=== PATIENT | male | born 1950 | race Caucasian/White ===

== ENCOUNTER 2020-06-02 15:36 | Inpatient (IN) | payer MEDICARE, MEDICAID, SELFPAY ==
[2020-06-02] VITALS (20 sets, daily range): BP systolic 74–134; BP diastolic 42–89; PULSE 70–101; RESP 14–18; TEMP 37.7–38.5; O2SAT 90–99; BMI 23.6
--- NOTE | 2020-06-02 16:23 | XR_ITS ---
EXAMINATION: XR CHEST CLINICAL INFORMATION: Fever COMPARISON: Chest x-ray 10/13/2019 TECHNIQUE: Frontal view of the chest was obtained. FINDINGS: Cardiac silhouette is normal in size. Lungs are well aerated. There is mild central bronchial wall thickening in addition to prominence of the central pulmonary vasculature. No gross lobar consolidation. No pleural effusion or pneumothorax. IMPRESSION: Radiographic findings most suggestive of mild vascular congestion although a viral infiltrate is also within the differential. Clinical correlation recommended. Follow-up imaging recommended status post treatment to ensure resolution.
--- NOTE | 2020-06-02 16:23 | CT_ITS ---
EXAM: Noncontrast CT scan of the head and cervical spine. INDICATION: Fall. Altered mental status. COMPARISON: CT head/cervical spine 12/26/2017 TECHNIQUE: Axial slices were obtained from skull base to vertex and displayed. This was followed by helical, multislice, multidetector axial images from the occiput to the upper thorax. Coronal and sagittal reformats of the cervical spine in addition to coronal reformats of the head were obtained at the technologist workstation. DLP: 1210 mGy-cm FINDINGS: HEAD: There is no evidence of acute intracranial hemorrhage or territorial infarction. No abnormal mass effect or midline shift is appreciated. Bird-white differentiation is well preserved. No extra-axial fluid collections. The ventricular system and cortical sulci are normal in size. There are mild areas of low density in the periventricular and subcortical white matter, most consistent with sequelae of microvascular ischemic change. The osseous structures and soft tissues are normal. Mild mucosal thickening of the frontal sinuses. The visualized paranasal sinuses and mastoid air cells are otherwise well aerated. SPINE: Normal alignment of the cervical spine. Normal C1/C2 articulation. Vertebral body heights are maintained. Disc spaces demonstrate mild narrowing from C3/C4 through C6/C7. Prominent anterior osteophytes are also noted at the levels. There is mild to moderate diffuse facet hypertrophy. No prevertebral soft tissue swelling. Visualized portions of the superior mediastinum and lung apices are unremarkable. IMPRESSION: 1. No acute intracranial pathology. 2. No fractures or dislocations of the cervical spine. This CT examination was performed using dose optimization techniques as appropriate, variously including the following: *Automated exposure control *Adjustment of mA and/or kV according to patient size (this includes techniques or standardized protocols for targeted exams where dose is matched to indication/reason for exam; i.e. extremities or head) *Use of iterative reconstruction technique
--- NOTE | 2020-06-02 16:23 | ECG_ITS ---
Test Reason : EDMD Blood Pressure : / mmHG Vent. Rate : 085 BPM Atrial Rate : 085 BPM P-R Int : 160 ms QRS Dur : 086 ms QT Int : 366 ms P-R-T Axes : 042 -02 046 degrees QTc Int : 435 ms Normal sinus rhythm Normal ECG When compared with ECG of 13-OCT-2019 21:30, No significant change was found Referred By: Marlene De Leon Electronically Signed By:AFSANEH SALMON MD
[2020-06-02 16:40] LABS: Basophils Absolute Auto 0.1 X10*3/uL (0.0-0.2); Basophils Percent Auto 0.2 % (0-2); Hematocrit 43.3 % (42-52); Hemoglobin 14.2 g/dl (14.0-18.0); Imm Gran Abs Auto 0.33 X10*3/uL (0.00-0.03); Imm Gran Pct Auto 1.2 % (0.0-0.4); Lymphocytes Percent Auto 3.7 % (20-40); MANUAL DIFF FLAG SCAN; Mean Corpuscular HGB Conc 32.8 g/dl (31.0-36.0); Mean Corpuscular Hemoglobin 30.5 pg (27.0-33.0); Mean Corpuscular Volume 92.9 fL (80-98); Mean Platelet Volume 11.7 fL (9.4-12.4); Monocytes Absolute Auto 2.7 X10*3/uL (0.1-1.2); Monocytes Percent Auto 9.6 % (2-11); Neutrophils Absolute Auto 23.6 X10*3/uL (2.0-8.3); Neutrophils Percent Auto 85.3 % (45-73); Platelet Count 174 X10*3/uL (160-400); Red Blood Count 4.66 X10*6/uL (4.60-5.80); Red Cell Distribution Width 12.3 % (11.0-16.0); SCAN SMEAR FLAG 1; White Blood Count 27.7 X10*3/uL (4.8-10.8)
--- NOTE | 2020-06-02 16:41 | ED.GENADULT ---
HPI - General Adult General Chief complaint: Fall Stated complaint: fall Time Seen by Provider: 06/02/20 16:15 Source: EMS, RN notes reviewed and old records reviewed Mode of arrival: EMS Limitations: altered mental status History of Present Illness HPI narrative: 69-year-old male with a past medical history of high cholesterol, hypothyroidism, GERD, anemia, BPH, epilepsy, congestive heart failure, spondylosis, hearing loss, IBS, paranoid schizophrenia, dysphagia, CKD here with fall. Per staff the patient was found down in the bathroom. He had an unwitnessed fall. Per staff the floor was wet beneath him. The patient was unable to provide history as to what happened. Unknown how long he was on the ground. When staff was checking him they noted him to be febrile and tachycardic. EMS was called and the patient was brought here. Pt is a full code and has a conservator. Onset (ago): hour(s) Radiation: non-radiation Treatments prior to arrival: none Related Data Home Medications Medication Instructions Recorded Confirmed chlordiazepoxide 5 mg PO BID 06/02/20 06/02/20 chlorhexidine gluconate [Hibiclens] 1 applic TOPICAL DAILY 06/02/20 06/02/20 clotrimazole [Lotrimin AF 1 applic TOPICAL BID 06/02/20 06/02/20 (clotrimazole)] docusate sodium 100 mg PO DAILY 06/02/20 06/02/20 fentanyl 1 patch TRANSDERMAL Q72H 06/02/20 06/02/20 ferrous sulfate 325 mg PO BID 06/02/20 06/02/20 furosemide 20 mg PO Q OTHER DAY 06/02/20 06/02/20 lactulose 60 ml PO DAILY 06/02/20 06/02/20 levetiracetam 1,000 mg PO QAM 06/02/20 06/02/20 levetiracetam 1,500 mg PO BEDTIME 06/02/20 06/02/20 levetiracetam 750 mg PO QNOON 06/02/20 06/02/20 levothyroxine 150 mcg PO DAILY 06/02/20 06/02/20 multivitamin 1 tab PO DAILY 06/02/20 06/02/20 mupirocin 1 applic TOPICAL BID 06/02/20 06/02/20 omeprazole 40 mg PO BID 06/02/20 06/02/20 oxycodone-acetaminophen 1 tab PO TID 06/02/20 06/02/20 polyethylene glycol 3350 [Miralax] 17 g PO DAILY 06/02/20 06/02/20 risperidone 2 mg PO BID 06/02/20 06/02/20 simvastatin 10 mg PO QPM 06/02/20 06/02/20 Allergies Allergy/AdvReac Type Severity Reaction Status Date / Time No Known Allergies Allergy Verified 06/02/20 16:15 [No Known Allergies*] Review of Systems Review of Systems: Yes Unobtainable due to mental status (confusion, history provided by staff at long-term) Constitutional: Constitutional: Reports no additional constitutional complaints, Denies body ache(s), Denies chills, Reports fever(s), Denies headache(s) and Denies weakness Eyes: Eyes: Reports no additional eye complaints and Denies change in vision ENT: Reports system reviewed and no additional complaints, except as documented, Denies dizziness, Denies headache(s), Denies nasal congestion, Denies nasal discharge and Denies neck pain Cardiovascular: Cardiovascular: Reports no additional cardiovascular complaints, Denies chest pain, Denies leg edema and Denies dyspnea Respiratory: Respiratory: Reports no additional respiratory complaints, Denies cough and Denies dyspnea Gastrointestinal: Gastrointestinal: Reports no additional gastrointestinal complaints, Denies abdominal pain, Denies diarrhea, Denies nausea and Denies vomiting Genitourinary: Genitourinary: Denies urinary incontinence Musculoskeletal: Musculoskeletal: Reports no additional musculoskeletal complaints, Denies back pain, Denies arthralgias, Denies joint swelling, Denies neck pain, Denies numbness and Denies tingling Integumentary/Breasts: Skin/Breast: Reports system reviewed and no additional complaints, except as docu and Denies rash Neurologic: Reports system reviewed and no additional complaints, except as documented, Denies Abnormal speech present, Reports confusion, Denies dizziness, Denies headache(s), Denies numbness, Denies tingling and Denies weakness Psychiatric: Psychiatric: Reports confusion PMFSH Past Medical History Attestation statement: The following information was validated with the patient. Source: old records reviewed and nursing notes reviewed Medical History Anemia CHF (congestive heart failure) Chronic GERD Chronic kidney disease (CKD) Hyperlipidemia Hypothyroidism Orofacial dystonia Prostate asymmetry Schizophrenia Social History Social History Alcohol intake: never Smoking Status: Never smoker Use of substances other than those prescribed or required for medical reasons: No Advance Directives: No Advance Directives Information Provided: No Physical Exam Vital Signs: Vital Signs: Vital Signs Temp Pulse Resp BP Pulse Ox 06/02/20 20:23 100.2 F 72 16 93/42 L 97 06/02/20 20:03 80 102/45 L 06/02/20 19:46 99.9 F 84 16 95/59 L 99 06/02/20 19:24 78 06/02/20 19:19 100.2 F 17 L 14 90/56 L 96 06/02/20 18:51 100.2 F 78 14 92/49 L 99 06/02/20 17:48 100.2 F 83 16 105/55 L 96 06/02/20 17:23 100.9 F H 98 18 104/56 L 94 06/02/20 16:56 99 16 93/48 L 06/02/20 15:54 101.3 F H 98 18 89/48 L 92 Body Mass Index 23.6 Const: General: alert, anxious, combative and confusion Orientation/consciousness: confusion Limitations: no limitations HENMT: Head: Yes normal to inspection Ears: hearing grossly normal bilaterally General nose exam: Normal external nose present Face and sinus: Yes normal facial exam Mouth: Normal oral and palatal mucosa present Throat: Yes posterior oropharynx normal Eyes: General: appearance normal, both eyes and all related structures Pupils: Equal, round and reactive pupils present Neck: Neck: Yes normal visual inspection Chest: Chest palpation & inspection: normal inspection of the chest Resp: Effort & Inspection: normal respiratory effort Auscultation: clear to auscultation bilaterally Cardio: Rate: tachycardic (125) Rhythm: regular rhythm Peripheral pulses: Peripheral pulses 2+ throughout GI: Inspection: Yes normal to inspection Palpation (GI): Soft to palpation and nontender Auscultation: normal bowel sounds Back/Spine/Pelvis: Thoracic/Lumbar Spine: thoracic and lumbar spine normal to inspection Pelvis: no pain with anterior-posterior compression and no pain with lateral compression Skin: General skin exam: no rashes or lesions noted Neuro: Other: non-verbal, combative, limited exam d/t patient kicking/punching General: no focal motor deficits, normal sensation to monofilament, confusion and Unable to assess gait Cranial nerves: Yes Equal, round and reactive pupils present Cognition (Neuro): abnormal cognition Speech: No Abnormal speech present Gait exam (Neuro): Unable to assess gait Motor exam (neuro): 5/5 motor strength present throughout Sensory Exam: Normal double simultaneous stimulation for sensation Pupils: Pinpoint: right and left Extrem: General: Yes normal to inspection Course Course Course Narrative: 69-year-old male here from a long-term with unwitnessed fall. On assessment there noted to be febrile, tachycardic with more agitation then baseline. Per staff patient is nonverbal at baseline and has confusion at baseline. on arrival here the patient is febrile and tachycardic. He is combative and is difficult to do an exam on him. He has no obvious injuries noted. Will need labs including blood cultures lactic acid, viral panel, chest x-ray, UA, EKG, CT head and neck. 1829- chest x-ray shows some mild vascular congestion with possibly a viral infiltrate. COVID testing today was negative. additional respiratory panel pending. Labs show a leukocytosis of 27.7. Chemistries unremarkable. UA negative. CT head and neck negative. With fever, tachycardia and leukocytosis there is likely an underlying infectious process however at this time undetermined cause. May be viral pneumonia or syndrome. However cannot completely rule out underlying bacterial process. Antibiotics ordered until additional testing is completed. CT chest, CT abdomen and pelvis ordered and pending. 194-Soft BP noted during stay with current blood pressure 94/39. Fentanyl patch found by nursing and removed. 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 Will give additional NS bolus. Based on weight 83kg patient should receive 30ml/kg of NS with total 2520. Patient's mental status unchanged. Elias placed by nursing and 150ml output. Likely dry and will benefit from additional fluid resuc. 2100-Sign out to Elise GUERRERO pending imaging, further eval and possible LP. Medical Decision Making MDM Narrative Medical decision making narrative: Considered syncope, tachycarrythmia, ICH, contusion, cervical fracture, anemia, electrolyte abnormality, underlying infectious pathology (UTI/PNA/viral syndrome). Lab Data Result diagrams: 06/02/20 16:32 06/02/20 16:32 Labs: Lab Results 06/02/20 06/02/20 06/02/20 Range/Units 16:32 16:32 16:32 WBC 27.7 H (4.8-10.8) X10*3/uL RBC 4.66 (4.60-5.80) X10*6/uL Hgb 14.2 (14.0-18.0) g/dl Hct 43.3 (42-52) % MCV 92.9 (80-98) fL MCH 30.5 (27.0-33.0) pg MCHC 32.8 (31.0-36.0) g/dl RDW 12.3 (11.0-16.0) % Plt Count 174 (160-400) X10*3/uL MPV 11.7 (9.4-12.4) fL Immature Gran % (Auto) 1.2 H (0.0-0.4) % Neut % (Auto) 85.3 H (45-73) % Lymph % (Auto) 3.7 L (20-40) % [place] % (Auto) 9.6 (2-11) % Eos % (Auto) 0.0 (0-4) % Baso % (Auto) 0.2 (0-2) % Lymph # (Auto) 1.0 L (1.2-4.9) X10*3/uL [place] # (Auto) 2.7 H (0.1-1.2) X10*3/uL Eos # (Auto) 0.0 (0.0-0.4) X10*3/uL Baso # (Auto) 0.1 (0.0-0.2) X10*3/uL Abs Immat Gran (auto) 0.33 H (0.00-0.03) X10*3/uL Absolute Neuts (auto) 23.6 H (2.0-8.3) X10*3/uL Absolute Nucleated RBC 0.000 (0.0-0.012) X10*3/uL Nucleated RBC % (auto) 0.0 (0.0-0.2) /100WBC Smear Tech's Comments VERIFIED PT 17.0 H (10.8-13.0) SEC INR 1.4 H (0.9-1.1) Sodium (135-145) mmol/L Potassium (3.3-5.1) mmol/l Chloride (96-108) mmol/L Carbon Dioxide (22-29) mmol/L Anion Gap (12-20) BUN (9-16) mg/dL Creatinine (0.5-1.4) mg/dL Estim Creat Clear Calc Estimated GFR Random Glucose (60-115) mg/dL Lactic Acid (0.5-2.0) mmol/L Calcium (8.4-10.2) mg/dL Magnesium (1.6-2.6) mg/dL Total Bilirubin (0.0-1.0) mg/dL Direct Bilirubin (0.0-0.5) mg/dL AST (5-37) U/L ALT (0-40) U/L Alkaline Phosphatase (39-117) U/L Total Creatine Kinase 186 H (38-174) U/L Troponin I High Sens (<3.5-35.0) ng/L Total Protein (6.5-8.0) g/dL Albumin (3.5-5.0) g/dL Lipase (8-78) U/L Urine Color Urine Appearance Urine pH (5.0-8.0) Ur Specific [place] (1.005-1.025) Urine Protein (NEG-TRACE) MG/DL Urine Glucose (UA) (NEG) MG/DL Urine Ketones (NEG) MG/DL Urine Blood (NEG) Urine Nitrite (NEG) Ur Leukocyte Esterase (NEG) Urine RBC (0) /HPF Urine WBC (0-4) /HPF Ur Squamous Epith Cells /LPF Urine Bacteria /LPF Coronavirus (PCR) (Negative) 06/02/20 06/02/20 06/02/20 Range/Units 16:32 16:32 16:41 WBC (4.8-10.8) X10*3/uL RBC (4.60-5.80) X10*6/uL Hgb (14.0-18.0) g/dl Hct (42-52) % MCV (80-98) fL MCH (27.0-33.0) pg MCHC (31.0-36.0) g/dl RDW (11.0-16.0) % Plt Count (160-400) X10*3/uL MPV (9.4-12.4) fL Immature Gran % (Auto) (0.0-0.4) % Neut % (Auto) (45-73) % Lymph % (Auto) (20-40) % [place] % (Auto) (2-11) % Eos % (Auto) (0-4) % Baso % (Auto) (0-2) % Lymph # (Auto) (1.2-4.9) X10*3/uL [place] # (Auto) (0.1-1.2) X10*3/uL Eos # (Auto) (0.0-0.4) X10*3/uL Baso # (Auto) (0.0-0.2) X10*3/uL Abs Immat Gran (auto) (0.00-0.03) X10*3/uL Absolute Neuts (auto) (2.0-8.3) X10*3/uL Absolute Nucleated RBC (0.0-0.012) X10*3/uL Nucleated RBC % (auto) (0.0-0.2) /100WBC Smear Tech's Comments PT (10.8-13.0) SEC INR (0.9-1.1) Sodium 137 (135-145) mmol/L Potassium 4.0 (3.3-5.1) mmol/l Chloride 102 (96-108) mmol/L Carbon Dioxide 26 (22-29) mmol/L Anion Gap 13 (12-20) BUN 22 H (9-16) mg/dL Creatinine 1.06 (0.5-1.4) mg/dL Estim Creat Clear Calc 77.5 Estimated GFR > 60 Random Glucose 123 H (60-115) mg/dL Lactic Acid 1.5 (0.5-2.0) mmol/L Calcium 9.0 (8.4-10.2) mg/dL Magnesium 1.6 (1.6-2.6) mg/dL Total Bilirubin 1.3 H (0.0-1.0) mg/dL Direct Bilirubin 0.6 H (0.0-0.5) mg/dL AST 26 (5-37) U/L ALT 21 (0-40) U/L Alkaline Phosphatase 79 (39-117) U/L Total Creatine Kinase (38-174) U/L Troponin I High Sens 8.9 (<3.5-35.0) ng/L Total Protein 6.2 L (6.5-8.0) g/dL Albumin 3.7 (3.5-5.0) g/dL Lipase 11 (8-78) U/L Urine Color Urine Appearance Urine pH (5.0-8.0) Ur Specific [place] (1.005-1.025) Urine Protein (NEG-TRACE) MG/DL Urine Glucose (UA) (NEG) MG/DL Urine Ketones (NEG) MG/DL Urine Blood (NEG) Urine Nitrite (NEG) Ur Leukocyte Esterase (NEG) Urine RBC (0) /HPF Urine WBC (0-4) /HPF Ur Squamous Epith Cells /LPF Urine Bacteria /LPF Coronavirus (PCR) (Negative) 06/02/20 06/02/20 Range/Units 16:41 18:17 WBC (4.8-10.8) X10*3/uL RBC (4.60-5.80) X10*6/uL Hgb (14.0-18.0) g/dl Hct (42-52) % MCV (80-98) fL MCH (27.0-33.0) pg MCHC (31.0-36.0) g/dl RDW (11.0-16.0) % Plt Count (160-400) X10*3/uL MPV (9.4-12.4) fL Immature Gran % (Auto) (0.0-0.4) % Neut % (Auto) (45-73) % Lymph % (Auto) (20-40) % [place] % (Auto) (2-11) % Eos % (Auto) (0-4) % Baso % (Auto) (0-2) % Lymph # (Auto) (1.2-4.9) X10*3/uL [place] # (Auto) (0.1-1.2) X10*3/uL Eos # (Auto) (0.0-0.4) X10*3/uL Baso # (Auto) (0.0-0.2) X10*3/uL Abs Immat Gran (auto) (0.00-0.03) X10*3/uL Absolute Neuts (auto) (2.0-8.3) X10*3/uL Absolute Nucleated RBC (0.0-0.012) X10*3/uL Nucleated RBC % (auto) (0.0-0.2) /100WBC Smear Tech's Comments PT (10.8-13.0) SEC INR (0.9-1.1) Sodium (135-145) mmol/L Potassium (3.3-5.1) mmol/l Chloride (96-108) mmol/L Carbon Dioxide (22-29) mmol/L Anion Gap (12-20) BUN (9-16) mg/dL Creatinine (0.5-1.4) mg/dL Estim Creat Clear Calc Estimated GFR Random Glucose (60-115) mg/dL Lactic Acid (0.5-2.0) mmol/L Calcium (8.4-10.2) mg/dL Magnesium (1.6-2.6) mg/dL Total Bilirubin (0.0-1.0) mg/dL Direct Bilirubin (0.0-0.5) mg/dL AST (5-37) U/L ALT (0-40) U/L Alkaline Phosphatase (39-117) U/L Total Creatine Kinase (38-174) U/L Troponin I High Sens (<3.5-35.0) ng/L Total Protein (6.5-8.0) g/dL Albumin (3.5-5.0) g/dL Lipase (8-78) U/L Urine Color YELLOW Urine Appearance HAZY Urine pH 5.5 (5.0-8.0) Ur Specific [place] 1.015 (1.005-1.025) Urine Protein NEG (NEG-TRACE) MG/DL Urine Glucose (UA) NEG (NEG) MG/DL Urine Ketones NEG (NEG) MG/DL Urine Blood 1+ H (NEG) Urine Nitrite NEG (NEG) Ur Leukocyte Esterase 1+ H (NEG) Urine RBC 0 (0) /HPF Urine WBC 5-9 H (0-4) /HPF Ur Squamous Epith Cells 1+ /LPF Urine Bacteria 1+ /LPF Coronavirus (PCR) NEGATIVE (Negative) Imaging Data Chest x-ray: Attestation: I personally reviewed and interpreted this imaging study as follows: My impression: ?vascular congestion vs viral infiltrate Radiologist's impression: EXAMINATION: XR CHEST CLINICAL INFORMATION: Fever COMPARISON: Chest x-ray 10/13/2019 TECHNIQUE: Frontal view of the chest was obtained. FINDINGS: Cardiac silhouette is normal in size. Lungs are well aerated. There is mild central bronchial wall thickening in addition to prominence of the central pulmonary vasculature. No gross lobar consolidation. No pleural effusion or pneumothorax. IMPRESSION: Radiographic findings most suggestive of mild vascular congestion although a viral infiltrate is also within the differential. Clinical correlation recommended. Follow-up imaging recommended status post treatment to ensure resolution. CT scan - head: Attestation: I personally reviewed and interpreted this imaging study as follows: My impression: Unremarkable. Radiologist's impression: IMPRESSION: 1. No acute intracranial pathology. 2. No fractures or dislocations of the cervical spine. ECG Data Attestation: I personally reviewed and interpreted this ECG as follows: Prior ECG tracings: available for review Interpretation: ent. Rate : 085 BPM Atrial Rate : 085 BPM P-R Int : 160 ms QRS Dur : 086 ms QT Int : 366 ms P-R-T Axes : 042 -02 046 degrees QTc Int : 435 ms Normal sinus rhythm Normal ECG When compared with ECG of 13-OCT-2019 21:30, No significant change was found Discharge Plan Discharge Prescriptions: No Action chlordiazepoxide 5 mg Tablet 5 mg PO BID RF: 0 multivitamin Tablet 1 tab PO DAILY RF: 0 polyethylene glycol 3350 [Miralax] 17 gram Powder In Packet 17 g PO DAILY RF: 0 simvastatin 10 mg Tablet 10 mg PO QPM RF: 0 omeprazole 40 mg Capsule,Delayed Release(Dr/Ec) 40 mg PO BID RF: 0 risperidone 2 mg Tablet 2 mg PO BID RF: 0 fentanyl 100 mcg/hr Patch 72 Hour 1 patch TRANSDERMAL Q72H RF: 0 oxycodone-acetaminophen 10-325 mg Tablet 1 tab PO TID RF: 0 ferrous sulfate 325 mg (65 mg iron) Tablet 325 mg PO BID RF: 0 levothyroxine 150 mcg Tablet 150 mcg PO DAILY RF: 0 docusate sodium 100 mg Capsule 100 mg PO DAILY RF: 0 levetiracetam 750 mg Tablet 750 mg PO QNOON RF: 0 levetiracetam 750 mg Tablet 1,500 mg PO BEDTIME RF: 0 mupirocin 2 % Ointment 1 applic TOPICAL BID RF: 0 furosemide 20 mg Tablet 20 mg PO Q OTHER DAY RF: 0 clotrimazole [Lotrimin AF (clotrimazole)] 1 % Cream 1 applic TOPICAL BID RF: 0 chlorhexidine gluconate [Hibiclens] 4 % Liquid 1 applic TOPICAL DAILY RF: 0 lactulose 10 gram/15 mL Solution 60 ml PO DAILY RF: 0 levetiracetam 1,000 mg Tablet 1,000 mg PO QAM RF: 0 Sign Out Sign Out Data: Sign Out Comment: Pending CT, possible further w/u and admit as needed Last updated by Marlene De Leon STAFF FORESTER at 06/02/20 20:54
[2020-06-02 16:45] LABS: INTERNATIONAL NORM RATIO 1.4 (0.9-1.1)
[2020-06-02 16:49] LABS: Adenovirus PCR Not Detected (Not Detect.); Bordetella parapertussis PCR Not Detected (Not Detect.); Bordetella pertussis PCR Not Detected (Not Detect.); Chlamydia pneumoniae PCR Not Detected (Not Detect.); Coronavirus 229E PCR Not Detected (Not Detect.); Coronavirus HKU1 PCR Not Detected (Not Detect.); Coronavirus NL63 PCR Not Detected (Not Detect.); Coronavirus OC43 PCR Not Detected (Not Detect.); Human metapneumovirus PCR Not Detected (Not Detect.); Influenza A PCR Not Detected (Not Detect.); Influenza B PCR Not Detected (Not Detect.); Mycoplasma pneumoniae PCR Not Detected (Not Detect.); Parainfluenza 1 PCR Not Detected (Not Detect.); Parainfluenza 2 PCR Not Detected (Not Detect.); Parainfluenza 3 PCR Not Detected (Not Detect.); Parainfluenza 4 PCR Not Detected (Not Detect.); RSV PCR Not Detected (Not Detect.); Rhino/Enterovirus PCR Not Detected (Not Detect.); SARS-CoV-2 PCR Not Detected (Not Detect.)
[2020-06-02 16:50] LABS: Glucose Urine UA NEG (NEG); Leukocyte Esterase Urine 1+ (NEG); Nitrite Urine NEG (NEG); PH 5.5 (5.0-8.0); Specific Gravity - Urine 1.015 (1.005-1.025); Urine Blood 1+ (NEG); Urine Ketones NEG (NEG); Urine Protein NEG (NEG-TRACE)
--- NOTE | 2020-06-02 16:54 | PC.NURSE ---
CALLED [facility] SPOKE WITH NURSING STAFF AND SUP PT DOES NOT HAVE A MASS MOLST ON FILE CHART NOTES PT IS A FULL CODE ALEE ELISE IS AWARE
[2020-06-02 16:55] LABS: Appearance Urine HAZY; Color Urine YELLOW
[2020-06-02 16:59] LABS: Bacteria Urine 1+ /LPF; RBC Urine 0 /HPF (0); Squamous Epithelial Cell Urine 1+ /LPF
[2020-06-02] MEDS: 0.9 % Sodium Chloride 1,000 ML 999 ML IV ×2 (17:00→19:18)
[2020-06-02 17:01] LABS: SLIDE REVIEW VERIFIED
[2020-06-02 17:04] LABS: Lactic Acid 1.5 mmol/L (0.5-2.0)
[2020-06-02 17:10] LABS: Alanine Aminotransferase 21 U/L (0-40); Albumin Level 3.7 g/dL (3.5-5.0); Alkaline Phosphatase 79 U/L (39-117); Anion Gap 13 (12-20); Aspartate Amino Transferase 26 U/L (5-37); Bilirubin Direct 0.6 mg/dL (0.0-0.5); Bilirubin Total 1.3 mg/dL (0.0-1.0); Blood Urea Nitrogen 22 mg/dL (9-16); Carbon Dioxide 26 mmol/L (22-29); Chloride 102 mmol/L (96-108); Creatinine Clr Calc Pharmacy 77.5; Estimated Glomerular Filt Rate > 60; Glucose Random 123 mg/dL (60-115); Lipase 11 U/L (8-78); Magnesium 1.6 mg/dL (1.6-2.6); Sodium 137 mmol/L (135-145); Total Protein 6.2 g/dL (6.5-8.0)
[2020-06-02 17:14] LABS: Troponin-I High Sensitivity 8.9 ng/L (<3.5-35.0)
--- NOTE | 2020-06-02 18:29 | CT_ITS ---
EXAMINATION: NONCONTRAST CT OF THE CHEST; CONTRAST-ENHANCED CT OF THE ABDOMEN AND PELVIS INDICATION: Fever, sepsis, altered mental status COMPARISON: Chest x-ray from earlier today TECHNIQUE: Initial noncontrast imaging of the chest was performed. 85 mL Omnipaque 350 IV contrast was been administered, and multidetector helical imaging was performed through the abdomen and pelvis. Coronal and sagittal reformatted images were created at the technologist workstation. DLP: 941 mGy-cm DOSE LOWERING TECHNIQUES: This CT examination was performed using dose optimization techniques as appropriate, variously including the following: - Automated exposure control - Adjustment of mA and/or kV according to patient size (this includes techniques or standardized protocols for targeted exams were dose is matched to indication/reason for exam; i.e. extremities or head) - Use of iterative reconstruction technique FINDINGS: Chest: Endobronchial material is present at the left mainstem bronchus bifurcation in the proximal left lower lobe airways. There is dependent opacity in the bilateral lower lobes, which could reflect of aspiration in the setting. Limited assessment for lung nodules in the setting of respiratory motion artifact. Possible trace left pleural effusion. No pneumothorax. The visualized thyroid gland is unremarkable. There are subcentimeter mediastinal lymph nodes within the range of normal variation. Cardiac size is within normal limits; no pericardial effusion. Calcification is present at the aortic arch. No axillary lymphadenopathy is present. Abdomen/Pelvis: There is intrahepatic and extrahepatic biliary ductal dilatation with the common bile duct measuring up to approximately 10 mm in diameter; this appears similar to prior study from 01/31/2015. Multiple gallstones are present; no discrete choledocholithiasis is seen. There is focal thickening at the gallbladder fundus, also present previously. Pancreas is partially atrophic. The spleen and adrenal glands are within normal limits. Bilateral nephrograms are symmetric. No hydronephrosis. No obstructing renal or ureteral calculi are present. Elias catheter is present in the partially distended urinary bladder. Focus of gas in the bladder is presumably due to recent catheter placement. The prostate gland is enlarged, measuring 6.3 cm in transverse diameter. The small and large bowel are unremarkable without evidence of obstruction or pericolonic inflammatory change. Appendix appears nondilated. No free fluid or free air is identified. There is atherosclerotic calcification along the aorta and iliac arteries. No retroperitoneal or pelvic lymphadenopathy is seen. There is severe degenerative change in the lower lumbar spine. IMPRESSION: 1. Endobronchial material in the left mainstem bronchus bifurcation and proximal left lower lobe airways. There is also dependent opacity in the bilateral lung bases, raising suspicion for aspiration. 2. Intrahepatic and extrahepatic biliary ductal dilatation, similar to 01/31/2015. This could be further assessed with MRI/MRCP or ERCP. Cholelithiasis is also redemonstrated. 3. Focal thickening at the gallbladder fundus is again noted, which could reflect adenomyomatosis or polyp. 4. Enlarged prostate gland.
[2020-06-02] MEDS: cefTRIAXone sodium 1 GM in 0.9 % Sodium Chloride 50 ML IV (18:51)
--- NOTE | 2020-06-02 19:13 | PC.NURSE ---
iv antibiotic started by this float rn, pt stable and at baseline for mentation. pt in nad, fever 100.2 core
[2020-06-02 19:15] LABS: SARS COV2 PCR INHOUSE NEGATIVE (Negative)
--- NOTE | 2020-06-02 19:28 | PC.NURSE ---
Upon arrival pt combative with care, attempting to hit/kick/scratch staff members. Pt b/l pupils dilated, fentayl patch on r shoulder from facility at 100mcg.
--- NOTE | 2020-06-02 19:46 | PC.NURSE ---
fent. patch removed as ordered by jessica haley.
[2020-06-02] MEDS: 0.9 % Sodium Chloride 500 ML 999 ML IV (20:33)
--- NOTE | 2020-06-02 22:06 | PC.NURSE ---
provider aware of bp, v/o for 1l ns
--- NOTE | 2020-06-02 22:35 | PC.NURSE ---
pt medicated per emar w/ ketamine for anxiety and agitation r/t central line placement.
--- NOTE | 2020-06-02 22:43 | XR_ITS ---
EXAMINATION: XR CHEST CLINICAL INFORMATION: Central line COMPARISON: 06/02/2020 TECHNIQUE: Frontal view of the chest was obtained. FINDINGS: Right IJ central line tip lies in the region of the distal SVC. Lung volumes are symmetric. Mild regions of patchy opacity are noted at the bilateral lung bases. No evidence of pneumothorax or significant pleural effusion. The cardiomediastinal contour is unremarkable. No acute osseous findings are seen. IMPRESSION: Right IJ central line tip in the region of the distal SVC. Mild patchy bibasilar opacities.
[2020-06-02] MEDS: iohexoL 350 MG/ML 100 ML INFUS..BTL 85 ML IV (23:49)
[2020-06-03] VITALS (54 sets, daily range): BP systolic 84–146; BP diastolic 40–84; PULSE 52–106; RESP 14–26; TEMP 37.2–39.7; O2SAT 91–98; BMI 23.2
--- NOTE | 2020-06-03 00:58 | ED_ITS ---
HPI - General Adult General Chief complaint: Fall Stated complaint: fall Time Seen by Provider: 06/02/20 16:15 Source: EMS, RN notes reviewed and old records reviewed Mode of arrival: EMS Limitations: altered mental status History of Present Illness Treatments prior to arrival: none Related Data Home Medications Medication Instructions Recorded Confirmed chlordiazepoxide 5 mg PO BID 06/02/20 06/02/20 chlorhexidine gluconate [Hibiclens] 1 applic TOPICAL DAILY 06/02/20 06/02/20 clotrimazole [Lotrimin AF 1 applic TOPICAL BID 06/02/20 06/02/20 (clotrimazole)] docusate sodium 100 mg PO DAILY 06/02/20 06/02/20 fentanyl 1 patch TRANSDERMAL Q72H 06/02/20 06/02/20 ferrous sulfate 325 mg PO BID 06/02/20 06/02/20 furosemide 20 mg PO Q OTHER DAY 06/02/20 06/02/20 lactulose 60 ml PO DAILY 06/02/20 06/02/20 levetiracetam 1,000 mg PO QAM 06/02/20 06/02/20 levetiracetam 1,500 mg PO BEDTIME 06/02/20 06/02/20 levetiracetam 750 mg PO QNOON 06/02/20 06/02/20 levothyroxine 150 mcg PO DAILY 06/02/20 06/02/20 multivitamin 1 tab PO DAILY 06/02/20 06/02/20 mupirocin 1 applic TOPICAL BID 06/02/20 06/02/20 omeprazole 40 mg PO BID 06/02/20 06/02/20 oxycodone-acetaminophen 1 tab PO TID 06/02/20 06/02/20 polyethylene glycol 3350 [Miralax] 17 g PO DAILY 06/02/20 06/02/20 risperidone 2 mg PO BID 06/02/20 06/02/20 simvastatin 10 mg PO QPM 06/02/20 06/02/20 Allergies Allergy/AdvReac Type Severity Reaction Status Date / Time No Known Allergies Allergy Verified 06/02/20 16:15 [No Known Allergies*] Review of Systems Constitutional: Constitutional: Denies headache(s) and Denies weakness ENT: Denies dizziness and Denies headache(s) Musculoskeletal: Musculoskeletal: Denies numbness and Denies tingling Neurologic: Reports system reviewed and no additional complaints, except as documented, Denies Abnormal speech present, Reports confusion, Denies dizziness, Denies headache(s), Denies numbness, Denies tingling and Denies weakness Psychiatric: Psychiatric: Reports confusion PMFSH Past Medical History Medical History Anemia CHF (congestive heart failure) Chronic GERD Chronic kidney disease (CKD) Hyperlipidemia Hypothyroidism Orofacial dystonia Prostate asymmetry Schizophrenia Social History Social History Alcohol intake: never Smoking Status: Never smoker Use of substances other than those prescribed or required for medical reasons: No Advance Directives: No Advance Directives Information Provided: No Physical Exam Vital Signs: Vital Signs: Vital Signs Temp Pulse Resp BP Pulse Ox 06/03/20 00:48 99.6 F 80 14 91/51 L 95 06/03/20 00:06 99.9 F 73 16 98/44 L 95 06/02/20 23:54 76 97/45 L 06/02/20 23:49 76 97/45 L 06/02/20 23:44 84 134/49 L 06/02/20 22:53 100.0 F 78 16 99/53 L 98 06/02/20 22:11 71 74/45 L 06/02/20 22:05 100.4 F 73 16 95/54 L 95 06/02/20 22:03 100.4 F 70 75/44 L 06/02/20 21:59 100.4 F 83 15 95/53 L 96 06/02/20 21:26 100.8 F H 72 16 93/45 L 06/02/20 21:04 100.6 F H 83 16 115/89 96 06/02/20 20:23 100.2 F 72 16 93/42 L 97 06/02/20 20:03 80 102/45 L 06/02/20 19:46 99.9 F 84 16 95/59 L 99 06/02/20 19:24 78 06/02/20 19:19 100.2 F 71 14 90/56 L 96 06/02/20 18:51 100.2 F 78 14 92/49 L 99 06/02/20 17:48 100.2 F 83 16 105/55 L 96 06/02/20 17:23 100.9 F H 98 18 104/56 L 94 06/02/20 16:56 99 16 93/48 L 06/02/20 15:54 101.3 F H 98 18 89/48 L 92 Body Mass Index 23.6 Const: General: confusion Orientation/consciousness: confusion Neuro: General: confusion Speech: No Abnormal speech present Course Course Course Narrative: I received sign-out from GOSIA De Leon, patient has been havin g a fever, white blood cell count of 27.7, lactic acid is 1.5. At the moment, it is unclear the source of the patient's infection. Patient has CT of the chest and abdomen pelvis pending. Patient's blood pressure dropped to the 70 systolic despite fluids, we will go ahead and insert a central line Procedures Central Line Placement Right IJ: Time Out Performed: Yes Patient Placed on Monitor/Pulse Ox: Yes MD Prep: mask, gown and gloves Central Line Prep: Chlorhexidine scrub Local Anesthetic: lidocaine 1% Amount of anesthesia used (mL): 5 Ultrasound Used for Placement: Yes Central Line Lumen Inserted: triple Post Procedure: sutured in place, good blood return, all ports aspirated, flushed, capped and sterile dressing applied Post Procedure X-Ray: tip of catheter in good position and no pneumothorax seen Patient Tolerated Procedure: well and no complications Complications: none Medical Decision Making MDM Narrative Medical decision making narrative: focused exam at 12:30, patient's blood pressure improved to the mid 90s systolic, heart rate 68, capillary refill less than 2 seconds I discussed the patient our finishing range feeder Dr. Borja, patient will be admitted to the ICU Lab Data Result diagrams: 06/02/20 16:32 06/02/20 16:32 Labs: Lab Results 06/02/20 06/02/20 06/02/20 Range/Units 16:32 16:32 16:32 WBC 27.7 H (4.8-10.8) X10*3/uL RBC 4.66 (4.60-5.80) X10*6/uL Hgb 14.2 (14.0-18.0) g/dl Hct 43.3 (42-52) % MCV 92.9 (80-98) fL MCH 30.5 (27.0-33.0) pg MCHC 32.8 (31.0-36.0) g/dl RDW 12.3 (11.0-16.0) % Plt Count 174 (160-400) X10*3/uL MPV 11.7 (9.4-12.4) fL Immature Gran % (Auto) 1.2 H (0.0-0.4) % Neut % (Auto) 85.3 H (45-73) % Lymph % (Auto) 3.7 L (20-40) % [place] % (Auto) 9.6 (2-11) % Eos % (Auto) 0.0 (0-4) % Baso % (Auto) 0.2 (0-2) % Lymph # (Auto) 1.0 L (1.2-4.9) X10*3/uL [place] # (Auto) 2.7 H (0.1-1.2) X10*3/uL Eos # (Auto) 0.0 (0.0-0.4) X10*3/uL Baso # (Auto) 0.1 (0.0-0.2) X10*3/uL Abs Immat Gran (auto) 0.33 H (0.00-0.03) X10*3/uL Absolute Neuts (auto) 23.6 H (2.0-8.3) X10*3/uL Absolute Nucleated RBC 0.000 (0.0-0.012) X10*3/uL Nucleated RBC % (auto) 0.0 (0.0-0.2) /100WBC Smear Tech's Comments VERIFIED PT 17.0 H (10.8-13.0) SEC INR 1.4 H (0.9-1.1) Sodium (135-145) mmol/L Potassium (3.3-5.1) mmol/l Chloride (96-108) mmol/L Carbon Dioxide (22-29) mmol/L Anion Gap (12-20) BUN (9-16) mg/dL Creatinine (0.5-1.4) mg/dL Estim Creat Clear Calc Estimated GFR Random Glucose (60-115) mg/dL Lactic Acid (0.5-2.0) mmol/L Calcium (8.4-10.2) mg/dL Magnesium (1.6-2.6) mg/dL Total Bilirubin (0.0-1.0) mg/dL Direct Bilirubin (0.0-0.5) mg/dL AST (5-37) U/L ALT (0-40) U/L Alkaline Phosphatase (39-117) U/L Total Creatine Kinase 186 H (38-174) U/L Troponin I High Sens (<3.5-35.0) ng/L Total Protein (6.5-8.0) g/dL Albumin (3.5-5.0) g/dL Lipase (8-78) U/L Urine Color Urine Appearance Urine pH (5.0-8.0) Ur Specific [place] (1.005-1.025) Urine Protein (NEG-TRACE) MG/DL Urine Glucose (UA) (NEG) MG/DL Urine Ketones (NEG) MG/DL Urine Blood (NEG) Urine Nitrite (NEG) Ur Leukocyte Esterase (NEG) Urine RBC (0) /HPF Urine WBC (0-4) /HPF Ur Squamous Epith Cells /LPF Urine Bacteria /LPF Coronavirus (PCR) (Negative) 06/02/20 06/02/20 06/02/20 Range/Units 16:32 16:32 16:41 WBC (4.8-10.8) X10*3/uL RBC (4.60-5.80) X10*6/uL Hgb (14.0-18.0) g/dl Hct (42-52) % MCV (80-98) fL MCH (27.0-33.0) pg MCHC (31.0-36.0) g/dl RDW (11.0-16.0) % Plt Count (160-400) X10*3/uL MPV (9.4-12.4) fL Immature Gran % (Auto) (0.0-0.4) % Neut % (Auto) (45-73) % Lymph % (Auto) (20-40) % [place] % (Auto) (2-11) % Eos % (Auto) (0-4) % Baso % (Auto) (0-2) % Lymph # (Auto) (1.2-4.9) X10*3/uL [place] # (Auto) (0.1-1.2) X10*3/uL Eos # (Auto) (0.0-0.4) X10*3/uL Baso # (Auto) (0.0-0.2) X10*3/uL Abs Immat Gran (auto) (0.00-0.03) X10*3/uL Absolute Neuts (auto) (2.0-8.3) X10*3/uL Absolute Nucleated RBC (0.0-0.012) X10*3/uL Nucleated RBC % (auto) (0.0-0.2) /100WBC Smear Tech's Comments PT (10.8-13.0) SEC INR (0.9-1.1) Sodium 137 (135-145) mmol/L Potassium 4.0 (3.3-5.1) mmol/l Chloride 102 (96-108) mmol/L Carbon Dioxide 26 (22-29) mmol/L Anion Gap 13 (12-20) BUN 22 H (9-16) mg/dL Creatinine 1.06 (0.5-1.4) mg/dL Estim Creat Clear Calc 77.5 Estimated GFR > 60 Random Glucose 123 H (60-115) mg/dL Lactic Acid 1.5 (0.5-2.0) mmol/L Calcium 9.0 (8.4-10.2) mg/dL Magnesium 1.6 (1.6-2.6) mg/dL Total Bilirubin 1.3 H (0.0-1.0) mg/dL Direct Bilirubin 0.6 H (0.0-0.5) mg/dL AST 26 (5-37) U/L ALT 21 (0-40) U/L Alkaline Phosphatase 79 (39-117) U/L Total Creatine Kinase (38-174) U/L Troponin I High Sens 8.9 (<3.5-35.0) ng/L Total Protein 6.2 L (6.5-8.0) g/dL Albumin 3.7 (3.5-5.0) g/dL Lipase 11 (8-78) U/L Urine Color Urine Appearance Urine pH (5.0-8.0) Ur Specific [place] (1.005-1.025) Urine Protein (NEG-TRACE) MG/DL Urine Glucose (UA) (NEG) MG/DL Urine Ketones (NEG) MG/DL Urine Blood (NEG) Urine Nitrite (NEG) Ur Leukocyte Esterase (NEG) Urine RBC (0) /HPF Urine WBC (0-4) /HPF Ur Squamous Epith Cells /LPF Urine Bacteria /LPF Coronavirus (PCR) (Negative) 06/02/20 06/02/20 Range/Units 16:41 18:17 WBC (4.8-10.8) X10*3/uL RBC (4.60-5.80) X10*6/uL Hgb (14.0-18.0) g/dl Hct (42-52) % MCV (80-98) fL MCH (27.0-33.0) pg MCHC (31.0-36.0) g/dl RDW (11.0-16.0) % Plt Count (160-400) X10*3/uL MPV (9.4-12.4) fL Immature Gran % (Auto) (0.0-0.4) % Neut % (Auto) (45-73) % Lymph % (Auto) (20-40) % [place] % (Auto) (2-11) % Eos % (Auto) (0-4) % Baso % (Auto) (0-2) % Lymph # (Auto) (1.2-4.9) X10*3/uL [place] # (Auto) (0.1-1.2) X10*3/uL Eos # (Auto) (0.0-0.4) X10*3/uL Baso # (Auto) (0.0-0.2) X10*3/uL Abs Immat Gran (auto) (0.00-0.03) X10*3/uL Absolute Neuts (auto) (2.0-8.3) X10*3/uL Absolute Nucleated RBC (0.0-0.012) X10*3/uL Nucleated RBC % (auto) (0.0-0.2) /100WBC Smear Tech's Comments PT (10.8-13.0) SEC INR (0.9-1.1) Sodium (135-145) mmol/L Potassium (3.3-5.1) mmol/l Chloride (96-108) mmol/L Carbon Dioxide (22-29) mmol/L Anion Gap (12-20) BUN (9-16) mg/dL Creatinine (0.5-1.4) mg/dL Estim Creat Clear Calc Estimated GFR Random Glucose (60-115) mg/dL Lactic Acid (0.5-2.0) mmol/L Calcium (8.4-10.2) mg/dL Magnesium (1.6-2.6) mg/dL Total Bilirubin (0.0-1.0) mg/dL Direct Bilirubin (0.0-0.5) mg/dL AST (5-37) U/L ALT (0-40) U/L Alkaline Phosphatase (39-117) U/L Total Creatine Kinase (38-174) U/L Troponin I High Sens (<3.5-35.0) ng/L Total Protein (6.5-8.0) g/dL Albumin (3.5-5.0) g/dL Lipase (8-78) U/L Urine Color YELLOW Urine Appearance HAZY Urine pH 5.5 (5.0-8.0) Ur Specific [place] 1.015 (1.005-1.025) Urine Protein NEG (NEG-TRACE) MG/DL Urine Glucose (UA) NEG (NEG) MG/DL Urine Ketones NEG (NEG) MG/DL Urine Blood 1+ H (NEG) Urine Nitrite NEG (NEG) Ur Leukocyte Esterase 1+ H (NEG) Urine RBC 0 (0) /HPF Urine WBC 5-9 H (0-4) /HPF Ur Squamous Epith Cells 1+ /LPF Urine Bacteria 1+ /LPF Coronavirus (PCR) NEGATIVE (Negative) Discharge Plan Discharge Clinical Impression: Aspiration pneumonia Patient Disposition: Admitted As Inpatient Prescriptions: No Action chlordiazepoxide 5 mg Tablet 5 mg PO BID RF: 0 multivitamin Tablet 1 tab PO DAILY RF: 0 polyethylene glycol 3350 [Miralax] 17 gram Powder In Packet 17 g PO DAILY RF: 0 simvastatin 10 mg Tablet 10 mg PO QPM RF: 0 omeprazole 40 mg Capsule,Delayed Release(Dr/Ec) 40 mg PO BID RF: 0 risperidone 2 mg Tablet 2 mg PO BID RF: 0 fentanyl 100 mcg/hr Patch 72 Hour 1 patch TRANSDERMAL Q72H RF: 0 oxycodone-acetaminophen 10-325 mg Tablet 1 tab PO TID RF: 0 ferrous sulfate 325 mg (65 mg iron) Tablet 325 mg PO BID RF: 0 levothyroxine 150 mcg Tablet 150 mcg PO DAILY RF: 0 docusate sodium 100 mg Capsule 100 mg PO DAILY RF: 0 levetiracetam 750 mg Tablet 750 mg PO QNOON RF: 0 levetiracetam 750 mg Tablet 1,500 mg PO BEDTIME RF: 0 mupirocin 2 % Ointment 1 applic TOPICAL BID RF: 0 furosemide 20 mg Tablet 20 mg PO Q OTHER DAY RF: 0 clotrimazole [Lotrimin AF (clotrimazole)] 1 % Cream 1 applic TOPICAL BID RF: 0 chlorhexidine gluconate [Hibiclens] 4 % Liquid 1 applic TOPICAL DAILY RF: 0 lactulose 10 gram/15 mL Solution 60 ml PO DAILY RF: 0 levetiracetam 1,000 mg Tablet 1,000 mg PO QAM RF: 0 Sign Out Sign Out Data: Sign Out Comment: Pending CT, possible further w/u and admit as needed Last updated by Marlene De Leon NP at 06/02/20 20:54
--- NOTE | 2020-06-03 01:01 | PC.NURSE ---
Per v/o Md west to resume levophed at 0.1mcg/kg/hr for systolis <90. see mar for titration. pt sleeping on and off, easily agitated when awoken.
--- NOTE | 2020-06-03 01:57 | P.HPCC_ITS ---
History of Present Illness Date of Service: 06/03/20 Chief Complaint: Fall The patient is a 69-year-old male with a past medical history of systolic congestive heart failure, chronic kidney disease stage 3, BPH, hyperlipidemia, GERD, paranoid schizophrenia, hypothyroidism, chronic back pain and epilepsy Who was brought to the emergency department after sustaining a fall at [facility]. EMS reported that patient sustained a fall at the facility due to a wet floor, but it was noted that the patient had a temperature of 103.1 with a pulse of 124. While in the ED patient patient was confused and combative, blood pressure decreased to 74/45 with T-max 100.8. Laboratory data significant for WBC of 27.7 with lymphocytopenia. Chemistry profile otherwise unremarkable. ED course consist of administration of 2.5 L of fluid, ceftriaxone 1 g, ketamine 50 mg, and initiation of Levophed. Review of Systems Review of Systems: unable to perform review of system due to patient baseline confusion Constitutional: Constitutional: Denies headache(s) and Denies weakness ENT: Denies dizziness and Denies headache(s) Musculoskeletal: Musculoskeletal: Denies numbness and Denies tingling Neurologic: Reports system reviewed and no additional complaints, except as documented, Denies Abnormal speech present, Reports confusion, Denies dizziness, Denies headache(s), Denies numbness, Denies tingling and Denies weakness Psychiatric: Psychiatric: Reports confusion PMFSH Past Medical History Medical History (Updated 06/03/20 @ 02:30 by Lio Pickett) Anemia CHF (congestive heart failure) Chronic GERD Chronic kidney disease (CKD) Hyperlipidemia Hypothyroidism Orofacial dystonia Prostate asymmetry Schizophrenia Family History Pertinent family history: per previous notes in chart, no medical illnesses are known Social History Social History Alcohol intake: never Smoking Status: Never smoker Use of substances other than those prescribed or required for medical reasons: No Advance Directives: No Advance Directives Information Provided: No Meds Allergies Allergy/AdvReac Type Severity Reaction Status Date / Time No Known Allergies Allergy Verified 06/02/20 16:15 [No Known Allergies*] Home Medications Medication Instructions Recorded Confirmed Type chlordiazepoxide 5 mg PO BID 06/02/20 06/02/20 History chlorhexidine gluconate [Hibiclens] 1 applic TOPICAL DAILY 06/02/20 06/02/20 History clotrimazole [Lotrimin AF 1 applic TOPICAL BID 06/02/20 06/02/20 History (clotrimazole)] docusate sodium 100 mg PO DAILY 06/02/20 06/02/20 History fentanyl 1 patch TRANSDERMAL Q72H 06/02/20 06/02/20 History ferrous sulfate 325 mg PO BID 06/02/20 06/02/20 History furosemide 20 mg PO Q OTHER DAY 06/02/20 06/02/20 History lactulose 60 ml PO DAILY 06/02/20 06/02/20 History levetiracetam 1,000 mg PO QAM 06/02/20 06/02/20 History levetiracetam 1,500 mg PO BEDTIME 06/02/20 06/02/20 History levetiracetam 750 mg PO QNOON 06/02/20 06/02/20 History levothyroxine 150 mcg PO DAILY 06/02/20 06/02/20 History multivitamin 1 tab PO DAILY 06/02/20 06/02/20 History mupirocin 1 applic TOPICAL BID 06/02/20 06/02/20 History omeprazole 40 mg PO BID 06/02/20 06/02/20 History oxycodone-acetaminophen 1 tab PO TID 06/02/20 06/02/20 History polyethylene glycol 3350 [Miralax] 17 g PO DAILY 06/02/20 06/02/20 History risperidone 2 mg PO BID 06/02/20 06/02/20 History simvastatin 10 mg PO QPM 06/02/20 06/02/20 History Physical Exam Vital Signs: Vital Signs: Vital Signs Temp Pulse Resp BP Pulse Ox 06/03/20 01:43 14 97 06/03/20 01:29 99.7 F 52 14 109/50 L 98 06/03/20 00:59 66 84/48 L 06/03/20 00:48 99.6 F 80 14 91/51 L 95 06/03/20 00:06 99.9 F 73 16 98/44 L 95 06/02/20 23:54 76 97/45 L 06/02/20 23:49 76 97/45 L 06/02/20 23:44 84 134/49 L 06/02/20 22:53 100.0 F 78 16 99/53 L 98 06/02/20 22:11 71 74/45 L 06/02/20 22:05 100.4 F 73 16 95/54 L 95 06/02/20 22:03 100.4 F 70 75/44 L 06/02/20 21:59 100.4 F 83 15 95/53 L 96 06/02/20 21:26 100.8 F H 72 16 93/45 L 06/02/20 21:04 100.6 F H 83 16 115/89 96 06/02/20 20:23 100.2 F 72 16 93/42 L 97 06/02/20 20:03 80 102/45 L 06/02/20 19:46 99.9 F 84 16 95/59 L 99 06/02/20 19:24 78 06/02/20 19:19 100.2 F 71 14 90/56 L 96 06/02/20 18:51 100.2 F 78 14 92/49 L 99 06/02/20 17:48 100.2 F 83 16 105/55 L 96 06/02/20 17:23 100.9 F H 98 18 104/56 L 94 06/02/20 16:56 99 16 93/48 L 06/02/20 15:54 101.3 F H 98 18 89/48 L 92 Body Mass Index 23.6 Const: General: confusion and lethargic Orientation/consciousness: confusion and lethargic Limitations: behavioral limitations ( combative) Neck: Neck: Yes normal visual inspection and Yes supple Chest: Chest palpation & inspection: normal inspection of the chest Resp: Effort & Inspection: normal respiratory effort Auscultation: clear to auscultation bilaterally Cardio: Jugular venous distension: no JVD Rate: regular rate Rhythm: regular rhythm Heart sounds: S1 normal heart sound present and S2 normal heart sound present Peripheral pulses: Peripheral pulses 2+ throughout GI: Inspection: Yes normal to inspection Palpation (GI): Soft to palpation Auscultation: normal bowel sounds Neuro: Other: patient combative toward staff, punching and kicking and spitting. General: moves all extremities and confusion Speech: No Abnormal speech present Results Labs Labs: Laboratory Tests 06/02/20 06/02/20 06/02/20 16:32 16:32 16:32 WBC 27.7 H RBC 4.66 Hgb 14.2 Hct 43.3 MCV 92.9 MCH 30.5 MCHC 32.8 RDW 12.3 Plt Count 174 MPV 11.7 Immature Gran % (Auto) 1.2 H Neut % (Auto) 85.3 H Lymph % (Auto) 3.7 L [place] % (Auto) 9.6 Eos % (Auto) 0.0 Baso % (Auto) 0.2 Lymph # (Auto) 1.0 L [place] # (Auto) 2.7 H Eos # (Auto) 0.0 Baso # (Auto) 0.1 Abs Immat Gran (auto) 0.33 H Absolute Neuts (auto) 23.6 H Absolute Nucleated RBC 0.000 Nucleated RBC % (auto) 0.0 Smear Tech's Comments VERIFIED PT 17.0 H INR 1.4 H Sodium Potassium Chloride Carbon Dioxide Anion Gap BUN Creatinine Estim Creat Clear Calc Estimated GFR Random Glucose Lactic Acid Calcium Magnesium Total Bilirubin Direct Bilirubin AST ALT Alkaline Phosphatase Total Creatine Kinase 186 H Troponin I High Sens Total Protein Albumin Lipase Urine Color Urine Appearance Urine pH Ur Specific [place] Urine Protein Urine Glucose (UA) Urine Ketones Urine Blood Urine Nitrite Ur Leukocyte Esterase Urine RBC Urine WBC Ur Squamous Epith Cells Urine Bacteria Coronavirus (PCR) 06/02/20 06/02/20 06/02/20 16:32 16:32 16:41 WBC RBC Hgb Hct MCV MCH MCHC RDW Plt Count MPV Immature Gran % (Auto) Neut % (Auto) Lymph % (Auto) [place] % (Auto) Eos % (Auto) Baso % (Auto) Lymph # (Auto) [place] # (Auto) Eos # (Auto) Baso # (Auto) Abs Immat Gran (auto) Absolute Neuts (auto) Absolute Nucleated RBC Nucleated RBC % (auto) Smear Tech's Comments PT INR Sodium 137 Potassium 4.0 Chloride 102 Carbon Dioxide 26 Anion Gap 13 BUN 22 H Creatinine 1.06 Estim Creat Clear Calc 77.5 Estimated GFR > 60 Random Glucose 123 H Lactic Acid 1.5 Calcium 9.0 Magnesium 1.6 Total Bilirubin 1.3 H Direct Bilirubin 0.6 H AST 26 ALT 21 Alkaline Phosphatase 79 Total Creatine Kinase Troponin I High Sens 8.9 Total Protein 6.2 L Albumin 3.7 Lipase 11 Urine Color Urine Appearance Urine pH Ur Specific [place] Urine Protein Urine Glucose (UA) Urine Ketones Urine Blood Urine Nitrite Ur Leukocyte Esterase Urine RBC Urine WBC Ur Squamous Epith Cells Urine Bacteria Coronavirus (PCR) 06/02/20 06/02/20 16:41 18:17 WBC RBC Hgb Hct MCV MCH MCHC RDW Plt Count MPV Immature Gran % (Auto) Neut % (Auto) Lymph % (Auto) [place] % (Auto) Eos % (Auto) Baso % (Auto) Lymph # (Auto) [place] # (Auto) Eos # (Auto) Baso # (Auto) Abs Immat Gran (auto) Absolute Neuts (auto) Absolute Nucleated RBC Nucleated RBC % (auto) Smear Tech's Comments PT INR Sodium Potassium Chloride Carbon Dioxide Anion Gap BUN Creatinine Estim Creat Clear Calc Estimated GFR Random Glucose Lactic Acid Calcium Magnesium Total Bilirubin Direct Bilirubin AST ALT Alkaline Phosphatase Total Creatine Kinase Troponin I High Sens Total Protein Albumin Lipase Urine Color YELLOW Urine Appearance HAZY Urine pH 5.5 Ur Specific [place] 1.015 Urine Protein NEG Urine Glucose (UA) NEG Urine Ketones NEG Urine Blood 1+ H Urine Nitrite NEG Ur Leukocyte Esterase 1+ H Urine RBC 0 Urine WBC 5-9 H Ur Squamous Epith Cells 1+ Urine Bacteria 1+ Coronavirus (PCR) NEGATIVE Assessment and Plan (1) Septic shock: Status: Acute Assessment: 69-year-old male with underlying history of paranoid schizophrenia, [facility] facility resident admitted For septic shock with unknown etiology requiring Levophed Plan: Neuro: Combative, confused with Underlying seizure disorder. Head CT with no acute findings. Will continue home Keppra. Cardiac: Septic shock- patient require Levophed to maintain blood pressure. Chest CT, abdomen CT with no acute findings. Urine negative. Unknown in theology of septic shock at this time. Will wean off pressors as tolerated. Pulmonary: No acute issues Renal: Chronic kidney disease with ARGENIS- creatinine in october was 0.69 , today creatinine is 1.06 Nonoliguric. ARGENIS- most likely related to hypoperfusion, received 2.5L in ED. Continue to check renal induces and urine output Endo: No acute issues. GI: No acute issues. ID: leukocytosis with lymphocytopenia. COVID-19 testing was done in the ED and was negative, but complete respiratory is pending. Negative chest/head /abdomen CT. No UTI. Will treat empirically with vancomycin Zosyn. Heme/Onc: No acute issues. Psych: No acute issues. Underlying paranoid schizophrenia cont antipsychotics. Miscellaneous: No acute issues. Prophylaxis: Heparin, does not require GI prophylaxis Diet: Nothing by mouth (2) CHF (congestive heart failure): Status: Chronic (3) Chronic kidney disease (CKD): Status: Acute (4) Schizophrenia: Status: Chronic
[2020-06-03] MEDS: Piperacillin Sodium/Tazobactam 3.375 GM in 0.9 % Sodium Chloride 50 ML IV ×4 (02:10→19:54)
--- NOTE | 2020-06-03 02:56 | PC.NURSE ---
icu unable to take report at this time. pt resting in bed, no distress
--- NOTE | 2020-06-03 07:05 | PC.NURSE ---
admit to 260-1...drowsy...awake to verbal stimuli...tracks speaker..does not follow commands..respirations easy..sao2 96% room air...s.tawny...hr 50-56..occassional pvc's..levophed 0.1 mcg/kg/min...aparicio yellow urine
[2020-06-03 07:24] LABS: Basophils Percent Auto 0.2 % (0-2); Hematocrit 40.2 % (42-52); Imm Gran Abs Auto 0.25 X10*3/uL (0.00-0.03); Lymphocytes Absolute Auto 1.1 X10*3/uL (1.2-4.9); Lymphocytes Percent Auto 4.5 % (20-40); MANUAL DIFF FLAG SCAN; Mean Corpuscular HGB Conc 32.3 g/dl (31.0-36.0); Mean Corpuscular Hemoglobin 30.5 pg (27.0-33.0); Mean Corpuscular Volume 94.4 fL (80-98); Mean Platelet Volume 11.5 fL (9.4-12.4); Monocytes Absolute Auto 2.1 X10*3/uL (0.1-1.2); Monocytes Percent Auto 8.3 % (2-11); Platelet Count 166 X10*3/uL (160-400); Red Blood Count 4.26 X10*6/uL (4.60-5.80); Red Cell Distribution Width 12.5 % (11.0-16.0); SCAN SMEAR FLAG 1; White Blood Count 25.6 X10*3/uL (4.8-10.8)
[2020-06-03 07:52] LABS: SLIDE REVIEW VERIFIED
[2020-06-03 08:11] LABS: Anion Gap 10 (12-20); Blood Urea Nitrogen 16 mg/dL (9-16); Carbon Dioxide 27 mmol/L (22-29); Chloride 105 mmol/L (96-108); Creatinine Clr Calc Pharmacy 96.4; Estimated Glomerular Filt Rate > 60; Glucose Random 112 mg/dL (60-115); Potassium 3.7 mmol/l (3.3-5.1); Sodium 138 mmol/L (135-145)
[2020-06-03 08:22] LABS: Calcium 8.1 mg/dL (8.4-10.2)
[2020-06-03 08:34] LABS: Base Excess VBG -1.5 mmol/L; HCO3 VBG 24 mmol/L; Oxygen Saturation VBG 73.9 %; PCO2 VBG 45 mmhg; PO2 VBG 37 mmhg; pH VBG 7.35 (7.32-7.43)
--- NOTE | 2020-06-03 08:37 | MHC.CM.PN ---
pt is a resident of [facility]. dc plan is for him to return there when medically stable. ref. made to facility. pt has a guardian as listed in mr. cm to cont. to follow.
[2020-06-03] MEDS: 0.9 % Sodium Chloride Flush 3 ML SYRINGE IVFLUSH ×3 (08:52→23:58)
[2020-06-03] MEDS: Midazolam HCl/PF 2 MG/2 ML VIAL IVPUSH (08:52)
[2020-06-03] MEDS: Magnesium Sulfate/D5W 1 GM/100 ML PIGGYBACK IV (09:13)
[2020-06-03] MEDS: Heparin Sodium,Porcine 5,000 UNIT/ML VIAL 5000 UNIT SUBCUT ×2 (10:53→18:05)
[2020-06-03] MEDS: levETIRAcetam 750 MG in 0.9 % Sodium Chloride 100 ML 400 MG IV (12:32)
[2020-06-03] MEDS: hydrOXYzine HCL 50 MG/ML VIAL IM (12:57)
--- NOTE | 2020-06-03 13:00 | CA_ITS ---
Transthoracic Echocardiogram Patient (Last, First, Middle): Jericho Tinoco, Gender: Male Date of : 1950 Age: 69 Procedure Date: 06/03/2020 Procedure Type: Transthoracic Echocardiogram Location: ICU Height: 182.88 cm Weight: 81.65 kg BSA: 2.04 m2 Heart Rate: bpm BP: 133 / 63 mmHg Numerical Analysis Group Manager: Referring MD: Arnel García Symptoms: HYPOTENSION, SEPSIS Study Quality: Technically Difficult ECG Rhythm: Sinus Conclusions: - Limited echo showing normal biventricular function. - No pericardial effusion. - The inferior vena cava is normal in size and collapses greater than 50% with inspiration. Findings Left Ventricle Normal left ventricular size and systolic function. There is mildly increased left ventricular wall thickness. The visually estimated ejection fraction is between 55-60%. Regional wall motion abnormalities can not be excluded due to suboptimal endocardial definition. Diastolic function is indeterminate on the basis of available data. Right Ventricle Normal right ventricular cavity size and systolic function. Venous The inferior vena cava is normal in size and collapses greater than 50% with inspiration. Pericardium/Pleural There is no evidence of pericardial effusion. Prior Study Comparison No prior study available for comparison. Measurements 2D Linear Measurements IVSd: 1.10 0.6-0.9/0.6-1.0 cm LVIDd: 3.50 3.9-5.3/4.2-5.9 cm LVIDs: 2.18 2.0-3.6 cm LVPWd: 1.05 0.7-1.1 cm LV Mass: 143.25 67-162/88-224 g Tricuspid Valve TR Pk Caleb: 1.62 TR Pk Grad: 10.48 RA Press: 8.00 Updated in Other Vendor System with Status of Final Sandro Pond MD electronically signed on 06/03/2020 5:30:26 PM with status of Final
--- NOTE | 2020-06-03 14:06 | PM.CCPN ---
Subjective Subjective Date of Service: 06/03/20 Interval History: Mr. Tinoco was admitted to the ICU early this morning because of hypotension, thought secondary to possible sepsis. The patient is a 69-year-old male who is a [facility] resident with a past medical history of paranoid schizophrenia, nonverbal, with combative behavior. He also has a reported history of systolic congestive heart failure, chronic kidney disease stage 3, BPH, hyperlipidemia, GERD, hypothyroidism, chronic back pain, and epilepsy. The patient sustained a fall yesterday at the [facility], supposedly due to a wet floor. However, the staff found that the patient was febrile and therefore EMS was called. EMS reported a temperature of 103.1 with a pulse of 124. Therefore the patient was brought into the ED yesterday afternoon. While in the ED patient the patient was confused and combative. Initial blood pressures were in the 90-100 range, temp was 101.3 degrees. He was breathing easy with sats in the high 90s. Labs in the ED were notable for WBC of 27.7. PT was mildly elevated. Chemistry profile otherwise unremarkable. BUN and creatinine were 22/1.0 (baseline 12/0.7). T bili was 1.3, with normal transaminases. Lactate was normal. Chest x-ray is most suggestive of mild vascular congestion. Head head and neck CT were unremarkable. CT of chest abdomen and pelvis were notable for endobronchial material at the left mainstem bronchus bifurcation with some dependent opacity in the lung bases bilaterally, raising suspicion for aspiration. There were intrahepatic and extrahepatic biliary ductal dilatation, similar to January of 2015. The patient was given 2.5 L of fluid in the ED, and ceftriaxone 1 g, along with ketamine 50 mg for behavior control. His blood pressures did not improve and in fact dropped into the 70s. Therefore central line was placed the and the patient was started on Levophed, and admitted to the ICU. On my exam in the ICU today, the patient is breathing easy with a sat of 95-96%. He looks thoroughly nontoxic. When awoken, he becomes extremely combative punching and spitting at the nurses. Droperidol 1.5 mg, and then later hydroxyzine 50 mg, calmed him down nicely. I spoke to Dr. Yair thorne about him, and it was he who recommended the hydroxyzine, from past experience with the patient at [facility]. He told me that the nurses are usually able to speak with him and get him calm without medication. He has been making good urine throughout the day. His chest is clear to auscultation. He has abrasions that look like scratching on both of his shins, but his exam is otherwise largely benign. He has a less than 1 cm nonacute ulcer on the tip of one of his left toes. Once awoke in, the patient no longer needed vasopressor support to maintain his blood pressure. LABORATORY DATA: Urinalysis showed 5-9 wbc's. Urine culture?s growing [id number] GNRs. ECHOCARDIOGRAM for hemodynamic monitoring: Image quality: Fair. Findings: 1. Wall thickness top normal. 2. LV cavity size is normal, with normal LV fxn. No RWMA noted. EF 55-65%. 3. RV size normal. 4. Atria not adequately assessed. 5. AoV not adeq assessed. 6. MV morphologically normal with no MR by color vivi. 7. TV morphologically normal. Unable to obtain any Doppler signal. 8. IVC 1.5cm w about 40-50% insp collapse. Estimated CVP 6-8cm. Unable to estimate RVSP. IMPRESSION: 1. Severe paranoid schizophrenia. Needs behavior control. If we can?t get his Risperdal into him, other possibilities include the above medications, Haldol, other IM antipsychotics. Alternatively, he may need Lamictal. 2. Hypotension of unclear etiology. He probably was dry in the ED and his blood pressure has come up with fluids. He probably still has more room for further fluids, if it were necessary. 3. Fever of unclear etiology. It is possible that he aspirated, but he certainly does not have pneumonia. And I doubt that he truly has a urinary tract infection. Blood cultures are negative so far, but I see no skin or soft tissue source. For now, I?ll continue the Zosyn, but we?ll discontinue the vancomycin. 4. Although he had fever and hypotension and leukocytosis, clinically he is not septic, and he currently has a Quick Sofa score of 0. Otherwise usual supportive care. Critical Care Time (including multiple visits to the bedside for behavior control): 75+ min Physical Exam Vital Signs: Vital Signs: Vital Signs Temp Pulse Resp BP Pulse Ox 06/03/20 14:00 102.6 F H 86 19 146/50 H 98 06/03/20 13:00 102.2 F H 82 18 133/63 93 06/03/20 12:15 101.8 F H 91 16 143/65 H 93 06/03/20 12:00 101.7 F H 85 18 134/47 L 92 06/03/20 11:45 101.7 F H 83 17 130/50 L 93 06/03/20 11:30 101.5 F H 83 18 136/61 93 06/03/20 11:15 101.1 F H 94 19 139/84 93 06/03/20 11:00 100.8 F H 83 20 140/65 H 92 06/03/20 10:45 100.6 F H 77 20 133/70 97 06/03/20 10:30 100.2 F 76 20 125/60 95 06/03/20 10:15 100.2 F 88 20 122/62 97 06/03/20 10:00 99.7 F 73 18 118/61 96 06/03/20 09:45 99.5 F 91 17 99/63 95 06/03/20 09:30 99.3 F 74 16 98/53 L 95 06/03/20 09:15 99.3 F 77 15 101/63 93 06/03/20 09:00 99.3 F 78 15 104/50 L 93 06/03/20 08:45 99.1 F 83 15 121/58 L 93 06/03/20 08:30 99.0 F 81 18 139/51 L 93 06/03/20 06:00 99.5 F 56 16 106/46 L 96 06/03/20 05:08 72 20 128/60 06/03/20 04:55 90/46 L 06/03/20 04:20 100.8 F H 74 14 130/60 96 06/03/20 03:30 68 16 116/54 L 95 06/03/20 02:56 100.2 F 68 16 124/57 L 95 06/03/20 02:16 100.0 F 78 16 126/55 L 94 06/03/20 01:43 14 97 06/03/20 01:29 99.7 F 52 14 109/50 L 98 06/03/20 00:59 66 84/48 L 10/19/20 00:48 99.6 F 80 14 91/51 L 95 06/03/20 00:06 99.9 F 73 16 98/44 L 95 06/02/20 23:54 76 97/45 L 06/02/20 23:49 76 97/45 L 06/02/20 23:44 84 134/49 L 06/02/20 22:53 100.0 F 78 16 99/53 L 98 06/02/20 22:11 71 74/45 L 06/02/20 22:05 100.4 F 73 16 95/54 L 95 06/02/20 22:03 100.4 F 70 75/44 L 06/02/20 21:59 100.4 F 83 15 95/53 L 96 06/02/20 21:26 100.8 F H 72 16 93/45 L 06/02/20 21:04 100.6 F H 83 16 115/89 96 06/02/20 20:23 100.2 F 72 16 93/42 L 97 06/02/20 20:03 80 102/45 L 06/02/20 19:46 99.9 F 84 16 95/59 L 99 06/02/20 19:24 78 06/02/20 19:19 100.2 F 71 14 90/56 L 96 06/02/20 18:51 100.2 F 78 14 92/49 L 99 06/02/20 17:48 100.2 F 83 16 105/55 L 96 06/02/20 17:23 100.9 F H 98 18 104/56 L 94 06/02/20 16:56 99 16 93/48 L 06/02/20 15:54 101.3 F H 98 18 89/48 L 92 Body Mass Index 23.2 Objective Data Labs CBC & Chem 7: 06/03/20 07:16 06/03/20 07:16 Labs: Laboratory Results - last 24 hr 06/02/20 06/02/20 06/02/20 16:32 16:32 16:32 WBC 27.7 H RBC 4.66 Hgb 14.2 Hct 43.3 MCV 92.9 MCH 30.5 MCHC 32.8 RDW 12.3 Plt Count 174 MPV 11.7 Immature Gran % (Auto) 1.2 H Neut % (Auto) 85.3 H Lymph % (Auto) 3.7 L Warren % (Auto) 9.6 Eos % (Auto) 0.0 Baso % (Auto) 0.2 Lymph # (Auto) 1.0 L Warren # (Auto) 2.7 H Eos # (Auto) 0.0 Baso # (Auto) 0.1 Abs Immat Gran (auto) 0.33 H Absolute Neuts (auto) 23.6 H Absolute Nucleated RBC 0.000 Nucleated RBC % (auto) 0.0 Smear Tech's Comments VERIFIED PT 17.0 H INR 1.4 H VBG pH VBG pCO2 VBG Oxygen Liters/Min VBG pO2 VBG HCO3 VBG O2 Saturation VBG Base Excess Sodium Potassium Chloride Carbon Dioxide Anion Gap BUN Creatinine Estim Creat Clear Calc Estimated GFR Random Glucose Lactic Acid Calcium Magnesium Total Bilirubin Direct Bilirubin AST ALT Alkaline Phosphatase Total Creatine Kinase 186 H Troponin I High Sens Total Protein Albumin Lipase Urine Color Urine Appearance Urine pH Ur Specific [place] Urine Protein Urine Glucose (UA) Urine Ketones Urine Blood Urine Nitrite Ur Leukocyte Esterase Urine RBC Urine WBC Ur Squamous Epith Cells Urine Bacteria Respiratory Panel Renae Adenovirus (Rapid PCR) B.pert (TEM-PCR) B.parapertussis DNA PCR C. pneumoniae DNA (PCR) Coronavirus (PCR) Coronavirus OC43 (PCR) Coronavirus HKU1 (PCR) Coronavirus 229E (PCR) Coronavirus NL63 (PCR) Human Metapneumovir PCR Influenza A (RT-PCR) Influenza B (RT-PCR) M. pneumoniae (PCR) Parainfluenza 1 (PCR) Parainfluenza 2 (PCR) Parainfluenza 3 (PCR) Parainfluenza 4 (PCR) RSV (PCR) Entero/Rhino (PCR) SARS-CoV-2 RNA (RT-PCR) 06/02/20 06/02/20 06/02/20 16:32 16:32 16:41 WBC RBC Hgb Hct MCV MCH MCHC RDW Plt Count MPV Immature Gran % (Auto) Neut % (Auto) Lymph % (Auto) Warren % (Auto) Eos % (Auto) Baso % (Auto) Lymph # (Auto) Warren # (Auto) Eos # (Auto) Baso # (Auto) Abs Immat Gran (auto) Absolute Neuts (auto) Absolute Nucleated RBC Nucleated RBC % (auto) Smear Tech's Comments PT INR VBG pH VBG pCO2 VBG Oxygen Liters/Min VBG pO2 VBG HCO3 VBG O2 Saturation VBG Base Excess Sodium 137 Potassium 4.0 Chloride 102 Carbon Dioxide 26 Anion Gap 13 BUN 22 H Creatinine 1.06 Estim Creat Clear Calc 77.5 Estimated GFR > 60 Random Glucose 123 H Lactic Acid 1.5 Calcium 9.0 Magnesium 1.6 Total Bilirubin 1.3 H Direct Bilirubin 0.6 H AST 26 ALT 21 Alkaline Phosphatase 79 Total Creatine Kinase Troponin I High Sens 8.9 Total Protein 6.2 L Albumin 3.7 Lipase 11 Urine Color Urine Appearance Urine pH Ur Specific [place] Urine Protein Urine Glucose (UA) Urine Ketones Urine Blood Urine Nitrite Ur Leukocyte Esterase Urine RBC Urine WBC Ur Squamous Epith Cells Urine Bacteria Respiratory Panel Renae Adenovirus (Rapid PCR) B.pert (TEM-PCR) B.parapertussis DNA PCR C. pneumoniae DNA (PCR) Coronavirus (PCR) Coronavirus OC43 (PCR) Coronavirus HKU1 (PCR) Coronavirus 229E (PCR) Coronavirus NL63 (PCR) Human Metapneumovir PCR Influenza A (RT-PCR) Influenza B (RT-PCR) M. pneumoniae (PCR) Parainfluenza 1 (PCR) Parainfluenza 2 (PCR) Parainfluenza 3 (PCR) Parainfluenza 4 (PCR) RSV (PCR) Entero/Rhino (PCR) SARS-CoV-2 RNA (RT-PCR) 06/02/20 06/02/20 06/02/20 16:41 16:41 18:17 WBC RBC Hgb Hct MCV MCH MCHC RDW Plt Count MPV Immature Gran % (Auto) Neut % (Auto) Lymph % (Auto) Warren % (Auto) Eos % (Auto) Baso % (Auto) Lymph # (Auto) Warren # (Auto) Eos # (Auto) Baso # (Auto) Abs Immat Gran (auto) Absolute Neuts (auto) Absolute Nucleated RBC Nucleated RBC % (auto) Smear Tech's Comments PT INR VBG pH VBG pCO2 VBG Oxygen Liters/Min VBG pO2 VBG HCO3 VBG O2 Saturation VBG Base Excess Sodium Potassium Chloride Carbon Dioxide Anion Gap BUN Creatinine Estim Creat Clear Calc Estimated GFR Random Glucose Lactic Acid Calcium Magnesium Total Bilirubin Direct Bilirubin AST ALT Alkaline Phosphatase Total Creatine Kinase Troponin I High Sens Total Protein Albumin Lipase Urine Color YELLOW Urine Appearance HAZY Urine pH 5.5 Ur Specific [place] 1.015 Urine Protein NEG Urine Glucose (UA) NEG Urine Ketones NEG Urine Blood 1+ H Urine Nitrite NEG Ur Leukocyte Esterase 1+ H Urine RBC 0 Urine WBC 5-9 H Ur Squamous Epith Cells 1+ Urine Bacteria 1+ Respiratory Panel Renae See Note Adenovirus (Rapid PCR) Not Detected B.pert (TEM-PCR) Not Detected B.parapertussis DNA PCR Not Detected C. pneumoniae DNA (PCR) Not Detected Coronavirus (PCR) NEGATIVE Coronavirus OC43 (PCR) Not Detected Coronavirus HKU1 (PCR) Not Detected Coronavirus 229E (PCR) Not Detected Coronavirus NL63 (PCR) Not Detected Human Metapneumovir PCR Not Detected Influenza A (RT-PCR) Not Detected Influenza B (RT-PCR) Not Detected M. pneumoniae (PCR) Not Detected Parainfluenza 1 (PCR) Not Detected Parainfluenza 2 (PCR) Not Detected Parainfluenza 3 (PCR) Not Detected Parainfluenza 4 (PCR) Not Detected RSV (PCR) Not Detected Entero/Rhino (PCR) Not Detected SARS-CoV-2 RNA (RT-PCR) Not Detected 06/03/20 06/03/20 06/03/20 07:16 07:16 08:10 WBC 25.6 H RBC 4.26 L Hgb 13.0 L Hct 40.2 L MCV 94.4 MCH 30.5 MCHC 32.3 RDW 12.5 Plt Count 166 MPV 11.5 Immature Gran % (Auto) 1.0 H Neut % (Auto) 86.0 H Lymph % (Auto) 4.5 L Warren % (Auto) 8.3 Eos % (Auto) 0.0 Baso % (Auto) 0.2 Lymph # (Auto) 1.1 L Warren # (Auto) 2.1 H Eos # (Auto) 0.0 Baso # (Auto) 0.0 Abs Immat Gran (auto) 0.25 H Absolute Neuts (auto) 22.0 H Absolute Nucleated RBC 0.000 Nucleated RBC % (auto) 0.0 Smear Tech's Comments VERIFIED PT INR VBG pH 7.35 VBG pCO2 45 VBG Oxygen Liters/Min TNP VBG pO2 37 VBG HCO3 24 VBG O2 Saturation 73.9 VBG Base Excess -1.5 Sodium 138 Potassium 3.7 Chloride 105 Carbon Dioxide 27 Anion Gap 10 L BUN 16 Creatinine 0.85 Estim Creat Clear Calc 96.4 Estimated GFR > 60 Random Glucose 112 Lactic Acid Calcium 8.1 L Magnesium Total Bilirubin Direct Bilirubin AST ALT Alkaline Phosphatase Total Creatine Kinase Troponin I High Sens Total Protein Albumin Lipase Urine Color Urine Appearance Urine pH Ur Specific [place] Urine Protein Urine Glucose (UA) Urine Ketones Urine Blood Urine Nitrite Ur Leukocyte Esterase Urine RBC Urine WBC Ur Squamous Epith Cells Urine Bacteria Respiratory Panel Renae Adenovirus (Rapid PCR) B.pert (TEM-PCR) B.parapertussis DNA PCR C. pneumoniae DNA (PCR) Coronavirus (PCR) Coronavirus OC43 (PCR) Coronavirus HKU1 (PCR) Coronavirus 229E (PCR) Coronavirus NL63 (PCR) Human Metapneumovir PCR Influenza A (RT-PCR) Influenza B (RT-PCR) M. pneumoniae (PCR) Parainfluenza 1 (PCR) Parainfluenza 2 (PCR) Parainfluenza 3 (PCR) Parainfluenza 4 (PCR) RSV (PCR) Entero/Rhino (PCR) SARS-CoV-2 RNA (RT-PCR) Microbiology Microbiology Results: Microbiology 06/02/20 16:57 Urine clean catch - Clean Catch Midstream Urine Culture - Preliminary Gram negative ermias Progress Note: A&P Time Spent With Patient Total time spent with greater than 50% in coordination of care (as documented) at patient's floor/unit and/or counseling patient:: 0 Critical Care Time Critical Care Time (minutes): 90
[2020-06-03] MEDS: fentaNYL 100 MCG PATCH.TD72 TRANSDERMA (15:36)
--- NOTE | 2020-06-03 16:40 | PC.NURSE ---
LEVOPHED GTT OFF AT 0815. PT AWAKE, YELLING, SWEARING, BEING VERBALLY INAPPROPRIATE, AND BEING PHYSICALLY COMBATIVE WITH STAFF. UNABLE TO FOLLOW COMMANDS. SECURITY CALLED TO ASSIST WITH 4 POINT RESTRAINTS AT 0830. PT 1:1 WITH THIS RN. PT MEDICATED THROUGHOUT SHIFT TO ASSIST WITH BEHAVOR. PT GIVEN VERSED 2 MG IV, DROPERIDOL 1.25 MG IV, AND HYDROXYZINE 50 MG IM TO LEFT DELTOID. MAGNESIUM REPLACEMENT GIVEN. KEPPRA IV GIVEN DUE TO PTS BEHAVOR AND INABILITY TO GIVE PO MEDS SAFELY. FENTANYL PATCH APPLIED TO LEFT LOWER BACK AND COVERED WITH TEGADERM FOR PROTECTION. A PRESSURE INJURY TO RIGHT BIG TOE NOTED, WOUND CENTER CONTACTED AND STAGED DTI PER WOUND CENTER. PHOTOS OBTAINED AND IN CHART. NUMEROUS HEALING SCRATCH BIRCH TO BILATERAL LEGS AND SHOULDERS NOTED. BROWN ?BIRTHMARK FROM LEFT GROIN TO HIP NOTED. BARRIER CREAM APPLIED, Q2H REPO, BATHED. RESTRAINTS WERE ABLE TO BE REMOVED AT 1630 DUE TO BEHAVIOR. NOTIFIED OF PTS CORE TEMP 103.3., NO FURTHER ORDERS AT THIS TIME. WILL CONTINUE TO MONITOR.
[2020-06-03] MEDS: risperiDONE 2 MG TABLET PO (22:23)
[2020-06-03] MEDS: oxyCODONE HCl Immed Release 5 MG TABLET 10 MG PO (22:24)
[2020-06-03] MEDS: chlordiazePOXIDE HCl 5 MG CAPSULE PO (22:26)
[2020-06-03] MEDS: Lactated Ringers 500 ML IVCONT ×2 (23:12→23:57)
--- NOTE | 2020-06-03 23:25 | PC.NURSE ---
ASSUMED CARE OF PT AT 1900. PT MOSTLY SLEEPING. MOANS LOUDLY AT TIMES. SPIT MASK TAKEN OFF. PT GIVEN MEDS IN APPLESAUCE WHEN MORE AWAKE. HE TOOK THEM WITHOUT PROBLEM AND DRANK A CUP OF WATER. PT WAS REPOSITIONED. BP DROPPED SLIGHTLY TO 104/45, MAP 57 AND 109/43, MAP 54. EMPLOYEE DEVELOPMENT MANAGER [employer] NOTIFIED AND IT WAS FELT PT IS DRY DUE TO BEING SEDATED AND NOT HAVING HAD ANY ORAL INTAKE DUE TO AGITATION AND SEDATION SINCE EARLY IN THE DAY. LR 500 ML ORDERED AND PRESENTLY INFUSING.
[2020-06-04] VITALS (21 sets, daily range): BP systolic 95–159; BP diastolic 41–90; PULSE 71–104; RESP 17–28; TEMP 36.2–39.6; O2SAT 82–100; BMI 22.8
--- NOTE | 2020-06-04 00:03 | PC.NURSE ---
BP REMAINS LOW. 102/40, MAP 58. ANOTHER BOLUS OF LR 500 ML ORDERED AND PRESENTLY INFUSING.
--- NOTE | 2020-06-04 01:09 | PC.NURSE ---
LEVOPHED STARTED AND TITRATED TO MAINTAIN MAP GREATER THAN 65 AFTER PT RECEIVED 2 BOLUS DOSES OF LR 500 ML EACH WITH NO IMPROVEMENT IN MAP. URINE OUTPUT ALSO LOW 20-40 ML/HR. RECREATION PROGRAM SPECIALIST DIAMOND AT BEDSIDE AND AWARE OF LOW BP/URINE OUTPUT AND GIVING THE CURRENT ORDERS. PT IS CALM AND MOSTLY SLEEPING BUT IS AROUSABLE TO NAME AND LIGHT TOUCH. TAKES WATER TO DRINK WHEN OFFERED. NO DIFFICULTY SWALLOWING.
[2020-06-04] MEDS: Piperacillin Sodium/Tazobactam 3.375 GM in 0.9 % Sodium Chloride 50 ML IV ×2 (01:16→08:28)
[2020-06-04] MEDS: Heparin Sodium,Porcine 5,000 UNIT/ML VIAL 5000 UNIT SUBCUT ×2 (01:22→08:28)
[2020-06-04] MEDS: Levothyroxine Sodium 150 MCG TABLET PO (05:58)
[2020-06-04 05:59] LABS: Hematocrit 38.8 % (42-52); Hemoglobin 12.5 g/dl (14.0-18.0); Mean Corpuscular HGB Conc 32.2 g/dl (31.0-36.0); Mean Corpuscular Hemoglobin 30.4 pg (27.0-33.0); Mean Corpuscular Volume 94.4 fL (80-98); Mean Platelet Volume 11.5 fL (9.4-12.4); Platelet Count 141 X10*3/uL (160-400); Red Blood Count 4.11 X10*6/uL (4.60-5.80); Red Cell Distribution Width 12.9 % (11.0-16.0); White Blood Count 12.1 X10*3/uL (4.8-10.8)
[2020-06-04 06:27] LABS: Alanine Aminotransferase 55 U/L (0-40); Albumin Level 2.8 g/dL (3.5-5.0); Alkaline Phosphatase 88 U/L (39-117); Anion Gap 12 (12-20); Aspartate Amino Transferase 66 U/L (5-37); Bilirubin Total 0.7 mg/dL (0.0-1.0); Blood Urea Nitrogen 16 mg/dL (9-16); Calcium 7.7 mg/dL (8.4-10.2); Carbon Dioxide 23 mmol/L (22-29); Chloride 106 mmol/L (96-108); Creatinine Clr Calc Pharmacy 83.6; Estimated Glomerular Filt Rate > 60; Glucose Random 110 mg/dL (60-115); Potassium 3.3 mmol/l (3.3-5.1); Sodium 138 mmol/L (135-145); Total Protein 4.9 g/dL (6.5-8.0)
[2020-06-04 06:28] LABS: Albumin Level 2.8 g/dL (3.5-5.0); Magnesium 1.8 mg/dL (1.6-2.6); Phosphorus 2.5 mg/dL (2.7-4.5)
[2020-06-04] MEDS: 0.9 % Sodium Chloride Flush 3 ML SYRINGE IVFLUSH ×3 (08:27→21:41)
[2020-06-04] MEDS: Lactulose 20 GM/30 ML SOLUTION 40 GM PO (08:28)
[2020-06-04] MEDS: polyethylene glycoL 3350 17 GM POWD.PACK PO (08:28)
[2020-06-04] MEDS: chlordiazePOXIDE HCl 5 MG CAPSULE PO (08:29)
[2020-06-04] MEDS: risperiDONE 2 MG TABLET PO ×2 (08:29→21:43)
[2020-06-04] MEDS: Multivitamin TABLET 1 TAB PO (08:29)
[2020-06-04] MEDS: oxyCODONE HCl Immed Release 5 MG TABLET 10 MG PO (08:29)
[2020-06-04] MEDS: Ferrous Sulfate 324 MG TABLET.DR PO ×2 (08:29→21:43)
[2020-06-04] MEDS: Omeprazole 40 MG CAPSULE.DR PO ×2 (08:29→21:44)
[2020-06-04] MEDS: levETIRAcetam 1,000 MG in 0.9 % Sodium Chloride 100 ML 400 MG IV (08:30)
[2020-06-04] MEDS: Clotrimazole 1 % Cream 15 GM TUBE 1 APPL TOPICAL ×2 (08:33→21:43)
--- NOTE | 2020-06-04 10:39 | PM.CCPN ---
Subjective Subjective Date of Service: 06/04/20 Interval History: Mr. Tinoco was admitted to the ICU early yesterday morning because of hypotension, thought secondary to possible sepsis. The patient is a 69-year-old male who is a [facility] resident with a past medical history of paranoid schizophrenia, minimally verbal, with combative behavior. He also has a reported history of systolic congestive heart failure, chronic kidney disease stage 3, BPH, hyperlipidemia, GERD, hypothyroidism, chronic back pain, and epilepsy. The patient sustained a fall on Jun 02 at the [facility], supposedly due to a wet floor. However, the staff found that the patient was febrile and therefore EMS was called. EMS reported a temperature of 103.1 with a pulse of 124. Therefore the patient was brought into the ED that afternoon. While in the ED patient the patient was confused and combative. Initial blood pressures were in the 90-100 range, temp was 101.3 degrees. He was breathing easy with sats in the high 90s. Labs in the ED were notable for WBC of 27.7. PT was mildly elevated. Chemistries notable for BUN and creatinine 22/1.0 (baseline 12/0.7). T bili was 1.3, with normal transaminases. Lactate was normal. Chest x-ray was suggestive of mild vascular congestion. Head and neck CT were unremarkable. CT of chest abdomen and pelvis were notable for endobronchial material at the left mainstem bronchus bifurcation with some dependent opacity in the lung bases bilaterally, raising suspicion for aspiration. There was intrahepatic and extrahepatic biliary ductal dilatation, similar to January of 2015. The patient was given 2.5 L of fluid in the ED, and ceftriaxone 1 g, along with ketamine 50 mg for behavior control. His blood pressures did not improve over many hours in the ED, and in fact dropped into the 70s. Therefore a central line was placed yesterday morning, and the patient was started on Levophed, and admitted to the ICU. Not long after admission to the ICU yesterday, after waking the patient up, he became very combative, punching and spitting at the nurses. The good thing is, that his blood pressure mitchel substantially and he came right off the Levophed. Droperidol 1.25 mg IV, and then later hydroxyzine 50 mg IM, calmed him down nicely. Throughout the day yesterday, he was breathing easy on room air with sats in the mid 90s. He made good urine. The only source of infection that we found was his urinalysis which had 5-9 wbc's, and grew out [id number] GNRs. He has abrasions that look like scratching on both of his shins, but there?s no cellulitis. Echocardiogram done yesterday for hemodynamic monitoring was basically normal. Overnight the patient did well and was able to come out of 4 point restraints. We restarted his Risperdal last night this morning, he is calm and the nurse was able to feed him. He is breathing easy with sat of 96% on room air. See vital signs below. Chest is clear. No edema. LABORATORY DATA: As below. Notably, white count is down to 12, BUN and creatinine are down to 16/0.98. MICROBIOLOGY: Blood cultures are negative. Urine is growing [id number] E coli, mostly sensitive. IMPRESSION: 1. Severe paranoid schizophrenia. Behavior seems to be adequately controlled on his Risperdal. Other possible treatments include Haldol, other IM antipsychotics, or droperidol or hydroxyzine, as noted above. Alternatively, he might need Lamictal. 2. Hypotension of unclear etiology. He probably was dry in the ED and his blood pressure did ultimately come up with fluids. Echo shows that he still has more room for further fluids, if it were necessary. 3. Fever of unclear etiology. It?s possible that he aspirated, and has a chemical pneumonitis, but he certainly does not have pneumonia. And the u/a and low grade urine culture make me doubt that he truly has a urinary tract infection. And I see no skin or soft tissue source. I?m very surprised that he?s still febrile. For now, I?ll change his Zosyn to ceftriaxone, and I?ve asked Madelyn Dueñas to see him. 4. Although he had fever and hypotension and leukocytosis, clinically he is not septic, and he currently has a Quick Sofa score of 0. 5. Replete K and phos. Otherwise usual supportive care. Stable for transfer to [facility]. I?ll sign out to the hospitalists. Time: . Physical Exam Vital Signs: Vital Signs: Vital Signs Temp Pulse Resp BP Pulse Ox 06/04/20 10:00 102.0 F H 79 17 95/62 94 06/04/20 09:00 101.3 F H 75 18 115/53 L 94 06/04/20 08:00 101.3 F H 81 18 123/53 L 96 06/04/20 06:59 102 F H 83 21 H 113/55 L 82 L 06/04/20 06:29 102 F H 84 18 117/59 L 93 06/04/20 06:00 102.2 F H 76 18 119/54 L 93 06/04/20 05:00 102.7 F H 80 22 H 107/53 L 93 06/04/20 04:00 103 F H 74 24 H 114/49 L 93 06/04/20 03:00 103.3 F H 78 23 H 119/49 L 95 06/04/20 02:00 102.4 F H 06/04/20 01:55 102.4 F H 78 20 117/49 L 100 06/04/20 01:31 22 H 107/55 L 82 L 06/04/20 01:00 102.2 F H 83 25 H 112/44 L 96 06/04/20 00:28 102 F H 74 23 H 103/41 L 94 06/03/20 23:59 102.4 F H 78 22 H 102/40 L 95 06/03/20 23:15 23 H 107/49 L 94 06/03/20 23:00 102.6 F H 82 24 H 104/45 L 96 06/03/20 22:12 102.9 F H 84 26 H 116/52 L 96 06/03/20 21:00 103.1 F H 88 25 H 106/53 L 96 06/03/20 20:00 103.3 F H 94 26 H 116/59 L 97 06/03/20 19:00 103.5 F H 91 22 H 113/63 97 06/03/20 18:00 103.5 F H 88 24 H 117/60 98 06/03/20 17:00 103.3 F H 85 20 113/59 L 98 06/03/20 16:30 103.3 F H 87 24 H 121/58 L 97 06/03/20 16:15 103.1 F H 86 20 111/56 L 98 06/03/20 16:00 102.9 F H 87 24 H 109/56 L 98 06/03/20 15:45 102.9 F H 91 23 H 130/66 97 06/03/20 15:30 102.9 F H 95 24 H 127/60 92 06/03/20 15:15 102.7 F H 90 25 H 126/63 97 06/03/20 15:00 102.0 F H 88 22 H 126/57 L 96 06/03/20 14:45 100.9 F H 88 22 H 121/61 95 06/03/20 14:30 102.6 F H 88 20 131/58 L 96 06/03/20 14:15 102.6 F H 84 23 H 131/52 L 97 06/03/20 14:00 102.6 F H 85 20 146/50 H 91 L 06/03/20 13:45 102.4 F H 87 21 H 142/56 H 93 06/03/20 13:30 102.4 F H 90 23 H 137/62 96 06/03/20 13:15 102.2 F H 91 23 H 137/53 L 91 L 06/03/20 13:00 102.2 F H 106 H 19 133/63 92 06/03/20 12:45 102.0 F H 105 H 20 105/60 92 06/03/20 12:30 101.8 F H 93 20 104/57 L 93 06/03/20 12:15 101.8 F H 91 16 143/65 H 93 06/03/20 12:00 101.7 F H 85 18 134/47 L 92 06/03/20 11:45 101.7 F H 83 17 130/50 L 93 06/03/20 11:30 101.5 F H 83 18 136/61 93 06/03/20 11:15 101.1 F H 94 19 139/84 93 06/03/20 11:00 100.8 F H 83 20 140/65 H 92 06/03/20 10:45 100.6 F H 77 20 133/70 97 Body Mass Index 22.8 Objective Data Labs CBC & Chem 7: 06/04/20 05:33 06/04/20 05:33 Labs: Laboratory Results - last 24 hr 06/02/20 06/04/20 06/04/20 16:41 05:33 05:33 WBC 12.1 H RBC 4.11 L Hgb 12.5 L Hct 38.8 L MCV 94.4 MCH 30.4 MCHC 32.2 RDW 12.9 Plt Count 141 L MPV 11.5 Absolute Nucleated RBC 0.000 Nucleated RBC % (auto) 0.0 Sodium Potassium Chloride Carbon Dioxide Anion Gap BUN Creatinine Estim Creat Clear Calc Estimated GFR Random Glucose Calcium Phosphorus Cancelled Magnesium Total Bilirubin AST ALT Alkaline Phosphatase Total Protein Albumin Respiratory Panel Renae See Note Adenovirus (Rapid PCR) Not Detected B.pert (TEM-PCR) Not Detected B.parapertussis DNA PCR Not Detected C. pneumoniae DNA (PCR) Not Detected Coronavirus OC43 (PCR) Not Detected Coronavirus HKU1 (PCR) Not Detected Coronavirus 229E (PCR) Not Detected Coronavirus NL63 (PCR) Not Detected Human Metapneumovir PCR Not Detected Influenza A (RT-PCR) Not Detected Influenza B (RT-PCR) Not Detected M. pneumoniae (PCR) Not Detected Parainfluenza 1 (PCR) Not Detected Parainfluenza 2 (PCR) Not Detected Parainfluenza 3 (PCR) Not Detected Parainfluenza 4 (PCR) Not Detected RSV (PCR) Not Detected Entero/Rhino (PCR) Not Detected SARS-CoV-2 RNA (RT-PCR) Not Detected 06/04/20 06/04/20 05:33 05:33 WBC RBC Hgb Hct MCV MCH MCHC RDW Plt Count MPV Absolute Nucleated RBC Nucleated RBC % (auto) Sodium 138 Potassium 3.3 Chloride 106 Carbon Dioxide 23 Anion Gap 12 BUN 16 Creatinine 0.98 Estim Creat Clear Calc 83.6 Estimated GFR > 60 Random Glucose 110 Calcium 7.7 L Phosphorus 2.5 L Magnesium 1.8 Total Bilirubin 0.7 AST 66 H ALT 55 H Alkaline Phosphatase 88 Total Protein 4.9 L D Albumin 2.8 L D 2.8 L Respiratory Panel Renae Adenovirus (Rapid PCR) B.pert (TEM-PCR) B.parapertussis DNA PCR C. pneumoniae DNA (PCR) Coronavirus OC43 (PCR) Coronavirus HKU1 (PCR) Coronavirus 229E (PCR) Coronavirus NL63 (PCR) Human Metapneumovir PCR Influenza A (RT-PCR) Influenza B (RT-PCR) M. pneumoniae (PCR) Parainfluenza 1 (PCR) Parainfluenza 2 (PCR) Parainfluenza 3 (PCR) Parainfluenza 4 (PCR) RSV (PCR) Entero/Rhino (PCR) SARS-CoV-2 RNA (RT-PCR) Microbiology Microbiology Results: Microbiology 06/02/20 16:57 Urine clean catch - Clean Catch Midstream Urine Culture - Final Escherichia coli 06/02/20 16:40 Blood - Venous Blood Culture - Preliminary No growth after 24 hours. 06/02/20 16:40 Blood - Venous Blood Culture - Preliminary No growth after 24 hours. Progress Note: A&P Time Spent With Patient Total time spent with greater than 50% in coordination of care (as documented) at patient's floor/unit and/or counseling patient:: 0
[2020-06-04] MEDS: cefTRIAXone sodium 1 GM in 0.9 % Sodium Chloride 50 ML IV (10:44)
[2020-06-04] MEDS: Sodium,Potassium Phosphates POWD.PACK 2 PACKET PO (10:44)
--- NOTE | 2020-06-04 11:01 | PC.NURSE ---
CALLY D/C'ED AT 1100. DTV BY 1800. WILL PASS ON TO ON COMING RN.
--- NOTE | 2020-06-04 13:25 | P.CNID_ITS ---
History of Present Illness Data of Consult Service Date: 06/04/20 Requesting physician: Arnel García Primary Care Provider: DO CRISELDA Bernal Reason for consult: fever of unknown origin He presented to ER from [facility] with confusion He had a mechanical fall and was found to have temperature of 103 and tachycardia He had CXR some basilar infiltrates He had 3 d Zosyn and now Ceftriaxone His temperature and WBC are down Review of Systems Constitutional: Constitutional: Denies headache(s) and Denies weakness ENT: Denies dizziness and Denies headache(s) Musculoskeletal: Musculoskeletal: Denies numbness and Denies tingling Neurologic: Reports system reviewed and no additional complaints, except as d ocumented, Denies Abnormal speech present, Reports confusion, Denies dizziness, Denies headache(s), Denies numbness, Denies tingling and Denies weakness Psychiatric: Psychiatric: Reports confusion PMFSH Past Medical History Medical History Anemia CHF (congestive heart failure) Chronic GERD Chronic kidney disease (CKD) Hyperlipidemia Hypothyroidism Orofacial dystonia Prostate asymmetry Schizophrenia Social History Social History Household Members: None Housing: Assisted Living Facility Housing Other:: [facility] Do you presently have visiting nurse or other home services: No Alcohol intake: never Smoking Status: Never smoker Use of substances other than those prescribed or required for medical reasons: Refusing to respond Currently Displaying Signs/Symptoms of Drug Intoxication Withdrawal: No Advance Directives: No Advance Directives Information Provided: No Advance Directives on File: No Do you have thoughts of harming others: None Do you have a plan to hurt others: No Plan Recently lost weight without trying: Unsure service: No Current occupational status: retired [employer] Allergies Allergy/AdvReac Type Severity Reaction Status Date / Time No Known Allergies Allergy Verified 06/02/20 16:15 [No Known Allergies*] Home Medications Medication Instructions Recorded Confirmed Type chlordiazepoxide 5 mg PO BID 06/02/20 06/02/20 History chlorhexidine gluconate [Hibiclens] 1 applic TOPICAL DAILY 06/02/20 06/02/20 History clotrimazole [Lotrimin AF 1 applic TOPICAL BID 06/02/20 06/02/20 History (clotrimazole)] docusate sodium 100 mg PO DAILY 06/02/20 06/02/20 History fentanyl 1 patch TRANSDERMAL Q72H 06/02/20 06/02/20 History ferrous sulfate 325 mg PO BID 06/02/20 06/02/20 History furosemide 20 mg PO Q OTHER DAY 06/02/20 06/02/20 History lactulose 60 ml PO DAILY 06/02/20 06/02/20 History levetiracetam 1,000 mg PO QAM 06/02/20 06/02/20 History levetiracetam 1,500 mg PO BEDTIME 06/02/20 06/02/20 History levetiracetam 750 mg PO QNOON 06/02/20 06/02/20 History levothyroxine 150 mcg PO DAILY 06/02/20 06/02/20 History multivitamin 1 tab PO DAILY 06/02/20 06/02/20 History mupirocin 1 applic TOPICAL BID 06/02/20 06/02/20 History omeprazole 40 mg PO BID 06/02/20 06/02/20 History oxycodone-acetaminophen 1 tab PO TID 06/02/20 06/02/20 History polyethylene glycol 3350 [Miralax] 17 g PO DAILY 06/02/20 06/02/20 History risperidone 2 mg PO BID 06/02/20 06/02/20 History simvastatin 10 mg PO QPM 06/02/20 06/02/20 History Physical Exam Vital Signs: Vital Signs: Vital Signs Temp Pulse Resp BP Pulse Ox 06/04/20 11:59 99.8 F 75 18 113/67 92 06/04/20 11:02 102.2 F H 78 19 115/57 L 94 06/04/20 10:00 102.0 F H 79 17 95/62 94 06/04/20 09:00 101.3 F H 75 18 115/53 L 94 06/04/20 08:00 101.3 F H 81 18 123/53 L 96 06/04/20 06:59 102 F H 83 21 H 113/55 L 82 L 06/04/20 06:29 102 F H 84 18 117/59 L 93 06/04/20 06:00 102.2 F H 76 18 119/54 L 93 06/04/20 05:00 102.7 F H 80 22 H 107/53 L 93 06/04/20 04:00 103 F H 74 24 H 114/49 L 93 06/04/20 03:00 103.3 F H 78 23 H 119/49 L 95 06/04/20 02:00 102.4 F H 06/04/20 01:55 102.4 F H 78 20 117/49 L 100 06/04/20 01:31 22 H 107/55 L 82 L 06/04/20 01:00 102.2 F H 83 25 H 112/44 L 96 06/04/20 00:28 102 F H 74 23 H 103/41 L 94 06/03/20 23:59 102.4 F H 78 22 H 102/40 L 95 06/03/20 23:15 23 H 107/49 L 94 06/03/20 23:00 102.6 F H 82 24 H 104/45 L 96 06/03/20 22:12 102.9 F H 84 26 H 116/52 L 96 06/03/20 21:00 103.1 F H 88 25 H 106/53 L 96 06/03/20 20:00 103.3 F H 94 26 H 116/59 L 97 06/03/20 19:00 103.5 F H 91 22 H 113/63 97 06/03/20 18:00 103.5 F H 88 24 H 117/60 98 06/03/20 17:00 103.3 F H 85 20 113/59 L 98 06/03/20 16:30 103.3 F H 87 24 H 121/58 L 97 06/03/20 16:15 103.1 F H 86 20 111/56 L 98 06/03/20 16:00 102.9 F H 87 24 H 109/56 L 98 06/03/20 15:45 102.9 F H 91 23 H 130/66 97 06/03/20 15:30 102.9 F H 95 24 H 127/60 92 06/03/20 15:15 102.7 F H 90 25 H 126/63 97 06/03/20 15:00 102.0 F H 88 22 H 126/57 L 96 06/03/20 14:45 100.9 F H 88 22 H 121/61 95 06/03/20 14:30 102.6 F H 88 20 131/58 L 96 06/03/20 14:15 102.6 F H 84 23 H 131/52 L 97 06/03/20 14:00 102.6 F H 85 20 146/50 H 91 L 06/03/20 13:45 102.4 F H 87 21 H 142/56 H 93 06/03/20 13:30 102.4 F H 90 23 H 137/62 96 Body Mass Index 22.8 Const: General: confusion Orientation/consciousness: confusion HENMT: Head: Yes normal to inspection Eyes: General: appearance normal, both eyes and all related structures Resp: Effort & Inspection: normal respiratory effort Cardio: Rate: regular rate Rhythm: regular rhythm GI: Inspection: Yes normal to inspection : General: Yes no CVA tenderness Back/Spine/Pelvis: Back: no CVA tenderness Skin: Other: some abrasions lower extremity and tip right great toe old ulcer Neuro: General: confusion Speech: No Abnormal speech present Assessment and Plan (1) Septic shock: Problem details: This is likely related to lung source Status: Acute (2) Aspiration pneumonia: Qualifiers: Aspiration pneumonia type: unspecified Laterality: bilateral Lung location: lower lobe of lung Qualified Code(s): J69.0 - Pneumonitis due to inhalation of food and vomit Problem details: He has chemical aspiration,possible oral bacteria Status: Acute Would continue Ceftriaxone likely another two days If still febrile or difficulty walking consider check CT hips evaluate fracture,abscess (3) CHF (congestive heart failure): Status: Chronic (4) Chronic kidney disease (CKD): Status: Acute (5) Schizophrenia: Status: Chronic Results Labs CBC & Chem 7: 06/04/20 05:33 06/04/20 05:33 Labs: Short CBC 06/04/20 Range/Units 05:33 WBC 12.1 H (4.8-10.8) X10*3/uL Hgb 12.5 L (14.0-18.0) g/dl Hct 38.8 L (42-52) % Plt Count 141 L (160-400) X10*3/uL BMP 06/04/20 05:33 Sodium 138 Potassium 3.3 Chloride 106 Carbon Dioxide 23 BUN 16 Creatinine 0.98 Calcium 7.7 L Liver Function 06/04/20 06/04/20 Range/Units 05:33 05:33 Total Bilirubin 0.7 (0.0-1.0) mg/dL AST 66 H (5-37) U/L ALT 55 H (0-40) U/L Alkaline Phosphatase 88 (39-117) U/L Albumin 2.8 L D 2.8 L (3.5-5.0) g/dL Microbiology Microbiology Results: Microbiology 06/02/20 16:57 Urine clean catch - Clean Catch Midstream Urine Culture - Final Escherichia coli 06/02/20 16:40 Blood - Venous Blood Culture - Preliminary No growth after 24 hours. 06/02/20 16:40 Blood - Venous Blood Culture - Preliminary No growth after 24 hours.
--- NOTE | 2020-06-04 17:26 | ECG_ITS ---
Test Reason : elevated heart rate Blood Pressure : / mmHG Vent. Rate : 085 BPM Atrial Rate : 085 BPM P-R Int : 150 ms QRS Dur : 082 ms QT Int : 352 ms P-R-T Axes : 056 -10 030 degrees QTc Int : 418 ms Normal sinus rhythm Normal ECG When compared with ECG of 02-JUN-2020 18:17, No significant change was found Referred By: Marlene De Leon Electronically Signed By:AFSANEH SALMON MD
--- NOTE | 2020-06-04 18:20 | PC.NURSE ---
1715 PT heart rate elevated in the 160s nonsustaining, difficult to visualize if VT or artifact, EKG done and pt in NSR asymptomatic at time of event. aware.
--- NOTE | 2020-06-04 19:06 | PC.NURSE ---
Patient blood pressure 96/56 at 1400, asymptomatic. Repeat blood pressure 146/69 HR 78.
[2020-06-04] MEDS: levETIRAcetam in NaCl (iso-os) 1,500 MG/100 ML PIGGYBACK 400 MG IV (21:41)
[2020-06-04] MEDS: Atorvastatin Calcium 10 MG TABLET PO (21:43)
[2020-06-05 03:18] VITALS: BP 130/74; PULSE 75; RESP 20; TEMP 36.6; O2SAT 95
[2020-06-05] MEDS: Heparin Sodium,Porcine 5,000 UNIT/ML VIAL 5000 UNIT SUBCUT ×3 (03:32→17:58)
[2020-06-05] MEDS: Levothyroxine Sodium 150 MCG TABLET PO (06:17)
[2020-06-05 08:00] VITALS: BP 118/67; PULSE 65; RESP 18; TEMP 36.1; O2SAT 95
[2020-06-05] MEDS: Lactulose 20 GM/30 ML SOLUTION 40 GM PO (10:52)
[2020-06-05] MEDS: risperiDONE 2 MG TABLET PO (10:52)
[2020-06-05] MEDS: Docusate Sodium 100 MG CAPSULE PO (10:53)
[2020-06-05] MEDS: Omeprazole 40 MG CAPSULE.DR PO (10:53)
[2020-06-05] MEDS: cefTRIAXone sodium 1 GM in 0.9 % Sodium Chloride 50 ML IV (10:54)
[2020-06-05] MEDS: polyethylene glycoL 3350 17 GM POWD.PACK PO (10:54)
[2020-06-05] MEDS: Multivitamin TABLET 1 TAB PO (10:54)
[2020-06-05] MEDS: 0.9 % Sodium Chloride Flush 3 ML SYRINGE IVFLUSH ×3 (10:54→21:30)
[2020-06-05 10:55] VITALS: BP 110/60; PULSE 66; RESP 18; TEMP 37.1; O2SAT 95
[2020-06-05] MEDS: Ferrous Sulfate 324 MG TABLET.DR PO (11:02)
[2020-06-05] MEDS: Clotrimazole 1 % Cream 15 GM TUBE 1 APPL TOPICAL (11:03)
[2020-06-05] MEDS: levETIRAcetam 1,000 MG in 0.9 % Sodium Chloride 100 ML 400 MG IV (12:18)
--- NOTE | 2020-06-05 12:33 | MHC.CM.PN ---
LEFT MESSAGE FOR YUSUF AGUILA PTS GUARDIAN RE POSSIVBLE DC TOMORROW AND TO UPDATE IMM
[2020-06-05] MEDS: levETIRAcetam 750 MG in 0.9 % Sodium Chloride 100 ML 400 MG IV (14:28)
--- NOTE | 2020-06-05 14:36 | HO.PM.IMPN ---
Subjective Subjective Date of Service: 06/05/20 Interval History: patient seen examined at bedside patient reported cough Physical Exam Vital Signs: Vital Signs: Vital Signs Temp Pulse Resp BP Pulse Ox 06/05/20 10:55 98.8 F 66 18 110/60 95 06/05/20 08:00 97.0 F 65 18 118/67 95 06/05/20 03:18 97.9 F 75 20 130/74 95 06/04/20 23:38 98.5 F 71 20 108/56 L 90 L 06/04/20 19:48 99.5 F 79 18 118/73 92 06/04/20 19:04 99 F 78 19 146/69 H 99 06/04/20 15:27 100.8 F H 74 18 96/56 L 95 Body Mass Index 22.8 Const: General: cooperative and comfortable Resp: Auscultation: crackles Cardio: Jugular venous distension: no JVD Objective Data Current Medications Generic Name Dose Route Start Last Admin Trade Name Freq PRN Reason Stop Dose Admin Atorvastatin Calcium 10 mg 06/03/20 21:00 06/04/20 21:43 Atorvastatin Calcium 10 Mg Tablet PO 10 mg BEDTIME MANUELA Administration Chlordiazepoxide HCl 5 mg 06/03/20 09:00 06/04/20 08:29 Chlordiazepoxide Hcl 5 Mg Capsule PO 5 mg BID MANUELA Administration Clotrimazole 1 appl 06/03/20 21:00 06/05/20 11:03 Clotrimazole 1 % Cream 15 Gm Tube TOPICAL 1 appl BID MANUELA Administration Protocol Docusate Sodium 100 mg 06/05/20 09:00 06/05/20 10:53 Docusate Sodium 100 Mg Capsule PO 100 mg DAILY MANUELA Administration Fentanyl 100 mcg 06/03/20 14:00 06/03/20 15:36 Fentanyl 100 Mcg Patch.Td72 TRANSDERMA 100 mcg Q72H MANUELA Administration Ferrous Sulfate 324 mg 06/03/20 21:00 06/05/20 11:02 Ferrous Sulfate 324 Mg Tablet.Dr PO 324 mg BID MANUELA Administration Heparin Sodium (Porcine) 5,000 unit 06/03/20 02:00 06/05/20 10:54 Heparin Sodium,Porcine 5,000 Unit/Ml Vial SUBCUT 5,000 unit Q8H MANUELA Administration Ceftriaxone Sodium 1 gm/ 50 mls @ 100 mls/hr 06/04/20 10:30 06/05/20 11:33 Sodium Chloride IV 06/07/20 23:00 Infused Q24H MANUELA Infusion Levetiracetam 750 mg/ Sodium 107.5 mls @ 400 mls/hr 06/05/20 12:00 06/05/20 14:28 Chloride IV 400 mls/hr DAILY@1200 MANUELA Administration Lactulose 40 gm 06/04/20 09:00 06/05/20 10:52 Lactulose 20 Gm/30 Ml Solution PO 40 gm DAILY MANUELA Administration Levetiracetam 1,500 mg 06/05/20 21:00 Levetiracetam 500 Mg Tablet PO BEDTIME MANUELA Levetiracetam 1,000 mg 06/06/20 09:00 Levetiracetam 1,000 Mg Tablet PO DAILY MANUELA Levothyroxine Sodium 150 mcg 06/03/20 06:30 06/05/20 06:17 Levothyroxine Sodium 150 Mcg Tablet PO 150 mcg DAILY@0630 MANUELA Administration Multivitamins/Vitamin C 1 tab 06/04/20 09:00 06/05/20 10:54 Multivitamin Tablet PO 1 tab DAILY [facility] Administration Omeprazole 40 mg 06/03/20 09:00 06/05/20 10:53 Omeprazole 40 Mg Capsule.Dr PO 40 mg BID MANUELA Administration Oxycodone HCl 10 mg 06/03/20 15:00 06/04/20 08:29 Oxycodone Hcl Immed Release 5 Mg Tablet PO 10 mg TID MANUELA Administration Polyethylene Glycol 17 gm 06/04/20 09:00 06/05/20 10:54 Polyethylene Glycol 3350 17 Gm Powd.Pack PO 17 gm DAILY MANUELA Administration Risperidone 2 mg 06/03/20 09:00 06/05/20 10:52 Risperidone 2 Mg Tablet PO 2 mg BID MANUELA Administration Sodium Chloride 3 ml 06/03/20 08:00 06/05/20 10:54 0.9 % Sodium Chloride Flush 3 Ml Syringe IVFLUSH 3 ml QSHIFT [facility] Administration Labs CBC & Chem 7: 06/04/20 05:33 06/04/20 05:33 Microbiology Microbiology Results: Microbiology 06/02/20 16:40 Blood - Venous Blood Culture - Preliminary No growth after 48 hours. 06/02/20 16:40 Blood - Venous Blood Culture - Preliminary No growth after 48 hours. 10/18/20 16:57 Urine clean catch - Clean Catch Midstream Urine Culture - Final Escherichia coli Assessment and Plan (1) Septic shock: Status: Acute (2) Aspiration pneumonia: Status: Acute (3) CHF (congestive heart failure): Status: Chronic (4) Chronic kidney disease (CKD): Status: Acute (5) Schizophrenia: Status: Chronic Assessment and Plan: 69-year-old male from [facility] initially admitted to ICU with septic shock started on pressor and IV antibiotic source likely aspiration pneumonia, patient was weaned off from pressors and transferred to floor Septic shock likely secondary to aspiration pneumonia resolved aspiration pneumonia continue IV antibiotic follow-up blood culture [employer] evaluation requested continue aspiration precaution oxygen supplementation as needed history of schizophrenia patient was agitated in ICU , more relaxed now continue chlordiazepoxide risperidone and Keppra questionable history of seizure continue Keppra hypothyroidism continue levothyroxine chronic pain continue fentanyl patch home dose DVT prophylaxis heparin subcu
[2020-06-05 15:04] VITALS: BP 97/55; PULSE 75; RESP 16; TEMP 36; O2SAT 93
[2020-06-05 19:04] VITALS: BP 133/68; PULSE 67; RESP 16; TEMP 36.6; O2SAT 95
--- NOTE | 2020-06-05 20:14 | PC.NURSE ---
At 1999 assessment this RN noted that patient had pulled out TLC from right IJ. Pressure held for a few minutes, no bleeding or edema noted. Will continue to monitor.
[2020-06-06 00:50] VITALS: BP 141/69; PULSE 64; RESP 20; TEMP 36.2; O2SAT 94
--- NOTE | 2020-06-06 04:05 | PC.NURSE ---
Patient refusing all PO HS medications, pt yelling out and becoming agitated. Dr Lynn notified via [facility]. PO keppra changed to IV keppra for 2100 dose, this RN was able to administer dose.
[2020-06-06 04:08] VITALS: PULSE 68; RESP 18
[2020-06-06 08:00] VITALS: BP 134/63; PULSE 64; RESP 18; TEMP 36.3; O2SAT 95; BMI 24.3
[2020-06-06 09:11] VITALS: PULSE 67; O2SAT 92
[2020-06-06] MEDS: 0.9 % Sodium Chloride Flush 3 ML SYRINGE IVFLUSH (09:16)
[2020-06-06] MEDS: Heparin Sodium,Porcine 5,000 UNIT/ML VIAL 5000 UNIT SUBCUT (09:18)
[2020-06-06] MEDS: cefTRIAXone sodium 1 GM in 0.9 % Sodium Chloride 50 ML IV (11:18)
--- NOTE | 2020-06-06 11:20 | PC.NURSE ---
Attempted to hang IV abx for pt, pt kicked this RN in chest and started yelling out psychopath . Another RN hung IV abx and assisted aid4 in washing pt up. Pt kicked Aide in chest and started yelling again. Rn told pt that it was not ok to kick. will continue to monitor
--- NOTE | 2020-06-06 11:38 | PM.DS ---
DS: Providers Provider Date of admission: 06/03/20 01:10 Primary care physician: Yair Thorne DO Consults: 06/04/20 08:59 Consult to Infectious Diseases Routine Consulting Provider: Adelaida Dueñas Reason for consultation: Fever of undetermined etiology Has provider been notified: Yes DS: Diagnosis Discharge Diagnosis (1) Septic shock: Status: Acute (2) Aspiration pneumonia: Status: Acute (3) CHF (congestive heart failure): Status: Chronic (4) Chronic kidney disease (CKD): Status: Acute (5) Schizophrenia: Status: Chronic DS: Summary Hospital Course Hospital Course: 69-year-old male from [facility] admitted initially to ICU with septic shock likely secondary to aspiration pneumonia, patient was started on IV pressors and IV antibiotic, blood pressure improved patient was weaned off from pressors , blood cultures remain negative, sepsis resolved, patient was evaluated by speech therapist recommended pureed and thin liquids, patient was stable, patient was refusing medication on day of discharge, discussed with Dr. thorne from [facility] ok to discharge back [facility] , patient was stable discharge back to facility on p.o. Augmentin Time Spent with Patient Time attestation: Total time spent providing and/or coordinating discharge services: Physical Exam Vital Signs: Vital Signs: Vital Signs Temp Pulse Resp BP Pulse Ox 06/06/20 08:00 97.3 F 64 18 134/63 95 06/06/20 04:08 68 18 06/06/20 00:50 97.1 F 64 20 141/69 H 94 06/05/20 19:04 97.8 F 67 16 133/68 95 06/05/20 15:04 96.8 F 75 16 97/55 L 93 Body Mass Index 24.3 Const: General: cooperative and comfortable Resp: Auscultation: crackles Cardio: Jugular venous distension: no JVD DS: Data Data Completed and Pending Labs on day of discharge: Preliminary micro results at discharge 06/02/20 16:40 Blood Culture - Preliminary Blood - Venous No growth after 48 hours. 06/02/20 16:40 Blood Culture - Preliminary Blood - Venous No growth after 48 hours. Discharge Plan Discharge Anticipated Discharge Date/Time: 06/06/20 11:32 Patient Disposition: er SNF Referrals: [facility] [Outside] Yair Thorne DO [Primary Care Provider] - Discharge Medications: New amoxicillin-pot clavulanate [Augmentin] 500-125 mg tablet 1 tab PO BID Qty: 14 RF: 0 Continued chlordiazepoxide 5 mg Tablet 5 mg PO BID RF: 0 multivitamin Tablet 1 tab PO DAILY RF: 0 polyethylene glycol 3350 [Miralax] 17 gram Powder In Packet 17 g PO DAILY RF: 0 simvastatin 10 mg Tablet 10 mg PO QPM RF: 0 omeprazole 40 mg Capsule,Delayed Release(Dr/Ec) 40 mg PO BID RF: 0 risperidone 2 mg Tablet 2 mg PO BID RF: 0 fentanyl 100 mcg/hr Patch 72 Hour 1 patch TRANSDERMAL Q72H RF: 0 oxycodone-acetaminophen 10-325 mg Tablet 1 tab PO TID RF: 0 ferrous sulfate 325 mg (65 mg iron) Tablet 325 mg PO BID RF: 0 levothyroxine 150 mcg Tablet 150 mcg PO DAILY RF: 0 docusate sodium 100 mg Capsule 100 mg PO DAILY RF: 0 levetiracetam 750 mg Tablet 750 mg PO QNOON RF: 0 levetiracetam 750 mg Tablet 1,500 mg PO BEDTIME RF: 0 mupirocin 2 % Ointment 1 applic TOPICAL BID RF: 0 furosemide 20 mg Tablet 20 mg PO Q OTHER DAY RF: 0 clotrimazole [Lotrimin AF (clotrimazole)] 1 % Cream 1 applic TOPICAL BID RF: 0 chlorhexidine gluconate [Hibiclens] 4 % Liquid 1 applic TOPICAL DAILY RF: 0 lactulose 10 gram/15 mL Solution 60 ml PO DAILY RF: 0 levetiracetam 1,000 mg Tablet 1,000 mg PO QAM RF: 0 Discharge Orders: Discharge Order (Routine); Ordered 06/06/20 Ordered By: Cecilio Buchanan Diet: advance to your usual diet Activity on Discharge: As tolerated Discharge Date/Time: 06/06/20 13:45 Visit Report Forms: Patient Portal Discharge page Care Plan Goals: see discharge instructions Health Concerns: see discharge instructions Plan of Treatment: see discharge instructions
--- NOTE | 2020-06-06 11:58 | MHC.CM.PN ---
Pt to be discharged back to [facility] today. CM called pts guardian, Ant Hernandez ([phone]) and informed him of DC. Pt will be transported via S
== END 2020-06-06 13:45 | disposition skilled nursing facility (03) | DRG 871 ==
LOC: HO.ED 06-03 01:05 → HO.ICU 06-03 01:45 → HO.IMC 06-04 10:43
PROVIDERS: Anesthesiology; Nurse Practitioner Family; Registered Nurse Community Health; Admitting Provider Internal Medicine Pulmonary Disease; Emergency Provider Emergency Medicine; PCP Hospitalist; Visit Provider Internal Medicine
DX: A41.9 Sepsis, unspecified organism (principal); J69.0 Pneumonitis due to inhalation of food and vomit; R65.21 Severe sepsis with septic shock; I13.0 Hypertensive heart and chronic kidney disease with heart failure and stage 1 through stage 4 chronic kidney disease, or unspecified chronic kidney disease; I50.22 Chronic systolic (congestive) heart failure; F20.0 Paranoid schizophrenia; N17.9 Acute kidney failure, unspecified; E78.00 Pure hypercholesterolemia, unspecified; K21.9 Gastro-esophageal reflux disease without esophagitis; I95.9 Hypotension, unspecified; N18.30 Chronic kidney disease, stage 3 unspecified; E03.9 Hypothyroidism, unspecified; D63.1 Anemia in chronic kidney disease; Z20.828 Contact with and (suspected) exposure to other viral communicable diseases; Z79.890 Hormone replacement therapy; Z79.899 Other long term (current) drug therapy; Z91.81 History of falling
CPT/HCPCS: 36415; 70450; 71045; 71250; 72125; 74177; 80048; 80053; 80076; 81001; 82040; 82550; 82803; 83605; 83690; 83735; 84100; 84484; 85025; 85027; 85610; 87040; 87086; 87088; 87186; 87633; 87635; 92526; 92610; 93005; 93308; 96361; 96365; 96375; 99285; J0131; J1953; J2250; J3370; J3475

== ENCOUNTER → 2020-08-06 14:02 | Outpatient (BNVA) | payer MEDICARE, MEDICAID, SELFPAY | PROVIDERS: Visit Provider Urology | DX: Z76.89 Persons encountering health services in other specified circumstances (principal) ==

== ENCOUNTER → 2020-10-31 14:32 | Outpatient (BNVA) | payer MEDICARE, MEDICAID, SELFPAY | PROVIDERS: PCP Hospitalist; Visit Provider Urology | DX: Z13.89 Encounter for screening for other disorder (principal) | CPT/HCPCS: 99212 ==

== ENCOUNTER → 2021-11-12 08:41 | Outpatient (BNVA) | payer MEDICARE, MEDICAID, SELFPAY | PROVIDERS: PCP Hospitalist; Visit Provider Urology | DX: N32.0 Bladder-neck obstruction (principal); R97.20 Elevated prostate specific antigen [PSA] | CPT/HCPCS: 99212 ==

== ENCOUNTER 2022-04-30 08:39 | Inpatient (IN) | payer MEDICARE, MEDICAID, SELFPAY ==
--- NOTE | ~2022-04-30 | MR_ITS ---
EXAMINATION: MR ABDOMEN WITHOUT AND WITH CONTRAST CLINICAL INFORMATION: Cholelithiasis. COMPARISON: CT 04/30/2022. TECHNIQUE: MR abdomen was performed without and with use of 10 mL intravenous Gadavist gadolinium contrast. Postcontrast images are performed in multiphase dynamic sequences. Imaging was performed in 3 planes. Heavily T2-weighted sequence performed for MRCP acquisition. FINDINGS: Motion limited evaluation. LUNG BASES: The visualized lung bases are unremarkable. LIVER, GALLBLADDER, AND BILIARY TREE: The liver is normal in size, smooth in contour, and normal in signal. There is significant intrahepatic and extrahepatic biliary ductal dilatation. The common bile duct measures 1.3 cm. Numerous stones are seen in the gallbladder lumen. Irregularity of the gallbladder wall which is thickened. There are small filling defects within the common bile duct, measuring up to 0.5 cm. There appears to be narrowing of the superior portion of the common bile duct, involving approximately 0.7 cm in length. Adjacent to the gallbladder fundus there is an area of fluid with surrounding inflammation. This is also seen on the previous CT and is concerning for abscess. There is also an area of signal abnormality in the liver along the gallbladder fossa. This is increased in T2 signal, though does not have the appearance of simple fluid. On postcontrast imaging, this area does not enhance with the surrounding liver. This measures 1.5 cm as seen on series 101 image 73. This may also represent abscess within the liver. PANCREAS: Unremarkable. No pancreatic ductal dilatation. SPLEEN: Normal. ADRENAL GLANDS: Normal. KIDNEYS AND URETERS: The kidneys are normal in size, shape, and enhance symmetrically. No hydronephrosis. No perinephric stranding. Simple right renal cyst. No follow-up imaging recommended. GASTROINTESTINAL TRACT: No bowel obstruction. No ascites or fluid collection. ABDOMINAL WALL: No significant hernia is appreciated. LYMPH NODES: No lymphadenopathy. VASCULAR: Unremarkable. OSSEOUS STRUCTURES: Marrow signal normal. MR/MR abdomen wo/w con IMPRESSION: Motion limited examination. Significant intrahepatic and extrahepatic biliary ductal dilatation. There appears to be small filling defects within the common duct, suggesting choledocholithiasis. There is a focal narrowing at the superior aspect of the common bile duct, of uncertain etiology. Multiple stones in the gallbladder lumen. Gallbladder wall thickening and irregularity. This is suggestive of acute cholecystitis. There are adjacent associated probable abscesses, both adjacent to the gallbladder fundus and within the liver along the gallbladder fossa.
--- NOTE | ~2022-04-30 | US_ITS ---
EXAMINATION: US ABDOMEN LIMITED CLINICAL INFORMATION: Right upper quadrant pain with choledocho lithiasis. COMPARISON: CT abdomen pelvis 06/02/2020 TECHNIQUE: Real-time imaging of the right upper quadrant abdominal viscera. FINDINGS: PANCREAS: Pancreatic duct is prominent measuring 4 mm in size, similar to prior CT. LIVER: The liver demonstrates increased echogenicity. The liver is normal in size. The liver contour is normal. Intrahepatic biliary ductal dilatation is seen the largest ducts measuring 1.3 cm. No focal hepatic lesion. GALLBLADDER: The gallbladder is physiologically distended. Multiple mobile gallstones are present. Gallbladder wall thickening is present measuring almost 9 mm. There is no pericholecystic fluid. COMMON BILE DUCT: The common bile duct is dilated at 1.2 cm and an 8 x 8 x 6 mm stone is seen within the common bile duct, new since 06/02/2020 (see ultrasound loop 5) There is an upper pole 8 mm cyst present. No solid renal masses. No renal calculi . The kidney measures 10.4 cm in maximum dimension. FREE FLUID: None. US/US abdomen limited IMPRESSION: Choledocholithiasis with intrahepatic biliary ductal dilatation with a new obstructing stone seen in the dilated common bile duct.
--- NOTE | ~2022-04-30 | XR_ITS ---
EXAMINATION: XR SKULL CLINICAL INFORMATION: Pre-MRI COMPARISON: None TECHNIQUE: 2 views of the skull were obtained. FINDINGS: No foreign body is seen. No fracture is seen. Visualized paranasal sinuses are clear. XR/XR skull <4V IMPRESSION: No foreign body seen.
--- NOTE | ~2022-04-30 | XR_ITS ---
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 FINDINGS: No foreign body is seen. The cardiac and mediastinal contours are stable. The lungs are clear. There is no pleural effusion or pneumothorax. There is old trauma to the left clavicle. XR/XR chest 1V IMPRESSION: No foreign body seen. No evidence for acute disease in the chest.
--- NOTE | ~2022-04-30 | FL_ITS ---
: XR FLUOROSCOPY WITH IMAGES CLINICAL INFORMATION: ERCP COMPARISON: Previous exam September [address] MR of the abdomen earlier this month TECHNIQUE: Fluoroscopy performed by Dr. Nuha Oviedo. Fluoroscopy time: 198 seconds. Cumulative Dose: 57 mGy. DAP: Gy-cm2. Images: 7) and FINDINGS: There is intrahepatic biliary duct dilatation. There is a stricture of the central right and left intrahepatic bile ducts in the hilum of the liver. The common bile duct distal to this to this appears dilated as well. Later images demonstrate placement of a stent in the bile ducts. FL/FL guidance in OR IMPRESSION: Fluoroscopy guidance for ERCP and bile duct stent placement.
--- NOTE | ~2022-04-30 | XR_ITS ---
EXAMINATION: XR ABDOMEN KUB CLINICAL INDICATION: Pre-MRI COMPARISON: Previous CT of the abdomen and pelvis from yesterday TECHNIQUE: AP view of the abdomen. FINDINGS: There is a left hip replacement. No other foreign body is seen. Bowel gas pattern is normal. There is no free air. There are degenerative changes of the spine and right hip joint. XR/XR abdomen 1V IMPRESSION: Left hip replacement. No other foreign body seen.
--- NOTE | ~2022-04-30 | CT_ITS ---
EXAMINATION: CT ABDOMEN AND PELVIS WITH CONTRAST CLINICAL INFORMATION: Abnormal liver function tests. Choledocholithiasis. COMPARISON: Abdomen ultrasound from 04/30/2022. Abdomen/pelvis CT from 06/02/2020. TECHNIQUE: Multidetector volumetric images were obtained from the superior aspect of the liver through the pubic symphysis following administration 85 mL of Omnipaque 350 intravenous contrast. Sagittal and coronal reformatted images were obtained on the technologist's workstation. This CT examination was performed using dose optimization techniques as appropriate, variously including the following: *Automated exposure control *Adjustment of mA and/or kV according to patient size (this includes techniques or standardized protocols for targeted exams where dose is matched to indication/reason for exam; i.e. extremities or head) *Use of iterative reconstruction technique DLP: 1178 mGy-cm FINDINGS: LUNG BASES: Lung bases are suboptimally evaluated due to respiratory motion. There appears to be chronic minimal bronchiectasis of the medial segment of the right middle lobe. Mild atelectasis in dependent aspect of each lung. No pleural effusion. HEPATOBILIARY: Liver has normal size and contour. Gallbladder contains several calcified stones. The gallbladder wall is thickened and there is mild adjacent fat stranding. Findings are consistent with cholecystitis. Previously, there was a1 cm focus of nodularity of the fundal wall. On this current exam, in this same region of the gallbladder fundus, there is a 2 cm hypodensity involving the adjacent liver. Although this could represent inflammatory change or abscess involving the liver, there is no gas within this hypoattenuation, and superimposed infiltrative neoplasm would be included in the differential diagnosis. A few small soft tissue nodules are seen in the adjacent omental fat. The common bile duct and intrahepatic ducts are chronically dilated. The echogenic sludge or stone observed in the common duct on the 04/30/2022 ultrasound examination is not visualized. A focal thick-walled stricture of approximately 1 cm length of the common hepatic duct is new compared to 06/02/2020. No radiopaque stones within the mid or distal CBD, which measures up to 1.3 cm transverse diameter. PANCREAS: No acute findings within the chronically atrophied pancreas. SPLEEN: Normal. ADRENAL GLANDS: Normal. KIDNEYS AND URETERS: The kidneys have normal size and cortical thickness. No perinephric edema or fluid collection. No urolithiasis or hydroureteronephrosis. There are a few small simple cysts of the right kidney. No renal imaging follow-up is recommended for simple cysts. BLADDER: Urinary bladder is grossly normal. BOWEL AND PERITONEUM: Stomach is underdistended. No dilated bowel loops. The appendix is normal. No focal inflammatory change or obstruction along the gastrointestinal tract. Trace free fluid in the abdomen and pelvis. There is a focus of mild nodular thickening at the right paracolic gutter (image 444, series 4). Also, there is mild nodular thickening of 0.8 cm AP dimension at the left paracolic gutter (image 494, series 4), new compared to 06/02/2020. The largest new nodular focus in the left omentum is 1.1 cm (image 438, series 4). A few new peritoneal nodules are seen in the pelvis (images 555 and 572, series 4). These findings are consistent with metastatic disease. ABDOMINAL WALL: Unremarkable. VASCULATURE: Mild atherosclerosis of the iliac arteries and abdominal aorta without aneurysm. LYMPH NODES: The lymph nodes in the periportal region or in the normal size range. No pathologic sized retroperitoneal or iliac lymph nodes. The right and left deep inguinal lymph nodes measure approximately 1 cm short axis dimension and are stable compared to 06/02/2020. PELVIC VISCERA: Prostate gland is grossly unremarkable. SKELETAL: Streak artifact produced by left hip arthroplasty hardware. Old severe degenerative and/or inflammatory changes of the lower lumbar spine. No acute skeletal abnormalities. CT/CT abdomen pelvis w IV con IMPRESSION: Cholelithiasis and diffusely thickened gallbladder wall with adjacent fat stranding. These findings are suggestive of cholecystitis. Also, there is abnormal hypoattenuation involving the adjacent liver from abscess or perhaps infiltrative neoplasm involving the liver. A few new small soft tissue nodules are seen in the adjacent omentum of the right upper quadrant. Also, there are other scattered omental and peritoneal deposits, and trace abdominal free fluid. Common duct and intrahepatic ducts are chronically dilated. Compared to 06/02/2020, there is a new stricture of the common hepatic duct -- possibly neoplastic stricture (i.e., possible cholangiocarcinoma).
--- NOTE | ~2022-04-30 | FL_ITS ---
EXAMINATION: Intraoperative fluoroscopy CLINICAL INFORMATION: ERCP COMPARISON: Abdominal MRI 05/01/2022 TECHNIQUE: Intraoperative fluoroscopy was provided for use by Dr. Oviedo. A total of 4 images were saved to PACS. A radiologist was not present during imaging. Today's dictation is only for administrative purposes to document intraoperative fluoroscopic usage. TOTAL FLUOROSCOPIC TIME: 10 minutes FL/FL guidance in OR FINDINGS~\^^ Intraoperative fluoroscopy provided for use by Dr. Oviedo. Please see operative note for detailed findings.
--- NOTE | ~2022-04-30 | XR_ITS ---
EXAMINATION: XR PELVIS CLINICAL INFORMATION: Pre-MRI COMPARISON: Previous x-ray March 2012 TECHNIQUE: AP view of the pelvis. FINDINGS: There is a left hip replacement. No other foreign body. No fracture or dislocation. Mild arthritis at the right hip joint. There is excreted contrast in the bladder from yesterday's CT scan. There is atherosclerotic disease. XR/XR pelvis 1-2V IMPRESSION: Left hip replacement. No other foreign body seen.
[2022-04-30 08:43] VITALS: BP 110/66; PULSE 60; PULSE 61; RESP 20; TEMP 36.5; O2SAT 95; O2SAT 96; BMI 26.4
--- NOTE | 2022-04-30 09:15 | ED.GENADULT ---
HPI - General Adult General Chief complaint: General Medical Stated complaint: ABD PAIN FROM SNF WRAD RESULT PER EMS Time Seen by Provider: 04/30/22 08:41 Source: patient and EMS Mode of arrival: EMS History of Present Illness HPI narrative: 71-year-old male with meds history of paranoid schizophrenia, CHF, CKD, BPH, HLD, anemia, epilepsy, deaf, presenting to ED via EMS from [facility], [place] for elevated LFTs noted on outpatient labs and abdominal ultrasound showing CBD and left hepatic duct calculi with biliary dilation. Patient reports pain times a couple weeks. Reports abdominal pain and nausea. Denies fever, vomiting, diarrhea, dysuria/hematuria. Onset (ago): week(s) Related Data Home Medications Medication Instructions Recorded Confirmed docusate sodium 100 mg capsule 100 mg PO DAILY 06/02/20 04/30/22 fentanyl 100 mcg/hr transdermal 1 patch transdermal Q72H 06/02/20 04/30/22 patch ferrous sulfate 325 mg (65 mg 325 mg PO BID 06/02/20 04/30/22 iron) tablet furosemide 20 mg tablet 20 mg PO Q OTHER DAY 06/02/20 04/30/22 lactulose 10 gram/15 mL oral 60 ml PO DAILY 06/02/20 04/30/22 solution levetiracetam 1,000 mg tablet 1,000 mg PO QAM 06/02/20 04/30/22 levetiracetam 750 mg tablet 1,500 mg PO BEDTIME 06/02/20 04/30/22 levetiracetam 750 mg tablet 750 mg PO QNOON 06/02/20 04/30/22 multivitamin 1 tab PO DAILY 06/02/20 04/30/22 omeprazole 40 mg capsule,delayed 40 mg PO BID 06/02/20 04/30/22 release oxycodone-acetaminophen 10 mg-325 1 tab PO TID 06/02/20 04/30/22 mg tablet polyethylene glycol 3350 17 gram 17 g PO DAILY 06/02/20 04/30/22 oral powder packet (Miralax) risperidone 2 mg tablet 2 mg PO BID 06/02/20 04/30/22 simvastatin 10 mg tablet 10 mg PO QPM 06/02/20 04/30/22 diazepam 2 mg tablet 2 mg PO BID 11/12/21 04/30/22 risperidone 0.5 mg tablet 0.5 mg PO BID 11/12/21 04/30/22 bisacodyl 5 mg tablet 5 mg PO BEDTIME 04/30/22 04/30/22 clotrimazole 1 % topical cream 1 appl topical BID 04/30/22 04/30/22 levothyroxine 175 mcg tablet 1 tab PO DAILY 04/30/22 04/30/22 lorazepam 2 mg/mL injection 1 mg IM DAILY PRN Seizure Activity 04/30/22 04/30/22 solution sennosides 8.6 mg tablet (senna) 8.6 mg PO DAILY PRN Constipation 04/30/22 04/30/22 tamsulosin 0.4 mg capsule 1 cap PO DAILY 04/30/22 04/30/22 tolnaftate 1 % topical cream 1 appl topical BID 04/30/22 04/30/22 Previous Rx's Medication Instructions Recorded finasteride 5 mg tablet 5 mg PO DAILY 90 days #90 tabs 11/12/21 Allergies Allergy/AdvReac Type Severity Reaction Status Date / Time No Known Allergies Allergy Verified 11/12/21 08:50 [No Known Allergies*] Review of Systems Review of Systems: Constitutional: No Fever, + Chills, No Fatigue, No Malaise Cardiovascular: No Chest Pain, No SOB Respiratory: No Cough, No Sputum, No Dyspnea Gastrointestinal: + Nausea, No Vomiting, No Diarrhea, No Constipation, No Abdominal pain Genitourinary: No Dysuria, No Urinary Frequency, No Hematuria, No Flank Pain, No Urinary Flow Changes Musculoskeletal: No joint pain, No Myalgias Skin: No Skin Lesions, No rash Neuro: No Weakness, No Headache Yes all other systems are reviewed and are negative Constitutional: Constitutional: Reports as per [facility] Past Medical History Attestation statement: The following information was validated with the patient. Medical History Anemia CHF (congestive heart failure) Chronic GERD Chronic kidney disease (CKD) Elevated PSA Hyperlipidemia Hypothyroidism Orofacial dystonia Prostate asymmetry Schizophrenia Social History Social History Household Members: None Housing: Assisted Living Facility Housing Other:: [facility] Do you presently have visiting nurse or other home services: No Unable to assess alcohol history related to: Refusing to respond Alcohol intake: never Smoked in Last 30 Days: No Use of substances other than those prescribed or required for medical reasons: No Advance Directives: No Advance Directives Information Provided: No service: No Current occupational status: retired Physical Exam ED Vital Signs: Vital Signs - 24 hr 04/30/22 08:43 04/30/22 10:50 Temperature 97.7 F Pulse Rate 61 64 Respiratory Rate 20 16 Blood Pressure 110/66 107/67 Pulse Oximetry 95 98 Oxygen Delivery Method Room Air Room Air BMI result Body Mass Index 26.4 Const General: cooperative, no acute distress, alert and awake Orientation/consciousness: patient oriented x3 Limitations: no limitations HENMT Head: Yes normal to inspection and Yes atraumatic Ears: hearing grossly normal bilaterally General nose exam: Normal external nose present Face and sinus: Yes normal facial exam Eyes General: appearance normal, both eyes and all related structures EOM: EOMs intact bilaterally Neck Neck: Yes normal visual inspection and Yes no meningeal signs Resp Effort & Inspection: normal respiratory effort and no respiratory distress Auscultation: clear to auscultation bilaterally Cardio Rate: regular rate Heart sounds: S1 normal heart sound present and S2 normal heart sound present GI Inspection: Yes normal to inspection Palpation (GI): Soft to palpation, Tenderness to palpation present (GI) in the epigastrum and in the RUQ, no guarding and not rigid General: Yes no CVA tenderness Back/Spine/Pelvis Back: no CVA tenderness Skin Rashes: no rashes Wounds: no wounds Neuro General: patient oriented x3, tone normal and no meningeal signs Extrem General: Yes normal to inspection Course Course Course Narrative: -no leukocytosis. Labs notable for elevated AST/ALT and alk-phos. US abdomen limited IMPRESSION: Choledocholithiasis with intrahepatic biliary ductal dilatation with a new obstructing stone seen in the dilated common bile duct. > Consulted Dr. Hua, general surgery who requested CT abdomen pelvis, and admission for ERCP >1115-- will admit patient for further management to hospitalist Medical Decision Making MDM Narrative Medical decision making narrative: 71-year-old male with meds history of paranoid schizophrenia, CHF, CKD, BPH, HLD, anemia, epilepsy, deaf, presenting to ED via EMS from [facility], [place] for elevated LFTs noted on outpatient labs and abdominal ultrasound showing CBD and left hepatic duct calculi with biliary dilation. On exam vital sings stable, NAD, abdomen soft with RUQ/epigastric tenderness, no rebound or guarding. Concern for choledocholithiasis vs pancreatitis. Low suspicion for cholangitis at this time. Unlikely appendicitis/diverticulitis Plan: Labs, lactic/blood cultures, IVF, empiric IV antibiotics, repeat ultrasound, anticipated admission Medical Records Medical records reviewed: Yes I reviewed the patient's medical records. Lab Data Lab results reviewed: Yes I reviewed the patient's lab results. Result diagrams: 04/30/22 09:15 04/30/22 09:15 Labs: Lab Results 04/30/22 04/30/22 04/30/22 Range/Units 09:07 09:15 09:15 WBC 7.7 (4.8-10.8) X10*3/uL RBC 5.34 (4.60-5.80) X10*6/uL Hgb 15.6 (14.0-18.0) g/dl Hct 49.0 (42.0-52.0) % MCV 91.8 (80.0-98.0) fL MCH 29.2 (27.0-33.0) pg MCHC 31.8 (31.0-36.0) g/dl RDW 12.5 (11.0-16.0) % Plt Count 237 (160-400) X10*3/uL MPV 10.9 (9.4-12.4) fL Immature Gran % (Auto) 0.3 (0.0-0.4) % Neut % (Auto) 69.5 (45-73) % Lymph % (Auto) 19.3 L (20-40) % [place] % (Auto) 9.6 (2-11) % Eos % (Auto) 0.9 (0-4) % Baso % (Auto) 0.4 (0-2) % Lymph # (Auto) 1.5 (1.2-4.9) X10*3/uL [place] # (Auto) 0.7 (0.1-1.2) X10*3/uL Eos # (Auto) 0.1 (0.0-0.4) X10*3/uL Baso # (Auto) 0.0 (0.0-0.2) X10*3/uL Abs Immat Gran (auto) 0.02 (0.00-0.03) X10*3/uL Absolute Neuts (auto) 5.4 (2.0-8.3) x10*3/uL Absolute Nucleated RBC 0.000 (0.0-0.012) X10*3/uL Nucleated RBC % (auto) 0.0 (0.0-0.2) /100WBC PT (10.0-13.1) SEC INR (0.9-1.1) Sodium 142 (135-145) mmol/L Potassium 4.5 (3.3-5.1) mmol/L Chloride 102 (96-108) mmol/L Carbon Dioxide 30 H (22-29) mmol/L Anion Gap 15 (12-20) BUN 15 (9-16) mg/dL Creatinine 0.89 (0.5-1.4) mg/dL Estim Creat Clear Calc 84.7 Estimated GFR > 60 Random Glucose 92 (60-115) mg/dL Lactic Acid (0.5-2.0) mmol/L Calcium 9.5 D (8.4-10.2) mg/dL Magnesium 1.7 (1.6-2.6) mg/dL Total Bilirubin 0.8 (0.0-1.0) mg/dL Direct Bilirubin 0.4 (0.0-0.5) mg/dL AST 59 H (5-37) U/L ALT 143 H (0-40) U/L Alkaline Phosphatase 281 H D (39-117) U/L Total Protein 6.8 D (6.5-8.0) g/dL Albumin 3.9 D (3.5-5.0) g/dL Lipase 22 (8-78) U/L COVID-19 ([facility]ISA) Negative (Negative) COVID-19 Clin Com See Note 04/30/22 04/30/22 Range/Units 09:15 09:15 WBC (4.8-10.8) X10*3/uL RBC (4.60-5.80) X10*6/uL Hgb (14.0-18.0) g/dl Hct (42.0-52.0) % MCV (80.0-98.0) fL MCH (27.0-33.0) pg MCHC (31.0-36.0) g/dl RDW (11.0-16.0) % Plt Count (160-400) X10*3/uL MPV (9.4-12.4) fL Immature Gran % (Auto) (0.0-0.4) % Neut % (Auto) (45-73) % Lymph % (Auto) (20-40) % [place] % (Auto) (2-11) % Eos % (Auto) (0-4) % Baso % (Auto) (0-2) % Lymph # (Auto) (1.2-4.9) X10*3/uL [place] # (Auto) (0.1-1.2) X10*3/uL Eos # (Auto) (0.0-0.4) X10*3/uL Baso # (Auto) (0.0-0.2) X10*3/uL Abs Immat Gran (auto) (0.00-0.03) X10*3/uL Absolute Neuts (auto) (2.0-8.3) x10*3/uL Absolute Nucleated RBC (0.0-0.012) X10*3/uL Nucleated RBC % (auto) (0.0-0.2) /100WBC PT 12.4 (10.0-13.1) SEC INR 1.1 (0.9-1.1) Sodium (135-145) mmol/L Potassium (3.3-5.1) mmol/L Chloride (96-108) mmol/L Carbon Dioxide (22-29) mmol/L Anion Gap (12-20) BUN (9-16) mg/dL Creatinine (0.5-1.4) mg/dL Estim Creat Clear Calc Estimated GFR Random Glucose (60-115) mg/dL Lactic Acid 0.8 (0.5-2.0) mmol/L Calcium (8.4-10.2) mg/dL Magnesium (1.6-2.6) mg/dL Total Bilirubin (0.0-1.0) mg/dL Direct Bilirubin (0.0-0.5) mg/dL AST (5-37) U/L ALT (0-40) U/L Alkaline Phosphatase (39-117) U/L Total Protein (6.5-8.0) g/dL Albumin (3.5-5.0) g/dL Lipase (8-78) U/L COVID-19 ([facility]ISA) (Negative) COVID-19 Clin Com Discharge Plan Discharge Clinical Impression: Choledocholithiasis with obstruction Patient Disposition: Admitted As Inpatient
[2022-04-30 09:22] LABS: MANUAL DIFF FLAG NO
[2022-04-30 09:29] LABS: Basophils Percent Auto 0.4 % (0-2); Eosinophils Absolute Auto 0.1 X10*3/uL (0.0-0.4); Eosinophils Percent Auto 0.9 % (0-4); Hemoglobin 15.6 g/dl (14.0-18.0); Imm Gran Abs Auto 0.02 X10*3/uL (0.00-0.03); Imm Gran Pct Auto 0.3 % (0.0-0.4); Lymphocytes Absolute Auto 1.5 X10*3/uL (1.2-4.9); Lymphocytes Percent Auto 19.3 % (20-40); Mean Corpuscular HGB Conc 31.8 g/dl (31.0-36.0); Mean Corpuscular Hemoglobin 29.2 pg (27.0-33.0); Mean Corpuscular Volume 91.8 fL (80.0-98.0); Mean Platelet Volume 10.9 fL (9.4-12.4); Monocytes Absolute Auto 0.7 X10*3/uL (0.1-1.2); Monocytes Percent Auto 9.6 % (2-11); Neutrophils Absolute Auto 5.4 x10*3/uL (2.0-8.3); Neutrophils Percent Auto 69.5 % (45-73); Platelet Count 237 X10*3/uL (160-400); Red Blood Count 5.34 X10*6/uL (4.60-5.80); Red Cell Distribution Width 12.5 % (11.0-16.0); White Blood Count 7.7 X10*3/uL (4.8-10.8)
[2022-04-30 09:33] LABS: INTERNATIONAL NORM RATIO 1.1 (0.9-1.1); Prothrombin Time 12.4 SEC (10.0-13.1)
[2022-04-30] MEDS: 0.9 % Sodium Chloride 1,000 ML 999 ML IV (09:40)
[2022-04-30] MEDS: Piperacillin Sodium/Tazobactam 4.5 GM in 0.9 % Sodium Chloride 100 ML IV (09:40)
[2022-04-30] MEDS: ondansetron HCL 4 MG/2 ML VIAL IVPUSH (09:40)
[2022-04-30 09:41] LABS: COVID-19 Test Negative (Negative)
[2022-04-30 09:42] LABS: Lactic Acid 0.8 mmol/L (0.5-2.0)
[2022-04-30 09:47] LABS: Alanine Aminotransferase 143 U/L (0-40); Albumin Level 3.9 g/dL (3.5-5.0); Alkaline Phosphatase 281 U/L (39-117); Anion Gap 15 (12-20); Aspartate Amino Transferase 59 U/L (5-37); Bilirubin Direct 0.4 mg/dL (0.0-0.5); Bilirubin Total 0.8 mg/dL (0.0-1.0); Blood Urea Nitrogen 15 mg/dL (9-16); Calcium 9.5 mg/dL (8.4-10.2); Carbon Dioxide 30 mmol/L (22-29); Chloride 102 mmol/L (96-108); Creatinine Clr Calc Pharmacy 84.7; Estimated Glomerular Filt Rate > 60; Glucose Random 92 mg/dL (60-115); Magnesium 1.7 mg/dL (1.6-2.6); Potassium 4.5 mmol/L (3.3-5.1); Sodium 142 mmol/L (135-145); Total Protein 6.8 g/dL (6.5-8.0)
[2022-04-30 10:35] LABS: Lipase 22 U/L (8-78)
--- NOTE | 2022-04-30 10:43 | PHA.MEDREC ---
Pharmacy Consult ? Medication Reconciliation Pharmacy has completed the medication reconciliation. Used list provided by Roman tompkins [place]
[2022-04-30 10:50] VITALS: BP 107/67; PULSE 64; RESP 16; O2SAT 98
[2022-04-30] MEDS: iohexoL 350 MG/ML 100 ML INFUS..BTL 85 ML IV (12:00)
[2022-04-30] MEDS: LORazepam 1 MG TABLET PO (12:10)
--- NOTE | 2022-04-30 13:25 | HE.PHANOTE ---
Fentanyl Patch Spoke to Kat, confirmed patient had a fentanyl patch on from home that he placed yesterday. Policy is to remove all patches when admitted. She agreed to remove it. Will verify order.
--- NOTE | 2022-04-30 13:35 | PM.IMHP ---
History of Present Illness Date of Service: 04/30/22 Chief Complaint: Abnormal LFTs 71-year-old male with meds history of paranoid schizophrenia, CHF, CKD, BPH, HLD, anemia, epilepsy, deaf, presenting to ED via EMS from [facility] for elevated LFTs noted on outpatient labs and abdominal ultrasound showing CBD and left hepatic duct calculi with biliary dilation.? Patient reports pain times a couple weeks. Reports abdominal pain and nausea.? Denies fever, vomiting, diarrhea, dysuria/hematuria. Review of Systems Review of Systems: Denies chest pain Denies shortness of breath Admits abdominal pain with mild nausea Denies fever chills [facility] Medical History Anemia CHF (congestive heart failure) Chronic GERD Chronic kidney disease (CKD) Elevated PSA Hyperlipidemia Hypothyroidism Orofacial dystonia Prostate asymmetry Schizophrenia Social History Household Members: None Housing: Assisted Living Facility Housing Other:: [facility] Do you presently have visiting nurse or other home services: No Unable to assess alcohol history related to: Refusing to respond Alcohol intake: never Smoked in Last 30 Days: No Use of substances other than those prescribed or required for medical reasons: No Advance Directives: No Advance Directives Information Provided: No service: No Current occupational status: retired [employer] Allergies Allergy/AdvReac Type Severity Reaction Status Date / Time No Known Allergies Allergy Verified 11/12/21 08:50 [No Known Allergies*] Active Medications: Current Medications Atorvastatin Calcium (Atorvastatin Calcium 10 Mg Tablet) 10 mg PO DAILY@2100 [facility] Bisacodyl (Bisacodyl 5 Mg Tablet.) 5 mg PO BEDTIME [facility] Clotrimazole (Clotrimazole 1 % Cream 15 Gm Tube) 1 appl TOPICAL BID [facility] Diazepam (Diazepam 2 Mg Tablet) 2 mg PO BID [facility] Docusate Sodium (Docusate Sodium 100 Mg Capsule) 100 mg PO DAILY [facility] Enoxaparin Sodium (Enoxaparin Sodium 40 Mg/0.4 Ml Syringe) 40 mg SUBCUT Q24H [facility] Fentanyl (Fentanyl 100 Mcg Patch.Td72) 100 mcg TRANSDERMA Q72H [facility] Ferrous Sulfate (Ferrous Sulfate 324 Mg Tablet.) 324 mg PO BID [facility] Finasteride (Finasteride 5 Mg Tablet) 5 mg PO DAILY [facility] Furosemide (Furosemide 20 Mg Tablet) 20 mg PO Q48H [facility]; Protocol Piperacillin Sod/Tazobactam (Sod 3.375 gm/ Sodium Chloride) 50 mls @ 100 mls/hr IV Q8H [facility] Lactulose (Lactulose 20 Gm/30 Ml Solution) 40 gm PO DAILY [facility] Levetiracetam (Levetiracetam 1,000 Mg Tablet) 1,000 mg PO DAILY@0900 [facility] Levetiracetam (Levetiracetam 250 Mg Tablet) 750 mg PO DAILY@1200 [facility] Levetiracetam (Levetiracetam 500 Mg Tablet) 1,500 mg PO BEDTIME [facility] Levothyroxine Sodium (Levothyroxine Sodium 175 Mcg Tablet) 175 mcg PO DAILY [facility] Multivitamins/Vitamin C (Multivitamin Tablet) 1 tab PO DAILY [facility] Non-Formulary Medication (Oxycodone-Acetaminophen) 1 tab PO TID [facility] Omeprazole (Omeprazole 40 Mg Capsule.Dr) 40 mg PO BID [facility] Pharmacy Consult (Consult Rx Perform Med Rec) 1 each MISCELLANE ONCE PRN PRN Reason: Consult order Polyethylene Glycol (Polyethylene Glycol 3350 17 Gm Powd.Pack) 17 gm PO DAILY [facility] Risperidone (Risperidone 0.5 Mg Tablet) 0.5 mg PO BID [facility] Risperidone (Risperidone 2 Mg Tablet) 2 mg PO BID [facility] Senna (Sennosides 8.6 Mg Tablet) 8.6 mg PO DAILY PRN PRN Reason: Constipation Sodium Chloride (0.9 % Sodium Chloride Flush 3 Ml Syringe) 3 ml IVFLUSH QSHIFT [facility] Tamsulosin HCl (Tamsulosin Hcl 0.4 Mg Capsule) 0.4 mg PO DAILY [facility] Home Medications Medication Instructions Recorded Confirmed Last Taken Type docusate sodium 100 mg capsule 100 mg PO DAILY 06/02/20 04/30/22 Unknown History fentanyl 100 mcg/hr transdermal 1 patch transdermal Q72H 06/02/20 04/30/22 06/01/20 16:00 History patch ferrous sulfate 325 mg (65 mg 325 mg PO BID 06/02/20 04/30/22 Unknown History iron) tablet furosemide 20 mg tablet 20 mg PO Q OTHER DAY 06/02/20 04/30/22 Unknown History lactulose 10 gram/15 mL oral 60 ml PO DAILY 06/02/20 04/30/22 Unknown History solution levetiracetam 1,000 mg tablet 1,000 mg PO QAM 06/02/20 04/30/22 Unknown History levetiracetam 750 mg tablet 1,500 mg PO BEDTIME 06/02/20 04/30/22 Unknown History levetiracetam 750 mg tablet 750 mg PO QNOON 06/02/20 04/30/22 Unknown History multivitamin 1 tab PO DAILY 06/02/20 04/30/22 Unknown History omeprazole 40 mg capsule,delayed 40 mg PO BID 06/02/20 04/30/22 Unknown History release oxycodone-acetaminophen 10 mg-325 1 tab PO TID 06/02/20 04/30/22 Unknown History mg tablet polyethylene glycol 3350 17 gram 17 g PO DAILY 06/02/20 04/30/22 Unknown History oral powder packet (Miralax) risperidone 2 mg tablet 2 mg PO BID 06/02/20 04/30/22 Unknown History simvastatin 10 mg tablet 10 mg PO QPM 06/02/20 04/30/22 Unknown History diazepam 2 mg tablet 2 mg PO BID 11/12/21 04/30/22 Unknown History risperidone 0.5 mg tablet 0.5 mg PO BID 11/12/21 04/30/22 Unknown History bisacodyl 5 mg tablet 5 mg PO BEDTIME 04/30/22 04/30/22 Unknown History clotrimazole 1 % topical cream 1 appl topical BID 04/30/22 04/30/22 Unknown History levothyroxine 175 mcg tablet 1 tab PO DAILY 04/30/22 04/30/22 Unknown History lorazepam 2 mg/mL injection 1 mg IM DAILY PRN Seizure Activity 04/30/22 04/30/22 Unknown History solution sennosides 8.6 mg tablet (senna) 8.6 mg PO DAILY PRN Constipation 04/30/22 04/30/22 Unknown History tamsulosin 0.4 mg capsule 1 cap PO DAILY 04/30/22 04/30/22 Unknown History tolnaftate 1 % topical cream 1 appl topical BID 04/30/22 04/30/22 Unknown History Physical Exam Vital Signs and Narrative: Vital Signs: Last Vital Signs Temp 97.7 F 04/30/22 08:43 Pulse 64 04/30/22 10:50 Resp 16 04/30/22 10:50 BP 107/67 04/30/22 10:50 Pulse Ox 98 04/30/22 10:50 O2 Del Method 04/30/22 10:50 BMI result Body Mass Index 26.4 Const: Other: Awake no acute distress. Clinically staff Resp: Other: Clear to auscultation bilaterally no rales rhonchi or wheezes Cardio: Other: Soft nontender nondistended normoactive bowel sounds GI: Other: Minimal right upper quadrant tenderness. Bowel sounds x4 Extrem: Other: No edema bilaterally Results Labs CBC and Chem 7: 04/30/22 09:15 04/30/22 09:15 Labs: Laboratory Results - last 24 hr 04/30/22 04/30/22 04/30/22 09:07 09:15 09:15 MCV 91.8 MCH 29.2 MCHC 31.8 RDW 12.5 Plt Count 237 MPV 10.9 Immature Gran % (Auto) 0.3 Neut % (Auto) 69.5 Lymph % (Auto) 19.3 L [place] % (Auto) 9.6 Eos % (Auto) 0.9 Baso % (Auto) 0.4 Lymph # (Auto) 1.5 [place] # (Auto) 0.7 Eos # (Auto) 0.1 Baso # (Auto) 0.0 Abs Immat Gran (auto) 0.02 Absolute Neuts (auto) 5.4 Absolute Nucleated RBC 0.000 Nucleated RBC % (auto) 0.0 PT INR Anion Gap 15 Estim Creat Clear Calc 84.7 Estimated GFR > 60 Random Glucose 92 Lactic Acid Calcium 9.5 D Magnesium 1.7 Total Bilirubin 0.8 Direct Bilirubin 0.4 AST 59 H ALT 143 H Alkaline Phosphatase 281 H D Total Protein 6.8 D Albumin 3.9 D Lipase 22 COVID-19 (RAISA) Negative COVID-19 Clin Com See Note 04/30/22 04/30/22 09:15 09:15 MCV MCH MCHC RDW Plt Count MPV Immature Gran % (Auto) Neut % (Auto) Lymph % (Auto) [place] % (Auto) Eos % (Auto) Baso % (Auto) Lymph # (Auto) [place] # (Auto) Eos # (Auto) Baso # (Auto) Abs Immat Gran (auto) Absolute Neuts (auto) Absolute Nucleated RBC Nucleated RBC % (auto) PT 12.4 INR 1.1 Anion Gap Estim Creat Clear Calc Estimated GFR Random Glucose Lactic Acid 0.8 Calcium Magnesium Total Bilirubin Direct Bilirubin AST ALT Alkaline Phosphatase Total Protein Albumin Lipase COVID-19 ([facility]ISA) COVID-19 Clin Com Imaging Radiologist's Impressions: Impressions Abdomen Ultrasound 04/30/22 10:21 IMPRESSION: Choledocholithiasis with intrahepatic biliary ductal dilatation with a new obstructing stone seen in the dilated common bile duct. Abdomen/Pelvis CT 04/30/22 12:05 IMPRESSION: Cholelithiasis and diffusely thickened gallbladder wall with adjacent fat stranding. These findings are suggestive of cholecystitis. Also, there is abnormal hypoattenuation involving the adjacent liver from abscess or perhaps infiltrative neoplasm involving the liver. A few new small soft tissue nodules are seen in the adjacent omentum of the right upper quadrant. Also, there are other scattered omental and peritoneal deposits, and trace abdominal free fluid. Common duct and intrahepatic ducts are chronically dilated. Compared to 06/02/2020, there is a new stricture of the common hepatic duct -- possibly neoplastic stricture (i.e., possible cholangiocarcinoma). Assessment and Plan (1) Choledocholithiasis with obstruction: Status: Acute (2) Chronic kidney disease (CKD): Status: Acute (3) Schizophrenia: Status: Chronic Plan 71-year-old male with meds history of paranoid schizophrenia, CHF, CKD, BPH, HLD, anemia, epilepsy, deaf,?presents from [facility] with abnormal LFTs and abnormal ultrasound at [facility]. CT abdomen pelvis demonstrates cholelithiasis and diffusely thickened gall bag wall with adjacent fat stranding suggestive of acute cholecystitis 1.Cholelithiasis -admit to med surge; cover with Zosyn -surgical consult -NPO after midnight question ERCP 2. CKD 3 -continue outpatient therapies -follow renals/divalents 3.Schizophrenia -continue risperidone as outpatient dosing -p.r.n. Haldol for agitation Lovenox Full Code Patient will require at least 2 midnights going forward for IV antibiotics to treat cholecystitis; observed for need of surgical intervention. This cannot be achieved and a left her acute setting Quality Stroke Does the patient have a stroke diagnosis?: No VTE Prior VTE?: No VTE Risk Level:: Medical - moderate - high VTE Device Contraindication: Treatment Not Indicated VTE Drug Contraindication: N/A - Med Ordered
[2022-04-30] MEDS: levETIRAcetam 250 MG TABLET 750 MG PO (13:40)
[2022-04-30] MEDS: Enoxaparin Sodium 40 MG/0.4 ML SYRINGE SUBCUT (13:40)
[2022-04-30] MEDS: levETIRAcetam 1,000 MG TABLET 1000 MG PO (13:41)
[2022-04-30] MEDS: diazePAM 2 MG TABLET PO ×2 (13:41→22:07)
[2022-04-30] MEDS: Furosemide 20 MG TABLET PO (13:41)
--- NOTE | 2022-04-30 14:35 | PM.CNGS ---
History of Present Illness Consult details Consult date: 04/30/22 Narrative: 71-year-old male, with multiple medical problems including CHF, chronic kidney disease, schizophrenia, [facility] because of abnormal labs. The patient does not seem to be very communicative although he does answer some very simple questions. He denies abdominal pain at this time. According to the ER notes, he may have had complained abdominal pain for a couple of weeks. His LFTs were abnormal ER and had a CAT scan showing suggestion of acute cholecystitis, with what appears to be a neoplastic stricture in the hepatic duct. There were suggestion of omental deposits seen as well. [facility] Past Medical History Medical History (Updated 05/01/22 @ 13:30 by Sheila Chauhan MD) Anemia Biliary stricture CHF (congestive heart failure) Chronic GERD Chronic kidney disease (CKD) Elevated PSA Gallbladder mass Hyperlipidemia Hypothyroidism Orofacial dystonia Prostate asymmetry Schizophrenia Social History Social History Household Members: None and Other Household Members Other:: snf Housing: [facility] Housing Other:: [facility] Do you presently have visiting nurse or other home services: No Unable to assess alcohol history related to: Unable to respond Alcohol intake: never Patient Tobacco Use Status: Tobacco use Unknown service: No Current occupational status: retired Meds Allergies Allergy/AdvReac Type Severity Reaction Status Date / Time No Known Allergies Allergy Verified 11/12/21 08:50 [No Known Allergies*] Active Medications: Current Medications Atorvastatin Calcium (Atorvastatin Calcium 10 Mg Tablet) 10 mg PO DAILY@2100 [facility] Bisacodyl (Bisacodyl 5 Mg Tablet.) 5 mg PO BEDTIME [facility] Clotrimazole (Clotrimazole 1 % Cream 15 Gm Tube) 1 appl TOPICAL BID [facility] Diazepam (Diazepam 2 Mg Tablet) 2 mg PO BID [facility] Last Admin: 04/30/22 13:41 Dose: 2 mg Docusate Sodium (Docusate Sodium 100 Mg Capsule) 100 mg PO DAILY [facility] Enoxaparin Sodium (Enoxaparin Sodium 40 Mg/0.4 Ml Syringe) 40 mg SUBCUT Q24H [facility] Last Admin: 04/30/22 13:40 Dose: 40 mg Fentanyl (Fentanyl 100 Mcg Patch.Td72) 100 mcg TRANSDERMA Q72H [facility] Ferrous Sulfate (Ferrous Sulfate 324 Mg Tablet.) 324 mg PO BID [facility] Finasteride (Finasteride 5 Mg Tablet) 5 mg PO DAILY [facility] Furosemide (Furosemide 20 Mg Tablet) 20 mg PO Q48H [facility]; Protocol Last Admin: 04/30/22 13:41 Dose: 20 mg Piperacillin Sod/Tazobactam (Sod 3.375 gm/ Sodium Chloride) 50 mls @ 100 mls/hr IV Q8H [facility] Lactulose (Lactulose 20 Gm/30 Ml Solution) 40 gm PO DAILY [facility] Levetiracetam (Levetiracetam 1,000 Mg Tablet) 1,000 mg PO DAILY@0900 [facility] Last Admin: 04/30/22 13:41 Dose: 1,000 mg Levetiracetam (Levetiracetam 250 Mg Tablet) 750 mg PO DAILY@1200 [facility] Last Admin: 04/30/22 13:40 Dose: 750 mg Levetiracetam (Levetiracetam 500 Mg Tablet) 1,500 mg PO BEDTIME [facility] Levothyroxine Sodium (Levothyroxine Sodium 175 Mcg Tablet) 175 mcg PO DAILY [facility] Multivitamins/Vitamin C (Multivitamin Tablet) 1 tab PO DAILY [facility] Omeprazole (Omeprazole 40 Mg Capsule.) 40 mg PO BID [facility] Oxycodone HCl (Oxycodone Hcl Immed Release 5 Mg Tablet) 10 mg PO TID [facility] Pharmacy Consult (Consult Rx Perform Med Rec) 1 each MISCELLANE ONCE PRN PRN Reason: Consult order Polyethylene Glycol (Polyethylene Glycol 3350 17 Gm Powd.Pack) 17 gm PO DAILY [facility] Risperidone (Risperidone 0.5 Mg Tablet) 0.5 mg PO BID [facility] Risperidone (Risperidone 2 Mg Tablet) 2 mg PO BID [facility] Senna (Sennosides 8.6 Mg Tablet) 8.6 mg PO DAILY PRN PRN Reason: Constipation Sodium Chloride (0.9 % Sodium Chloride Flush 3 Ml Syringe) 3 ml IVFLUSH QSHIFT [facility] Tamsulosin HCl (Tamsulosin Hcl 0.4 Mg Capsule) 0.4 mg PO DAILY [facility] Home Medications Medication Instructions Recorded Confirmed Last Taken Type docusate sodium 100 mg capsule 100 mg PO DAILY 06/02/20 04/30/22 Unknown History fentanyl 100 mcg/hr transdermal 1 patch transdermal Q72H 06/02/20 04/30/22 06/01/20 16:00 History patch ferrous sulfate 325 mg (65 mg 325 mg PO BID 06/02/20 04/30/22 Unknown History iron) tablet furosemide 20 mg tablet 20 mg PO Q OTHER DAY 06/02/20 04/30/22 Unknown History lactulose 10 gram/15 mL oral 60 ml PO DAILY 06/02/20 04/30/22 Unknown History solution levetiracetam 1,000 mg tablet 1,000 mg PO QAM 06/02/20 04/30/22 Unknown History levetiracetam 750 mg tablet 1,500 mg PO BEDTIME 06/02/20 04/30/22 Unknown History levetiracetam 750 mg tablet 750 mg PO QNOON 06/02/20 04/30/22 Unknown History multivitamin 1 tab PO DAILY 06/02/20 04/30/22 Unknown History omeprazole 40 mg capsule,delayed 40 mg PO BID 06/02/20 04/30/22 Unknown History release oxycodone-acetaminophen 10 mg-325 1 tab PO TID 06/02/20 04/30/22 Unknown History mg tablet polyethylene glycol 3350 17 gram 17 g PO DAILY 06/02/20 04/30/22 Unknown History oral powder packet (Miralax) risperidone 2 mg tablet 2 mg PO BID 06/02/20 04/30/22 Unknown History simvastatin 10 mg tablet 10 mg PO QPM 06/02/20 04/30/22 Unknown History diazepam 2 mg tablet 2 mg PO BID 11/12/21 04/30/22 Unknown History risperidone 0.5 mg tablet 0.5 mg PO BID 11/12/21 04/30/22 Unknown History bisacodyl 5 mg tablet 5 mg PO BEDTIME 04/30/22 04/30/22 Unknown History clotrimazole 1 % topical cream 1 appl topical BID 04/30/22 04/30/22 Unknown History levothyroxine 175 mcg tablet 1 tab PO DAILY 04/30/22 04/30/22 Unknown History lorazepam 2 mg/mL injection 1 mg IM DAILY PRN Seizure Activity 04/30/22 04/30/22 Unknown History solution sennosides 8.6 mg tablet (senna) 8.6 mg PO DAILY PRN Constipation 04/30/22 04/30/22 Unknown History tamsulosin 0.4 mg capsule 1 cap PO DAILY 04/30/22 04/30/22 Unknown History tolnaftate 1 % topical cream 1 appl topical BID 04/30/22 04/30/22 Unknown History Physical Exam Vital Signs: Vital Signs: Last Vital Signs Temp 97.7 F 04/30/22 08:43 Pulse 64 04/30/22 10:50 Resp 16 04/30/22 10:50 BP 107/67 04/30/22 10:50 Pulse Ox 98 04/30/22 10:50 O2 Del Method 04/30/22 10:50 BMI result Body Mass Index 26.4 Const: Other: Answers simple question, with slow mentation General: comfortable and no acute distress Orientation/consciousness: patient oriented x3 Neck: Neck: Yes no lymphadenopathy Resp: Auscultation: clear to auscultation bilaterally Cardio: Rhythm: regular rhythm GI: Other: No Wray's sign Palpation (GI): Soft to palpation, nontender and no guarding Neuro: General: patient oriented x3 Results Labs Result diagrams: 05/01/22 05:30 05/01/22 05:30 Labs: Abnormal lab results 04/30/22 04/30/22 Range/Units 09:15 09:15 Lymph % (Auto) 19.3 L (20-40) % Carbon Dioxide 30 H (22-29) mmol/L AST 59 H (5-37) U/L ALT 143 H (0-40) U/L Alkaline Phosphatase 281 H D (39-117) U/L Short CBC 04/30/22 Range/Units 09:15 WBC 7.7 (4.8-10.8) X10*3/uL Hgb 15.6 (14.0-18.0) g/dl Hct 49.0 (42.0-52.0) % Plt Count 237 (160-400) X10*3/uL BMP 04/30/22 09:15 Sodium 142 Potassium 4.5 Chloride 102 Carbon Dioxide 30 H BUN 15 Creatinine 0.89 Calcium 9.5 D Liver Function 04/30/22 Range/Units 09:15 Total Bilirubin 0.8 (0.0-1.0) mg/dL Direct Bilirubin 0.4 (0.0-0.5) mg/dL AST 59 H (5-37) U/L ALT 143 H (0-40) U/L Alkaline Phosphatase 281 H D (39-117) U/L Albumin 3.9 D (3.5-5.0) g/dL All other labs normal. Assessment and Plan (1) Biliary stricture: Status: Acute His ultrasound and CAT scan shows some changes around the gallbladder suggestive of cholecystitis. However, he does not have any significant pain or tenderness at this time. He does not have leukocytosis. There is note of what appears to be of stricture in the hepatic duct suggestive of a neoplastic process. There is some omental nodules as well suggestive of malignant disease. In view of the above overall findings, recommend continue IV antibiotics. He has a very benign exam and has no leukocytosis. There is a high suspicion of a cholangiocarcinoma. I reviewed the CT scan with the radiologist and see if he may benefit from further imaging study. Procedures Date of Service Date of Service: 04/30/22
--- NOTE | 2022-04-30 14:40 | PC.NURSE ---
this physician underwriter assumed care of this pt at 1420. [facility] by multimedia technician. pt resting quietly, no complaints.
[2022-04-30] MEDS: Piperacillin Sodium/Tazobactam 3.375 GM in 0.9 % Sodium Chloride 50 ML IV ×2 (14:55→22:04)
[2022-04-30] MEDS: oxyCODONE HCl Immed Release 5 MG TABLET 10 MG PO ×2 (15:12→22:06)
[2022-04-30] MEDS: 0.9 % Sodium Chloride Flush 3 ML SYRINGE IVFLUSH ×2 (17:02→22:08)
--- NOTE | 2022-04-30 17:06 | PC.NURSE ---
RAC IV replaced by 22G to right hand, PT tolerated well. IV patent, abx administered as documented.
[2022-04-30 19:44] VITALS: BP 117/75; PULSE 75; RESP 16; TEMP 36.5; O2SAT 92
[2022-04-30 20:31] LABS: Appearance Urine Clear; Color Urine Yellow; Glucose Urine UA Negative (Negative); Leukocyte Esterase Urine Negative (Negative); Nitrite Urine Negative (Negative); PH 5.5 (5.0-9.0); Urine Blood Negative (Negative); Urine Ketones Negative (Negative); Urine Protein Negative (Neg-Trace)
[2022-04-30 21:05] VITALS: BP 123/73; PULSE 63; RESP 16; TEMP 35.9; O2SAT 88
[2022-04-30] MEDS: risperiDONE 0.5 MG TABLET PO (22:06)
[2022-04-30] MEDS: levETIRAcetam 500 MG TABLET 1500 MG PO (22:06)
[2022-04-30] MEDS: Ferrous Sulfate 324 MG TABLET.DR PO (22:06)
[2022-04-30] MEDS: risperiDONE 2 MG TABLET PO (22:06)
[2022-04-30] MEDS: bisacodyL 5 MG TABLET.DR PO (22:06)
[2022-04-30] MEDS: Omeprazole 40 MG CAPSULE.DR PO (22:07)
[2022-04-30] MEDS: fentaNYL 100 MCG PATCH.TD72 TRANSDERMA (22:14)
[2022-04-30 23:46] VITALS: BP 142/84; PULSE 80; RESP 16; TEMP 36.6; O2SAT 94
[2022-05-01 03:40] VITALS: BP 147/73; PULSE 64; RESP 18; TEMP 36.4; O2SAT 96
[2022-05-01] MEDS: Piperacillin Sodium/Tazobactam 3.375 GM in 0.9 % Sodium Chloride 50 ML IV ×3 (06:13→22:45)
[2022-05-01 06:20] LABS: MANUAL DIFF FLAG NO
[2022-05-01 06:24] LABS: Basophils Percent Auto 0.4 % (0-2); Eosinophils Absolute Auto 0.1 X10*3/uL (0.0-0.4); Eosinophils Percent Auto 1.1 % (0-4); Hematocrit 48.5 % (42.0-52.0); Hemoglobin 15.4 g/dl (14.0-18.0); Imm Gran Abs Auto 0.02 X10*3/uL (0.00-0.03); Imm Gran Pct Auto 0.3 % (0.0-0.4); Lymphocytes Absolute Auto 1.6 X10*3/uL (1.2-4.9); Lymphocytes Percent Auto 19.7 % (20-40); Mean Corpuscular HGB Conc 31.8 g/dl (31.0-36.0); Mean Corpuscular Hemoglobin 29.3 pg (27.0-33.0); Mean Corpuscular Volume 92.4 fL (80.0-98.0); Mean Platelet Volume 11.8 fL (9.4-12.4); Monocytes Absolute Auto 0.9 X10*3/uL (0.1-1.2); Neutrophils Absolute Auto 5.2 x10*3/uL (2.0-8.3); Neutrophils Percent Auto 66.5 % (45-73); Platelet Count 221 X10*3/uL (160-400); Red Blood Count 5.25 X10*6/uL (4.60-5.80); Red Cell Distribution Width 12.4 % (11.0-16.0); White Blood Count 7.9 X10*3/uL (4.8-10.8)
[2022-05-01 07:00] LABS: Alanine Aminotransferase 621 U/L (0-40); Albumin Level 3.7 g/dL (3.5-5.0); Alkaline Phosphatase 461 U/L (39-117); Anion Gap 18 (12-20); Aspartate Amino Transferase 473 U/L (5-37); Bilirubin Total 0.9 mg/dL (0.0-1.0); Blood Urea Nitrogen 17 mg/dL (9-16); Calcium 9.1 mg/dL (8.4-10.2); Carbon Dioxide 25 mmol/L (22-29); Chloride 102 mmol/L (96-108); Creatinine Clr Calc Pharmacy 64.4; Estimated Glomerular Filt Rate > 60; Glucose Fasting 89 mg/dL (60-99); Potassium 4.3 mmol/L (3.3-5.1); Sodium 141 mmol/L (135-145); Total Protein 6.4 g/dL (6.5-8.0)
[2022-05-01 08:26] VITALS: BP 158/90; PULSE 67; RESP 18; TEMP 36.1; O2SAT 94
[2022-05-01] MEDS: 0.9 % Sodium Chloride Flush 3 ML SYRINGE IVFLUSH ×2 (09:04→16:07)
[2022-05-01] MEDS: oxyCODONE HCl Immed Release 5 MG TABLET 10 MG PO ×2 (10:11→14:36)
[2022-05-01] MEDS: Tamsulosin HCL 0.4 MG CAPSULE PO (10:11)
[2022-05-01] MEDS: Finasteride 5 MG TABLET PO (10:11)
[2022-05-01] MEDS: Multivitamin TABLET 1 TAB PO (10:11)
[2022-05-01] MEDS: risperiDONE 0.5 MG TABLET PO (10:11)
[2022-05-01] MEDS: risperiDONE 2 MG TABLET PO (10:11)
[2022-05-01] MEDS: Levothyroxine Sodium 175 MCG TABLET PO (10:11)
[2022-05-01] MEDS: Ferrous Sulfate 324 MG TABLET.DR PO (10:11)
[2022-05-01] MEDS: Atorvastatin Calcium 10 MG TABLET PO (10:12)
[2022-05-01] MEDS: levETIRAcetam 1,000 MG TABLET 1000 MG PO (10:12)
[2022-05-01] MEDS: Omeprazole 40 MG CAPSULE.DR PO (10:12)
[2022-05-01] MEDS: diazePAM 2 MG TABLET PO (10:12)
--- NOTE | 2022-05-01 11:44 | P.PNIM_ITS ---
Subjective Subjective Date of Service: 05/01/22 Interval History: No acute issues overnight. Remains resistant to care Review of Systems Unable to obtain Physical Exam Vital Signs: Vital Signs: Last Vital Signs Temp 97.0 F 05/01/22 08:26 Pulse 67 05/01/22 08:26 Resp 18 05/01/22 08:26 BP 158/90 H 05/01/22 08:26 Pulse Ox 94 05/01/22 08:26 O2 Del Method 05/01/22 08:26 BMI result Body Mass Index 26.4 Const: Other: Awake no acute distress. Clinically staff Resp: Other: Clear to auscultation bilaterally no rales rhonchi or wheezes Cardio: Other: Soft nontender nondistended normoactive bowel sounds GI: Other: Minimal right upper quadrant tenderness. Bowel sounds x4 Extrem: Other: No edema bilaterally Objective Data Active Medications Atorvastatin Calcium (Atorvastatin Calcium 10 Mg Tablet) 10 mg PO DAILY@2100 [facility] Last Admin: 05/01/22 10:12 Dose: 10 mg Documented By: TAMIR Bisacodyl (Bisacodyl 5 Mg Tablet) 5 mg PO BEDTIME [facility] Last Admin: 04/30/22 22:06 Dose: 5 mg Documented By: CAIO Clotrimazole (Clotrimazole 1 % Cream 15 Gm Tube) 1 appl TOPICAL BID [facility] Last Admin: 05/01/22 10:34 Dose: Not Given Documented By: TAMIR Non-Admin Reason: Patient Refused Diazepam (Diazepam 2 Mg Tablet) 2 mg PO BID [facility] Last Admin: 05/01/22 10:12 Dose: 2 mg Documented By: TAMIR Docusate Sodium (Docusate Sodium 100 Mg Capsule) 100 mg PO DAILY [facility] Last Admin: 05/01/22 10:12 Dose: Not Given Documented By: TAMIR Non-Admin Reason: NPO Enoxaparin Sodium (Enoxaparin Sodium 40 Mg/0.4 Ml Syringe) 40 mg SUBCUT Q24H [facility] Last Admin: 04/30/22 13:40 Dose: 40 mg Documented By: MEG Fentanyl (Fentanyl 100 Mcg Patch.Td72) 100 mcg TRANSDERMA Q72H [facility] Last Admin: 04/30/22 22:14 Dose: 100 mcg Documented By: CAIO Ferrous Sulfate (Ferrous Sulfate 324 Mg Tablet.) 324 mg PO BID [facility] Last Admin: 05/01/22 10:11 Dose: 324 mg Documented By: TAMIR Finasteride (Finasteride 5 Mg Tablet) 5 mg PO DAILY [facility] Last Admin: 05/01/22 10:11 Dose: 5 mg Documented By: TAMIR Furosemide (Furosemide 20 Mg Tablet) 20 mg PO Q48H [facility]; Protocol Last Admin: 04/30/22 13:41 Dose: 20 mg Documented By: MEG Piperacillin Sod/Tazobactam (Sod 3.375 gm/ Sodium Chloride) 50 mls @ 100 mls/hr IV Q8H [facility] Last Infusion: 05/01/22 08:19 Dose: 0 mls/hr Documented By: TAMIR Lactulose (Lactulose 20 Gm/30 Ml Solution) 40 gm PO DAILY [facility] Last Admin: 05/01/22 10:22 Dose: Not Given Documented By: TAMIR Non-Admin Reason: NPO Levetiracetam (Levetiracetam 1,000 Mg Tablet) 1,000 mg PO DAILY@0900 [facility] Last Admin: 05/01/22 10:12 Dose: 1,000 mg Documented By: TAMIR Levetiracetam (Levetiracetam 250 Mg Tablet) 750 mg PO DAILY@1200 [facility] Last Admin: 04/30/22 13:40 Dose: 750 mg Documented By: MEG Levetiracetam (Levetiracetam 500 Mg Tablet) 1,500 mg PO BEDTIME [facility] Last Admin: 04/30/22 22:06 Dose: 1,500 mg Documented By: CAIO Levothyroxine Sodium (Levothyroxine Sodium 175 Mcg Tablet) 175 mcg PO DAILY [facility] Last Admin: 05/01/22 10:11 Dose: 175 mcg Documented By: TAMIR Multivitamins/Vitamin C (Multivitamin Tablet) 1 tab PO DAILY [facility] Last Admin: 05/01/22 10:11 Dose: 1 tab Documented By: TAMIR Omeprazole (Omeprazole 40 Mg Capsule.) 40 mg PO BID [facility] Last Admin: 05/01/22 10:12 Dose: 40 mg Documented By: TAMIR Oxycodone HCl (Oxycodone Hcl Immed Release 5 Mg Tablet) 10 mg PO TID [facility] Last Admin: 05/01/22 10:11 Dose: 10 mg Documented By: TAMIR Pharmacy Consult (Consult Rx Perform Med Rec) 1 each MISCELLANE ONCE PRN PRN Reason: Consult order Polyethylene Glycol (Polyethylene Glycol 3350 17 Gm Powd.Pack) 17 gm PO DAILY [facility] Last Admin: 05/01/22 10:12 Dose: Not Given Documented By: TAMIR Non-Admin Reason: NPO Risperidone (Risperidone 0.5 Mg Tablet) 0.5 mg PO BID [facility] Last Admin: 05/01/22 10:11 Dose: 0.5 mg Documented By: TAMIR Risperidone (Risperidone 2 Mg Tablet) 2 mg PO BID [facility] Last Admin: 05/01/22 10:11 Dose: 2 mg Documented By: TAMIR Senna (Sennosides 8.6 Mg Tablet) 8.6 mg PO DAILY PRN PRN Reason: Constipation Sodium Chloride (0.9 % Sodium Chloride Flush 3 Ml Syringe) 3 ml IVFLUSH QSHIFT [facility] Last Admin: 05/01/22 09:04 Dose: 3 ml Documented By: TAMIR Tamsulosin HCl (Tamsulosin Hcl 0.4 Mg Capsule) 0.4 mg PO DAILY [facility] Last Admin: 05/01/22 10:11 Dose: 0.4 mg Documented By: TAMIR Labs CBC & Chem 7: 05/01/22 05:30 05/01/22 05:30 Labs: Laboratory Results - last 24 hr 04/30/22 05/01/22 05/01/22 20:22 05:30 05:30 MCV 92.4 MCH 29.3 MCHC 31.8 RDW 12.4 Plt Count 221 MPV 11.8 Immature Gran % (Auto) 0.3 Neut % (Auto) 66.5 Lymph % (Auto) 19.7 L Ocean % (Auto) 12.0 H Eos % (Auto) 1.1 Baso % (Auto) 0.4 Lymph # (Auto) 1.6 Ocean # (Auto) 0.9 Eos # (Auto) 0.1 Baso # (Auto) 0.0 Abs Immat Gran (auto) 0.02 Absolute Neuts (auto) 5.2 Absolute Nucleated RBC 0.000 Nucleated RBC % (auto) 0.0 Anion Gap 18 Estim Creat Clear Calc 64.4 Estimated GFR > 60 Fasting Glucose 89 Calcium 9.1 Total Bilirubin 0.9 AST 473 H ALT 621 H Alkaline Phosphatase 461 H D Total Protein 6.4 L Albumin 3.7 Urine Color Yellow Urine Appearance Clear Urine pH 5.5 Ur Specific [place] 1.020 Urine Protein Negative Urine Glucose (UA) Negative Urine Ketones Negative Urine Blood Negative Urine Nitrite Negative Ur Leukocyte Esterase Negative Microbiology Microbiology Results: Microbiology 04/30/22 09:36 Blood Culture - Preliminary Blood - Venous No growth after 24 hours. 04/30/22 09:15 Blood Culture - Preliminary Blood - Venous No growth after 24 hours. Assessment and Plan (1) Choledocholithiasis with obstruction: Status: Acute (2) Chronic kidney disease (CKD): Status: Acute (3) Schizophrenia: Status: Chronic Plan 71-year-old male with meds history of paranoid schizophrenia, CHF, CKD, BPH, HLD, anemia, epilepsy, deaf,?presents from [facility] with abnormal LFTs and abnormal ultrasound at [facility]. CT abdomen pelvis demonstrates cholelithiasis and diffusely thickened gall bag wall with adjacent fat stranding suggestive of acute cholecystitis 1.Cholelithiasis -LFTs rising -MRCP/MR Abd C+/-(premedicate) -continue Zosyn -trend labs 2. CKD 3 -continue outpatient therapies -follow renals/divalents 3.Schizophrenia -continue risperidone as outpatient dosing -p.r.n. Haldol for agitation Lovenox Full Code Will require ongoing hospitalization for IV antibiotics to treat cholelithiasis Quality Stroke Does the patient have a stroke diagnosis?: No VTE Prior VTE?: No VTE Risk Level:: Medical - moderate - high VTE Device Contraindication: Treatment Not Indicated VTE Drug Contraindication: N/A - Med Ordered
[2022-05-01 12:00] VITALS: PULSE 76; RESP 18; TEMP 36.3
--- NOTE | 2022-05-01 12:59 | MHC.CLN ---
NUTRITION CONSULT FOR RIGHT ANKLE SKIN [employer]TEGRITY. DOCUMENTATION SHOWS AREA ABRASION. CURRENTLY NPO. NO ADDITIONAL NUTRITION INTERVENTIONS AT THIS TIME.
--- NOTE | 2022-05-01 13:21 | P.CNGI_ITS ---
History of Present Illness Data of Consult Service Date: 05/01/22 Requesting physician: Yair Galvan Primary Care Provider: DO CRISELDA Bernal Reason for consult: Abnormal CT imaging, common hepatic duct stricture This is a 71-year-old gentleman with medical history significant for paranoid s chizophrenia, CHF, epilepsy, BPH, deafness, who was sent to the hospital for abnormal LFTs seen on routine labs. History was obtained mostly from the primary team as patient has significant psychiatric limitations. There has been no background of abdominal pain, nausea, changes in appetite. No fevers or chills. On outpatient labs, his transaminases were incidentally noted to be elevated that prompted an ultrasound abdomen. This showed dilation of CBD with a possible stone. On follow-up CT scan with contrast in the emergency room, he was found to have diffuse intra and extrahepatic biliary ductal dilatation with possible high-grade stricture of the common hepatic duct 1 cm long. Of note, there was also downstream dilation to the stricture. No family history is available for review. Patient has a legal guardian. Review of Systems Review of Systems: Yes Unobtainable due to mental condition [facility] Past Medical History Medical History (Updated 05/01/22 @ 13:30 by Sheila Chauhan MD) Anemia Biliary stricture CHF (congestive heart failure) Chronic GERD Chronic kidney disease (CKD) Elevated PSA Gallbladder mass Hyperlipidemia Hypothyroidism Orofacial dystonia Prostate asymmetry Schizophrenia Social History Social History Household Members: None and Other Household Members Other:: snf Housing: Shelter Housing Other:: [facility] Do you presently have visiting nurse or other home services: No Unable to assess alcohol history related to: Unable to respond Alcohol intake: never Patient Tobacco Use Status: Tobacco use Unknown service: No Current occupational status: retired Meds Allergies Allergy/AdvReac Type Severity Reaction Status Date / Time No Known Allergies Allergy Verified 11/12/21 08:50 [No Known Allergies*] Active Medications: Current Medications Atorvastatin Calcium (Atorvastatin Calcium 10 Mg Tablet) 10 mg PO DAILY@2100 [facility] Last Admin: 05/01/22 10:12 Dose: 10 mg Bisacodyl (Bisacodyl 5 Mg Tablet.Dr) 5 mg PO BEDTIME [facility] Last Admin: 04/30/22 22:06 Dose: 5 mg Clotrimazole (Clotrimazole 1 % Cream 15 Gm Tube) 1 appl TOPICAL BID [facility] Last Admin: 05/01/22 10:34 Dose: Not Given Diazepam (Diazepam 2 Mg Tablet) 2 mg PO BID [facility] Last Admin: 05/01/22 10:12 Dose: 2 mg Docusate Sodium (Docusate Sodium 100 Mg Capsule) 100 mg PO DAILY [facility] Last Admin: 05/01/22 10:12 Dose: Not Given Enoxaparin Sodium (Enoxaparin Sodium 40 Mg/0.4 Ml Syringe) 40 mg SUBCUT Q24H [facility] Last Admin: 04/30/22 13:40 Dose: 40 mg Fentanyl (Fentanyl 100 Mcg Patch.Td72) 100 mcg TRANSDERMA Q72H [facility] Last Admin: 04/30/22 22:14 Dose: 100 mcg Ferrous Sulfate (Ferrous Sulfate 324 Mg Tablet.Dr) 324 mg PO BID [facility] Last Admin: 05/01/22 10:11 Dose: 324 mg Finasteride (Finasteride 5 Mg Tablet) 5 mg PO DAILY [facility] Last Admin: 05/01/22 10:11 Dose: 5 mg Furosemide (Furosemide 20 Mg Tablet) 20 mg PO Q48H [facility]; Protocol Last Admin: 04/30/22 13:41 Dose: 20 mg Piperacillin Sod/Tazobactam (Sod 3.375 gm/ Sodium Chloride) 50 mls @ 100 mls/hr IV Q8H [facility] Last Infusion: 05/01/22 08:19 Dose: Infused Lactulose (Lactulose 20 Gm/30 Ml Solution) 40 gm PO DAILY [facility] Last Admin: 05/01/22 10:22 Dose: Not Given Levetiracetam (Levetiracetam 1,000 Mg Tablet) 1,000 mg PO DAILY@0900 [facility] Last Admin: 05/01/22 10:12 Dose: 1,000 mg Levetiracetam (Levetiracetam 250 Mg Tablet) 750 mg PO DAILY@1200 [facility] Last Admin: 04/30/22 13:40 Dose: 750 mg Levetiracetam (Levetiracetam 500 Mg Tablet) 1,500 mg PO BEDTIME [facility] Last Admin: 04/30/22 22:06 Dose: 1,500 mg Levothyroxine Sodium (Levothyroxine Sodium 175 Mcg Tablet) 175 mcg PO DAILY [facility] Last Admin: 05/01/22 10:11 Dose: 175 mcg Multivitamins/Vitamin C (Multivitamin Tablet) 1 tab PO DAILY [facility] Last Admin: 05/01/22 10:11 Dose: 1 tab Omeprazole (Omeprazole 40 Mg Capsule.Dr) 40 mg PO BID [facility] Last Admin: 05/01/22 10:12 Dose: 40 mg Oxycodone HCl (Oxycodone Hcl Immed Release 5 Mg Tablet) 10 mg PO TID [facility] Last Admin: 05/01/22 10:11 Dose: 10 mg Pharmacy Consult (Consult Rx Perform Med Rec) 1 each MISCELLANE ONCE PRN PRN Reason: Consult order Polyethylene Glycol (Polyethylene Glycol 3350 17 Gm Powd.Pack) 17 gm PO DAILY [facility] Last Admin: 05/01/22 10:12 Dose: Not Given Risperidone (Risperidone 0.5 Mg Tablet) 0.5 mg PO BID [facility] Last Admin: 05/01/22 10:11 Dose: 0.5 mg Risperidone (Risperidone 2 Mg Tablet) 2 mg PO BID [facility] Last Admin: 05/01/22 10:11 Dose: 2 mg Senna (Sennosides 8.6 Mg Tablet) 8.6 mg PO DAILY PRN PRN Reason: Constipation Sodium Chloride (0.9 % Sodium Chloride Flush 3 Ml Syringe) 3 ml IVFLUSH QSHIFT [facility] Last Admin: 05/01/22 09:04 Dose: 3 ml Tamsulosin HCl (Tamsulosin Hcl 0.4 Mg Capsule) 0.4 mg PO DAILY [facility] Last Admin: 05/01/22 10:11 Dose: 0.4 mg Home Medications Medication Instructions Recorded Confirmed Last Taken Type docusate sodium 100 mg capsule 100 mg PO DAILY 06/02/20 04/30/22 Unknown History fentanyl 100 mcg/hr transdermal 1 patch transdermal Q72H 06/02/20 04/30/22 06/01/20 16:00 History patch ferrous sulfate 325 mg (65 mg 325 mg PO BID 06/02/20 04/30/22 Unknown History iron) tablet furosemide 20 mg tablet 20 mg PO Q OTHER DAY 06/02/20 04/30/22 Unknown History lactulose 10 gram/15 mL oral 60 ml PO DAILY 06/02/20 04/30/22 Unknown History solution levetiracetam 1,000 mg tablet 1,000 mg PO QAM 06/02/20 04/30/22 Unknown History levetiracetam 750 mg tablet 1,500 mg PO BEDTIME 06/02/20 04/30/22 Unknown History levetiracetam 750 mg tablet 750 mg PO QNOON 06/02/20 04/30/22 Unknown History multivitamin 1 tab PO DAILY 06/02/20 04/30/22 Unknown History omeprazole 40 mg capsule,delayed 40 mg PO BID 06/02/20 04/30/22 Unknown History release oxycodone-acetaminophen 10 mg-325 1 tab PO TID 06/02/20 04/30/22 Unknown History mg tablet polyethylene glycol 3350 17 gram 17 g PO DAILY 06/02/20 04/30/22 Unknown History oral powder packet (Miralax) risperidone 2 mg tablet 2 mg PO BID 06/02/20 04/30/22 Unknown History simvastatin 10 mg tablet 10 mg PO QPM 06/02/20 04/30/22 Unknown History diazepam 2 mg tablet 2 mg PO BID 11/12/21 04/30/22 Unknown History risperidone 0.5 mg tablet 0.5 mg PO BID 11/12/21 04/30/22 Unknown History bisacodyl 5 mg tablet 5 mg PO BEDTIME 04/30/22 04/30/22 Unknown History clotrimazole 1 % topical cream 1 appl topical BID 04/30/22 04/30/22 Unknown History levothyroxine 175 mcg tablet 1 tab PO DAILY 04/30/22 04/30/22 Unknown History lorazepam 2 mg/mL injection 1 mg IM DAILY PRN Seizure Activity 04/30/22 04/30/22 Unknown History solution sennosides 8.6 mg tablet (senna) 8.6 mg PO DAILY PRN Constipation 04/30/2204/16 Unknown History tamsulosin 0.4 mg capsule 1 cap PO DAILY 04/30/22 04/30/22 Unknown History tolnaftate 1 % topical cream 1 appl topical BID 04/30/22 04/30/22 Unknown History Physical Exam Vital Signs: Vital Signs: Last Vital Signs Temp 97.4 F 05/01/22 12:00 Pulse 76 05/01/22 12:00 Resp 18 05/01/22 12:00 BP 158/90 H 05/01/22 08:26 Pulse Ox 94 05/01/22 08:26 O2 Del Method 05/01/22 08:26 BMI result Body Mass Index 26.4 Gen appear: Elderly male, in no acute distress HEENT: no icterus, severe bitemporal fat wasting Chest: No overt resp distress, crackles in bases CVS: S1/S2, regular Abd: soft, nontender, nondistended Psych: Cooperative Neuro: Awake, noted to move all extremities spontaneously Ext: no peripheral edema Results Labs CBC & Chem 7: 05/01/22 05:30 05/01/22 05:30 Labs: Short CBC 05/01/22 Range/Units 05:30 WBC 7.9 (4.8-10.8) X10*3/uL Hgb 15.4 (14.0-18.0) g/dl Hct 48.5 (42.0-52.0) % Plt Count 221 (160-400) X10*3/uL BMP 05/01/22 05:30 Sodium 141 Potassium 4.3 Chloride 102 Carbon Dioxide 25 BUN 17 H Creatinine 1.17 Calcium 9.1 Liver Function 05/01/22 Range/Units 05:30 Total Bilirubin 0.9 (0.0-1.0) mg/dL AST 473 H (5-37) U/L ALT 621 H (0-40) U/L Alkaline Phosphatase 461 H D (39-117) U/L Albumin 3.7 (3.5-5.0) g/dL Urine 04/30/22 Range/Units 20:22 Urine Color Yellow Urine Appearance Clear Urine pH 5.5 (5.0-9.0) Ur Specific [place] 1.020 (1.005-1.025) Urine Protein Negative (Neg-Trace) mg/dL Urine Glucose (UA) Negative (Negative) mg/dL Microbiology Microbiology Results: Microbiology 04/30/22 09:36 Blood - Venous Blood Culture - Preliminary No growth after 24 hours. 04/30/22 09:15 Blood - Venous Blood Culture - Preliminary No growth after [address] scan - abdomen: My impression: Dramatic dilation of intrahepatic ducts with a high grade stricture at the level of hilum, interestingly there is also downstream dilation of CBD without any radio-opaque stone seen. US - abdomen: My impression: Dilated duct with a hyperechoic focus within the duct, unable to ascertain posterior acoustic shadowing on my review. Assessment and Plan (1) Biliary stricture: Status: Acute (2) Gallbladder mass: Status: Acute Plan Patient presenting with painless elevation of transaminases, without any jaundice. Found to have multiple abnormalities on abdominal imaging including gallbladder nodule with adjacent lesion in the liver, omental nodules, as well as a high-grade common hepatic duct stricture. This is highly concerning for a metastatic process, likely cholangiocarcinoma. Currently, patient does not have sepsis or biliary obstruction. -Recommend MRI abdomen with and without contrast further delineate anatomy and question of mets raised by the CT scan -May need to be premedicated for the MRI, to lay still for the exam -Further investigations, including ERCP, will be contingent on results of MRI and its implication on overall clinical course karlene given poor functional status. -Please alert GI service ira if patient develops SIRS or has a suddent spike in bili. Plan was reviewed with the hospitalist. Procedures Date of Service Date of Service: 05/01/22
--- NOTE | 2022-05-01 13:53 | PM.PNGS ---
Subjective Subjective Date of Service: 05/01/22 Interval history: Denies abdominal pain otherwise does not provide much history or details l Physical Exam Vital Signs: Vital Signs: Last Vital Signs Temp 97.4 F 05/01/22 12:00 Pulse 76 05/01/22 12:00 Resp 18 05/01/22 12:00 BP 158/90 H 05/01/22 08:26 Pulse Ox 94 05/01/22 08:26 O2 Del Method 05/01/22 08:26 BMI result Body Mass Index 26.4 Const: General: comfortable and no acute distress Eyes: Sclerae: sclerae normal Resp: Effort & Inspection: normal respiratory effort Cardio: Rate: regular rate GI: Other: soft, flat, nondistended, no guarding rebound, no obvious tenderness Objective Data Active Medications Atorvastatin Calcium (Atorvastatin Calcium 10 Mg Tablet) 10 mg PO DAILY@2100 [facility] Last Admin: 05/01/22 10:12 Dose: 10 mg Documented By: TAMIR Bisacodyl (Bisacodyl 5 Mg Tablet.) 5 mg PO BEDTIME [facility] Last Admin: 04/30/22 22:06 Dose: 5 mg Documented By: CAIO Clotrimazole (Clotrimazole 1 % Cream 15 Gm Tube) 1 appl TOPICAL BID [facility] Last Admin: 05/01/22 10:34 Dose: Not Given Documented By: TAMIR Non-Admin Reason: Patient Refused Diazepam (Diazepam 2 Mg Tablet) 2 mg PO BID [facility] Last Admin: 05/01/22 10:12 Dose: 2 mg Documented By: TAMIR Docusate Sodium (Docusate Sodium 100 Mg Capsule) 100 mg PO DAILY [facility] Last Admin: 05/01/22 10:12 Dose: Not Given Documented By: TAMIR Non-Admin Reason: NPO Enoxaparin Sodium (Enoxaparin Sodium 40 Mg/0.4 Ml Syringe) 40 mg SUBCUT Q24H [facility] Last Admin: 04/30/22 13:40 Dose: 40 mg Documented By: FUADOPEChaim Fentanyl (Fentanyl 100 Mcg Patch.Td72) 100 mcg TRANSDERMA Q72H [facility] Last Admin: 04/30/22 22:14 Dose: 100 mcg Documented By: CAIO Ferrous Sulfate (Ferrous Sulfate 324 Mg Tablet.) 324 mg PO BID [facility] Last Admin: 05/01/22 10:11 Dose: 324 mg Documented By: TAMIR Finasteride (Finasteride 5 Mg Tablet) 5 mg PO DAILY [facility] Last Admin: 05/01/22 10:11 Dose: 5 mg Documented By: TAMIR Furosemide (Furosemide 20 Mg Tablet) 20 mg PO Q48H [facility]; Protocol Last Admin: 04/30/22 13:41 Dose: 20 mg Documented By: MEG Piperacillin Sod/Tazobactam (Sod 3.375 gm/ Sodium Chloride) 50 mls @ 100 mls/hr IV Q8H [facility] Last Infusion: 05/01/22 08:19 Dose: 0 mls/hr Documented By: TAMIR Lactulose (Lactulose 20 Gm/30 Ml Solution) 40 gm PO DAILY [facility] Last Admin: 05/01/22 10:22 Dose: Not Given Documented By: TAMIR Non-Admin Reason: NPO Levetiracetam (Levetiracetam 1,000 Mg Tablet) 1,000 mg PO DAILY@0900 [facility] Last Admin: 05/01/22 10:12 Dose: 1,000 mg Documented By: TAMIR Levetiracetam (Levetiracetam 250 Mg Tablet) 750 mg PO DAILY@1200 [facility] Last Admin: 04/30/22 13:40 Dose: 750 mg Documented By: MEG Levetiracetam (Levetiracetam 500 Mg Tablet) 1,500 mg PO BEDTIME [facility] Last Admin: 04/30/22 22:06 Dose: 1,500 mg Documented By: CAIO Levothyroxine Sodium (Levothyroxine Sodium 175 Mcg Tablet) 175 mcg PO DAILY [facility] Last Admin: 05/01/22 10:11 Dose: 175 mcg Documented By: TAMIR Multivitamins/Vitamin C (Multivitamin Tablet) 1 tab PO DAILY [facility] Last Admin: 05/01/22 10:11 Dose: 1 tab Documented By: TAMIR Omeprazole (Omeprazole 40 Mg Capsule.Dr) 40 mg PO BID [facility] Last Admin: 05/01/22 10:12 Dose: 40 mg Documented By: TAMIR Oxycodone HCl (Oxycodone Hcl Immed Release 5 Mg Tablet) 10 mg PO TID [facility] Last Admin: 05/01/22 10:11 Dose: 10 mg Documented By: TAMIR Pharmacy Consult (Consult Rx Perform Med Rec) 1 each MISCELLANE ONCE PRN PRN Reason: Consult order Polyethylene Glycol (Polyethylene Glycol 3350 17 Gm Powd.Pack) 17 gm PO DAILY [facility] Last Admin: 05/01/22 10:12 Dose: Not Given Documented By: TAMIR Non-Admin Reason: NPO Risperidone (Risperidone 0.5 Mg Tablet) 0.5 mg PO BID [facility] Last Admin: 05/01/22 10:11 Dose: 0.5 mg Documented By: TAMIR Risperidone (Risperidone 2 Mg Tablet) 2 mg PO BID [facility] Last Admin: 05/01/22 10:11 Dose: 2 mg Documented By: TAMIR Senna (Sennosides 8.6 Mg Tablet) 8.6 mg PO DAILY PRN PRN Reason: Constipation Sodium Chloride (0.9 % Sodium Chloride Flush 3 Ml Syringe) 3 ml IVFLUSH QSHIFT [facility] Last Admin: 05/01/22 09:04 Dose: 3 ml Documented By: TAMIR Tamsulosin HCl (Tamsulosin Hcl 0.4 Mg Capsule) 0.4 mg PO DAILY [facility] Last Admin: 05/01/22 10:11 Dose: 0.4 mg Documented By: TAMIR Labs CBC & Chem 7: 05/01/22 05:30 05/01/22 05:30 Labs: Laboratory Results - last 24 hr 04/30/22 05/01/22 05/01/22 20:22 05:30 05:30 MCV 92.4 MCH 29.3 MCHC 31.8 RDW 12.4 Plt Count 221 MPV 11.8 Immature Gran % (Auto) 0.3 Neut % (Auto) 66.5 Lymph % (Auto) 19.7 L [place] % (Auto) 12.0 H Eos % (Auto) 1.1 Baso % (Auto) 0.4 Lymph # (Auto) 1.6 [place] # (Auto) 0.9 Eos # (Auto) 0.1 Baso # (Auto) 0.0 Abs Immat Gran (auto) 0.02 Absolute Neuts (auto) 5.2 Absolute Nucleated RBC 0.000 Nucleated RBC % (auto) 0.0 Anion Gap 18 Estim Creat Clear Calc 64.4 Estimated GFR > 60 Fasting Glucose 89 Calcium 9.1 Total Bilirubin 0.9 AST 473 H ALT 621 H Alkaline Phosphatase 461 H D Total Protein 6.4 L Albumin 3.7 Urine Color Yellow Urine Appearance Clear Urine pH 5.5 Ur Specific [place] 1.020 Urine Protein Negative Urine Glucose (UA) Negative Urine Ketones Negative Urine Blood Negative Urine Nitrite Negative Ur Leukocyte Esterase Negative Microbiology Microbiology Results: Microbiology 04/30/22 09:36 Blood Culture - Preliminary Blood - Venous No growth after 24 hours. 04/30/22 09:15 Blood Culture - Preliminary Blood - Venous No growth after 24 hours. Procedures Date of Service Date of Service: 05/01/22 Progress Note: A&P Assessment and plan (1) Gallbladder mass: Status: Acute Assessment and Plan: denies abdominal pain AST and ALT are elevated but bilirubin is within normal not tender on exam CT scans again reviewed with multiple radiologists - likely gall bladder mass/ cholangio carcinoma intrahepatic ducts markedly dilated but Fady is within normal reviewed with Dr. Vaughn - she will attemt biopsy of omental nodule next week, CT-guided will arrange for PET-CT next week abdominal exam otherwise benign Time Spent With Patient Time: Total time spent is greater than 50% in coordination of care (as documented) at patient's floor/unit and/or counseling patient: Quality Stroke Does the patient have a stroke diagnosis?: No VTE Prior VTE?: No VTE Risk Level:: Medical - moderate - high VTE Device Contraindication: Treatment Not Indicated VTE Drug Contraindication: N/A - Med Ordered
[2022-05-01] MEDS: levETIRAcetam 250 MG TABLET 750 MG PO (14:36)
[2022-05-01] MEDS: Enoxaparin Sodium 40 MG/0.4 ML SYRINGE SUBCUT (14:36)
--- NOTE | 2022-05-01 16:11 | PC.NURSE ---
Pt NPO,no IV fluids ordered,Dr. Galvan notified
[2022-05-01] MEDS: Dextrose 5 % and 0.45 % NaCl 1,000 ML 100 ML IVCONT (16:22)
[2022-05-01] MEDS: Haloperidol Lactate 5 MG/ML VIAL IM (16:41)
[2022-05-01 16:47] VITALS: BP 127/83; PULSE 68; RESP 20; TEMP 36.1; O2SAT 96
[2022-05-01] MEDS: Midazolam HCl/PF 2 MG/2 ML VIAL 4 MG IM (17:27)
--- NOTE | 2022-05-01 17:29 | PC.NURSE ---
Patient transported to MRI by nursing Functional Tester Briana
[2022-05-01 19:29] VITALS: BP 147/86; PULSE 62; RESP 18; TEMP 36.4; O2SAT 95
--- NOTE | 2022-05-01 21:16 | PC.NURSE ---
patient s/p MRCP this evening,sedated ,sleeping,unable to take hs meds
[2022-05-01 23:41] VITALS: BP 146/85; PULSE 145; RESP 17; TEMP 36; O2SAT 94
[2022-05-02] MEDS: Dextrose 5 % and 0.45 % NaCl 1,000 ML 100 ML IVCONT ×3 (02:58→21:48)
[2022-05-02] MEDS: Piperacillin Sodium/Tazobactam 3.375 GM in 0.9 % Sodium Chloride 50 ML IV ×3 (05:58→21:48)
[2022-05-02 07:52] VITALS: BP 197/90; PULSE 72; RESP 19; TEMP 36.6; O2SAT 95
[2022-05-02] MEDS: Docusate Sodium 100 MG CAPSULE PO (08:10)
[2022-05-02] MEDS: Omeprazole 40 MG CAPSULE.DR PO ×2 (08:10→21:47)
[2022-05-02] MEDS: Levothyroxine Sodium 175 MCG TABLET PO (08:10)
[2022-05-02] MEDS: risperiDONE 0.5 MG TABLET PO ×2 (08:10→21:47)
[2022-05-02] MEDS: Finasteride 5 MG TABLET PO (08:10)
[2022-05-02] MEDS: diazePAM 2 MG TABLET PO ×2 (08:10→21:47)
[2022-05-02] MEDS: Tamsulosin HCL 0.4 MG CAPSULE PO (08:10)
[2022-05-02] MEDS: Multivitamin TABLET 1 TAB PO (08:11)
[2022-05-02] MEDS: levETIRAcetam 1,000 MG TABLET 1000 MG PO (08:11)
[2022-05-02] MEDS: risperiDONE 2 MG TABLET PO ×2 (08:11→21:47)
[2022-05-02] MEDS: oxyCODONE HCl Immed Release 5 MG TABLET 10 MG PO ×3 (08:11→21:47)
[2022-05-02] MEDS: Ferrous Sulfate 324 MG TABLET.DR PO ×2 (08:11→21:47)
[2022-05-02 08:51] VITALS: BP 153/79; PULSE 73; RESP 19; TEMP 36.2; O2SAT 93
[2022-05-02] MEDS: Lactulose 20 GM/30 ML SOLUTION 40 GM PO (10:18)
--- NOTE | 2022-05-02 10:23 | HO.PM.IMPN ---
Subjective Subjective Date of Service: 05/02/22 Interval History: Remains resistant to care. Otherwise hemodynamically stable overnight Review of Systems Unable to obtain Physical Exam Vital Signs: Vital Signs: Last Vital Signs Temp 97.1 F 05/02/22 08:51 Pulse 73 05/02/22 08:51 Resp 19 05/02/22 08:51 BP 153/79 H 05/02/22 08:51 Pulse Ox 93 05/02/22 08:51 O2 Del Method 05/02/22 08:51 BMI result Body Mass Index 26.4 Const: Other: Awake no acute distress. Clinically staff Resp: Other: Clear to auscultation bilaterally no rales rhonchi or wheezes Cardio: Other: Soft nontender nondistended normoactive bowel sounds GI: Other: Minimal right upper quadrant tenderness. Bowel sounds x4 Extrem: Other: No edema bilaterally Objective Data Active Medications Atorvastatin Calcium (Atorvastatin Calcium 10 Mg Tablet) 10 mg PO DAILY@2100 [facility] Last Admin: 05/01/22 21:11 Dose: Not Given Documented By: JAYLYN Non-Admin Reason: sleeping unable to take Bisacodyl (Bisacodyl 5 Mg Tablet.) 5 mg PO BEDTIME [facility] Last Admin: 05/01/22 21:11 Dose: Not Given Documented By: JAYLYN Non-Admin Reason: sleeping unable to take Clotrimazole (Clotrimazole 1 % Cream 15 Gm Tube) 1 appl TOPICAL BID [facility] Last Admin: 05/02/22 09:41 Dose: Not Given Documented By: TANYA Non-Admin Reason: Med Not Available Diazepam (Diazepam 2 Mg Tablet) 2 mg PO BID [facility] Last Admin: 05/02/22 08:10 Dose: 2 mg Documented By: TANYA Docusate Sodium (Docusate Sodium 100 Mg Capsule) 100 mg PO DAILY [facility] Last Admin: 05/02/22 08:10 Dose: 100 mg Documented By: TANYA Enoxaparin Sodium (Enoxaparin Sodium 40 Mg/0.4 Ml Syringe) 40 mg SUBCUT Q24H [facility] Last Admin: 05/01/22 14:36 Dose: 40 mg Documented By: TAMIR Fentanyl (Fentanyl 100 Mcg Patch.Td72) 100 mcg TRANSDERMA Q72H [facility] Last Admin: 04/30/22 22:14 Dose: 100 mcg Documented By: CAIO Ferrous Sulfate (Ferrous Sulfate 324 Mg Tablet.Dr) 324 mg PO BID [facility] Last Admin: 05/02/22 08:11 Dose: 324 mg Documented By: TANYA Finasteride (Finasteride 5 Mg Tablet) 5 mg PO DAILY [facility] Last Admin: 05/02/22 08:10 Dose: 5 mg Documented By: TANYA Furosemide (Furosemide 20 Mg Tablet) 20 mg PO Q48H [facility]; Protocol Last Admin: 04/30/22 13:41 Dose: 20 mg Documented By: MEG Piperacillin Sod/Tazobactam (Sod 3.375 gm/ Sodium Chloride) 50 mls @ 100 mls/hr IV Q8H [facility] Last Infusion: 05/02/22 06:46 Dose: 0 mls/hr Documented By: GINGER Dextrose/Sodium Chloride (D51/2ns) 1,000 mls @ 100 mls/hr IVCONT .Q10H [facility] Last Admin: 05/02/22 02:58 Dose: 100 mls/hr Documented By: GINGER Lactulose (Lactulose 20 Gm/30 Ml Solution) 40 gm PO DAILY [facility] Last Admin: 05/01/22 10:22 Dose: Not Given Documented By: TAMIR Non-Admin Reason: NPO Levetiracetam (Levetiracetam 1,000 Mg Tablet) 1,000 mg PO DAILY@0900 [facility] Last Admin: 05/02/22 08:11 Dose: 1,000 mg Documented By: TANYA Levetiracetam (Levetiracetam 250 Mg Tablet) 750 mg PO DAILY@1200 [facility] Last Admin: 05/01/22 14:36 Dose: 750 mg Documented By: TAMIR Levetiracetam (Levetiracetam 500 Mg Tablet) 1,500 mg PO BEDTIME [facility] Last Admin: 05/01/22 21:14 Dose: Not Given Documented By: JAYLYN Non-Admin Reason: sleeping unable to take Levothyroxine Sodium (Levothyroxine Sodium 175 Mcg Tablet) 175 mcg PO DAILY [facility] Last Admin: 05/02/22 08:10 Dose: 175 mcg Documented By: TANYA Multivitamins/Vitamin C (Multivitamin Tablet) 1 tab PO DAILY [facility] Last Admin: 05/02/22 08:11 Dose: 1 tab Documented By: TANYA Omeprazole (Omeprazole 40 Mg Capsule.Dr) 40 mg PO BID [facility] Last Admin: 05/02/22 08:10 Dose: 40 mg Documented By: TANYA Oxycodone HCl (Oxycodone Hcl Immed Release 5 Mg Tablet) 10 mg PO TID [facility] Last Admin: 05/02/22 08:11 Dose: 10 mg Documented By: TANYA Pharmacy Consult (Consult Rx Perform Med Rec) 1 each MISCELLANE ONCE PRN PRN Reason: Consult order Polyethylene Glycol (Polyethylene Glycol 3350 17 Gm Powd.Pack) 17 gm PO DAILY [facility] Last Admin: 05/02/22 08:12 Dose: Not Given Documented By: TANYA Non-Admin Reason: NPO Risperidone (Risperidone 0.5 Mg Tablet) 0.5 mg PO BID [facility] Last Admin: 05/02/22 08:10 Dose: 0.5 mg Documented By: TANYA Risperidone (Risperidone 2 Mg Tablet) 2 mg PO BID [facility] Last Admin: 05/02/22 08:11 Dose: 2 mg Documented By: TANYA Senna (Sennosides 8.6 Mg Tablet) 8.6 mg PO DAILY PRN PRN Reason: Constipation Sodium Chloride (0.9 % Sodium Chloride Flush 3 Ml Syringe) 3 ml IVFLUSH QSHIFT [facility] Last Admin: 05/02/22 08:11 Dose: Not Given Documented By: TANYA Non-Admin Reason: IV Running Tamsulosin HCl (Tamsulosin Hcl 0.4 Mg Capsule) 0.4 mg PO DAILY [facility] Last Admin: 05/02/22 08:10 Dose: 0.4 mg Documented By: TANYA Labs CBC & Chem 7: 05/01/22 05:30 05/01/22 05:30 Microbiology Microbiology Results: Microbiology 04/30/22 09:15 Blood Culture - Preliminary Blood - Venous Prelim: GPC Gram Stain only 04/30/22 09:36 Blood Culture - Preliminary Blood - Venous No growth after 24 hours. Assessment and Plan (1) Choledocholithiasis with obstruction: Status: Acute (2) Chronic kidney disease (CKD): Status: Acute (3) Schizophrenia: Status: Chronic Plan 71-year-old male with meds history of paranoid schizophrenia, CHF, CKD, BPH, HLD, anemia, epilepsy, deaf,?presents from [facility] with abnormal LFTs and abnormal ultrasound at [facility]. CT abdomen pelvis demonstrates cholelithiasis and diffusely thickened gall bag wall with adjacent fat stranding suggestive of acute cholecystitis 1.Cholelithiasis -LFTs rising -MRCP/MR Abd C+/- completed. Await GI input -continue Zosyn -trend labs 2. CKD 3 -continue outpatient therapies -follow renals/divalents 3.Schizophrenia -continue risperidone as outpatient dosing -p.r.n. Haldol for agitation Lovenox Full Code Will require ongoing hospitalization for IV antibiotics to treat cholelithiasis Quality Stroke Does the patient have a stroke diagnosis?: No VTE Prior VTE?: No VTE Risk Level:: Medical - moderate - high VTE Device Contraindication: Treatment Not Indicated VTE Drug Contraindication: N/A - Med Ordered
[2022-05-02 10:57] VITALS: BP 133/62; PULSE 83; RESP 18; TEMP 36.3; O2SAT 94
[2022-05-02 11:25] LABS: MANUAL DIFF FLAG NO
[2022-05-02 11:30] LABS: Basophils Percent Auto 0.3 % (0-2); Eosinophils Absolute Auto 0.1 X10*3/uL (0.0-0.4); Eosinophils Percent Auto 1.1 % (0-4); Hematocrit 47.3 % (42.0-52.0); Hemoglobin 15.3 g/dl (14.0-18.0); Imm Gran Abs Auto 0.01 X10*3/uL (0.00-0.03); Imm Gran Pct Auto 0.1 % (0.0-0.4); Lymphocytes Absolute Auto 1.3 X10*3/uL (1.2-4.9); Lymphocytes Percent Auto 17.6 % (20-40); Mean Corpuscular HGB Conc 32.3 g/dl (31.0-36.0); Mean Corpuscular Hemoglobin 29.5 pg (27.0-33.0); Mean Corpuscular Volume 91.3 fL (80.0-98.0); Mean Platelet Volume 11.3 fL (9.4-12.4); Monocytes Absolute Auto 0.5 X10*3/uL (0.1-1.2); Monocytes Percent Auto 7.3 % (2-11); Neutrophils Absolute Auto 5.5 x10*3/uL (2.0-8.3); Neutrophils Percent Auto 73.6 % (45-73); Platelet Count 229 X10*3/uL (160-400); Red Blood Count 5.18 X10*6/uL (4.60-5.80); Red Cell Distribution Width 12.3 % (11.0-16.0); White Blood Count 7.4 X10*3/uL (4.8-10.8)
[2022-05-02 12:07] LABS: Alanine Aminotransferase 449 U/L (0-40); Albumin Level 3.6 g/dL (3.5-5.0); Alkaline Phosphatase 425 U/L (39-117); Anion Gap 14 (12-20); Aspartate Amino Transferase 228 U/L (5-37); Blood Urea Nitrogen 16 mg/dL (9-16); Carbon Dioxide 27 mmol/L (22-29); Chloride 102 mmol/L (96-108); Creatinine Clr Calc Pharmacy 74.6; Estimated Glomerular Filt Rate > 60; Glucose Fasting 199 mg/dL (60-99); Potassium 3.9 mmol/L (3.3-5.1); Sodium 139 mmol/L (135-145); Total Protein 6.2 g/dL (6.5-8.0)
[2022-05-02] MEDS: levETIRAcetam 250 MG TABLET 750 MG PO (12:48)
[2022-05-02] MEDS: Furosemide 20 MG TABLET PO (12:48)
[2022-05-02 15:01] VITALS: BP 132/69; PULSE 73; RESP 18; TEMP 36.3; O2SAT 97
[2022-05-02] MEDS: Haloperidol Lactate 5 MG/ML VIAL IM (16:16)
[2022-05-02] MEDS: Midazolam HCl/PF 2 MG/2 ML VIAL 4 MG IM (16:42)
[2022-05-02 19:56] VITALS: BP 133/62; PULSE 68; RESP 19; TEMP 36.2; O2SAT 94
[2022-05-02] MEDS: bisacodyL 5 MG TABLET.DR PO (21:47)
[2022-05-02] MEDS: levETIRAcetam 500 MG TABLET 1500 MG PO (21:47)
[2022-05-02] MEDS: Atorvastatin Calcium 10 MG TABLET PO (21:48)
[2022-05-03] MEDS: Piperacillin Sodium/Tazobactam 3.375 GM in 0.9 % Sodium Chloride 50 ML IV ×3 (05:50→21:18)
[2022-05-03 06:01] LABS: MANUAL DIFF FLAG NO
[2022-05-03 06:06] LABS: Basophils Percent Auto 0.3 % (0-2); Eosinophils Absolute Auto 0.1 X10*3/uL (0.0-0.4); Eosinophils Percent Auto 1.9 % (0-4); Hematocrit 44.8 % (42.0-52.0); Hemoglobin 14.4 g/dl (14.0-18.0); Imm Gran Abs Auto 0.02 X10*3/uL (0.00-0.03); Imm Gran Pct Auto 0.3 % (0.0-0.4); Lymphocytes Absolute Auto 1.7 X10*3/uL (1.2-4.9); Mean Corpuscular HGB Conc 32.1 g/dl (31.0-36.0); Mean Corpuscular Hemoglobin 29.3 pg (27.0-33.0); Mean Corpuscular Volume 91.1 fL (80.0-98.0); Monocytes Absolute Auto 0.9 X10*3/uL (0.1-1.2); Monocytes Percent Auto 12.7 % (2-11); Neutrophils Absolute Auto 4.5 x10*3/uL (2.0-8.3); Neutrophils Percent Auto 61.8 % (45-73); Platelet Count 220 X10*3/uL (160-400); Red Blood Count 4.92 X10*6/uL (4.60-5.80); Red Cell Distribution Width 12.4 % (11.0-16.0); White Blood Count 7.3 X10*3/uL (4.8-10.8)
[2022-05-03 06:25] LABS: Alanine Aminotransferase 608 U/L (0-40); Albumin Level 3.4 g/dL (3.5-5.0); Alkaline Phosphatase 462 U/L (39-117); Anion Gap 16 (12-20); Aspartate Amino Transferase 352 U/L (5-37); Bilirubin Total 1.1 mg/dL (0.0-1.0); Blood Urea Nitrogen 12 mg/dL (9-16); Calcium 8.7 mg/dL (8.4-10.2); Carbon Dioxide 26 mmol/L (22-29); Chloride 103 mmol/L (96-108); Creatinine Clr Calc Pharmacy 88.7; Estimated Glomerular Filt Rate > 60; Glucose Fasting 92 mg/dL (60-99); Potassium 3.7 mmol/L (3.3-5.1); Sodium 141 mmol/L (135-145)
[2022-05-03 07:37] VITALS: BP 136/77; PULSE 19; RESP 19; TEMP 36.9; O2SAT 96
[2022-05-03] MEDS: Dextrose 5 % and 0.45 % NaCl 1,000 ML 100 ML IVCONT ×2 (08:55→21:18)
[2022-05-03] MEDS: polyethylene glycoL 3350 17 GM POWD.PACK PO (08:55)
[2022-05-03] MEDS: Levothyroxine Sodium 175 MCG TABLET PO (08:56)
[2022-05-03] MEDS: levETIRAcetam 1,000 MG TABLET 1000 MG PO (08:56)
[2022-05-03] MEDS: Omeprazole 40 MG CAPSULE.DR PO ×2 (08:56→21:18)
[2022-05-03] MEDS: Ferrous Sulfate 324 MG TABLET.DR PO ×2 (08:56→21:18)
[2022-05-03] MEDS: diazePAM 2 MG TABLET PO ×2 (08:56→21:18)
[2022-05-03] MEDS: Docusate Sodium 100 MG CAPSULE PO (08:56)
[2022-05-03] MEDS: Multivitamin TABLET 1 TAB PO (08:56)
[2022-05-03] MEDS: risperiDONE 2 MG TABLET PO ×2 (08:56→21:18)
[2022-05-03] MEDS: Tamsulosin HCL 0.4 MG CAPSULE PO (08:56)
[2022-05-03] MEDS: risperiDONE 0.5 MG TABLET PO ×2 (08:56→21:18)
[2022-05-03] MEDS: oxyCODONE HCl Immed Release 5 MG TABLET 10 MG PO ×3 (08:56→21:17)
[2022-05-03] MEDS: Finasteride 5 MG TABLET PO (08:57)
[2022-05-03 11:19] VITALS: BP 121/60; PULSE 63; RESP 17; TEMP 36.3; O2SAT 97
--- NOTE | 2022-05-03 11:55 | MHC.CM.PN ---
STILL REQUIRING IV ABX NO PLAN FOR DC TODAY [facility] AWARE WITH [facility] UPDATES
[2022-05-03] MEDS: fentaNYL 100 MCG PATCH.TD72 TRANSDERMA (11:58)
[2022-05-03] MEDS: levETIRAcetam 250 MG TABLET 750 MG PO (11:58)
--- NOTE | 2022-05-03 12:25 | PM.GIPN ---
Subjective Subjective Date of Service: 05/03/22 Interval History: MRI with MRCP reviewed. Will need ercp for biliary drainage +/- clearance as well as stricture eval. Critical Care Time (minutes): 0 Physical Exam Vital Signs: Vital Signs: Last Vital Signs Temp 97.4 F 05/03/22 11:19 Pulse 63 05/03/22 11:19 Resp 17 05/03/22 11:19 BP 121/60 05/03/22 11:19 Pulse Ox 97 05/03/22 11:19 O2 Del Method 05/03/22 11:19 BMI result Body Mass Index 26.4 Gen appear: elderly male, undernourished Abd: some wincing to RUQ palpation Objective Data Labs CBC & Chem 7: 05/03/22 05:48 05/03/22 05:48 Labs: Laboratory Results - last 24 hr 05/03/22 05/03/22 05:48 05:48 WBC 7.3 RBC 4.92 Hgb 14.4 Hct 44.8 MCV 91.1 MCH 29.3 MCHC 32.1 RDW 12.4 Plt Count 220 MPV 11.0 Immature Gran % (Auto) 0.3 Neut % (Auto) 61.8 Lymph % (Auto) 23.0 [place] % (Auto) 12.7 H Eos % (Auto) 1.9 Baso % (Auto) 0.3 Lymph # (Auto) 1.7 [place] # (Auto) 0.9 Eos # (Auto) 0.1 Baso # (Auto) 0.0 Abs Immat Gran (auto) 0.02 Absolute Neuts (auto) 4.5 Absolute Nucleated RBC 0.000 Nucleated RBC % (auto) 0.0 Sodium 141 Potassium 3.7 Chloride 103 Carbon Dioxide 26 Anion Gap 16 BUN 12 Creatinine 0.85 Estim Creat Clear Calc 88.7 Estimated GFR > 60 Fasting Glucose 92 D Calcium 8.7 Total Bilirubin 1.1 H AST 352 H ALT 608 H Alkaline Phosphatase 462 H Total Protein 6.0 L Albumin 3.4 L Imaging MRI - abdomen: Attestation: I personally reviewed and interpreted this imaging study as follows: My impression: Intra and extrahepatic biliary dilatation with choledocholithiasis. Stricture again noted in common hepatic duct. Thickened gallbladder wall with cholelithiasis. Question liver abscess. Microbiology Microbiology Results: Microbiology 04/30/22 09:15 Blood - Venous Blood Culture - Final Coag negative Staphylococcus 09/15/22 09:36 Blood - Venous Blood Culture - Preliminary No growth after 48 hours. Procedures Date of Service Date of Service: 05/03/22 Progress Note: A&P Assessment and plan (1) Biliary stricture: Status: Acute (2) Choledocholithiasis with obstruction: Status: Acute Plan Appears to have CHD stricture AND CBD stones which explains the post-stricture downstream dilation of CBD. Unclear if liver lesion seen on CT represents a mass vs abscess as it has T2 enhancement (water density) on MRI. Recommend: - Broad spectrum Abx - Daily LFTs - ERCP tentatively scheduled for Wednesday - Low fat diet okay for now, pls make NPO after MN for procedure on 05/05. Time Spent With Patient Time: Total time spent is greater than 50% in coordination of care (as documented) at patient's floor/unit and/or counseling patient: Quality Stroke Does the patient have a stroke diagnosis?: No VTE Prior VTE?: No VTE Risk Level:: Medical - moderate - high VTE Device Contraindication: Treatment Not Indicated VTE Drug Contraindication: N/A - Med Ordered
--- NOTE | 2022-05-03 14:01 | P.PNIM_ITS ---
Subjective Subjective Date of Service: 05/03/22 Interval History: Remains resistant to care. Otherwise hemodynamically stable overnight Review of Systems Unable to obtain Physical Exam Vital Signs: Vital Signs: Last Vital Signs Temp 97.4 F 05/03/22 11:19 Pulse 63 05/03/22 11:19 Resp 17 05/03/22 11:19 BP 121/60 05/03/22 11:19 Pulse Ox 97 05/03/22 11:19 O2 Del Method 05/03/22 11:19 BMI result Body Mass Index 26.4 Const: Other: Awake no acute distress. Clinically staff Resp: Other: Clear to auscultation bilaterally no rales rhonchi or wheezes Cardio: Other: Soft nontender nondistended normoactive bowel sounds GI: Other: Minimal right upper quadrant tenderness. Bowel sounds x4 Extrem: Other: No edema bilaterally Objective Data Active Medications Atorvastatin Calcium (Atorvastatin Calcium 10 Mg Tablet) 10 mg PO DAILY@2100 [facility] Last Admin: 05/02/22 21:48 Dose: 10 mg Documented By: GINGER Bisacodyl (Bisacodyl 5 Mg Tablet.Dr) 5 mg PO BEDTIME [facility] Last Admin: 05/02/22 21:47 Dose: 5 mg Documented By: GINGER Clotrimazole (Clotrimazole 1 % Cream 15 Gm Tube) 1 appl TOPICAL BID [facility] Last Admin: 05/02/22 22:07 Dose: Not Given Documented By: GINGER Non-Admin Reason: Patient Refused Diazepam (Diazepam 2 Mg Tablet) 2 mg PO BID [facility] Last Admin: 05/03/22 08:56 Dose: 2 mg Documented By: TANYA Docusate Sodium (Docusate Sodium 100 Mg Capsule) 100 mg PO DAILY [facility] Last Admin: 05/03/22 08:56 Dose: 100 mg Documented By: TANYA Enoxaparin Sodium (Enoxaparin Sodium 40 Mg/0.4 Ml Syringe) 40 mg SUBCUT Q24H [facility] Last Admin: 05/03/22 13:57 Dose: Not Given Documented By: TANYA Non-Admin Reason: Patient Refused Fentanyl (Fentanyl 100 Mcg Patch.Td72) 100 mcg TRANSDERMA Q72H [facility] Last Admin: 05/03/22 11:58 Dose: 100 mcg Documented By: TANYA Ferrous Sulfate (Ferrous Sulfate 324 Mg Tablet.Dr) 324 mg PO BID [facility] Last Admin: 05/03/22 08:56 Dose: 324 mg Documented By: TANYA Finasteride (Finasteride 5 Mg Tablet) 5 mg PO DAILY [facility] Last Admin: 05/03/22 08:57 Dose: 5 mg Documented By: TANYA Furosemide (Furosemide 20 Mg Tablet) 20 mg PO Q48H [facility]; Protocol Last Admin: 05/02/22 12:48 Dose: 20 mg Documented By: TANYA Piperacillin Sod/Tazobactam (Sod 3.375 gm/ Sodium Chloride) 50 mls @ 100 mls/hr IV Q8H [facility] Last Infusion: 05/03/22 06:37 Dose: 0 mls/hr Documented By: GINGER Dextrose/Sodium Chloride (D51/2ns) 1,000 mls @ 100 mls/hr IVCONT .Q10H [facility] Last Admin: 05/03/22 08:55 Dose: 100 mls/hr Documented By: TANYA Lactulose (Lactulose 20 Gm/30 Ml Solution) 40 gm PO DAILY [facility] Last Admin: 05/03/22 09:09 Dose: Not Given Documented By: TANYA Non-Admin Reason: Patient Refused Levetiracetam (Levetiracetam 1,000 Mg Tablet) 1,000 mg PO DAILY@0900 [facility] Last Admin: 05/03/22 08:56 Dose: 1,000 mg Documented By: TANYA Levetiracetam (Levetiracetam 250 Mg Tablet) 750 mg PO DAILY@1200 [facility] Last Admin: 05/03/22 11:58 Dose: 750 mg Documented By: TANYA Levetiracetam (Levetiracetam 500 Mg Tablet) 1,500 mg PO BEDTIME [facility] Last Admin: 05/02/22 21:47 Dose: 1,500 mg Documented By: GINGER Levothyroxine Sodium (Levothyroxine Sodium 175 Mcg Tablet) 175 mcg PO DAILY [facility] Last Admin: 05/03/22 08:56 Dose: 175 mcg Documented By: TANYA Multivitamins/Vitamin C (Multivitamin Tablet) 1 tab PO DAILY [facility] Last Admin: 05/03/22 08:56 Dose: 1 tab Documented By: TANYA Omeprazole (Omeprazole 40 Mg Capsule.) 40 mg PO BID [facility] Last Admin: 05/03/22 08:56 Dose: 40 mg Documented By: TANYA Oxycodone HCl (Oxycodone Hcl Immed Release 5 Mg Tablet) 10 mg PO TID [facility] Last Admin: 05/03/22 08:56 Dose: 10 mg Documented By: TANYA Pharmacy Consult (Consult Rx Perform Med Rec) 1 each MISCELLANE ONCE PRN PRN Reason: Consult order Polyethylene Glycol (Polyethylene Glycol 3350 17 Gm Powd.Pack) 17 gm PO DAILY [facility] Last Admin: 05/03/22 08:55 Dose: 17 gm Documented By: TANYA Risperidone (Risperidone 0.5 Mg Tablet) 0.5 mg PO BID [facility] Last Admin: 05/03/22 08:56 Dose: 0.5 mg Documented By: TANYA Risperidone (Risperidone 2 Mg Tablet) 2 mg PO BID [facility] Last Admin: 05/03/22 08:56 Dose: 2 mg Documented By: TANYA Senna (Sennosides 8.6 Mg Tablet) 8.6 mg PO DAILY PRN PRN Reason: Constipation Sodium Chloride (0.9 % Sodium Chloride Flush 3 Ml Syringe) 3 ml IVFLUSH QSHIFT [facility] Last Admin: 05/03/22 07:47 Dose: Not Given Documented By: TANYA Non-Admin Reason: IV Running Tamsulosin HCl (Tamsulosin Hcl 0.4 Mg Capsule) 0.4 mg PO DAILY [facility] Last Admin: 05/03/22 08:56 Dose: 0.4 mg Documented By: TANYA Labs CBC & Chem 7: 05/03/22 05:48 05/03/22 05:48 Labs: Laboratory Results - last 24 hr 05/03/22 05/03/22 05:48 05:48 MCV 91.1 MCH 29.3 MCHC 32.1 RDW 12.4 Plt Count 220 MPV 11.0 Immature Gran % (Auto) 0.3 Neut % (Auto) 61.8 Lymph % (Auto) 23.0 [place] % (Auto) 12.7 H Eos % (Auto) 1.9 Baso % (Auto) 0.3 Lymph # (Auto) 1.7 [place] # (Auto) 0.9 Eos # (Auto) 0.1 Baso # (Auto) 0.0 Abs Immat Gran (auto) 0.02 Absolute Neuts (auto) 4.5 Absolute Nucleated RBC 0.000 Nucleated RBC % (auto) 0.0 Anion Gap 16 Estim Creat Clear Calc 88.7 Estimated GFR > 60 Fasting Glucose 92 D Calcium 8.7 Total Bilirubin 1.1 H AST 352 H ALT 608 H Alkaline Phosphatase 462 H Total Protein 6.0 L Albumin 3.4 L Microbiology Microbiology Results: Microbiology 04/30/22 09:15 Blood Culture - Final Blood - Venous Coag negative Staphylococcus 04/30/22 09:36 Blood Culture - Preliminary Blood - Venous No growth after 48 hours. Assessment and Plan (1) Choledocholithiasis with obstruction: Status: Acute (2) Chronic kidney disease (CKD): Status: Acute (3) Schizophrenia: Status: Chronic Plan 71-year-old male with meds history of paranoid schizophrenia, CHF, CKD, BPH, HLD, anemia, epilepsy, deaf,?presents from [facility] with abnormal LFTs and abnormal ultrasound at [facility]. CT abdomen pelvis demonstrates cholelithiasis and diffusely thickened gall bag wall with adjacent fat stranding suggestive of acute cholecystitis 1.Cholelithiasis -LFTs rising -MRCP/MR Abd C+/- completed. ERCP 05/05 -continue Zosyn -trend labs 2. CKD 3 -continue outpatient therapies -follow renals/divalents 3.Schizophrenia -continue risperidone as outpatient dosing -p.r.n. Haldol for agitation Lovenox Full Code Will require ongoing hospitalization for IV antibiotics to treat cholelithiasis Quality Stroke Does the patient have a stroke diagnosis?: No VTE Prior VTE?: No VTE Risk Level:: Medical - moderate - high VTE Device Contraindication: Treatment Not Indicated VTE Drug Contraindication: N/A - Med Ordered
[2022-05-03] MEDS: Clotrimazole 1 % Cream 15 GM TUBE 1 APPL TOPICAL (14:25)
[2022-05-03 16:00] VITALS: BP 121/60; PULSE 58; RESP 19; TEMP 36.7; O2SAT 96
[2022-05-03 19:24] VITALS: BP 125/79; PULSE 62; RESP 19; TEMP 36.7; O2SAT 95
[2022-05-03] MEDS: levETIRAcetam 500 MG TABLET 1500 MG PO (21:18)
[2022-05-03] MEDS: Atorvastatin Calcium 10 MG TABLET PO (21:18)
[2022-05-03] MEDS: bisacodyL 5 MG TABLET.DR PO (21:18)
[2022-05-04] MEDS: Piperacillin Sodium/Tazobactam 3.375 GM in 0.9 % Sodium Chloride 50 ML IV ×3 (05:29→22:17)
[2022-05-04] MEDS: Dextrose 5 % and 0.45 % NaCl 1,000 ML 100 ML IVCONT ×2 (05:29→18:39)
[2022-05-04 07:59] VITALS: BP 177/85; PULSE 65; RESP 18; TEMP 36.3; O2SAT 97
[2022-05-04] MEDS: oxyCODONE HCl Immed Release 5 MG TABLET 10 MG PO (09:32)
[2022-05-04] MEDS: Multivitamin TABLET 1 TAB PO (09:33)
[2022-05-04] MEDS: risperiDONE 2 MG TABLET PO (09:33)
[2022-05-04] MEDS: Levothyroxine Sodium 175 MCG TABLET PO (09:33)
[2022-05-04] MEDS: Finasteride 5 MG TABLET PO (09:33)
[2022-05-04] MEDS: risperiDONE 0.5 MG TABLET PO (09:33)
[2022-05-04] MEDS: levETIRAcetam 1,000 MG TABLET 1000 MG PO (09:33)
[2022-05-04] MEDS: Omeprazole 40 MG CAPSULE.DR PO (09:33)
[2022-05-04] MEDS: diazePAM 2 MG TABLET PO (09:33)
[2022-05-04] MEDS: Tamsulosin HCL 0.4 MG CAPSULE PO (09:33)
[2022-05-04] MEDS: Docusate Sodium 100 MG CAPSULE PO (09:33)
[2022-05-04] MEDS: Ferrous Sulfate 324 MG TABLET.DR PO (09:33)
--- NOTE | 2022-05-04 10:31 | HO.PM.IMPN ---
Subjective Subjective Date of Service: 05/04/22 Interval History: Remains agitated at times resistant to care. No other acute events overnight Review of Systems Unable to obtain Physical Exam Vital Signs: Vital Signs: Last Vital Signs Temp 97.3 F 05/04/22 07:59 Pulse 65 05/04/22 07:59 Resp 18 05/04/22 07:59 BP 177/85 H 05/04/22 07:59 Pulse Ox 97 05/04/22 07:59 O2 Del Method 05/04/22 07:59 BMI result Body Mass Index 26.4 Const: Other: Awake no acute distress. Clinically staff Resp: Other: Clear to auscultation bilaterally no rales rhonchi or wheezes Cardio: Other: Soft nontender nondistended normoactive bowel sounds GI: Other: Minimal right upper quadrant tenderness. Bowel sounds x4 Extrem: Other: No edema bilaterally Objective Data Active Medications Atorvastatin Calcium (Atorvastatin Calcium 10 Mg Tablet) 10 mg PO DAILY@2100 [facility] Last Admin: 05/03/22 21:18 Dose: 10 mg Documented By: GINGER Bisacodyl (Bisacodyl 5 Mg Tablet.Dr) 5 mg PO BEDTIME [facility] Last Admin: 05/03/22 21:18 Dose: 5 mg Documented By: GINGER Clotrimazole (Clotrimazole 1 % Cream 15 Gm Tube) 1 appl TOPICAL BID [facility] Last Admin: 05/04/22 09:59 Dose: Not Given Documented By: DARYL Non-Admin Reason: Patient Refused Diazepam (Diazepam 2 Mg Tablet) 2 mg PO BID [facility] Last Admin: 05/04/22 09:33 Dose: 2 mg Documented By: DARYL Docusate Sodium (Docusate Sodium 100 Mg Capsule) 100 mg PO DAILY [facility] Last Admin: 05/04/22 09:33 Dose: 100 mg Documented By: DARYL Enoxaparin Sodium (Enoxaparin Sodium 40 Mg/0.4 Ml Syringe) 40 mg SUBCUT Q24H [facility] Last Admin: 05/03/22 13:57 Dose: Not Given Documented By: TANYA Non-Admin Reason: Patient Refused Fentanyl (Fentanyl 100 Mcg Patch.Td72) 100 mcg TRANSDERMA Q72H [facility] Last Admin: 05/03/22 11:58 Dose: 100 mcg Documented By: TANYA Ferrous Sulfate (Ferrous Sulfate 324 Mg Tablet.Dr) 324 mg PO BID [facility] Last Admin: 05/04/22 09:33 Dose: 324 mg Documented By: DARYL Finasteride (Finasteride 5 Mg Tablet) 5 mg PO DAILY [facility] Last Admin: 05/04/22 09:33 Dose: 5 mg Documented By: DARYL Furosemide (Furosemide 20 Mg Tablet) 20 mg PO Q48H [facility]; Protocol Last Admin: 05/02/22 12:48 Dose: 20 mg Documented By: TANYA Piperacillin Sod/Tazobactam (Sod 3.375 gm/ Sodium Chloride) 50 mls @ 100 mls/hr IV Q8H [facility] Last Infusion: 05/04/22 09:40 Dose: 0 mls/hr Documented By: DARYL Dextrose/Sodium Chloride (D51/2ns) 1,000 mls @ 100 mls/hr IVCONT .Q10H [facility] Last Admin: 05/04/22 05:29 Dose: 100 mls/hr Documented By: GINGER Lactulose (Lactulose 20 Gm/30 Ml Solution) 40 gm PO DAILY [facility] Last Admin: 05/04/22 09:39 Dose: Not Given Documented By: DARYL Non-Admin Reason: Patient Refused Levetiracetam (Levetiracetam 1,000 Mg Tablet) 1,000 mg PO DAILY@0900 [facility] Last Admin: 05/04/22 09:33 Dose: 1,000 mg Documented By: DARYL Levetiracetam (Levetiracetam 250 Mg Tablet) 750 mg PO DAILY@1200 [facility] Last Admin: 05/03/22 11:58 Dose: 750 mg Documented By: TANYA Levetiracetam (Levetiracetam 500 Mg Tablet) 1,500 mg PO BEDTIME [facility] Last Admin: 05/03/22 21:18 Dose: 1,500 mg Documented By: GINGER Levothyroxine Sodium (Levothyroxine Sodium 175 Mcg Tablet) 175 mcg PO DAILY [facility] Last Admin: 05/04/22 09:33 Dose: 175 mcg Documented By: DARYL Multivitamins/Vitamin C (Multivitamin Tablet) 1 tab PO DAILY [facility] Last Admin: 05/04/22 09:33 Dose: 1 tab Documented By: DARYL Omeprazole (Omeprazole 40 Mg Capsule.) 40 mg PO BID [facility] Last Admin: 05/04/22 09:33 Dose: 40 mg Documented By: DARYL Oxycodone HCl (Oxycodone Hcl Immed Release 5 Mg Tablet) 10 mg PO TID [facility] Last Admin: 05/04/22 09:32 Dose: 10 mg Documented By: DARYL Pharmacy Consult (Consult Rx Perform Med Rec) 1 each MISCELLANE ONCE PRN PRN Reason: Consult order Polyethylene Glycol (Polyethylene Glycol 3350 17 Gm Powd.Pack) 17 gm PO DAILY [facility] Last Admin: 05/04/22 09:39 Dose: Not Given Documented By: DARYL Non-Admin Reason: Patient Refused Risperidone (Risperidone 0.5 Mg Tablet) 0.5 mg PO BID [facility] Last Admin: 05/04/22 09:33 Dose: 0.5 mg Documented By: DARYL Risperidone (Risperidone 2 Mg Tablet) 2 mg PO BID [facility] Last Admin: 05/04/22 09:33 Dose: 2 mg Documented By: DARYL Senna (Sennosides 8.6 Mg Tablet) 8.6 mg PO DAILY PRN PRN Reason: Constipation Sodium Chloride (0.9 % Sodium Chloride Flush 3 Ml Syringe) 3 ml IVFLUSH QSHIFT [facility] Last Admin: 05/04/22 09:40 Dose: Not Given Documented By: DARYL Non-Admin Reason: IV Running Tamsulosin HCl (Tamsulosin Hcl 0.4 Mg Capsule) 0.4 mg PO DAILY [facility] Last Admin: 05/04/22 09:33 Dose: 0.4 mg Documented By: DARYL Labs CBC & Chem 7: 05/03/22 05:48 05/03/22 05:48 Microbiology Microbiology Results: Microbiology 04/30/22 09:15 Blood Culture - Final Blood - Venous Coag negative Staphylococcus Assessment and Plan (1) Choledocholithiasis with obstruction: Status: Acute (2) Chronic kidney disease (CKD): Status: Acute (3) Schizophrenia: Status: Chronic Plan 71-year-old male with meds history of paranoid schizophrenia, CHF, CKD, BPH, HLD, anemia, epilepsy, deaf,?presents from [facility] with abnormal LFTs and abnormal ultrasound at [facility]. CT abdomen pelvis demonstrates cholelithiasis and diffusely thickened gall bag wall with adjacent fat stranding suggestive of acute cholecystitis 1.Cholelithiasis -LFTs rising -MRCP/MR Abd C+/- completed. ERCP 05/05 -continue Zosyn -trend labs -return to [facility] as soon as medically feasible 2. CKD 3 -continue outpatient therapies -follow renals/divalents 3.Schizophrenia -continue risperidone as outpatient dosing -p.r.n. Haldol for agitation Lovenox Full Code Will require ongoing hospitalization for IV antibiotics to treat cholelithiasis Quality Stroke Does the patient have a stroke diagnosis?: No VTE Prior VTE?: No VTE Risk Level:: Medical - moderate - high VTE Device Contraindication: Treatment Not Indicated VTE Drug Contraindication: N/A - Med Ordered
[2022-05-04] MEDS: Enoxaparin Sodium 40 MG/0.4 ML SYRINGE SUBCUT (12:44)
--- NOTE | 2022-05-04 14:17 | PM.PNGS ---
Subjective Subjective Date of Service: 05/04/22 Interval history: Denies abdominal pain Tolerating diet Not very communicative Physical Exam Vital Signs: Vital Signs: Last Vital Signs Temp 97.3 F 05/04/22 07:59 Pulse 65 05/04/22 07:59 Resp 18 05/04/22 07:59 BP 177/85 H 05/04/22 07:59 Pulse Ox 97 05/04/22 07:59 O2 Del Method 05/04/22 07:59 BMI result Body Mass Index 26.4 Const: General: no acute distress Resp: Effort & Inspection: normal respiratory effort Cardio: Rate: regular rate GI: Palpation (GI): Soft to palpation, not firm and nontender Objective Data Active Medications Atorvastatin Calcium (Atorvastatin Calcium 10 Mg Tablet) 10 mg PO DAILY@2100 [facility] Last Admin: 05/03/22 21:18 Dose: 10 mg Documented By: GINGER Bisacodyl (Bisacodyl 5 Mg Tablet.) 5 mg PO BEDTIME [facility] Last Admin: 05/03/22 21:18 Dose: 5 mg Documented By: GINGER Clotrimazole (Clotrimazole 1 % Cream 15 Gm Tube) 1 appl TOPICAL BID [facility] Last Admin: 05/04/22 09:59 Dose: Not Given Documented By: DARYL Non-Admin Reason: Patient Refused Diazepam (Diazepam 2 Mg Tablet) 2 mg PO BID [facility] Last Admin: 05/04/22 09:33 Dose: 2 mg Documented By: DARYL Docusate Sodium (Docusate Sodium 100 Mg Capsule) 100 mg PO DAILY [facility] Last Admin: 05/04/22 09:33 Dose: 100 mg Documented By: DARYL Enoxaparin Sodium (Enoxaparin Sodium 40 Mg/0.4 Ml Syringe) 40 mg SUBCUT Q24H [facility] Last Admin: 05/04/22 12:44 Dose: 40 mg Documented By: DARYL Fentanyl (Fentanyl 100 Mcg Patch.Td72) 100 mcg TRANSDERMA Q72H [facility] Last Admin: 05/03/22 11:58 Dose: 100 mcg Documented By: TANYA Ferrous Sulfate (Ferrous Sulfate 324 Mg Tablet.) 324 mg PO BID [facility] Last Admin: 05/04/22 09:33 Dose: 324 mg Documented By: DARYL Finasteride (Finasteride 5 Mg Tablet) 5 mg PO DAILY [facility] Last Admin: 05/04/22 09:33 Dose: 5 mg Documented By: DARYL Furosemide (Furosemide 20 Mg Tablet) 20 mg PO Q48H [facility]; Protocol Last Admin: 05/04/22 12:58 Dose: Not Given Documented By: DARYL Non-Admin Reason: Patient Refused Piperacillin Sod/Tazobactam (Sod 3.375 gm/ Sodium Chloride) 50 mls @ 100 mls/hr IV Q8H [facility] Last Infusion: 05/04/22 09:40 Dose: 0 mls/hr Documented By: DARYL Dextrose/Sodium Chloride (D51/2ns) 1,000 mls @ 100 mls/hr IVCONT .Q10H [facility] Last Admin: 05/04/22 05:29 Dose: 100 mls/hr Documented By: GINGER Lactulose (Lactulose 20 Gm/30 Ml Solution) 40 gm PO DAILY [facility] Last Admin: 05/04/22 09:39 Dose: Not Given Documented By: DARYL Non-Admin Reason: Patient Refused Levetiracetam (Levetiracetam 1,000 Mg Tablet) 1,000 mg PO DAILY@0900 [facility] Last Admin: 05/04/22 09:33 Dose: 1,000 mg Documented By: DARYL Levetiracetam (Levetiracetam 250 Mg Tablet) 750 mg PO DAILY@1200 [facility] Last Admin: 05/04/22 12:57 Dose: Not Given Documented By: DARYL Non-Admin Reason: Patient Refused Levetiracetam (Levetiracetam 500 Mg Tablet) 1,500 mg PO BEDTIME [facility] Last Admin: 05/03/22 21:18 Dose: 1,500 mg Documented By: GINGER Levothyroxine Sodium (Levothyroxine Sodium 175 Mcg Tablet) 175 mcg PO DAILY [facility] Last Admin: 05/04/22 09:33 Dose: 175 mcg Documented By: DARYL Multivitamins/Vitamin C (Multivitamin Tablet) 1 tab PO DAILY [facility] Last Admin: 05/04/22 09:33 Dose: 1 tab Documented By: DARYL Omeprazole (Omeprazole 40 Mg Capsule.Dr) 40 mg PO BID [facility] Last Admin: 05/04/22 09:33 Dose: 40 mg Documented By: DARYL Oxycodone HCl (Oxycodone Hcl Immed Release 5 Mg Tablet) 10 mg PO TID [facility] Last Admin: 05/04/22 09:32 Dose: 10 mg Documented By: DARYL Pharmacy Consult (Consult Rx Perform Med Rec) 1 each MISCELLANE ONCE PRN PRN Reason: Consult order Polyethylene Glycol (Polyethylene Glycol 3350 17 Gm Powd.Pack) 17 gm PO DAILY [facility] Last Admin: 05/04/22 09:39 Dose: Not Given Documented By: DARYL Non-Admin Reason: Patient Refused Risperidone (Risperidone 0.5 Mg Tablet) 0.5 mg PO BID [facility] Last Admin: 05/04/22 09:33 Dose: 0.5 mg Documented By: DARYL Risperidone (Risperidone 2 Mg Tablet) 2 mg PO BID [facility] Last Admin: 05/04/22 09:33 Dose: 2 mg Documented By: DARYL Senna (Sennosides 8.6 Mg Tablet) 8.6 mg PO DAILY PRN PRN Reason: Constipation Sodium Chloride (0.9 % Sodium Chloride Flush 3 Ml Syringe) 3 ml IVFLUSH QSHIFT [facility] Last Admin: 05/04/22 09:40 Dose: Not Given Documented By: DARYL Non-Admin Reason: IV Running Tamsulosin HCl (Tamsulosin Hcl 0.4 Mg Capsule) 0.4 mg PO DAILY [facility] Last Admin: 05/04/22 09:33 Dose: 0.4 mg Documented By: DARYL Labs CBC & Chem 7: 05/03/22 05:48 05/03/22 05:48 Procedures Date of Service Date of Service: 05/04/22 Progress Note: A&P Assessment and plan (1) Gallbladder mass: Status: Acute Assessment and Plan: No obvious abdominal tenderness at this time Awaiting ERCP for tissue diagnosis of stricture/mass If need be, I have talked to Dr. Vaughn about doing CT biopsy of omental nodule Exam otherwise benign Time Spent With Patient Time: Total time spent is greater than 50% in coordination of care (as documented) at patient's floor/unit and/or counseling patient: Quality Stroke Does the patient have a stroke diagnosis?: No VTE Prior VTE?: No VTE Risk Level:: Medical - moderate - high VTE Device Contraindication: Treatment Not Indicated VTE Drug Contraindication: N/A - Med Ordered
[2022-05-04] MEDS: 0.9 % Sodium Chloride Flush 3 ML SYRINGE IVFLUSH (22:20)
[2022-05-05] VITALS (10 sets, daily range): BP systolic 115–180; BP diastolic 59–86; PULSE 60–75; RESP 15–20; TEMP 36.1–36.7; O2SAT 95–100
[2022-05-05 06:14] LABS: MANUAL DIFF FLAG NO
[2022-05-05] MEDS: Piperacillin Sodium/Tazobactam 3.375 GM in 0.9 % Sodium Chloride 50 ML IV ×2 (06:15→22:15)
[2022-05-05] MEDS: Dextrose 5 % and 0.45 % NaCl 1,000 ML 100 ML IVCONT ×3 (06:16→22:11)
[2022-05-05 06:21] LABS: Basophils Percent Auto 0.2 % (0-2); Eosinophils Absolute Auto 0.1 X10*3/uL (0.0-0.4); Eosinophils Percent Auto 1.2 % (0-4); Hematocrit 46.3 % (42.0-52.0); Hemoglobin 14.8 g/dl (14.0-18.0); Imm Gran Abs Auto 0.02 X10*3/uL (0.00-0.03); Imm Gran Pct Auto 0.2 % (0.0-0.4); Lymphocytes Absolute Auto 1.5 X10*3/uL (1.2-4.9); Mean Corpuscular Hemoglobin 29.2 pg (27.0-33.0); Mean Corpuscular Volume 91.3 fL (80.0-98.0); Mean Platelet Volume 11.9 fL (9.4-12.4); Monocytes Percent Auto 12.2 % (2-11); Neutrophils Absolute Auto 5.5 x10*3/uL (2.0-8.3); Neutrophils Percent Auto 68.2 % (45-73); Platelet Count 168 X10*3/uL (160-400); Red Blood Count 5.07 X10*6/uL (4.60-5.80); Red Cell Distribution Width 12.6 % (11.0-16.0); White Blood Count 8.1 X10*3/uL (4.8-10.8)
[2022-05-05 07:10] LABS: Alanine Aminotransferase 546 U/L (0-40); Albumin Level 3.4 g/dL (3.5-5.0); Alkaline Phosphatase 508 U/L (39-117); Anion Gap 16 (12-20); Aspartate Amino Transferase 259 U/L (5-37); Blood Urea Nitrogen 10 mg/dL (9-16); Calcium 8.9 mg/dL (8.4-10.2); Carbon Dioxide 23 mmol/L (22-29); Chloride 104 mmol/L (96-108); Creatinine Clr Calc Pharmacy 103.3; Estimated Glomerular Filt Rate > 60; Glucose Fasting 104 mg/dL (60-99); Sodium 139 mmol/L (135-145); Total Protein 6.1 g/dL (6.5-8.0)
[2022-05-05] MEDS: risperiDONE 2 MG TABLET PO (08:17)
[2022-05-05] MEDS: risperiDONE 0.5 MG TABLET PO (08:17)
[2022-05-05] MEDS: levETIRAcetam 1,000 MG TABLET 1000 MG PO (08:19)
[2022-05-05] MEDS: oxyCODONE HCl Immed Release 5 MG TABLET 10 MG PO (08:19)
[2022-05-05] MEDS: diazePAM 2 MG TABLET PO (08:20)
[2022-05-05] MEDS: Finasteride 5 MG TABLET PO (08:20)
[2022-05-05] MEDS: levETIRAcetam 250 MG TABLET 750 MG PO (12:57)
--- NOTE | 2022-05-05 13:16 | HO.PM.IMPN ---
Subjective Subjective Date of Service: 05/05/22 Interval History: has intermittent agitated at times resistant to care.? No other acute events overnight Review of Systems Unable to obtain Physical Exam Vital Signs: Vital Signs: Last Vital Signs Temp 98.1 F 05/05/22 08:00 Pulse 60 05/05/22 08:00 Resp 16 05/05/22 08:00 BP 180/84 H 05/05/22 08:00 Pulse Ox 97 05/05/22 08:00 O2 Del Method 05/05/22 08:00 BMI result Body Mass Index 26.4 Appearance: Awake ? not in distress.? cvs: rrr, [id number]. res: clear to auscultation ,no rhonchii or wheezing abd: no rebound or guarding ,mild ruq discomfort, bs present. ext pulses present , no cyanosis . Objective Data Active Medications Atorvastatin Calcium (Atorvastatin Calcium 10 Mg Tablet) 10 mg PO DAILY@2100 [facility] Last Admin: 05/04/22 20:21 Dose: Not Given Documented By: EVARISTO Non-Admin Reason: Patient Refused Bisacodyl (Bisacodyl 5 Mg Tablet.) 5 mg PO BEDTIME [facility] Last Admin: 05/04/22 20:21 Dose: Not Given Documented By: EVARISTO Non-Admin Reason: Patient Refused Clotrimazole (Clotrimazole 1 % Cream 15 Gm Tube) 1 appl TOPICAL BID [facility] Last Admin: 05/05/22 09:37 Dose: Not Given Documented By: JAZIEL Non-Admin Reason: Patient Refused Diazepam (Diazepam 2 Mg Tablet) 2 mg PO BID [facility] Last Admin: 05/05/22 08:20 Dose: 2 mg Documented By: JAZIEL Docusate Sodium (Docusate Sodium 100 Mg Capsule) 100 mg PO DAILY [facility] Last Admin: 05/05/22 09:34 Dose: Not Given Documented By: JAZIEL Non-Admin Reason: NPO Enoxaparin Sodium (Enoxaparin Sodium 40 Mg/0.4 Ml Syringe) 40 mg SUBCUT Q24H [facility] Last Admin: 05/05/22 12:32 Dose: Not Given Documented By: JAZIEL Non-Admin Reason: Pt going to surgery Fentanyl (Fentanyl 100 Mcg Patch.Td72) 100 mcg TRANSDERMA Q72H [facility] Last Admin: 05/03/22 11:58 Dose: 100 mcg Documented By: TANYA Ferrous Sulfate (Ferrous Sulfate 324 Mg Tablet.Dr) 324 mg PO BID [facility] Last Admin: 05/05/22 09:34 Dose: Not Given Documented By: JAZIEL Non-Admin Reason: NPO Finasteride (Finasteride 5 Mg Tablet) 5 mg PO DAILY [facility] Last Admin: 05/05/22 08:20 Dose: 5 mg Documented By: JAZIEL Furosemide (Furosemide 20 Mg Tablet) 20 mg PO Q48H [facility]; Protocol Last Admin: 05/04/22 12:58 Dose: Not Given Documented By: DARYL Non-Admin Reason: Patient Refused Piperacillin Sod/Tazobactam (Sod 3.375 gm/ Sodium Chloride) 50 mls @ 100 mls/hr IV Q8H [facility] Last Infusion: 05/05/22 07:06 Dose: 0 mls/hr Documented By: EVARISTO Dextrose/Sodium Chloride (D51/2ns) 1,000 mls @ 100 mls/hr IVCONT .Q10H [facility] Last Infusion: 05/05/22 07:07 Dose: 100 mls/hr Documented By: EVARISTO Lactulose (Lactulose 20 Gm/30 Ml Solution) 40 gm PO DAILY [facility] Last Admin: 05/05/22 09:34 Dose: Not Given Documented By: JAZIEL Non-Admin Reason: NPO Levetiracetam (Levetiracetam 1,000 Mg Tablet) 1,000 mg PO DAILY@0900 [facility] Last Admin: 05/05/22 08:19 Dose: 1,000 mg Documented By: JAZIEL Levetiracetam (Levetiracetam 250 Mg Tablet) 750 mg PO DAILY@1200 [facility] Last Admin: 05/05/22 12:57 Dose: 750 mg Documented By: JAZIEL Levetiracetam (Levetiracetam 500 Mg Tablet) 1,500 mg PO BEDTIME [facility] Last Admin: 05/04/22 20:22 Dose: Not Given Documented By: EVARISTO Non-Admin Reason: Patient Refused Levothyroxine Sodium (Levothyroxine Sodium 175 Mcg Tablet) 175 mcg PO DAILY [facility] Last Admin: 05/05/22 09:34 Dose: Not Given Documented By: JAZIEL Non-Admin Reason: NPO Multivitamins/Vitamin C (Multivitamin Tablet) 1 tab PO DAILY [facility] Last Admin: 05/05/22 09:34 Dose: Not Given Documented By: JAZIEL Non-Admin Reason: NPO Omeprazole (Omeprazole 40 Mg Capsule.Dr) 40 mg PO BID [facility] Last Admin: 05/05/22 09:35 Dose: Not Given Documented By: JAZIEL Non-Admin Reason: NPO Oxycodone HCl (Oxycodone Hcl Immed Release 5 Mg Tablet) 10 mg PO TID [facility] Last Admin: 05/05/22 08:19 Dose: 10 mg Documented By: JAZIEL Pharmacy Consult (Consult Rx Perform Med Rec) 1 each MISCELLANE ONCE PRN PRN Reason: Consult order Polyethylene Glycol (Polyethylene Glycol 3350 17 Gm Powd.Pack) 17 gm PO DAILY [facility] Last Admin: 05/05/22 09:35 Dose: Not Given Documented By: JAZIEL Non-Admin Reason: NPO Risperidone (Risperidone 0.5 Mg Tablet) 0.5 mg PO BID [facility] Last Admin: 05/05/22 08:17 Dose: 0.5 mg Documented By: JAZIEL Risperidone (Risperidone 2 Mg Tablet) 2 mg PO BID [facility] Last Admin: 05/05/22 08:17 Dose: 2 mg Documented By: JAZIEL Senna (Sennosides 8.6 Mg Tablet) 8.6 mg PO DAILY PRN PRN Reason: Constipation Sodium Chloride (0.9 % Sodium Chloride Flush 3 Ml Syringe) 3 ml IVFLUSH QSHIFT [facility] Last Admin: 05/05/22 08:30 Dose: Not Given Documented By: JAZIEL Non-Admin Reason: IV Running Tamsulosin HCl (Tamsulosin Hcl 0.4 Mg Capsule) 0.4 mg PO DAILY [facility] Last Admin: 05/05/22 09:35 Dose: Not Given Documented By: JAZIEL Non-Admin Reason: NPO Labs CBC & Chem 7: 05/05/22 05:37 05/05/22 05:37 Labs: Laboratory Results - last 24 hr 05/05/22 05/05/22 05:37 05:37 MCV 91.3 MCH 29.2 MCHC 32.0 RDW 12.6 Plt Count 168 MPV 11.9 Immature Gran % (Auto) 0.2 Neut % (Auto) 68.2 Lymph % (Auto) 18.0 L Catron % (Auto) 12.2 H Eos % (Auto) 1.2 Baso % (Auto) 0.2 Lymph # (Auto) 1.5 Catron # (Auto) 1.0 Eos # (Auto) 0.1 Baso # (Auto) 0.0 Abs Immat Gran (auto) 0.02 Absolute Neuts (auto) 5.5 Absolute Nucleated RBC 0.000 Nucleated RBC % (auto) 0.0 Anion Gap 16 Estim Creat Clear Calc 103.3 Estimated GFR > 60 Fasting Glucose 104 H Calcium 8.9 Total Bilirubin 1.0 AST 259 H ALT 546 H Alkaline Phosphatase 508 H Total Protein 6.1 L Albumin 3.4 L Microbiology Microbiology Results: Microbiology 04/30/22 09:36 Blood Culture - Final Blood - Venous No growth after 5 days. Assessment and Plan (1) Choledocholithiasis with obstruction: Status: Acute (2) Chronic kidney disease (CKD): Status: Acute (3) Schizophrenia: Status: Chronic Plan 71-year-old male with meds history of paranoid schizophrenia, CHF, CKD, BPH, HLD, anemia, epilepsy, deaf,?presents from [facility] with abnormal LFTs and abnormal ultrasound at [facility]. CT abdomen pelvis demonstrates cholelithiasis and diffusely thickened gall bag wall with adjacent fat stranding suggestive of acute cholecystitis 1.Cholelithiasis -LFTs rising -MRCP/MR Abd C+/- completed. ERCP 05/05 -continue Zosyn -trend labs-ast,alt slightly better,but alh phos worsen plan for ercp today 2. CKD 3 -continue outpatient therapies -follow renals/divalents 3.Schizophrenia -continue risperidone as outpatient dosing -p.r.n. Haldol for agitation 4. intermittent elevated blood pressures :flactuating, possible related to agitation continue to moniter Lovenox Full Code inpatient need: ongoing hospitalization for IV antibiotics to treat cholelithiasis, as well as ercp. Quality Stroke Does the patient have a stroke diagnosis?: No VTE Prior VTE?: No VTE Risk Level:: Medical - moderate - high VTE Device Contraindication: Treatment Not Indicated VTE Drug Contraindication: N/A - Med Ordered
--- NOTE | 2022-05-05 14:03 | P.CONAN_ITS ---
HPI - Anesthesia Eval Consult details Narrative: 71M for ERCP CHF , HTN , CKD , Schizophrenia , wound on the right foot/ankle PMFSH Active Problems Active Problems: All Active Problems (Updated 05/01/22 @ 13:30 by Sheila Chauhan MD) Gallbladder mass (Acute) Biliary stricture (Acute) Choledocholithiasis with obstruction (Acute) Bladder outlet obstruction (Acute) Elevated PSA (Acute) Chronic kidney disease (CKD) (Acute) Schizophrenia (Chronic) CHF (congestive heart failure) (Chronic) Past Medical History Medical History Anemia Biliary stricture CHF (congestive heart failure) Chronic GERD Chronic kidney disease (CKD) Elevated PSA Gallbladder mass Hyperlipidemia Hypothyroidism Orofacial dystonia Prostate asymmetry Schizophrenia Family History Family history of problems with anesthesia: Unobtainable Surgical History History of Problems with Anesthesia: Unobtainable Social History Social History Household Members: None and Other Household Members Other:: snf Housing: Snf Housing Other:: [facility] Do you presently have visiting nurse or other home services: No Unable to assess alcohol history related to: Unable to respond Alcohol intake: never Patient Tobacco Use Status: Tobacco use Unknown service: No Current occupational status: retired [employer] Allergies Allergy/AdvReac Type Severity Reaction Status Date / Time No Known Allergies Allergy Verified 11/12/21 08:50 [No Known Allergies*] Active Medications: Current Medications Atorvastatin Calcium (Atorvastatin Calcium 10 Mg Tablet) 10 mg PO DAILY@2100 [facility] Last Admin: 05/04/22 20:21 Dose: Not Given Bisacodyl (Bisacodyl 5 Mg Tablet.) 5 mg PO BEDTIME [facility] Last Admin: 05/04/22 20:21 Dose: Not Given Clotrimazole (Clotrimazole 1 % Cream 15 Gm Tube) 1 appl TOPICAL BID [facility] Last Admin: 05/05/22 09:37 Dose: Not Given Diazepam (Diazepam 2 Mg Tablet) 2 mg PO BID [facility] Last Admin: 05/05/22 08:20 Dose: 2 mg Docusate Sodium (Docusate Sodium 100 Mg Capsule) 100 mg PO DAILY [facility] Last Admin: 05/05/22 09:34 Dose: Not Given Enoxaparin Sodium (Enoxaparin Sodium 40 Mg/0.4 Ml Syringe) 40 mg SUBCUT Q24H [facility] Last Admin: 05/05/22 12:32 Dose: Not Given Fentanyl (Fentanyl 100 Mcg Patch.Td72) 100 mcg TRANSDERMA Q72H [facility] Last Admin: 05/03/22 11:58 Dose: 100 mcg Ferrous Sulfate (Ferrous Sulfate 324 Mg Tablet.) 324 mg PO BID [facility] Last Admin: 05/05/22 09:34 Dose: Not Given Finasteride (Finasteride 5 Mg Tablet) 5 mg PO DAILY [facility] Last Admin: 05/05/22 08:20 Dose: 5 mg Furosemide (Furosemide 20 Mg Tablet) 20 mg PO Q48H [facility]; Protocol Last Admin: 05/04/22 12:58 Dose: Not Given Piperacillin Sod/Tazobactam (Sod 3.375 gm/ Sodium Chloride) 50 mls @ 100 mls/hr IV Q8H [facility] Last Infusion: 05/05/22 07:06 Dose: Infused Dextrose/Sodium Chloride (D51/2ns) 1,000 mls @ 100 mls/hr IVCONT .Q10H [facility] Last Infusion: 05/05/22 07:07 Dose: 100 mls/hr Lactulose (Lactulose 20 Gm/30 Ml Solution) 40 gm PO DAILY [facility] Last Admin: 05/05/22 09:34 Dose: Not Given Levetiracetam (Levetiracetam 1,000 Mg Tablet) 1,000 mg PO DAILY@0900 [facility] Last Admin: 05/05/22 08:19 Dose: 1,000 mg Levetiracetam (Levetiracetam 250 Mg Tablet) 750 mg PO DAILY@1200 [facility] Last Admin: 05/05/22 12:57 Dose: 750 mg Levetiracetam (Levetiracetam 500 Mg Tablet) 1,500 mg PO BEDTIME [facility] Last Admin: 05/04/22 20:22 Dose: Not Given Levothyroxine Sodium (Levothyroxine Sodium 175 Mcg Tablet) 175 mcg PO DAILY [facility] Last Admin: 05/05/22 09:34 Dose: Not Given Multivitamins/Vitamin C (Multivitamin Tablet) 1 tab PO DAILY [facility] Last Admin: 05/05/22 09:34 Dose: Not Given Omeprazole (Omeprazole 40 Mg Capsule.) 40 mg PO BID [facility] Last Admin: 05/05/22 09:35 Dose: Not Given Oxycodone HCl (Oxycodone Hcl Immed Release 5 Mg Tablet) 10 mg PO TID [facility] Last Admin: 05/05/22 08:19 Dose: 10 mg Pharmacy Consult (Consult Rx Perform Med Rec) 1 each MISCELLANE ONCE PRN PRN Reason: Consult order Polyethylene Glycol (Polyethylene Glycol 3350 17 Gm Powd.Pack) 17 gm PO DAILY [facility] Last Admin: 05/05/22 09:35 Dose: Not Given Risperidone (Risperidone 0.5 Mg Tablet) 0.5 mg PO BID [facility] Last Admin: 05/05/22 08:17 Dose: 0.5 mg Risperidone (Risperidone 2 Mg Tablet) 2 mg PO BID [facility] Last Admin: 05/05/22 08:17 Dose: 2 mg Senna (Sennosides 8.6 Mg Tablet) 8.6 mg PO DAILY PRN PRN Reason: Constipation Sodium Chloride (0.9 % Sodium Chloride Flush 3 Ml Syringe) 3 ml IVFLUSH QSHIFT [facility] Last Admin: 05/05/22 08:30 Dose: Not Given Tamsulosin HCl (Tamsulosin Hcl 0.4 Mg Capsule) 0.4 mg PO DAILY [facility] Last Admin: 05/05/22 09:35 Dose: Not Given Home Medications Medication Instructions Recorded Confirmed Last Taken Type docusate sodium 100 mg capsule 100 mg PO DAILY 06/02/20 04/30/22 Unknown History fentanyl 100 mcg/hr transdermal 1 patch transdermal Q72H 06/02/20 04/30/22 06/01/20 16:00 History patch ferrous sulfate 325 mg (65 mg 325 mg PO BID 06/02/20 04/30/22 Unknown History iron) tablet furosemide 20 mg tablet 20 mg PO Q OTHER DAY 06/02/20 04/30/22 Unknown History lactulose 10 gram/15 mL oral 60 ml PO DAILY 06/02/20 04/30/22 Unknown History solution levetiracetam 1,000 mg tablet 1,000 mg PO QAM 06/02/20 04/30/22 Unknown History levetiracetam 750 mg tablet 1,500 mg PO BEDTIME 06/02/20 04/30/22 Unknown History levetiracetam 750 mg tablet 750 mg PO QNOON 06/02/20 04/30/22 Unknown History multivitamin 1 tab PO DAILY 06/02/20 04/30/22 Unknown History omeprazole 40 mg capsule,delayed 40 mg PO BID 06/02/20 04/30/22 Unknown History release oxycodone-acetaminophen 10 mg-325 1 tab PO TID 06/02/20 04/30/22 Unknown History mg tablet polyethylene glycol 3350 17 gram 17 g PO DAILY 06/02/20 04/30/22 Unknown History oral powder packet (Miralax) risperidone 2 mg tablet 2 mg PO BID 06/02/20 04/30/22 Unknown History simvastatin 10 mg tablet 10 mg PO QPM 06/02/20 04/30/22 Unknown History diazepam 2 mg tablet 2 mg PO BID 11/12/21 04/30/22 Unknown History risperidone 0.5 mg tablet 0.5 mg PO BID 11/12/21 04/30/22 Unknown History bisacodyl 5 mg tablet 5 mg PO BEDTIME 04/30/22 04/30/22 Unknown History clotrimazole 1 % topical cream 1 appl topical BID 04/30/22 04/30/22 Unknown History levothyroxine 175 mcg tablet 1 tab PO DAILY 04/30/22 04/30/22 Unknown History lorazepam 2 mg/mL injection 1 mg IM DAILY PRN Seizure Activity 04/30/22 04/30/22 Unknown History solution sennosides 8.6 mg tablet (senna) 8.6 mg PO DAILY PRN Constipation 04/30/22 04/30/22 Unknown History tamsulosin 0.4 mg capsule 1 cap PO DAILY 04/30/22 04/30/22 Unknown History tolnaftate 1 % topical cream 1 appl topical BID 04/30/22 04/30/22 Unknown History Exam Exam Date and Time: May 05, 2022 1403 Height,Weight and Vital Signs: Height 6 ft Weight 88.6 kg Last Vital Signs Temp 97.5 F 05/05/22 13:37 Pulse 67 05/05/22 13:37 Resp 20 05/05/22 13:37 BP 153/86 H 05/05/22 13:37 Pulse Ox 96 05/05/22 13:37 O2 Del Method 05/05/22 13:37 Pertinent Lab Results Pertinent Lab Results: Laboratory Tests 04/30/22 04/30/22 04/30/22 09:07 09:15 09:15 WBC 7.7 RBC 5.34 Hgb 15.6 Hct 49.0 MCV 91.8 MCH 29.2 MCHC 31.8 RDW 12.5 Plt Count 237 MPV 10.9 Immature Gran % (Auto) 0.3 Neut % (Auto) 69.5 Lymph % (Auto) 19.3 L Blair % (Auto) 9.6 Eos % (Auto) 0.9 Baso % (Auto) 0.4 Lymph # (Auto) 1.5 Blair # (Auto) 0.7 Eos # (Auto) 0.1 Baso # (Auto) 0.0 Abs Immat Gran (auto) 0.02 Absolute Neuts (auto) 5.4 Absolute Nucleated RBC 0.000 Nucleated RBC % (auto) 0.0 PT INR Sodium 142 Potassium 4.5 Chloride 102 Carbon Dioxide 30 H Anion Gap 15 BUN 15 Creatinine 0.89 Estim Creat Clear Calc 84.7 Estimated GFR > 60 Random Glucose 92 Fasting Glucose Lactic Acid Calcium 9.5 D Magnesium 1.7 Total Bilirubin 0.8 Direct Bilirubin 0.4 AST 59 H ALT 143 H Alkaline Phosphatase 281 H D Total Protein 6.8 D Albumin 3.9 D Lipase 22 Urine Color Urine Appearance Urine pH Ur Specific Roland Urine Protein Urine Glucose (UA) Urine Ketones Urine Blood Urine Nitrite Ur Leukocyte Esterase COVID-19 ([facility]ISA) Negative COVID-19 Clin Com See Note 04/30/22 04/30/22 04/30/22 09:15 09:15 20:22 WBC RBC Hgb Hct MCV MCH MCHC RDW Plt Count MPV Immature Gran % (Auto) Neut % (Auto) Lymph % (Auto) Blair % (Auto) Eos % (Auto) Baso % (Auto) Lymph # (Auto) Blair # (Auto) Eos # (Auto) Baso # (Auto) Abs Immat Gran (auto) Absolute Neuts (auto) Absolute Nucleated RBC Nucleated RBC % (auto) PT 12.4 INR 1.1 Sodium Potassium Chloride Carbon Dioxide Anion Gap BUN Creatinine Estim Creat Clear Calc Estimated GFR Random Glucose Fasting Glucose Lactic Acid 0.8 Calcium Magnesium Total Bilirubin Direct Bilirubin AST ALT Alkaline Phosphatase Total Protein Albumin Lipase Urine Color Yellow Urine Appearance Clear Urine pH 5.5 Ur Specific Roland 1.020 Urine Protein Negative Urine Glucose (UA) Negative Urine Ketones Negative Urine Blood Negative Urine Nitrite Negative Ur Leukocyte Esterase Negative COVID-19 ([facility]ISA) COVID-19 Clin Com 05/01/22 05/01/22 05/02/22 05:30 05:30 11:12 WBC 7.9 7.4 RBC 5.25 5.18 Hgb 15.4 15.3 Hct 48.5 47.3 MCV 92.4 91.3 MCH 29.3 29.5 MCHC 31.8 32.3 RDW 12.4 12.3 Plt Count 221 229 MPV 11.8 11.3 Immature Gran % (Auto) 0.3 0.1 Neut % (Auto) 66.5 73.6 H Lymph % (Auto) 19.7 L 17.6 L Blair % (Auto) 12.0 H 7.3 Eos % (Auto) 1.1 1.1 Baso % (Auto) 0.4 0.3 Lymph # (Auto) 1.6 1.3 Blair # (Auto) 0.9 0.5 Eos # (Auto) 0.1 0.1 Baso # (Auto) 0.0 0.0 Abs Immat Gran (auto) 0.02 0.01 Absolute Neuts (auto) 5.2 5.5 Absolute Nucleated RBC 0.000 0.000 Nucleated RBC % (auto) 0.0 0.0 PT INR Sodium 141 Potassium 4.3 Chloride 102 Carbon Dioxide 25 Anion Gap 18 BUN 17 H Creatinine 1.17 Estim Creat Clear Calc 64.4 Estimated GFR > 60 Random Glucose Fasting Glucose 89 Lactic Acid Calcium 9.1 Magnesium Total Bilirubin 0.9 Direct Bilirubin AST 473 H ALT 621 H Alkaline Phosphatase 461 H D Total Protein 6.4 L Albumin 3.7 Lipase Urine Color Urine Appearance Urine pH Ur Specific Roland Urine Protein Urine Glucose (UA) Urine Ketones Urine Blood Urine Nitrite Ur Leukocyte Esterase COVID-19 ([facility]ISA) COVID-19 Clin Com 05/02/22 05/03/22 05/03/22 11:12 05:48 05:48 WBC 7.3 RBC 4.92 Hgb 14.4 Hct 44.8 MCV 91.1 MCH 29.3 MCHC 32.1 RDW 12.4 Plt Count 220 MPV 11.0 Immature Gran % (Auto) 0.3 Neut % (Auto) 61.8 Lymph % (Auto) 23.0 Blair % (Auto) 12.7 H Eos % (Auto) 1.9 Baso % (Auto) 0.3 Lymph # (Auto) 1.7 Blair # (Auto) 0.9 Eos # (Auto) 0.1 Baso # (Auto) 0.0 Abs Immat Gran (auto) 0.02 Absolute Neuts (auto) 4.5 Absolute Nucleated RBC 0.000 Nucleated RBC % (auto) 0.0 PT INR Sodium 139 141 Potassium 3.9 3.7 Chloride 102 103 Carbon Dioxide 27 26 Anion Gap 14 16 BUN 16 12 Creatinine 1.01 0.85 Estim Creat Clear Calc 74.6 88.7 Estimated GFR > 60 > 60 Random Glucose Fasting Glucose 199 H D 92 D Lactic Acid Calcium 9.0 8.7 Magnesium Total Bilirubin 1.0 1.1 H Direct Bilirubin AST 228 H 352 H ALT 449 H 608 H Alkaline Phosphatase 425 H 462 H Total Protein 6.2 L 6.0 L Albumin 3.6 3.4 L Lipase Urine Color Urine Appearance Urine pH Ur Specific Roland Urine Protein Urine Glucose (UA) Urine Ketones Urine Blood Urine Nitrite Ur Leukocyte Esterase COVID-19 ([facility]ISA) COVID-19 Clin Com 05/05/22 05/05/22 05:37 05:37 WBC 8.1 RBC 5.07 Hgb 14.8 Hct 46.3 MCV 91.3 MCH 29.2 MCHC 32.0 RDW 12.6 Plt Count 168 MPV 11.9 Immature Gran % (Auto) 0.2 Neut % (Auto) 68.2 Lymph % (Auto) 18.0 L Blair % (Auto) 12.2 H Eos % (Auto) 1.2 Baso % (Auto) 0.2 Lymph # (Auto) 1.5 Blair # (Auto) 1.0 Eos # (Auto) 0.1 Baso # (Auto) 0.0 Abs Immat Gran (auto) 0.02 Absolute Neuts (auto) 5.5 Absolute Nucleated RBC 0.000 Nucleated RBC % (auto) 0.0 PT INR Sodium 139 Potassium 4.0 Chloride 104 Carbon Dioxide 23 Anion Gap 16 BUN 10 Creatinine 0.73 Estim Creat Clear Calc 103.3 Estimated GFR > 60 Random Glucose Fasting Glucose 104 H Lactic Acid Calcium 8.9 Magnesium Total Bilirubin 1.0 Direct Bilirubin AST 259 H ALT 546 H Alkaline Phosphatase 508 H Total Protein 6.1 L Albumin 3.4 L Lipase Urine Color Urine Appearance Urine pH Ur Specific Roland Urine Protein Urine Glucose (UA) Urine Ketones Urine Blood Urine Nitrite Ur Leukocyte Esterase COVID-19 ([facility]ISA) COVID-19 Clin Com Airway Mallampati Class: III Neck ROM: Limited Loose/Missing/Broken Teeth: Yes Heart: S1,S2 Lungs: distant breath sounds Assessment and Plan Assessment Anesthesia Assessment: Anesthesia Plan Discussed (with legal gyardian ) and Chart Reviewed Final Anesthetic Review Family History of Problems with Anesthesia: Unobtainable History of Problems with Anesthesia: Unobtainable NPO: Yes ASA Class: III and Emergency Final Preanesthetic Review: Meds/Allgs Chart Reviewed, Consent Obtained/Reviewed and Anes Risks/Benef Reviewed Patient Risk: High Procedure Risk: Intermediate Anesthetic Plan Anesthetic Plan: GA Disposition: Inp. Admit - Standard Bed
--- NOTE | 2022-05-05 14:32 | P.CDIC_ITS ---
CDI Concurrent Query Documentation Clarification: PHYSICIAN'S DOCUMENTATION REQUEST Date of Query: 05/05/22 1434 Patient Name: Jericho Tinoco Admit Date: 04/30/22 Dear Doctor, A review of the medical record indicates additional documentation may be needed. Please review below and update the documentation accordingly. Clinical Indicators: Is there a diagnosis that correlates with these lab findings below: Risk Factors/Clinical Indicators/Treatments LABS: -AST on 05/03 352 -AST on 05/05 259 -ALT on 05/03 608 -ALT on 05/05 546 Based on the above, could you clarify in the Progress Notes the appropriate diagnosis, if significant, that supports the above abnormalities and additional evaluation, monitoring, and/or treatment rendered: * Transaminitis * Labs indicate a diagnosis of (please specify) * Other (please specify) * Unable to determine Use of terms such as suspected, likely, concern for, or probable (associated with a specific diagnosis that is being evaluated, monitored, or treated as if it exists) are acceptable and can be coded in the inpatient setting, when documented at the time of discharge. Thank you, Roz Miles, MS, RN, CCRN Extension: [phone] Please use your independent medical judgment in providing your response. THIS QUERY IS PART OF THE PERMANENT MEDICAL RECORD Provider Response: Other Other Diagnosis: Transaminitis-possible secondary to choledocholithiasis
--- NOTE | 2022-05-05 17:41 | W.PM.OPN ---
Operative Note Operative Note Date of Service: 05/05/22 Narrative: Description: Endoscopic retrograde cholangiopancreatography (ERCP) PROCEDURE: Endoscopic retrograde cholangiopancreatography with brush cytology, FISH, cholangiogram, sphincterotomy and sphincteroplasty, dilation of biliary stricture INDICATION FOR THE PROCEDURE: Patient with a history of chronic abdominal pain and imaging revealing CBD stones MEDICATIONS: General anesthesia, rectal indomethacin 100 mg, The risks of the procedure were made aware to the patient and consisted of medication reaction, bleeding, perforation, aspiration, and post ERCP pancreatitis. DESCRIPTION OF PROCEDURE: After informed consent and appropriate sedation, the duodenoscope was inserted into the oropharynx, down the esophagus, and into the stomach. The scope was then advanced through the pylorus to the ampulla. The ampulla appeared normal. The PD was repeatedly accessed, therefore a gianni precut was performed. CBD access was then gained and cholangioram revealed dilated distal CBD with filling defect. There appeared to be a stricture proximal to this point. A wire was used to try to bridge this, eventually with different angulations the wire was passed into the proximal CBD and a stricture noted in the common hepatic area with dilated intrahepatic ducts. The plan was to dilate the stricture but access was lost. Spyglass was then used to reaccess the proximal ducts with the wire. Cytology brushings were taken. the stricture was dilated and the contrast was draining freely. A 5 mm black stone also was pulled out with the cytology brush. I planned to place a 10 Fr stent but this could not bypass the stricture area. Access was again lost. At this point the procedure was terminated. There was some minor oozing which had ceased by the end of the procedure. The stomach was then decompressed and the endoscope was withdrawn. FINDINGS: 1. biliary stricture s/p dilation 2. choledocholithiasis 3. biliary brushings RECOMMENDATIONS: 1. NPO except ice chips for next 4-6 hrs then clears as tolerated, can advance diet tomorrow if feels well 2. Await brushing results, depending on these can bring back for repeat ERCP with metal stent. 3. Cont to monitor LFT 4. complete 7 d Abx course.
[2022-05-05] MEDS: Clotrimazole 1 % Cream 15 GM TUBE 1 APPL TOPICAL (19:36)
[2022-05-06 03:25] VITALS: BP 132/91; PULSE 75; RESP 18; TEMP 36.1; O2SAT 97
[2022-05-06] MEDS: Piperacillin Sodium/Tazobactam 3.375 GM in 0.9 % Sodium Chloride 50 ML IV ×3 (06:00→22:56)
[2022-05-06 06:22] LABS: MANUAL DIFF FLAG NO
[2022-05-06 06:44] LABS: Basophils Percent Auto 0.3 % (0-2); Eosinophils Absolute Auto 0.1 X10*3/uL (0.0-0.4); Eosinophils Percent Auto 1.1 % (0-4); Hematocrit 44.8 % (42.0-52.0); Hemoglobin 14.5 g/dl (14.0-18.0); Imm Gran Abs Auto 0.03 X10*3/uL (0.00-0.03); Imm Gran Pct Auto 0.4 % (0.0-0.4); Lymphocytes Percent Auto 12.7 % (20-40); Mean Corpuscular HGB Conc 32.4 g/dl (31.0-36.0); Mean Corpuscular Hemoglobin 29.2 pg (27.0-33.0); Mean Corpuscular Volume 90.3 fL (80.0-98.0); Mean Platelet Volume 11.9 fL (9.4-12.4); Monocytes Absolute Auto 0.9 X10*3/uL (0.1-1.2); Monocytes Percent Auto 11.8 % (2-11); Neutrophils Absolute Auto 5.6 x10*3/uL (2.0-8.3); Neutrophils Percent Auto 73.7 % (45-73); Platelet Count 201 X10*3/uL (160-400); Red Blood Count 4.96 X10*6/uL (4.60-5.80); Red Cell Distribution Width 12.7 % (11.0-16.0); White Blood Count 7.5 X10*3/uL (4.8-10.8)
[2022-05-06 06:51] LABS: Alanine Aminotransferase 558 U/L (0-40); Alkaline Phosphatase 528 U/L (39-117); Anion Gap 16 (12-20); Aspartate Amino Transferase 312 U/L (5-37); Bilirubin Direct 2.5 mg/dL (0.0-0.5); Bilirubin Total 3.4 mg/dL (0.0-1.0); Blood Urea Nitrogen 9 mg/dL (9-16); Calcium 8.7 mg/dL (8.4-10.2); Carbon Dioxide 22 mmol/L (22-29); Chloride 107 mmol/L (96-108); Creatinine Clr Calc Pharmacy 107.7; Estimated Glomerular Filt Rate > 60; Glucose Fasting 118 mg/dL (60-99); Potassium 4.3 mmol/L (3.3-5.1); Sodium 141 mmol/L (135-145); Total Protein 5.5 g/dL (6.5-8.0)
[2022-05-06 08:00] VITALS: BP 167/77; PULSE 75; O2SAT 96
--- NOTE | 2022-05-06 09:07 | P.PNGI_ITS ---
Subjective Subjective Date of Service: 05/06/22 Interval History: Seen at bedside. Collateral history obtained by nursing staff. Reports that has been more agitated since procedure. Also refusing to eat. Critical Care Time (minutes): 0 Physical Exam Vital Signs: Vital Signs: Last Vital Signs Temp 97 F 05/06/22 03:25 Pulse 75 05/06/22 03:25 Resp 18 05/06/22 03:25 BP 132/91 H 05/06/22 03:25 Pulse Ox 97 05/06/22 03:25 O2 Del Method 05/05/22 23:43 BMI result Body Mass Index 26.4 Gen appear: elderly male, undernourished Abd: soft, some wincing to palpation Objective Data Labs CBC & Chem 7: 05/06/22 05:42 05/06/22 05:42 Labs: Laboratory Results - last 24 hr 05/06/22 05/06/22 05/06/22 05:42 05:42 05:42 WBC 7.5 RBC 4.96 Hgb 14.5 Hct 44.8 MCV 90.3 MCH 29.2 MCHC 32.4 RDW 12.7 Plt Count 201 MPV 11.9 Immature Gran % (Auto) 0.4 Neut % (Auto) 73.7 H Lymph % (Auto) 12.7 L Lander % (Auto) 11.8 H Eos % (Auto) 1.1 Baso % (Auto) 0.3 Lymph # (Auto) 1.0 L Lander # (Auto) 0.9 Eos # (Auto) 0.1 Baso # (Auto) 0.0 Abs Immat Gran (auto) 0.03 Absolute Neuts (auto) 5.6 Absolute Nucleated RBC 0.000 Nucleated RBC % (auto) 0.0 Sodium 141 Cancelled Potassium 4.3 Cancelled Chloride 107 Cancelled Carbon Dioxide 22 Cancelled Anion Gap 16 Cancelled BUN 9 Cancelled Creatinine 0.70 Cancelled Estim Creat Clear Calc 107.7 Cancelled Estimated GFR > 60 Cancelled Random Glucose Cancelled Fasting Glucose 118 H Calcium 8.7 Cancelled Total Bilirubin 3.4 H Cancelled Direct Bilirubin 2.5 H Cancelled AST 312 H Cancelled ALT 558 H Cancelled Alkaline Phosphatase 528 H Cancelled Total Protein 5.5 L Cancelled Albumin 3.0 L Cancelled Microbiology Microbiology Results: Microbiology 04/30/22 09:36 Blood - Venous Blood Culture - Final No growth after 5 days. 04/30/22 09:15 Blood - Venous Blood Culture - Final Coag negative Staphylococcus Procedures Date of Service Date of Service: 05/06/22 Progress Note: A&P Assessment and plan (1) Biliary stricture: Status: Acute (2) Choledocholithiasis with obstruction: Status: Acute Plan s/p ERCP 05/05 with cholangioscopy dilation and brushing of stricture, and stone extraction. PD accessed a few times followed by gianni ag. Change in behaviour likely post anesthesia delirium however as patient not able to communicate as well and also refusing food, will add on a lipase to rule out pancreatitis - may need pain management in that case. Recommend: - Cont broad spectrum Abx - Lipase added on - Daily LFTs - Follow results of brushings - depending on the results may need repeat ERCP +/- stent placement Time Spent With Patient Time: Total time spent is greater than 50% in coordination of care (as documented) at patient's floor/unit and/or counseling patient: Quality Stroke Does the patient have a stroke diagnosis?: No VTE Prior VTE?: No VTE Risk Level:: Medical - moderate - high VTE Device Contraindication: Treatment Not Indicated VTE Drug Contraindication: N/A - Med Ordered
[2022-05-06] MEDS: Dextrose 5 % and 0.45 % NaCl 1,000 ML 100 ML IVCONT (09:28)
--- NOTE | 2022-05-06 12:53 | P.PNIM_ITS ---
Subjective Subjective Date of Service: 05/06/22 Interval History: No new event overnight Review of Systems Unable to obtain. No fevers Physical Exam Vital Signs: Vital Signs: Last Vital Signs Temp 97 F 05/06/22 03:25 Pulse 75 05/06/22 08:00 Resp 18 05/06/22 03:25 BP 167/77 H 05/06/22 08:00 Pulse Ox 96 05/06/22 08:00 O2 Del Method 05/06/22 08:00 BMI result Body Mass Index 26.4 Appearance: Awake ? not in distress.? cvs: rrr, [id number]. res: clear to auscultation ,no rhonchii or wheezing abd: no rebound or guarding ,not much abd discomfort (no facial impressionof pain on palpation), bs present. ext pulses present , no cyanosis . Objective Data Active Medications Atorvastatin Calcium (Atorvastatin Calcium 10 Mg Tablet) 10 mg PO DAILY@2100 [facility] Last Admin: 05/05/22 19:30 Dose: Not Given Documented By: PATIENCE Non-Admin Reason: NPO Bisacodyl (Bisacodyl 5 Mg Tablet.Dr) 5 mg PO BEDTIME [facility] Last Admin: 05/05/22 19:30 Dose: Not Given Documented By: PATIENCE Non-Admin Reason: NPO Clotrimazole (Clotrimazole 1 % Cream 15 Gm Tube) 1 appl TOPICAL BID [facility] Last Admin: 05/06/22 09:20 Dose: Not Given Documented By: JAZIEL Non-Admin Reason: Patient Refused Diazepam (Diazepam 2 Mg Tablet) 2 mg PO BID [facility] Last Admin: 05/06/22 09:20 Dose: Not Given Documented By: JAZIEL Non-Admin Reason: Patient Refused Docusate Sodium (Docusate Sodium 100 Mg Capsule) 100 mg PO DAILY [facility] Last Admin: 05/06/22 09:20 Dose: Not Given Documented By: JAZIEL Non-Admin Reason: Patient Refused Enoxaparin Sodium (Enoxaparin Sodium 40 Mg/0.4 Ml Syringe) 40 mg SUBCUT Q24H [facility] Last Admin: 05/05/22 12:32 Dose: Not Given Documented By: JAZIEL Non-Admin Reason: Pt going to surgery Fentanyl (Fentanyl 100 Mcg Patch.Td72) 100 mcg TRANSDERMA Q72H [facility] Last Admin: 05/03/22 11:58 Dose: 100 mcg Documented By: TANYA Ferrous Sulfate (Ferrous Sulfate 324 Mg Tablet.) 324 mg PO BID [facility] Last Admin: 05/06/22 09:20 Dose: Not Given Documented By: JAZIEL Non-Admin Reason: Patient Refused Finasteride (Finasteride 5 Mg Tablet) 5 mg PO DAILY [facility] Last Admin: 05/06/22 09:20 Dose: Not Given Documented By: JAZIEL Non-Admin Reason: Patient Refused Furosemide (Furosemide 20 Mg Tablet) 20 mg PO Q48H [facility]; Protocol Last Admin: 05/04/22 12:58 Dose: Not Given Documented By: DARYL Non-Admin Reason: Patient Refused Piperacillin Sod/Tazobactam (Sod 3.375 gm/ Sodium Chloride) 50 mls @ 100 mls/hr IV Q8H [facility] Last Infusion: 05/06/22 06:35 Dose: 0 mls/hr Documented By: PATIENCE Dextrose/Sodium Chloride (D51/2ns) 1,000 mls @ 100 mls/hr IVCONT .Q10H [facility] Last Admin: 05/06/22 09:28 Dose: 100 mls/hr Documented By: JAZIEL Lactulose (Lactulose 20 Gm/30 Ml Solution) 40 gm PO DAILY [facility] Last Admin: 05/06/22 09:20 Dose: Not Given Documented By: JAZIEL Non-Admin Reason: Patient Refused Levetiracetam (Levetiracetam 1,000 Mg Tablet) 1,000 mg PO DAILY@0900 [facility] Last Admin: 05/06/22 09:20 Dose: Not Given Documented By: JAZIEL Non-Admin Reason: Patient Refused Levetiracetam (Levetiracetam 250 Mg Tablet) 750 mg PO DAILY@1200 [facility] Last Admin: 05/05/22 12:57 Dose: 750 mg Documented By: JAZIEL Levetiracetam (Levetiracetam 500 Mg Tablet) 1,500 mg PO BEDTIME [facility] Last Admin: 05/05/22 21:51 Dose: Not Given Documented By: PATIENCE Non-Admin Reason: Patient Refused Levothyroxine Sodium (Levothyroxine Sodium 175 Mcg Tablet) 175 mcg PO DAILY [facility] Last Admin: 05/06/22 09:21 Dose: Not Given Documented By: JAZIEL Non-Admin Reason: Patient Refused Multivitamins/Vitamin C (Multivitamin Tablet) 1 tab PO DAILY [facility] Last Admin: 05/06/22 09:21 Dose: Not Given Documented By: JAZIEL Non-Admin Reason: Patient Refused Omeprazole (Omeprazole 40 Mg Capsule.) 40 mg PO BID [facility] Last Admin: 05/06/22 09:21 Dose: Not Given Documented By: JAZIEL Non-Admin Reason: Patient Refused Oxycodone HCl (Oxycodone Hcl Immed Release 5 Mg Tablet) 10 mg PO TID [facility] Last Admin: 05/06/22 09:21 Dose: Not Given Documented By: JAZIEL Non-Admin Reason: Patient Refused Pharmacy Consult (Consult Rx Perform Med Rec) 1 each MISCELLANE ONCE PRN PRN Reason: Consult order Polyethylene Glycol (Polyethylene Glycol 3350 17 Gm Powd.Pack) 17 gm PO DAILY [facility] Last Admin: 05/06/22 09:21 Dose: Not Given Documented By: JAZIEL Non-Admin Reason: Patient Refused Risperidone (Risperidone 0.5 Mg Tablet) 0.5 mg PO BID [facility] Last Admin: 05/06/22 09:21 Dose: Not Given Documented By: JAZIEL Non-Admin Reason: Patient Refused Risperidone (Risperidone 2 Mg Tablet) 2 mg PO BID [facility] Last Admin: 05/06/22 09:21 Dose: Not Given Documented By: JAZIEL Non-Admin Reason: Patient Refused Senna (Sennosides 8.6 Mg Tablet) 8.6 mg PO DAILY PRN PRN Reason: Constipation Sodium Chloride (0.9 % Sodium Chloride Flush 3 Ml Syringe) 3 ml IVFLUSH QSHIFT [facility] Last Admin: 05/06/22 09:20 Dose: Not Given Documented By: JAZIEL Non-Admin Reason: IV Running Tamsulosin HCl (Tamsulosin Hcl 0.4 Mg Capsule) 0.4 mg PO DAILY [facility] Last Admin: 05/06/22 09:21 Dose: Not Given Documented By: JAZIEL Non-Admin Reason: Patient Refused Labs CBC & Chem 7: 05/06/22 05:42 05/06/22 05:42 Labs: Laboratory Results - last 24 hr 05/06/22 05/06/22 05/06/22 05:42 05:42 05:42 MCV 90.3 MCH 29.2 MCHC 32.4 RDW 12.7 Plt Count 201 MPV 11.9 Immature Gran % (Auto) 0.4 Neut % (Auto) 73.7 H Lymph % (Auto) 12.7 L [place] % (Auto) 11.8 H Eos % (Auto) 1.1 Baso % (Auto) 0.3 Lymph # (Auto) 1.0 L [place] # (Auto) 0.9 Eos # (Auto) 0.1 Baso # (Auto) 0.0 Abs Immat Gran (auto) 0.03 Absolute Neuts (auto) 5.6 Absolute Nucleated RBC 0.000 Nucleated RBC % (auto) 0.0 Anion Gap 16 Cancelled Estim Creat Clear Calc 107.7 Cancelled Estimated GFR > 60 Cancelled Random Glucose Cancelled Fasting Glucose 118 H Calcium 8.7 Cancelled Total Bilirubin 3.4 H Cancelled Direct Bilirubin 2.5 H Cancelled AST 312 H Cancelled ALT 558 H Cancelled Alkaline Phosphatase 528 H Cancelled Total Protein 5.5 L Cancelled Albumin 3.0 L Cancelled Microbiology Microbiology Results: Microbiology 04/30/22 09:36 Blood Culture - Final Blood - Venous No growth after 5 days. Assessment and Plan (1) Biliary stricture: Status: Acute (2) Choledocholithiasis with obstruction: Status: Acute (3) Transaminitis: Status: Acute Plan 71-year-old male with meds history of paranoid schizophrenia, CHF, CKD, BPH, HLD, anemia, epilepsy, deaf,?presents from [facility] with abnormal LFTs and abnormal ultrasound at [facility].? CT abdomen pelvis demonstrates cholelithiasis and diffusely thickened gall bag wall with adjacent fat stranding suggestive of acute cholecystitis 1. Transaminitis possibly related to bile restriction/choledocholithiasis MRCP done-status post ERCP yesterday, LFTs are trending up, also GI sent brushing for biopsy -continue Zosyn -return to [facility] as soon as medically feasible 2. CKD 3: unclear if ckd stable follow renals/divalents 3.Schizophrenia -continue risperidone as outpatient dosing -p.r.n. Haldol for agitation Lovenox Full Code Inpatient need: hospitalization for IV antibiotics for possible choledocholithiasis, monitoring LFTs Quality Stroke Does the patient have a stroke diagnosis?: No VTE Prior VTE?: No VTE Risk Level:: Medical - moderate - high VTE Device Contraindication: Treatment Not Indicated VTE Drug Contraindication: N/A - Med Ordered
--- NOTE | 2022-05-06 13:19 | PC.NURSE ---
@12:30 patient refused care and was combative. Security was called inorder to change linens, gown and new IV insertion. MD Sweet was at bedside to access wound to R ankle. Pt has refused all meds and PO fluids.
--- NOTE | 2022-05-06 14:16 | HO.POSTANES ---
Post Anesthesia Evaluation Post Anesthesia Evaluation Vital Signs: Vital Signs Temp Pulse Resp BP Pulse Ox O2 Del Method 05/06/22 08:00 75 167/77 H 96 Room Air 05/06/22 03:25 97 F 75 18 132/91 H 97 Anesthesia: General Endotracheal-GETA Mental Status: Awake Pain Control: Satisfactory Nausea/Vomiting: None Hydration: Adequate Anesthesia-Related Issues: No Anes. Related Issues
[2022-05-06 15:16] LABS: Lipase 306 U/L (8-78)
[2022-05-06] MEDS: Enoxaparin Sodium 40 MG/0.4 ML SYRINGE SUBCUT (15:29)
[2022-05-06 15:30] VITALS: BP 150/72; PULSE 70; RESP 18; TEMP 36.3
[2022-05-06] MEDS: fentaNYL 100 MCG PATCH.TD72 TRANSDERMA (15:30)
--- NOTE | 2022-05-06 15:49 | HO.WOUNDCONS ---
History of Present Illness Data of Consult Service Date: 05/06/22 Requesting physician: Yair Galvan Primary Care Provider: DO CRISELDA Bernal Reason for consult: Right medial malleolus wounds This is a 71-year-old male who was admitted for treatment choledocholithiasis and biliary obstruction found to be secondary to a common hepatic duct stricture who was noted to have ulcers of the right medial malleolus area. Wound care consultation was requested. Past history is also significant for paranoid schizophrenia, chronic kidney disease, CHF, deafness, seizure disorder. He was combative and uncooperative at the time of my visit. There is no known history of injury. Review of Systems Review of Systems: Yes Unobtainable due to mental condition [facility] Medical History Anemia Biliary stricture CHF (congestive heart failure) Chronic GERD Chronic kidney disease (CKD) Elevated PSA Gallbladder mass Hyperlipidemia Hypothyroidism Orofacial dystonia Prostate asymmetry Schizophrenia Social History Household Members: None and Other Household Members Other:: snf Housing: Long Term Housing Other:: [facility] Do you presently have visiting nurse or other home services: No Unable to assess alcohol history related to: Unable to respond Alcohol intake: never Patient Tobacco Use Status: Tobacco use Unknown service: No Current occupational status: retired Meds Allergies Allergy/AdvReac Type Severity Reaction Status Date / Time No Known Allergies Allergy Verified 11/12/21 08:50 [No Known Allergies*] Active Medications: Current Medications Atorvastatin Calcium (Atorvastatin Calcium 10 Mg Tablet) 10 mg PO DAILY@2100 [facility] Last Admin: 05/05/22 19:30 Dose: Not Given Bisacodyl (Bisacodyl 5 Mg Tablet.) 5 mg PO BEDTIME [facility] Last Admin: 05/05/22 19:30 Dose: Not Given Clotrimazole (Clotrimazole 1 % Cream 15 Gm Tube) 1 appl TOPICAL BID [facility] Last Admin: 05/06/22 09:20 Dose: Not Given Diazepam (Diazepam 2 Mg Tablet) 2 mg PO BID [facility] Last Admin: 05/06/22 09:20 Dose: Not Given Docusate Sodium (Docusate Sodium 100 Mg Capsule) 100 mg PO DAILY [facility] Last Admin: 05/06/22 09:20 Dose: Not Given Enoxaparin Sodium (Enoxaparin Sodium 40 Mg/0.4 Ml Syringe) 40 mg SUBCUT Q24H [facility] Last Admin: 05/06/22 15:29 Dose: 40 mg Fentanyl (Fentanyl 100 Mcg Patch.Td72) 100 mcg TRANSDERMA Q72H [facility] Last Admin: 05/06/22 15:30 Dose: 100 mcg Ferrous Sulfate (Ferrous Sulfate 324 Mg Tablet.) 324 mg PO BID [facility] Last Admin: 05/06/22 09:20 Dose: Not Given Finasteride (Finasteride 5 Mg Tablet) 5 mg PO DAILY [facility] Last Admin: 05/06/22 09:20 Dose: Not Given Furosemide (Furosemide 20 Mg Tablet) 20 mg PO Q48H [facility]; Protocol Last Admin: 05/06/22 13:25 Dose: Not Given Piperacillin Sod/Tazobactam (Sod 3.375 gm/ Sodium Chloride) 50 mls @ 100 mls/hr IV Q8H [facility] Last Admin: 05/06/22 15:29 Dose: 100 mls/hr Dextrose/Sodium Chloride (D51/2ns) 1,000 mls @ 100 mls/hr IVCONT .Q10H [facility] Last Admin: 05/06/22 09:28 Dose: 100 mls/hr Lactulose (Lactulose 20 Gm/30 Ml Solution) 40 gm PO DAILY [facility] Last Admin: 05/06/22 09:20 Dose: Not Given Levetiracetam (Levetiracetam 1,000 Mg Tablet) 1,000 mg PO DAILY@0900 [facility] Last Admin: 05/06/22 09:20 Dose: Not Given Levetiracetam (Levetiracetam 250 Mg Tablet) 750 mg PO DAILY@1200 [facility] Last Admin: 05/06/22 13:25 Dose: Not Given Levetiracetam (Levetiracetam 500 Mg Tablet) 1,500 mg PO BEDTIME [facility] Last Admin: 05/05/22 21:51 Dose: Not Given Levothyroxine Sodium (Levothyroxine Sodium 175 Mcg Tablet) 175 mcg PO DAILY [facility] Last Admin: 05/06/22 09:21 Dose: Not Given Multivitamins/Vitamin C (Multivitamin Tablet) 1 tab PO DAILY [facility] Last Admin: 05/06/22 09:21 Dose: Not Given Omeprazole (Omeprazole 40 Mg Capsule.) 40 mg PO BID [facility] Last Admin: 05/06/22 09:21 Dose: Not Given Oxycodone HCl (Oxycodone Hcl Immed Release 5 Mg Tablet) 10 mg PO TID [facility] Last Admin: 05/06/22 15:36 Dose: Not Given Pharmacy Consult (Consult Rx Perform Med Rec) 1 each MISCELLANE ONCE PRN PRN Reason: Consult order Polyethylene Glycol (Polyethylene Glycol 3350 17 Gm Powd.Pack) 17 gm PO DAILY [facility] Last Admin: 05/06/22 09:21 Dose: Not Given Risperidone (Risperidone 0.5 Mg Tablet) 0.5 mg PO BID [facility] Last Admin: 05/06/22 09:21 Dose: Not Given Risperidone (Risperidone 2 Mg Tablet) 2 mg PO BID [facility] Last Admin: 05/06/22 09:21 Dose: Not Given Senna (Sennosides 8.6 Mg Tablet) 8.6 mg PO DAILY PRN PRN Reason: Constipation Sodium Chloride (0.9 % Sodium Chloride Flush 3 Ml Syringe) 3 ml IVFLUSH QSHIFT [facility] Last Admin: 05/06/22 15:40 Dose: Not Given Tamsulosin HCl (Tamsulosin Hcl 0.4 Mg Capsule) 0.4 mg PO DAILY [facility] Last Admin: 05/06/22 09:21 Dose: Not Given Home Medications Medication Instructions Recorded Confirmed Last Taken Type docusate sodium 100 mg capsule 100 mg PO DAILY 06/02/20 04/30/22 Unknown History fentanyl 100 mcg/hr transdermal 1 patch transdermal Q72H 06/02/20 04/30/22 06/01/20 16:00 History patch ferrous sulfate 325 mg (65 mg 325 mg PO BID 06/02/20 04/30/22 Unknown History iron) tablet furosemide 20 mg tablet 20 mg PO Q OTHER DAY 06/02/20 04/30/22 Unknown History lactulose 10 gram/15 mL oral 60 ml PO DAILY 06/02/20 04/30/22 Unknown History solution levetiracetam 1,000 mg tablet 1,000 mg PO QAM 06/02/20 04/30/22 Unknown History levetiracetam 750 mg tablet 1,500 mg PO BEDTIME 06/02/20 04/30/22 Unknown History levetiracetam 750 mg tablet 750 mg PO QNOON 06/02/20 04/30/22 Unknown History multivitamin 1 tab PO DAILY 06/02/20 04/30/22 Unknown History omeprazole 40 mg capsule,delayed 40 mg PO BID 06/02/20 04/30/22 Unknown History release oxycodone-acetaminophen 10 mg-325 1 tab PO TID 06/02/20 04/30/22 Unknown History mg tablet polyethylene glycol 3350 17 gram 17 g PO DAILY 06/02/20 04/30/22 Unknown History oral powder packet (Miralax) risperidone 2 mg tablet 2 mg PO BID 06/02/20 04/30/22 Unknown History simvastatin 10 mg tablet 10 mg PO QPM 06/02/20 04/30/22 Unknown History diazepam 2 mg tablet 2 mg PO BID 11/12/21 04/30/22 Unknown History risperidone 0.5 mg tablet 0.5 mg PO BID 11/12/21 04/30/22 Unknown History bisacodyl 5 mg tablet 5 mg PO BEDTIME 04/30/22 04/30/22 Unknown History clotrimazole 1 % topical cream 1 appl topical BID 04/30/22 04/30/22 Unknown History levothyroxine 175 mcg tablet 1 tab PO DAILY 04/30/22 04/30/22 Unknown History lorazepam 2 mg/mL injection 1 mg IM DAILY PRN Seizure Activity 04/30/22 04/30/22 Unknown History solution sennosides 8.6 mg tablet (senna) 8.6 mg PO DAILY PRN Constipation 04/30/22 04/30/22 Unknown History tamsulosin 0.4 mg capsule 1 cap PO DAILY 04/30/22 04/30/22 Unknown History tolnaftate 1 % topical cream 1 appl topical BID 04/30/22 04/30/22 Unknown History Physical Exam Vital Signs and Narrative: Vital Signs: Last Vital Signs Temp 97.4 F 05/06/22 15:30 Pulse 70 05/06/22 15:30 Resp 18 05/06/22 15:30 BP 150/72 H 05/06/22 15:30 Pulse Ox 96 05/06/22 08:00 O2 Del Method 05/06/22 08:00 BMI result Body Mass Index 26.4 Combative. Skin: Other: To wounds are present right medial malleolus area without surrounding erythema or significant edema. Wound beds are somewhat dry and covered with nonviable material. Unable to complete pulse assessment due to patient motion. Results Labs CBC and Chem 7: 05/06/22 05:42 05/06/22 05:42 Labs: Laboratory Results - last 24 hr 05/06/22 05/06/22 05/06/22 05:42 05:42 05:42 MCV 90.3 MCH 29.2 MCHC 32.4 RDW 12.7 Plt Count 201 MPV 11.9 Immature Gran % (Auto) 0.4 Neut % (Auto) 73.7 H Lymph % (Auto) 12.7 L [place] % (Auto) 11.8 H Eos % (Auto) 1.1 Baso % (Auto) 0.3 Lymph # (Auto) 1.0 L [place] # (Auto) 0.9 Eos # (Auto) 0.1 Baso # (Auto) 0.0 Abs Immat Gran (auto) 0.03 Absolute Neuts (auto) 5.6 Absolute Nucleated RBC 0.000 Nucleated RBC % (auto) 0.0 Anion Gap 16 Cancelled Estim Creat Clear Calc 107.7 Cancelled Estimated GFR > 60 Cancelled Random Glucose Cancelled Fasting Glucose 118 H Calcium 8.7 Cancelled Total Bilirubin 3.4 H Cancelled Direct Bilirubin 2.5 H Cancelled AST 312 H Cancelled ALT 558 H Cancelled Alkaline Phosphatase 528 H Cancelled Total Protein 5.5 L Cancelled Albumin 3.0 L Cancelled Lipase 306 H Assessment and Plan (1) Non-pressure chronic ulcer of right ankle with fat layer exposed: Status: Acute (2) Schizophrenia: Status: Chronic Plan Superficial ulcers right medial malleolus area, etiology unclear. No findings to suggest chronic venous disease. Unable to complete pulse assessment due to lack of patient cooperation. Recommend wound dressed to wound beds daily, protective cream to intact periwound skin, Alevyn foam dressings. Will sign off. Please call Wound Care Service if re-evaluation is needed. Thank you for asking us to participate in his care.
[2022-05-06 20:16] VITALS: BP 174/83; PULSE 72; RESP 18; TEMP 36.2; O2SAT 99
[2022-05-06 23:00] VITALS: BP 144/88; PULSE 96; O2SAT 97
--- NOTE | 2022-05-06 23:02 | PM.EVENT ---
Event Note Date of Service: 05/06/22 Event Note: pt noted to posisbly have had a seizure activity. according to the pt He was rigid and shaking in the bed and now he is not responding now . Pt is currently postictal - will consult neurology pt already on Keppra- will continue. PRN versed if has recurrence.
--- NOTE | 2022-05-06 23:12 | PC.NURSE ---
pt making a grunting noise when i checked in on pt he was rigid with arms and legs stretched out shaking in bed lasted 1-2 minutes then pt was not responding.vitals 144/88 p-96 sats 97% on 2L. notified.
[2022-05-06 23:31] LABS: Glucose, Whole Blood 139 mg/dL (60-115)
[2022-05-07] VITALS (7 sets, daily range): BP systolic 111–163; BP diastolic 63–82; PULSE 60–97; RESP 16–19; TEMP 36.4–36.9; O2SAT 91–97
--- NOTE | 2022-05-07 00:07 | PC.NURSE ---
2315 pt had another seizure.rapid response called.pt medicated with versed 2mg iv.and keppra 1500mg iv now ordered.pt's po keprra changed to IV.
[2022-05-07] MEDS: levETIRAcetam in NaCl (iso-os) 1,500 MG/100 ML PIGGYBACK 400 MG IV ×2 (00:13→21:10)
[2022-05-07 00:50] LABS: Lactic Acid 11.7 mmol/L (0.5-2.0)
[2022-05-07 02:01] LABS: Reflex Lactate? Lactic Acid Added
[2022-05-07] MEDS: Lactated Ringers 1,000 ML 100 ML IVCONT ×3 (02:14→22:02)
[2022-05-07] MEDS: Midazolam HCl/PF 2 MG/2 ML VIAL IVPUSH (02:14)
[2022-05-07 02:48] LABS: ~Lactic Acid-LAB USE ONLY 0.9 mmol/L (0.5-2.0)
[2022-05-07] MEDS: Piperacillin Sodium/Tazobactam 3.375 GM in 0.9 % Sodium Chloride 50 ML IV ×3 (06:37→22:57)
[2022-05-07] MEDS: oxyCODONE HCl Immed Release 5 MG TABLET 10 MG PO (08:18)
[2022-05-07] MEDS: diazePAM 2 MG TABLET PO (08:18)
[2022-05-07] MEDS: risperiDONE 2 MG TABLET PO (08:19)
[2022-05-07] MEDS: risperiDONE 0.5 MG TABLET PO (08:19)
[2022-05-07] MEDS: levETIRAcetam in NaCl (iso-os) 1,000 MG/100 ML PIGGYBACK 400 MG IV (08:50)
[2022-05-07 09:33] LABS: Alanine Aminotransferase 594 U/L (0-40); Alkaline Phosphatase 594 U/L (39-117); Anion Gap 18 (12-20); Aspartate Amino Transferase 320 U/L (5-37); Bilirubin Total 5.2 mg/dL (0.0-1.0); Blood Urea Nitrogen 12 mg/dL (9-16); Calcium 8.9 mg/dL (8.4-10.2); Carbon Dioxide 19 mmol/L (22-29); Chloride 107 mmol/L (96-108); Creatinine Clr Calc Pharmacy 100.5; Estimated Glomerular Filt Rate > 60; Glucose Random 85 mg/dL (60-115); Potassium 4.3 mmol/L (3.3-5.1); Sodium 140 mmol/L (135-145); Total Protein 5.7 g/dL (6.5-8.0)
[2022-05-07 12:21] LABS: Lipase 174 U/L (8-78)
[2022-05-07] MEDS: Enoxaparin Sodium 40 MG/0.4 ML SYRINGE SUBCUT (12:21)
[2022-05-07] MEDS: levETIRAcetam 750 MG in 0.9 % Sodium Chloride 100 ML 430 MG IV (12:24)
--- NOTE | 2022-05-07 12:36 | HO.PM.IMPN ---
Subjective Subjective Date of Service: 05/07/22 Interval History: possible seizure episodes ( over night event) Review of Systems seems awake nonverbal elevated lft's Physical Exam Vital Signs: Vital Signs: Last Vital Signs Temp 97.9 F 05/07/22 11:51 Pulse 89 05/07/22 11:51 Resp 18 05/07/22 11:51 BP 161/76 H 05/07/22 11:51 Pulse Ox 95 05/07/22 11:51 O2 Del Method 05/07/22 11:51 O2 Flow Rate 2 05/07/22 00:44 BMI result Body Mass Index 26.4 Appearance: Awake ,? not in distress.? cvs: rrr, [id number]. res: clear to auscultation ,no rhonchii or wheezing abd: no rebound or guarding ,not much abd discomfort, bs present. ext pulses present , no cyanosis Objective Data Active Medications Atorvastatin Calcium (Atorvastatin Calcium 10 Mg Tablet) 10 mg PO DAILY@2100 [facility] Last Admin: 05/06/22 21:47 Dose: Not Given Documented By: MARIA Non-Admin Reason: Patient Refused Bisacodyl (Bisacodyl 5 Mg Tablet.) 5 mg PO BEDTIME [facility] Last Admin: 05/06/22 21:47 Dose: Not Given Documented By: MARIA Non-Admin Reason: Patient Refused Clotrimazole (Clotrimazole 1 % Cream 15 Gm Tube) 1 appl TOPICAL BID [facility] Last Admin: 05/07/22 08:50 Dose: Not Given Documented By: QUINTEN Non-Admin Reason: Patient Refused Diazepam (Diazepam 2 Mg Tablet) 2 mg PO BID [facility] Last Admin: 05/07/22 08:18 Dose: 2 mg Documented By: QUINTEN Docusate Sodium (Docusate Sodium 100 Mg Capsule) 100 mg PO DAILY [facility] Last Admin: 05/07/22 08:50 Dose: Not Given Documented By: QUINTEN Non-Admin Reason: Patient Refused Enoxaparin Sodium (Enoxaparin Sodium 40 Mg/0.4 Ml Syringe) 40 mg SUBCUT Q24H [facility] Last Admin: 05/07/22 12:21 Dose: 40 mg Documented By: QUINTEN Fentanyl (Fentanyl 100 Mcg Patch.Td72) 100 mcg TRANSDERMA Q72H [facility] Last Admin: 05/06/22 15:30 Dose: 100 mcg Documented By: JAZIEL Ferrous Sulfate (Ferrous Sulfate 324 Mg Tablet.) 324 mg PO BID [facility] Last Admin: 05/07/22 08:50 Dose: Not Given Documented By: QUINTEN Non-Admin Reason: Patient Refused Finasteride (Finasteride 5 Mg Tablet) 5 mg PO DAILY [facility] Last Admin: 05/07/22 08:51 Dose: Not Given Documented By: QUINTEN Non-Admin Reason: Patient Refused Furosemide (Furosemide 20 Mg Tablet) 20 mg PO Q48H [facility]; Protocol Last Admin: 05/06/22 13:25 Dose: Not Given Documented By: JAZIEL Non-Admin Reason: Patient Refused Piperacillin Sod/Tazobactam (Sod 3.375 gm/ Sodium Chloride) 50 mls @ 100 mls/hr IV Q8H [facility] Last Infusion: 05/07/22 07:27 Dose: 0 mls/hr Documented By: QUINTEN Levetiracetam (Keppra) 1,500 mg in 100 mls @ 400 mls/hr IV BEDTIME [facility] Last Infusion: 05/07/22 00:36 Dose: 0 mls/hr Documented By: ODRISAmadeo Levetiracetam (Keppra) 1,000 mg in 100 mls @ 400 mls/hr IV DAILY [facility] Last Infusion: 05/07/22 09:05 Dose: 0 mls/hr Documented By: QUINTEN Levetiracetam 750 mg/ Sodium (Chloride) 107.5 mls @ 430 mls/hr IV DAILY@1200 [facility] Last Admin: 05/07/22 12:24 Dose: 430 mls/hr Documented By: QUINTEN Lactated Ringer's (Lr) 1,000 mls @ 100 mls/hr IVCONT .Q10H [facility] Last Infusion: 05/07/22 12:24 Dose: 0 mls/hr Documented By: QUINTEN Lactulose (Lactulose 20 Gm/30 Ml Solution) 40 gm PO DAILY [facility] Last Admin: 05/07/22 08:51 Dose: Not Given Documented By: QUINTEN Non-Admin Reason: Patient Refused Levothyroxine Sodium (Levothyroxine Sodium 175 Mcg Tablet) 175 mcg PO DAILY [facility] Last Admin: 05/07/22 08:51 Dose: Not Given Documented By: QUINTEN Non-Admin Reason: Patient Refused Multivitamins/Vitamin C (Multivitamin Tablet) 1 tab PO DAILY [facility] Last Admin: 05/07/22 08:51 Dose: Not Given Documented By: QUINTEN Non-Admin Reason: Patient Refused Omeprazole (Omeprazole 40 Mg Capsule.) 40 mg PO BID [facility] Last Admin: 05/07/22 08:51 Dose: Not Given Documented By: QUINTEN Non-Admin Reason: Patient Refused Oxycodone HCl (Oxycodone Hcl Immed Release 5 Mg Tablet) 10 mg PO TID [facility] Last Admin: 05/07/22 08:18 Dose: 10 mg Documented By: QUINTEN Pharmacy Consult (Consult Rx Perform Med Rec) 1 each MISCELLANE ONCE PRN PRN Reason: Consult order Polyethylene Glycol (Polyethylene Glycol 3350 17 Gm Powd.Pack) 17 gm PO DAILY [facility] Last Admin: 05/07/22 08:51 Dose: Not Given Documented By: QUINTEN Non-Admin Reason: Patient Refused Risperidone (Risperidone 0.5 Mg Tablet) 0.5 mg PO BID [facility] Last Admin: 05/07/22 08:19 Dose: 0.5 mg Documented By: QUINTEN Risperidone (Risperidone 2 Mg Tablet) 2 mg PO BID [facility] Last Admin: 05/07/22 08:19 Dose: 2 mg Documented By: QUINTEN Senna (Sennosides 8.6 Mg Tablet) 8.6 mg PO DAILY PRN PRN Reason: Constipation Sodium Chloride (0.9 % Sodium Chloride Flush 3 Ml Syringe) 3 ml IVFLUSH QSHIFT [facility] Last Admin: 05/07/22 08:50 Dose: Not Given Documented By: QUINTEN Non-Admin Reason: IV Running Tamsulosin HCl (Tamsulosin Hcl 0.4 Mg Capsule) 0.4 mg PO DAILY [facility] Last Admin: 05/07/22 08:51 Dose: Not Given Documented By: QUINTEN Non-Admin Reason: Patient Refused Labs CBC & Chem 7: 05/06/22 05:42 05/07/22 08:18 Labs: Laboratory Results - last 24 hr 05/06/22 05/06/22 05/06/22 05:42 23:26 23:48 Anion Gap Estim Creat Clear Calc Estimated GFR POC Glucose 139 H Random Glucose Lactic Acid 11.7 H* Lactic Acid F/U @ 2Hr Calcium Total Bilirubin AST ALT Alkaline Phosphatase Total Protein Albumin Lipase 306 H 05/07/22 05/07/22 02:32 08:18 Anion Gap 18 Estim Creat Clear Calc 100.5 Estimated GFR > 60 POC Glucose Random Glucose 85 Lactic Acid Lactic Acid F/U @ 2Hr 0.9 Calcium 8.9 Total Bilirubin 5.2 H AST 320 H ALT 594 H Alkaline Phosphatase 594 H Total Protein 5.7 L Albumin 3.0 L Lipase 174 H Assessment and Plan (1) Biliary stricture: Status: Acute (2) Choledocholithiasis with obstruction: Status: Acute (3) Transaminitis: Status: Acute Plan 71-year-old male with meds history of paranoid schizophrenia, CHF, CKD, BPH, HLD, anemia, epilepsy, deaf,?presents from [facility] with abnormal LFTs and abnormal ultrasound at [facility].? CT abdomen pelvis demonstrates cholelithiasis and diffusely thickened gall bag wall with adjacent fat stranding suggestive of acute cholecystitis 1. Transaminitis possibly related to bile restriction/choledocholithiasis MRCP done-status post ERCP yesterday, LFTs are trending up, also GI sent brushing for biopsy -continue Zosyn -return to [facility] as soon as medically feasible 2. CKD 3: unclear if ckd stable follow renals/divalents 3.Schizophrenia -continue risperidone as outpatient dosing -p.r.n. Haldol for agitation. 4.hx of epilesy: recived verced overnight for seizure and added keppra in view of elevated lft's , seizure episodes-neurology eval added d/w neuro-continue keppra Lovenox Full Code Inpatient need: hospitalization for IV antibiotics for possible choledocholithiasis, monitoring LFTs Quality Stroke Does the patient have a stroke diagnosis?: No VTE Prior VTE?: No VTE Risk Level:: Medical - moderate - high VTE Device Contraindication: Treatment Not Indicated VTE Drug Contraindication: N/A - Med Ordered
--- NOTE | 2022-05-07 14:41 | PM.NEUROCN ---
History of Present Illness Data of Consult Service Date: 05/07/22 Primary Care Provider: Yair Galvan DO HPI Reason for consult: Seizure did 71 years old man with underlying static encephalopathy of unknown type and seizure disorder who is nature was unclear as he was unable to provide any meaningful history and appropriate records were not available. He also carried diagnosis of schizophrenia. Due to abnormal laboratories his medicines were changed and apparently he noted to have seizure-like episodes and this consultation was requested. He was unable to provide any history Review of Systems Review of Systems: Could not be done [facility] Past Medical History Medical History Anemia Biliary stricture CHF (congestive heart failure) Chronic GERD Chronic kidney disease (CKD) Elevated PSA Gallbladder mass Hyperlipidemia Hypothyroidism Orofacial dystonia Prostate asymmetry Schizophrenia Social History Social History Household Members: None and Other Household Members Other:: snf Housing: [facility] Other:: [facility] Do you presently have visiting nurse or other home services: No Unable to assess alcohol history related to: Unable to respond Alcohol intake: never Patient Tobacco Use Status: Tobacco use Unknown service: No Current occupational status: retired [employer] Allergies Allergy/AdvReac Type Severity Reaction Status Date / Time No Known Allergies Allergy Verified 11/12/21 08:50 [No Known Allergies*] Active Medications: Current Medications Atorvastatin Calcium (Atorvastatin Calcium 10 Mg Tablet) 10 mg PO DAILY@2100 [facility] Last Admin: 05/06/22 21:47 Dose: Not Given Bisacodyl (Bisacodyl 5 Mg Tablet.) 5 mg PO BEDTIME [facility] Last Admin: 05/06/22 21:47 Dose: Not Given Clotrimazole (Clotrimazole 1 % Cream 15 Gm Tube) 1 appl TOPICAL BID [facility] Last Admin: 05/07/22 08:50 Dose: Not Given Diazepam (Diazepam 2 Mg Tablet) 2 mg PO BID [facility] Last Admin: 05/07/22 08:18 Dose: 2 mg Docusate Sodium (Docusate Sodium 100 Mg Capsule) 100 mg PO DAILY [facility] Last Admin: 05/07/22 08:50 Dose: Not Given Enoxaparin Sodium (Enoxaparin Sodium 40 Mg/0.4 Ml Syringe) 40 mg SUBCUT Q24H [facility] Last Admin: 05/07/22 12:21 Dose: 40 mg Fentanyl (Fentanyl 100 Mcg Patch.Td72) 100 mcg TRANSDERMA Q72H [facility] Last Admin: 05/06/22 15:30 Dose: 100 mcg Ferrous Sulfate (Ferrous Sulfate 324 Mg Tablet.) 324 mg PO BID [facility] Last Admin: 05/07/22 08:50 Dose: Not Given Finasteride (Finasteride 5 Mg Tablet) 5 mg PO DAILY [facility] Last Admin: 05/07/22 08:51 Dose: Not Given Furosemide (Furosemide 20 Mg Tablet) 20 mg PO Q48H [facility]; Protocol Last Admin: 05/06/22 13:25 Dose: Not Given Piperacillin Sod/Tazobactam (Sod 3.375 gm/ Sodium Chloride) 50 mls @ 100 mls/hr IV Q8H [facility] Last Infusion: 05/07/22 07:27 Dose: Infused Levetiracetam (Keppra) 1,500 mg in 100 mls @ 400 mls/hr IV BEDTIME [facility] Last Infusion: 05/07/22 00:36 Dose: Infused Levetiracetam (Keppra) 1,000 mg in 100 mls @ 400 mls/hr IV DAILY [facility] Last Infusion: 05/07/22 09:05 Dose: Infused Levetiracetam 750 mg/ Sodium (Chloride) 107.5 mls @ 430 mls/hr IV DAILY@1200 [facility] Last Infusion: 05/07/22 12:40 Dose: Infused Lactated Ringer's (Lr) 1,000 mls @ 100 mls/hr IVCONT .Q10H [facility] Last Infusion: 05/07/22 12:40 Dose: 100 mls/hr Lactulose (Lactulose 20 Gm/30 Ml Solution) 40 gm PO DAILY [facility] Last Admin: 05/07/22 08:51 Dose: Not Given Levothyroxine Sodium (Levothyroxine Sodium 175 Mcg Tablet) 175 mcg PO DAILY [facility] Last Admin: 05/07/22 08:51 Dose: Not Given Multivitamins/Vitamin C (Multivitamin Tablet) 1 tab PO DAILY [facility] Last Admin: 05/07/22 08:51 Dose: Not Given Omeprazole (Omeprazole 40 Mg Capsule.) 40 mg PO BID [facility] Last Admin: 05/07/22 08:51 Dose: Not Given Oxycodone HCl (Oxycodone Hcl Immed Release 5 Mg Tablet) 10 mg PO TID [facility] Last Admin: 05/07/22 08:18 Dose: 10 mg Pharmacy Consult (Consult Rx Perform Med Rec) 1 each MISCELLANE ONCE PRN PRN Reason: Consult order Polyethylene Glycol (Polyethylene Glycol 3350 17 Gm Powd.Pack) 17 gm PO DAILY [facility] Last Admin: 05/07/22 08:51 Dose: Not Given Risperidone (Risperidone 0.5 Mg Tablet) 0.5 mg PO BID [facility] Last Admin: 05/07/22 08:19 Dose: 0.5 mg Risperidone (Risperidone 2 Mg Tablet) 2 mg PO BID [facility] Last Admin: 05/07/22 08:19 Dose: 2 mg Senna (Sennosides 8.6 Mg Tablet) 8.6 mg PO DAILY PRN PRN Reason: Constipation Sodium Chloride (0.9 % Sodium Chloride Flush 3 Ml Syringe) 3 ml IVFLUSH QSHIFT [facility] Last Admin: 05/07/22 08:50 Dose: Not Given Tamsulosin HCl (Tamsulosin Hcl 0.4 Mg Capsule) 0.4 mg PO DAILY [facility] Last Admin: 05/07/22 08:51 Dose: Not Given Home Medications Medication Instructions Recorded Confirmed Last Taken Type docusate sodium 100 mg capsule 100 mg PO DAILY 06/02/20 04/30/22 Unknown History fentanyl 100 mcg/hr transdermal 1 patch transdermal Q72H 06/02/20 04/30/22 06/01/20 16:00 History patch ferrous sulfate 325 mg (65 mg 325 mg PO BID 06/02/20 04/30/22 Unknown History iron) tablet furosemide 20 mg tablet 20 mg PO Q OTHER DAY 06/02/20 04/30/22 Unknown History lactulose 10 gram/15 mL oral 60 ml PO DAILY 06/02/20 04/30/22 Unknown History solution levetiracetam 1,000 mg tablet 1,000 mg PO QAM 06/02/20 04/30/22 Unknown History levetiracetam 750 mg tablet 1,500 mg PO BEDTIME 06/02/20 04/30/22 Unknown History levetiracetam 750 mg tablet 750 mg PO QNOON 06/02/20 04/30/22 Unknown History multivitamin 1 tab PO DAILY 06/02/20 04/30/22 Unknown History omeprazole 40 mg capsule,delayed 40 mg PO BID 06/02/20 04/30/22 Unknown History release oxycodone-acetaminophen 10 mg-325 1 tab PO TID 06/02/20 04/30/22 Unknown History mg tablet polyethylene glycol 3350 17 gram 17 g PO DAILY 06/02/20 04/30/22 Unknown History oral powder packet (Miralax) risperidone 2 mg tablet 2 mg PO BID 06/02/20 04/30/22 Unknown History simvastatin 10 mg tablet 10 mg PO QPM 06/02/20 04/30/22 Unknown History diazepam 2 mg tablet 2 mg PO BID 11/12/21 04/30/22 Unknown History risperidone 0.5 mg tablet 0.5 mg PO BID 11/12/21 04/30/22 Unknown History bisacodyl 5 mg tablet 5 mg PO BEDTIME 04/30/22 04/30/22 Unknown History clotrimazole 1 % topical cream 1 appl topical BID 04/30/22 04/30/22 Unknown History levothyroxine 175 mcg tablet 1 tab PO DAILY 04/30/22 04/30/22 Unknown History lorazepam 2 mg/mL injection 1 mg IM DAILY PRN Seizure Activity 04/30/22 04/30/22 Unknown History solution sennosides 8.6 mg tablet (senna) 8.6 mg PO DAILY PRN Constipation 04/30/22 04/30/22 Unknown History tamsulosin 0.4 mg capsule 1 cap PO DAILY 04/30/22 04/30/22 Unknown History tolnaftate 1 % topical cream 1 appl topical BID 04/30/22 04/30/22 Unknown History Physical Exam Vital Signs: Vital Signs: Last Vital Signs Temp 97.9 F 05/07/22 11:51 Pulse 89 05/07/22 11:51 Resp 18 05/07/22 11:51 BP 161/76 H 05/07/22 11:51 Pulse Ox 95 05/07/22 11:51 O2 Del Method 05/07/22 11:51 O2 Flow Rate 2 05/07/22 00:44 BMI result Body Mass Index 26.4 Neuro: Other: Drowsy. With coaxing he was able to open eyes made eye contact but did not follow commands and resisted to examination. He was able to squeeze my hands with fingers his feet and legs were in braces per facial expression blinking were diminished. At times he was morning. Results Labs CBC & Chem 7: 05/06/22 05:42 05/07/22 08:18 Labs: BMP 05/07/22 08:18 Sodium 140 Potassium 4.3 Chloride 107 Carbon Dioxide 19 L BUN 12 Creatinine 0.75 Calcium 8.9 Liver Function 05/07/22 Range/Units 08:18 Total Bilirubin 5.2 H (0.0-1.0) mg/dL AST 320 H (5-37) U/L ALT 594 H (0-40) U/L Alkaline Phosphatase 594 H (39-117) U/L Albumin 3.0 L (3.5-5.0) g/dL Noncontrast head CT revealed moderately severe cerebellar and cortical atrophy Microbiology Microbiology Results: Microbiology 04/30/22 09:36 Blood - Venous Blood Culture - Final No growth after 5 days. 04/30/22 09:15 Blood - Venous Blood Culture - Final Coag negative Staphylococcus Assessment and Plan (1) Seizure disorder: Status: Acute 71 years old man with underlying diagnosis of schizophrenia and probably also chronic static encephalopathy I was asked to see for seizure disorder. He was unable to provide any meaningful history. Nature of seizure or epilepsy was unclear. At this time my recommendation would be to restart levetiracetam 1000 mg twice a day a obtain an EEG to rule out any possibility of epileptic encephalopathy. Procedures Date of Service Date of Service: 05/07/22
[2022-05-08 00:03] VITALS: BP 140/67; PULSE 62; RESP 18; TEMP 36.6; O2SAT 97
[2022-05-08] MEDS: Piperacillin Sodium/Tazobactam 3.375 GM in 0.9 % Sodium Chloride 50 ML IV ×3 (06:37→22:32)
[2022-05-08 07:22] LABS: Alanine Aminotransferase 593 U/L (0-40); Albumin Level 3.4 g/dL (3.5-5.0); Alkaline Phosphatase 661 U/L (39-117); Anion Gap 19 (12-20); Aspartate Amino Transferase 307 U/L (5-37); Bilirubin Total 7.9 mg/dL (0.0-1.0); Blood Urea Nitrogen 14 mg/dL (9-16); Calcium 9.2 mg/dL (8.4-10.2); Carbon Dioxide 22 mmol/L (22-29); Chloride 104 mmol/L (96-108); Creatinine Clr Calc Pharmacy 93.1; Estimated Glomerular Filt Rate > 60; Glucose Random 80 mg/dL (60-115); Sodium 141 mmol/L (135-145); Total Protein 5.9 g/dL (6.5-8.0)
[2022-05-08 07:45] VITALS: BP 142/74; PULSE 83; RESP 18; TEMP 36.6; O2SAT 96
[2022-05-08 07:48] LABS: Lipase 68 U/L (8-78)
[2022-05-08] MEDS: Lactated Ringers 1,000 ML 100 ML IVCONT ×2 (08:18→21:15)
[2022-05-08] MEDS: levETIRAcetam in NaCl (iso-os) 1,000 MG/100 ML PIGGYBACK 400 MG IV (08:18)
[2022-05-08 08:43] LABS: Hematocrit 47.2 % (42.0-52.0); Hemoglobin 15.1 g/dl (14.0-18.0); Mean Corpuscular Hemoglobin 29.3 pg (27.0-33.0); Mean Corpuscular Volume 91.7 fL (80.0-98.0); Mean Platelet Volume 12.1 fL (9.4-12.4); Platelet Count 252 X10*3/uL (160-400); Red Blood Count 5.15 X10*6/uL (4.60-5.80); Red Cell Distribution Width 13.2 % (11.0-16.0); White Blood Count 8.4 X10*3/uL (4.8-10.8)
[2022-05-08 09:20] LABS: Bilirubin Direct 5.8 mg/dL (0.0-0.5)
--- NOTE | 2022-05-08 09:58 | PC.NURSE ---
Patient is very resistant to care, combative, throws punches, kicks and spits at staff. The only words he speaks are swears. Does not take anything by mouth, when meds or liquids are offered he immediately spits it out. Is getting hydrated with IV fluids, receiving keppra IV for seizures. No convulsion activities reported by telesitter observers or vitnessed by staff. Dr Kohli aware of all that.
[2022-05-08 12:00] VITALS: BP 157/75; PULSE 64; RESP 18; TEMP 36.2; O2SAT 97
[2022-05-08] MEDS: levETIRAcetam 750 MG in 0.9 % Sodium Chloride 100 ML 430 MG IV (12:35)
[2022-05-08] MEDS: Enoxaparin Sodium 40 MG/0.4 ML SYRINGE SUBCUT (13:29)
[2022-05-08 13:48] VITALS: BMI 26.4
--- NOTE | 2022-05-08 14:01 | MHC.CM.PN ---
PT NOT YET MEDICALLY CLEARED TO DC PT WILL RETURN TO [facility] ONCE READY
[2022-05-08 16:00] VITALS: BP 179/84; PULSE 72; RESP 16; TEMP 36.5; O2SAT 98
--- NOTE | 2022-05-08 16:00 | HO.PM.IMPN ---
Subjective Subjective Date of Service: 05/08/22 Interval History: elevated lft's Review of Systems seems awake nonverbal, juandiced Physical Exam Vital Signs: Vital Signs: Last Vital Signs Temp 97.2 F 05/08/22 12:00 Pulse 64 05/08/22 12:00 Resp 18 05/08/22 12:00 BP 157/75 H 05/08/22 12:00 Pulse Ox 97 05/08/22 12:00 O2 Del Method 05/08/22 12:00 O2 Flow Rate 2 05/07/22 00:44 BMI result Body Mass Index 26.4 Appearance: Awake ,? not in distress.?jauandiced. cvs: rrr, [id number]. res: clear to auscultation ,no rhonchii or wheezing abd: no rebound or guarding ,not much abd discomfort, bs present. ext pulses present , no cyanosis Objective Data Active Medications Atorvastatin Calcium (Atorvastatin Calcium 10 Mg Tablet) 10 mg PO DAILY@2100 [facility] Last Admin: 05/07/22 21:21 Dose: Not Given Documented By: SOCORRO Non-Admin Reason: Patient Refused Bisacodyl (Bisacodyl 5 Mg Tablet.) 5 mg PO BEDTIME COUNT INCLUDES [facility] Last Admin: 05/07/22 21:21 Dose: Not Given Documented By: SOCORRO Non-Admin Reason: Patient Refused Clotrimazole (Clotrimazole 1 % Cream 15 Gm Tube) 1 appl TOPICAL BID COUNT [facility]CLUDES [facility] Last Admin: 05/08/22 07:15 Dose: Not Given Documented By: QUINTEN Non-Admin Reason: Patient Refused Diazepam (Diazepam 2 Mg Tablet) 2 mg PO BID [facility] Last Admin: 05/08/22 08:18 Dose: Not Given Documented By: QUINTEN Non-Admin Reason: Patient Refused Docusate Sodium (Docusate Sodium 100 Mg Capsule) 100 mg PO DAILY COUNT [facility]CLUDES [facility] Last Admin: 05/08/22 08:18 Dose: Not Given Documented By: QUINTEN Non-Admin Reason: Patient Refused Enoxaparin Sodium (Enoxaparin Sodium 40 Mg/0.4 Ml Syringe) 40 mg SUBCUT Q24H [facility]CLUDES [facility] Last Admin: 05/08/22 13:29 Dose: 40 mg Documented By: QUINTEN Fentanyl (Fentanyl 100 Mcg Patch.Td72) 100 mcg TRANSDERMA Q72H COUNT [facility]CLUDES [facility] Last Admin: 05/06/22 15:30 Dose: 100 mcg Documented By: JAZIEL Ferrous Sulfate (Ferrous Sulfate 324 Mg Tablet.) 324 mg PO BID [facility] Last Admin: 05/08/22 08:19 Dose: Not Given Documented By: QUINTEN Non-Admin Reason: Patient Refused Finasteride (Finasteride 5 Mg Tablet) 5 mg PO DAILY [facility] Last Admin: 05/08/22 08:19 Dose: Not Given Documented By: QUINTEN Non-Admin Reason: Patient Refused Furosemide (Furosemide 20 Mg Tablet) 20 mg PO Q48H [facility]; Protocol Last Admin: 05/06/22 13:25 Dose: Not Given Documented By: JAZIEL Non-Admin Reason: Patient Refused Piperacillin Sod/Tazobactam (Sod 3.375 gm/ Sodium Chloride) 50 mls @ 100 mls/hr IV Q8H [facility] Last Infusion: 05/08/22 14:05 Dose: 0 mls/hr Documented By: QUINTEN Levetiracetam (Keppra) 1,500 mg in 100 mls @ 400 mls/hr IV BEDTIME [facility] Last Infusion: 05/07/22 21:49 Dose: 0 mls/hr Documented By: SOCORRO Levetiracetam (Keppra) 1,000 mg in 100 mls @ 400 mls/hr IV DAILY [facility] Last Infusion: 05/08/22 08:35 Dose: 0 mls/hr Documented By: QUINTEN Levetiracetam 750 mg/ Sodium (Chloride) 107.5 mls @ 430 mls/hr IV DAILY@1200 [facility] Last Infusion: 05/08/22 12:53 Dose: 0 mls/hr Documented By: QUINTEN Lactated Ringer's (Lr) 1,000 mls @ 100 mls/hr IVCONT .Q10H [facility] Last Infusion: 05/08/22 14:05 Dose: 100 mls/hr Documented By: QUINTEN Lactulose (Lactulose 20 Gm/30 Ml Solution) 40 gm PO DAILY [facility] Last Admin: 05/08/22 08:19 Dose: Not Given Documented By: QUINTEN Non-Admin Reason: Patient Refused Levothyroxine Sodium (Levothyroxine Sodium 175 Mcg Tablet) 175 mcg PO DAILY [facility] Last Admin: 05/08/22 08:19 Dose: Not Given Documented By: QUINTEN Non-Admin Reason: Patient Refused Multivitamins/Vitamin C (Multivitamin Tablet) 1 tab PO DAILY [facility]CLUD[facility] Last Admin: 05/08/22 08:19 Dose: Not Given Documented By: QUINTEN Non-Admin Reason: Patient Refused Omeprazole (Omeprazole 40 Mg Capsule.) 40 mg PO BID COUNT [facility]CLUDES [facility] Last Admin: 05/08/22 08:19 Dose: Not Given Documented By: QUINTEN Non-Admin Reason: Patient Refused Oxycodone HCl (Oxycodone Hcl Immed Release 5 Mg Tablet) 10 mg PO TID COUNT [facility]CLUDES [facility] Last Admin: 05/08/22 13:29 Dose: Not Given Documented By: QUINTEN Non-Admin Reason: Patient Refused Pharmacy Consult (Consult Rx Perform Med Rec) 1 each MISCELLANE ONCE PRN PRN Reason: Consult order Polyethylene Glycol (Polyethylene Glycol 3350 17 Gm Powd.Pack) 17 gm PO DAILY COUNT INCLUDES [facility] Last Admin: 05/08/22 08:20 Dose: Not Given Documented By: QUINTEN Non-Admin Reason: Patient Refused Risperidone (Risperidone 0.5 Mg Tablet) 0.5 mg PO BID COUNT [facility]CLUDES [facility] Last Admin: 05/08/22 08:20 Dose: Not Given Documented By: QUINTEN Non-Admin Reason: Patient Refused Risperidone (Risperidone 2 Mg Tablet) 2 mg PO BID COUNT [facility]CLUD[facility] Last Admin: 05/08/22 08:20 Dose: Not Given Documented By: QUINTEN Non-Admin Reason: Patient Refused Senna (Sennosides 8.6 Mg Tablet) 8.6 mg PO DAILY PRN PRN Reason: Constipation Sodium Chloride (0.9 % Sodium Chloride Flush 3 Ml Syringe) 3 ml IVFLUSH QSHIFT COUNT INCLUDES [facility] Last Admin: 05/08/22 15:59 Dose: Not Given Documented By: QUINTEN Non-Admin Reason: IV Running Tamsulosin HCl (Tamsulosin Hcl 0.4 Mg Capsule) 0.4 mg PO DAILY COUNT [facility]CLUDES [facility] Last Admin: 05/08/22 08:20 Dose: Not Given Documented By: QUINTEN Non-Admin Reason: Patient Refused Labs CBC & Chem 7: 05/08/22 06:06 05/08/22 06:06 Labs: Laboratory Results - last 24 hr 05/08/22 05/08/22 06:06 06:06 MCV 91.7 MCH 29.3 MCHC 32.0 RDW 13.2 Plt Count 252 D MPV 12.1 Absolute Nucleated RBC 0.000 Nucleated RBC % (auto) 0.0 Anion Gap 19 Estim Creat Clear Calc 93.1 Estimated GFR > 60 Random Glucose 80 Calcium 9.2 Total Bilirubin 7.9 H Direct Bilirubin 5.8 H AST 307 H ALT 593 H Alkaline Phosphatase 661 H Total Protein 5.9 L Albumin 3.4 L Lipase 68 Assessment and Plan (1) Seizure disorder: Status: Acute (2) Biliary stricture: Status: Acute (3) Choledocholithiasis with obstruction: Status: Acute Plan 71-year-old male with meds history of paranoid schizophrenia, CHF, CKD, BPH, HLD, anemia, epilepsy, deaf,?presents from [facility] with abnormal LFTs and abnormal ultrasound at [facility].? CT abdomen pelvis demonstrates cholelithiasis and diffusely thickened gall bag wall with adjacent fat stranding suggestive of acute cholecystitis 1. Transaminitis possibly related to bile restriction/choledocholithiasis MRCP done-status post ERCP yesterday, LFTs are similar to yesterday except totalbilirubin trending to 7.9 and direct bilirubin is 5.8 also GI sent brushing for biopsy -continue Zosyn -return to [facility] as soon as medically feasible d/w Gi - continue to moniter lft's , if any haemodymic instability or cholangitis- may need to transfer patient. if stable until wednesday -then need repeat ercp and stent Gi follow up pending added Id eval 2. CKD 3: unclear if ckd stable follow renals/divalents 3.Schizophrenia -continue risperidone as outpatient dosing -p.r.n. Haldol for agitation. 4.hx of epilesy:no new seizure episode overnight lft's similar to yesterday ?recived verced overnight for seizure and added keppra d/w neuro-continue keppra Lovenox Full Code Inpatient need:? monitoring LFTs s/p ercp for bilary stricture, may need repeat ercp/stenting Quality Stroke Does the patient have a stroke diagnosis?: No VTE Prior VTE?: No VTE Risk Level:: Medical - moderate - high VTE Device Contraindication: Treatment Not Indicated VTE Drug Contraindication: N/A - Med Ordered
--- NOTE | 2022-05-08 17:26 | PC.NURSE ---
Change in patients behavior, is more approachable now, accepting care with a smile, taking fluids by mouth.
--- NOTE | 2022-05-08 18:02 | PM.GIPN ---
Subjective Subjective Date of Service: 05/08/22 Interval History: pt non verbal bili climbing up no evidence of cholangitis no rigors no emesis reported he also had seizure the other day, on IV keppra Critical Care Time (minutes): 0 Physical Exam Vital Signs: Vital Signs: Last Vital Signs Temp 97.7 F 05/08/22 16:00 Pulse 72 05/08/22 16:00 Resp 16 05/08/22 16:00 BP 179/84 H 05/08/22 16:00 Pulse Ox 98 05/08/22 16:00 O2 Del Method 05/08/22 16:00 O2 Flow Rate 2 05/07/22 00:44 BMI result Body Mass Index 26.4 EXAM: GENERAL: The patient is jaundiced, non verbal VITAL SIGNS:see workflow HEENT: icteric sclerae, PERRLA, EOMI. Oropharynx clear. Moist mucous membranes. Conjunctivae appear well perfused. No thyroid mass. CHEST: Chest wall is nontender. HEART: Regular rate and rhythm without murmurs. LUNGS: Clear to auscultation bilaterally. ABDOMEN: Soft, positive bowel sounds, nontender, no organomegaly.no flank tenderness SKIN: No rash, no excessive bruising, petechiae, or purpura. NEUROLOGIC: non verbal, awake, tracking normaly Objective Data Labs CBC & Chem 7: 05/08/22 06:06 05/08/22 06:06 Labs: Laboratory Results - last 24 hr 05/08/22 05/08/22 06:06 06:06 WBC 8.4 RBC 5.15 Hgb 15.1 Hct 47.2 MCV 91.7 MCH 29.3 MCHC 32.0 RDW 13.2 Plt Count 252 D MPV 12.1 Absolute Nucleated RBC 0.000 Nucleated RBC % (auto) 0.0 Sodium 141 Potassium 4.0 Chloride 104 Carbon Dioxide 22 Anion Gap 19 BUN 14 Creatinine 0.81 Estim Creat Clear Calc 93.1 Estimated GFR > 60 Random Glucose 80 Calcium 9.2 Total Bilirubin 7.9 H Direct Bilirubin 5.8 H AST 307 H ALT 593 H Alkaline Phosphatase 661 H Total Protein 5.9 L Albumin 3.4 L Lipase 68 Microbiology Microbiology Results: Microbiology 04/30/22 09:36 Blood - Venous Blood Culture - Final No growth after 5 days. 04/30/22 09:15 Blood - Venous Blood Culture - Final Coag negative Staphylococcus Procedures Date of Service Date of Service: 05/08/22 Progress Note: A&P Assessment and plan (1) Biliary stricture: Status: Acute (2) Choledocholithiasis with obstruction: Status: Acute Plan 1/ Biliary stricture with choledocholithiasis with initial ERCP with dilation and brushings taken, with extraction of a stone, seemed to be draining well after the ERCP, may have further stone with blockage PLAN: 1/ repeat ERCP on Wednesday, metal stent ordered as well as spyglass (path pending but even if neg will strongly consider an uncovered metal stent as he is a high risk surgical candidate, benefits of sugery unclear given his baseline condition). would keep on antibiotics, if evidence of cholangitis over weekend then would transfer to tertiary center. Time Spent With Patient Time: Total time spent is greater than 50% in coordination of care (as documented) at patient's floor/unit and/or counseling patient: Quality Stroke Does the patient have a stroke diagnosis?: No VTE Prior VTE?: No VTE Risk Level:: Medical - moderate - high VTE Device Contraindication: Treatment Not Indicated VTE Drug Contraindication: N/A - Med Ordered
[2022-05-08 19:59] VITALS: BP 166/91; PULSE 73; RESP 17; TEMP 36.8; O2SAT 98
[2022-05-08] MEDS: risperiDONE 2 MG TABLET PO (21:12)
[2022-05-08] MEDS: bisacodyL 5 MG TABLET.DR PO (21:12)
[2022-05-08] MEDS: Atorvastatin Calcium 10 MG TABLET PO (21:12)
[2022-05-08] MEDS: diazePAM 2 MG TABLET PO (21:12)
[2022-05-08] MEDS: risperiDONE 0.5 MG TABLET PO (21:12)
[2022-05-08] MEDS: Omeprazole 40 MG CAPSULE.DR PO (21:12)
[2022-05-08] MEDS: Ferrous Sulfate 324 MG TABLET.DR PO (21:12)
[2022-05-08] MEDS: levETIRAcetam in NaCl (iso-os) 1,500 MG/100 ML PIGGYBACK 400 MG IV (21:12)
[2022-05-08 23:49] VITALS: BP 139/89; PULSE 66; RESP 18; TEMP 36.6; O2SAT 94
[2022-05-09 03:18] VITALS: BP 160/84; PULSE 54; RESP 16; TEMP 36.7; O2SAT 95
[2022-05-09] MEDS: Piperacillin Sodium/Tazobactam 3.375 GM in 0.9 % Sodium Chloride 50 ML IV ×3 (06:19→22:43)
[2022-05-09 06:52] LABS: Alanine Aminotransferase 423 U/L (0-40); Albumin Level 2.5 g/dL (3.5-5.0); Alkaline Phosphatase 469 U/L (39-117); Anion Gap 19 (12-20); Aspartate Amino Transferase 227 U/L (5-37); Bilirubin Direct 4.3 mg/dL (0.0-0.5); Bilirubin Total 6.4 mg/dL (0.0-1.0); Blood Urea Nitrogen 11 mg/dL (9-16); Calcium 8.2 mg/dL (8.4-10.2); Carbon Dioxide 22 mmol/L (22-29); Chloride 104 mmol/L (96-108); Creatinine Clr Calc Pharmacy 119.7; Estimated Glomerular Filt Rate > 60; Glucose Random 75 mg/dL (60-115); Potassium 3.7 mmol/L (3.3-5.1); Sodium 141 mmol/L (135-145); Total Protein 4.3 g/dL (6.5-8.0)
[2022-05-09 07:56] VITALS: BP 173/90; PULSE 63; RESP 15; TEMP 36.3; O2SAT 96
[2022-05-09] MEDS: levETIRAcetam in NaCl (iso-os) 1,000 MG/100 ML PIGGYBACK 400 MG IV (08:08)
[2022-05-09] MEDS: risperiDONE 0.5 MG TABLET PO ×2 (08:10→19:54)
[2022-05-09] MEDS: risperiDONE 2 MG TABLET PO ×2 (08:10→19:54)
[2022-05-09] MEDS: diazePAM 2 MG TABLET PO ×2 (08:10→19:54)
[2022-05-09] MEDS: Lactulose 20 GM/30 ML SOLUTION 40 GM PO (08:30)
[2022-05-09] MEDS: Levothyroxine Sodium 175 MCG TABLET PO (08:30)
[2022-05-09] MEDS: Omeprazole 40 MG CAPSULE.DR PO ×2 (08:30→19:54)
[2022-05-09] MEDS: Tamsulosin HCL 0.4 MG CAPSULE PO (08:30)
[2022-05-09] MEDS: Finasteride 5 MG TABLET PO (08:30)
[2022-05-09] MEDS: Docusate Sodium 100 MG CAPSULE PO (08:30)
[2022-05-09] MEDS: Ferrous Sulfate 324 MG TABLET.DR PO ×2 (08:30→19:54)
[2022-05-09] MEDS: Clotrimazole 1 % Cream 15 GM TUBE 1 APPL TOPICAL ×2 (08:31→20:06)
--- NOTE | 2022-05-09 10:31 | P.PNIM_ITS ---
Subjective Subjective Date of Service: 05/09/22 Interval History: lft's improving no new events overnight or fever Review of Systems nonverbal jauandiced elevated bp Physical Exam Vital Signs: Vital Signs: Last Vital Signs Temp 97.3 F 05/09/22 07:56 Pulse 63 05/09/22 07:56 Resp 15 05/09/22 07:56 BP 173/90 H 05/09/22 07:56 Pulse Ox 96 05/09/22 07:56 O2 Del Method 05/09/22 07:56 O2 Flow Rate 2 05/07/22 00:44 BMI result Body Mass Index 26.4 Appearance: Awake ,? not in distress.?jauandiced. cvs: rrr, [id number]. res: clear to auscultation ,no rhonchii or wheezing abd: no rebound or guarding ,not much abd discomfort, bs present. ext pulses present , no cyanosis Objective Data Active Medications Atorvastatin Calcium (Atorvastatin Calcium 10 Mg Tablet) 10 mg PO DAILY@2100 [facility] Last Admin: 05/08/22 21:12 Dose: 10 mg Documented By: JANAY Bisacodyl (Bisacodyl 5 Mg Tablet.) 5 mg PO BEDTIME [facility] Last Admin: 05/08/22 21:12 Dose: 5 mg Documented By: JANAY Clotrimazole (Clotrimazole 1 % Cream 15 Gm Tube) 1 appl TOPICAL BID [facility] Last Admin: 05/09/22 08:31 Dose: 1 appl Documented By: GILMA Diazepam (Diazepam 2 Mg Tablet) 2 mg PO BID [facility] Last Admin: 05/09/22 08:10 Dose: 2 mg Documented By: GILMA Docusate Sodium (Docusate Sodium 100 Mg Capsule) 100 mg PO DAILY [facility] Last Admin: 05/09/22 08:30 Dose: 100 mg Documented By: GILMA Enoxaparin Sodium (Enoxaparin Sodium 40 Mg/0.4 Ml Syringe) 40 mg SUBCUT Q24H [facility] Last Admin: 05/08/22 13:29 Dose: 40 mg Documented By: QUINTEN Fentanyl (Fentanyl 100 Mcg Patch.Td72) 100 mcg TRANSDERMA Q72H [facility] Last Admin: 05/06/22 15:30 Dose: 100 mcg Documented By: JAZIEL Ferrous Sulfate (Ferrous Sulfate 324 Mg Tablet.) 324 mg PO BID [facility] Last Admin: 05/09/22 08:30 Dose: 324 mg Documented By: GILMA Finasteride (Finasteride 5 Mg Tablet) 5 mg PO DAILY [facility] Last Admin: 05/09/22 08:30 Dose: 5 mg Documented By: GILMA Furosemide (Furosemide 20 Mg Tablet) 20 mg PO Q48H [facility]; Protocol Last Admin: 05/06/22 13:25 Dose: Not Given Documented By: JAZIEL Non-Admin Reason: Patient Refused Piperacillin Sod/Tazobactam (Sod 3.375 gm/ Sodium Chloride) 50 mls @ 100 mls/hr IV Q8H [facility] Last Infusion: 05/09/22 07:15 Dose: 0 mls/hr Documented By: GILMA Levetiracetam (Keppra) 1,500 mg in 100 mls @ 400 mls/hr IV BEDTIME [facility] Last Infusion: 05/08/22 21:30 Dose: 0 mls/hr Documented By: EYADILAmadeo Levetiracetam (Keppra) 1,000 mg in 100 mls @ 400 mls/hr IV DAILY [facility] Last Infusion: 05/09/22 08:46 Dose: 0 mls/hr Documented By: GILMA Levetiracetam 750 mg/ Sodium (Chloride) 107.5 mls @ 430 mls/hr IV DAILY@1200 [facility] Last Infusion: 05/08/22 12:53 Dose: 0 mls/hr Documented By: QUINTEN Lactated Ringer's (Lr) 1,000 mls @ 80 mls/hr IVCONT .[id number] [facility] Last Infusion: 05/09/22 08:45 Dose: 0 mls/hr Documented By: GILMA Lactulose (Lactulose 20 Gm/30 Ml Solution) 40 gm PO DAILY [facility] Last Admin: 05/09/22 08:30 Dose: 40 gm Documented By: GILMA Levothyroxine Sodium (Levothyroxine Sodium 175 Mcg Tablet) 175 mcg PO DAILY [facility] Last Admin: 05/09/22 08:30 Dose: 175 mcg Documented By: GILMA Multivitamins/Vitamin C (Multivitamin Tablet) 1 tab PO DAILY [facility] Last Admin: 05/08/22 08:19 Dose: Not Given Documented By: QUINTEN Non-Admin Reason: Patient Refused Omeprazole (Omeprazole 40 Mg Eva.) 40 mg PO BID [facility] Last Admin: 05/09/22 08:30 Dose: 40 mg Documented By: GILMA Oxycodone HCl (Oxycodone Hcl Immed Release 5 Mg Tablet) 10 mg PO TID [facility] Last Admin: 05/08/22 13:29 Dose: Not Given Documented By: QUINTEN Non-Admin Reason: Patient Refused Pharmacy Consult (Consult Rx Perform Med Rec) 1 each MISCELLANE ONCE PRN PRN Reason: Consult order Polyethylene Glycol (Polyethylene Glycol 3350 17 Gm Powd.Pack) 17 gm PO DAILY [facility] Last Admin: 05/08/22 08:20 Dose: Not Given Documented By: QUINTEN Non-Admin Reason: Patient Refused Risperidone (Risperidone 0.5 Mg Tablet) 0.5 mg PO BID [facility] Last Admin: 05/09/22 08:10 Dose: 0.5 mg Documented By: GILMA Risperidone (Risperidone 2 Mg Tablet) 2 mg PO BID [facility] Last Admin: 05/09/22 08:10 Dose: 2 mg Documented By: GILMA Senna (Sennosides 8.6 Mg Tablet) 8.6 mg PO DAILY PRN PRN Reason: Constipation Sodium Chloride (0.9 % Sodium Chloride Flush 3 Ml Syringe) 3 ml IVFLUSH QSHIFT [facility] Last Admin: 05/09/22 08:31 Dose: Not Given Documented By: GILMA Non-Admin Reason: IV Running Tamsulosin HCl (Tamsulosin Hcl 0.4 Mg Capsule) 0.4 mg PO DAILY [facility] Last Admin: 05/09/22 08:30 Dose: 0.4 mg Documented By: GILMA Labs CBC & Chem 7: 05/08/22 06:06 05/09/22 05:53 Labs: Laboratory Results - last 24 hr 05/09/22 05:53 Anion Gap 19 Estim Creat Clear Calc 119.7 Estimated GFR > 60 Random Glucose 75 Calcium 8.2 L D Total Bilirubin 6.4 H Direct Bilirubin 4.3 H AST 227 H ALT 423 H Alkaline Phosphatase 469 H D Total Protein 4.3 L D Albumin 2.5 L D Assessment and Plan (1) Transaminitis: Status: Acute (2) Biliary stricture: Status: Acute (3) Elevated blood pressure reading: Status: Acute Plan 71-year-old male with meds history of paranoid schizophrenia, CHF, CKD, BPH, HLD, anemia, epilepsy, deaf,?presents from [facility] with abnormal LFTs and abnormal ultrasound at [facility].? CT abdomen pelvis demonstrates cholelithiasis and diffusely thickened gall bag wall with adjacent fat stranding suggestive of acute cholecystitis 1. Transaminitis possibly related to bile restriction/choledocholithiasis MRCP done-status post ERCP yesterday, LFTs seems imprving than yesterday, brushing for biopsy pending d/w Gi - continue to moniter lft's and antibiotics , if any haemodymic instability or cholangitis- may need to transfer patient. if stable until wednesday -then need repeat ercp and stent switch to diet d/w Id -continue iv antibiotics . 2. CKD 3: unclear if ckd stable follow renals/divalents 3.Schizophrenia -continue risperidone as outpatient dosing -p.r.n. Haldol for agitation. 4.hx of epilesy:no new seizure episode overnight lft's similar to yesterday continue keppra d/w neuro-continue keppra. 5. elevated bp: not on any htn meds possible bp flacutions sec to intermittent agitation moniter closely, may need to add antihtn if persistent bp elevation.stop fluids ,start home lasix ,low sodium diet Lovenox Full Code Inpatient need:? monitoring LFTs s/p ercp for bilary stricture, may need repeat ercp/stenting Quality Stroke Does the patient have a stroke diagnosis?: No VTE Prior VTE?: No VTE Risk Level:: Medical - moderate - high VTE Device Contraindication: Treatment Not Indicated VTE Drug Contraindication: N/A - Med Ordered
[2022-05-09 11:38] VITALS: BP 176/85; PULSE 68; RESP 13; TEMP 36.3; O2SAT 95
[2022-05-09] MEDS: levETIRAcetam 750 MG in 0.9 % Sodium Chloride 100 ML 430 MG IV (12:12)
[2022-05-09] MEDS: Enoxaparin Sodium 40 MG/0.4 ML SYRINGE SUBCUT (12:13)
[2022-05-09] MEDS: fentaNYL 100 MCG PATCH.TD72 TRANSDERMA (12:34)
--- NOTE | 2022-05-09 12:53 | PC.NURSE ---
Pt more cooperative today, this nurse with help cleaned with large incontinent BM. This nurse in assessment discovered pt did not have a fentanyl patch as documented on 05/06. This nurse verifiied with Luanne Ortiz as a witness that no fentanyl patch was on R hip of pt, nor rest of the body. This applied new fentanyl patch with tegaderm at 12:30 on right hip as ordered.
[2022-05-09 15:24] VITALS: BP 170/84; PULSE 70; RESP 18; TEMP 36.6; O2SAT 95
[2022-05-09 19:33] VITALS: BP 179/87; PULSE 71; RESP 18; TEMP 36.4; O2SAT 96
[2022-05-09] MEDS: levETIRAcetam in NaCl (iso-os) 1,500 MG/100 ML PIGGYBACK 400 MG IV (19:54)
[2022-05-09] MEDS: 0.9 % Sodium Chloride Flush 3 ML SYRINGE IVFLUSH (19:54)
[2022-05-09] MEDS: bisacodyL 5 MG TABLET.DR PO (19:54)
[2022-05-09] MEDS: Atorvastatin Calcium 10 MG TABLET PO (19:54)
--- NOTE | 2022-05-09 23:49 | W.PM.IDCN ---
History of Present Illness Data of Consult Service Date: 05/08/22 Requesting physician: Leatha Kohli Primary Care Provider: DO CRISELDA Bernal Reason for consult: hepatitis He presents for evaluation of elevated LFTs. He has no fever or chills. He has CT showing left hepatitc duct calculi with biliary dilatation. Review of Systems Review of Systems: Yes all other systems are reviewed and are negative PMFSH Past Medical History Medical History Anemia Biliary stricture CHF (congestive heart failure) Chronic GERD Chronic kidney disease (CKD) Elevated PSA Gallbladder mass Hyperlipidemia Hypothyroidism Orofacial dystonia Prostate asymmetry Schizophrenia Family History Family history: reviewed and not pertinent Social History Social History Household Members: None and Other Household Members Other:: snf Housing: [facility] Housing Other:: [facility] Do you presently have visiting nurse or other home services: No Unable to assess alcohol history related to: Unable to respond Alcohol intake: never Patient Tobacco Use Status: Tobacco use Unknown service: No Current occupational status: retired [employer] Allergies Allergy/AdvReac Type Severity Reaction Status Date / Time No Known Allergies Allergy Verified 11/12/21 08:50 [No Known Allergies*] Active Medications: Current Medications Atorvastatin Calcium (Atorvastatin Calcium 10 Mg Tablet) 10 mg PO DAILY@2100 [facility] Last Admin: 05/09/22 19:54 Dose: 10 mg Bisacodyl (Bisacodyl 5 Mg Tablet.Dr) 5 mg PO BEDTIME [facility] Last Admin: 05/09/22 19:54 Dose: 5 mg Clotrimazole (Clotrimazole 1 % Cream 15 Gm Tube) 1 appl TOPICAL BID [facility] Last Admin: 05/09/22 20:06 Dose: 1 appl Diazepam (Diazepam 2 Mg Tablet) 2 mg PO BID [facility] Last Admin: 05/09/22 19:54 Dose: 2 mg Docusate Sodium (Docusate Sodium 100 Mg Capsule) 100 mg PO DAILY [facility] Last Admin: 05/09/22 08:30 Dose: 100 mg Enoxaparin Sodium (Enoxaparin Sodium 40 Mg/0.4 Ml Syringe) 40 mg SUBCUT Q24H [facility] Last Admin: 05/09/22 12:17 Dose: 40 mg Fentanyl (Fentanyl 100 Mcg Patch.Td72) 100 mcg TRANSDERMA Q72H [facility] Last Admin: 05/09/22 12:34 Dose: 100 mcg Ferrous Sulfate (Ferrous Sulfate 324 Mg Tablet.) 324 mg PO BID [facility] Last Admin: 05/09/22 19:54 Dose: 324 mg Finasteride (Finasteride 5 Mg Tablet) 5 mg PO DAILY [facility] Last Admin: 05/09/22 08:30 Dose: 5 mg Furosemide (Furosemide 20 Mg Tablet) 20 mg PO Q48H [facility]; Protocol Last Admin: 05/06/22 13:25 Dose: Not Given Piperacillin Sod/Tazobactam (Sod 3.375 gm/ Sodium Chloride) 50 mls @ 100 mls/hr IV Q8H [facility] Last Infusion: 05/09/22 23:19 Dose: Infused Levetiracetam (Keppra) 1,500 mg in 100 mls @ 400 mls/hr IV BEDTIME [facility] Last Infusion: 05/09/22 20:34 Dose: Infused Levetiracetam (Keppra) 1,000 mg in 100 mls @ 400 mls/hr IV DAILY [facility] Last Infusion: 05/09/22 08:46 Dose: Infused Levetiracetam 750 mg/ Sodium (Chloride) 107.5 mls @ 430 mls/hr IV DAILY@1200 [facility] Last Infusion: 05/09/22 12:50 Dose: Infused Lactulose (Lactulose 20 Gm/30 Ml Solution) 40 gm PO DAILY [facility] Last Admin: 05/09/22 08:30 Dose: 40 gm Levothyroxine Sodium (Levothyroxine Sodium 175 Mcg Tablet) 175 mcg PO DAILY [facility] Last Admin: 05/09/22 08:30 Dose: 175 mcg Multivitamins/Vitamin C (Multivitamin Tablet) 1 tab PO DAILY [facility] Last Admin: 05/08/22 08:19 Dose: Not Given Omeprazole (Omeprazole 40 Mg Capsule.) 40 mg PO BID [facility] Last Admin: 05/09/22 19:54 Dose: 40 mg Oxycodone HCl (Oxycodone Hcl Immed Release 5 Mg Tablet) 10 mg PO TID [facility] Last Admin: 05/08/22 13:29 Dose: Not Given Pharmacy Consult (Consult Rx Perform Med Rec) 1 each MISCELLANE ONCE PRN PRN Reason: Consult order Polyethylene Glycol (Polyethylene Glycol 3350 17 Gm Powd.Pack) 17 gm PO DAILY [facility] Last Admin: 05/08/22 08:20 Dose: Not Given Risperidone (Risperidone 0.5 Mg Tablet) 0.5 mg PO BID [facility] Last Admin: 05/09/22 19:54 Dose: 0.5 mg Risperidone (Risperidone 2 Mg Tablet) 2 mg PO BID [facility] Last Admin: 05/09/22 19:54 Dose: 2 mg Senna (Sennosides 8.6 Mg Tablet) 8.6 mg PO DAILY PRN PRN Reason: Constipation Sodium Chloride (0.9 % Sodium Chloride Flush 3 Ml Syringe) 3 ml IVFLUSH QSHIFT [facility] Last Admin: 05/09/22 19:54 Dose: 3 ml Tamsulosin HCl (Tamsulosin Hcl 0.4 Mg Capsule) 0.4 mg PO DAILY [facility] Last Admin: 05/09/22 08:30 Dose: 0.4 mg Home Medications Medication Instructions Recorded Confirmed Last Taken Type docusate sodium 100 mg capsule 100 mg PO DAILY 06/02/20 04/30/22 Unknown History fentanyl 100 mcg/hr transdermal 1 patch transdermal Q72H 06/02/20 04/30/22 06/01/20 16:00 History patch ferrous sulfate 325 mg (65 mg 325 mg PO BID 06/02/20 04/30/22 Unknown History iron) tablet furosemide 20 mg tablet 20 mg PO Q OTHER DAY 06/02/20 04/30/22 Unknown History lactulose 10 gram/15 mL oral 60 ml PO DAILY 06/02/20 04/30/22 Unknown History solution levetiracetam 1,000 mg tablet 1,000 mg PO QAM 06/02/20 04/30/22 Unknown History levetiracetam 750 mg tablet 1,500 mg PO BEDTIME 06/02/20 04/30/22 Unknown History levetiracetam 750 mg tablet 750 mg PO QNOON 06/02/20 04/30/22 Unknown History multivitamin 1 tab PO DAILY 06/02/20 04/30/22 Unknown History omeprazole 40 mg capsule,delayed 40 mg PO BID 06/02/20 04/30/22 Unknown History release oxycodone-acetaminophen 10 mg-325 1 tab PO TID 06/02/20 04/30/22 Unknown History mg tablet polyethylene glycol 3350 17 gram 17 g PO DAILY 06/02/20 04/30/22 Unknown History oral powder packet (Miralax) risperidone 2 mg tablet 2 mg PO BID 06/02/20 04/30/22 Unknown History simvastatin 10 mg tablet 10 mg PO QPM 06/02/20 04/30/22 Unknown History diazepam 2 mg tablet 2 mg PO BID 11/12/21 04/30/22 Unknown History risperidone 0.5 mg tablet 0.5 mg PO BID 11/12/21 04/30/22 Unknown History bisacodyl 5 mg tablet 5 mg PO BEDTIME 04/30/22 04/30/22 Unknown History clotrimazole 1 % topical cream 1 appl topical BID 04/30/22 04/30/22 Unknown History levothyroxine 175 mcg tablet 1 tab PO DAILY 04/30/22 04/30/22 Unknown History lorazepam 2 mg/mL injection 1 mg IM DAILY PRN Seizure Activity 04/30/22 04/30/22 Unknown History solution sennosides 8.6 mg tablet (senna) 8.6 mg PO DAILY PRN Constipation 04/30/22 04/30/22 Unknown History tamsulosin 0.4 mg capsule 1 cap PO DAILY 04/30/22 04/30/22 Unknown History tolnaftate 1 % topical cream 1 appl topical BID 04/30/22 04/30/22 Unknown History Physical Exam Vital Signs: Vital Signs: Last Vital Signs Temp 97.6 F 05/09/22 19:33 Pulse 71 05/09/22 19:33 Resp 18 05/09/22 19:33 BP 179/87 H 05/09/22 19:33 Pulse Ox 96 05/09/22 19:33 O2 Del Method 05/09/22 19:33 O2 Flow Rate 2 05/07/22 00:44 BMI result Body Mass Index 26.4 Const: General: cooperative HEENT: Head: Yes normal to inspection Face and sinus: Yes normal facial exam Mouth: Normal oral and palatal mucosa present Teeth and gingiva: dentition normal Eyes: General: appearance normal, both eyes and all related structures Pupils: Equal, round and reactive pupils present Resp: Effort & Inspection: normal respiratory effort Cardio: Rate: regular rate Rhythm: regular rhythm GI: Palpation (GI): Soft to palpation and nontender : General: Yes no CVA tenderness Back/Spine/Pelvis: Back: no CVA tenderness Skin: General skin exam: no rashes or lesions noted Neuro: General: moves all extremities Cranial nerves: Yes Equal, round and reactive pupils present Extrem: General: Yes normal to inspection Psych: Other: patient agitated,not good historian Results Labs CBC & Chem 7: 05/08/22 06:06 05/09/22 05:53 Labs: BMP 05/09/22 05:53 Sodium 141 Potassium 3.7 Chloride 104 Carbon Dioxide 22 BUN 11 Creatinine 0.63 Calcium 8.2 L D Liver Function 05/09/22 Range/Units 05:53 Total Bilirubin 6.4 H (0.0-1.0) mg/dL Direct Bilirubin 4.3 H (0.0-0.5) mg/dL AST 227 H (5-37) U/L ALT 423 H (0-40) U/L Alkaline Phosphatase 469 H D (39-117) U/L Albumin 2.5 L D (3.5-5.0) g/dL Microbiology Microbiology Results: Microbiology 04/30/22 09:36 Blood - Venous Blood Culture - Final No growth after 5 days. 04/30/22 09:15 Blood - Venous Blood Culture - Final Coag negative Staphylococcus Assessment and Plan (1) Transaminitis: Status: Acute He has improvement in LFTs. He has likely biliary stricture getting worked up for malignancy Biliary stricture implicated organisms include gram negative,gram positive and anerobes (2) Biliary stricture: Status: Acute (3) Choledocholithiasis with obstruction: Status: Acute Plan Continue Zosyn Po Augmentin on discharge total 14 days antibiotics
--- NOTE | 2022-05-10 06:02 | PC.NURSE ---
Fentanyl patch intact covered with tegaderm noted on the right hip at start and end of the shift.
[2022-05-10] MEDS: Piperacillin Sodium/Tazobactam 3.375 GM in 0.9 % Sodium Chloride 50 ML IV ×3 (06:21→22:55)
[2022-05-10 07:48] VITALS: BP 109/58; PULSE 76; RESP 14; TEMP 36.5; O2SAT 94
[2022-05-10] MEDS: risperiDONE 0.5 MG TABLET PO ×2 (09:00→21:21)
[2022-05-10] MEDS: Omeprazole 40 MG CAPSULE.DR PO ×2 (09:00→21:24)
[2022-05-10] MEDS: Ferrous Sulfate 324 MG TABLET.DR PO ×2 (09:00→21:24)
[2022-05-10] MEDS: risperiDONE 2 MG TABLET PO ×2 (09:00→21:21)
[2022-05-10] MEDS: levETIRAcetam in NaCl (iso-os) 1,000 MG/100 ML PIGGYBACK 400 MG IV (09:00)
[2022-05-10] MEDS: Levothyroxine Sodium 175 MCG TABLET PO (09:00)
[2022-05-10] MEDS: Finasteride 5 MG TABLET PO (09:00)
[2022-05-10] MEDS: Docusate Sodium 100 MG CAPSULE PO (09:00)
[2022-05-10] MEDS: diazePAM 2 MG TABLET PO ×2 (09:00→21:21)
[2022-05-10] MEDS: Tamsulosin HCL 0.4 MG CAPSULE PO (09:01)
[2022-05-10] MEDS: Lactulose 20 GM/30 ML SOLUTION 40 GM PO (09:01)
[2022-05-10] MEDS: Clotrimazole 1 % Cream 15 GM TUBE 1 APPL TOPICAL ×2 (09:50→21:28)
[2022-05-10 11:29] VITALS: BP 113/58; PULSE 85; RESP 18; TEMP 36.2; O2SAT 93
[2022-05-10] MEDS: levETIRAcetam 750 MG in 0.9 % Sodium Chloride 100 ML 430 MG IV (11:53)
[2022-05-10] MEDS: Furosemide 20 MG TABLET PO (11:59)
--- NOTE | 2022-05-10 12:11 | HO.PM.IMPN ---
Subjective Subjective Date of Service: 05/10/22 Interval History: lft's improving no new events overnight or fever Review of Systems awake seems comfortable no fevers nonverbal Physical Exam Vital Signs: Vital Signs: Last Vital Signs Temp 97.1 F 05/10/22 11:29 Pulse 85 05/10/22 11:29 Resp 18 05/10/22 11:29 BP 113/58 L 05/10/22 11:29 Pulse Ox 93 05/10/22 11:29 O2 Del Method 05/10/22 11:29 O2 Flow Rate 2 05/07/22 00:44 BMI result Body Mass Index 26.4 ?Appearance: Awake ,? not in distress.?jauandiced. cvs: rrr, [id number]. res: clear to auscultation ,no rhonchii or wheezing abd: no rebound or guarding ,not much abd discomfort, bs present. ext pulses present , no cyanosis Objective Data Active Medications Atorvastatin Calcium (Atorvastatin Calcium 10 Mg Tablet) 10 mg PO DAILY@2100 [facility] Last Admin: 05/09/22 19:54 Dose: 10 mg Documented By: JANAY Bisacodyl (Bisacodyl 5 Mg Tablet.) 5 mg PO BEDTIME [facility] Last Admin: 05/09/22 19:54 Dose: 5 mg Documented By: JANAY Clotrimazole (Clotrimazole 1 % Cream 15 Gm Tube) 1 appl TOPICAL BID [facility] Last Admin: 05/10/22 09:50 Dose: 1 appl Documented By: JAZIEL Diazepam (Diazepam 2 Mg Tablet) 2 mg PO BID [facility] Last Admin: 05/10/22 09:00 Dose: 2 mg Documented By: JAZIEL Docusate Sodium (Docusate Sodium 100 Mg Capsule) 100 mg PO DAILY [facility] Last Admin: 05/10/22 09:00 Dose: 100 mg Documented By: JAZIEL Enoxaparin Sodium (Enoxaparin Sodium 40 Mg/0.4 Ml Syringe) 40 mg SUBCUT Q24H [facility] Last Admin: 05/10/22 12:01 Dose: Not Given Documented By: JAZIEL Non-Admin Reason: Patient Refused Fentanyl (Fentanyl 100 Mcg Patch.Td72) 100 mcg TRANSDERMA Q72H [facility] Last Admin: 05/09/22 12:34 Dose: 100 mcg Documented By: HO.MIGUEL Ferrous Sulfate (Ferrous Sulfate 324 Mg Tablet.) 324 mg PO BID [facility] Last Admin: 05/10/22 09:00 Dose: 324 mg Documented By: JAZIEL Finasteride (Finasteride 5 Mg Tablet) 5 mg PO DAILY [facility] Last Admin: 05/10/22 09:00 Dose: 5 mg Documented By: JAZIEL Furosemide (Furosemide 20 Mg Tablet) 20 mg PO Q48H [facility]; Protocol Last Admin: 05/10/22 11:59 Dose: 20 mg Documented By: JAZIEL Piperacillin Sod/Tazobactam (Sod 3.375 gm/ Sodium Chloride) 50 mls @ 100 mls/hr IV Q8H [facility] Last Infusion: 05/10/22 07:08 Dose: 0 mls/hr Documented By: JAZIEL Levetiracetam (Keppra) 1,500 mg in 100 mls @ 400 mls/hr IV BEDTIME [facility] Last Infusion: 05/09/22 20:34 Dose: 0 mls/hr Documented By: CASTILAmadeo Levetiracetam (Marquesppra) 1,000 mg in 100 mls @ 400 mls/hr IV DAILY [facility] Last Infusion: 05/10/22 09:49 Dose: 0 mls/hr Documented By: JAZIEL Levetiracetam 750 mg/ Sodium (Chloride) 107.5 mls @ 430 mls/hr IV DAILY@1200 [facility] Last Admin: 05/10/22 11:53 Dose: 430 mls/hr Documented By: JAZIEL Lactulose (Lactulose 20 Gm/30 Ml Solution) 40 gm PO DAILY [facility] Last Admin: 05/10/22 09:01 Dose: 40 gm Documented By: JAZIEL Levothyroxine Sodium (Levothyroxine Sodium 175 Mcg Tablet) 175 mcg PO DAILY [facility] Last Admin: 05/10/22 09:00 Dose: 175 mcg Documented By: JAZIEL Multivitamins/Vitamin C (Multivitamin Tablet) 1 tab PO DAILY [facility] Last Admin: 05/08/22 08:19 Dose: Not Given Documented By: QUINTEN Non-Admin Reason: Patient Refused Omeprazole (Omeprazole 40 Mg Capsule.) 40 mg PO BID [facility] Last Admin: 05/10/22 09:00 Dose: 40 mg Documented By: JAZIEL Oxycodone HCl (Oxycodone Hcl Immed Release 5 Mg Tablet) 10 mg PO TID [facility] Last Admin: 05/08/22 13:29 Dose: Not Given Documented By: QUINTEN Non-Admin Reason: Patient Refused Pharmacy Consult (Consult Rx Perform Med Rec) 1 each MISCELLANE ONCE PRN PRN Reason: Consult order Polyethylene Glycol (Polyethylene Glycol 3350 17 Gm Powd.Pack) 17 gm PO DAILY [facility] Last Admin: 05/08/22 08:20 Dose: Not Given Documented By: QUINTEN Non-Admin Reason: Patient Refused Risperidone (Risperidone 0.5 Mg Tablet) 0.5 mg PO BID [facility] Last Admin: 05/10/22 09:00 Dose: 0.5 mg Documented By: JAZIEL Risperidone (Risperidone 2 Mg Tablet) 2 mg PO BID [facility] Last Admin: 05/10/22 09:00 Dose: 2 mg Documented By: JAZIEL Senna (Sennosides 8.6 Mg Tablet) 8.6 mg PO DAILY PRN PRN Reason: Constipation Sodium Chloride (0.9 % Sodium Chloride Flush 3 Ml Syringe) 3 ml IVFLUSH QSHIFT [facility] Last Admin: 05/10/22 09:13 Dose: Not Given Documented By: JAZIEL Non-Admin Reason: IV Running Tamsulosin HCl (Tamsulosin Hcl 0.4 Mg Capsule) 0.4 mg PO DAILY [facility] Last Admin: 05/10/22 09:01 Dose: 0.4 mg Documented By: JAZIEL Labs CBC & Chem 7: 05/08/22 06:06 05/09/22 05:53 Assessment and Plan (1) Seizure disorder: Status: Acute (2) Biliary stricture: Status: Acute (3) Choledocholithiasis with obstruction: Status: Acute (4) Transaminitis: Status: Acute Plan 71-year-old male with meds history of paranoid schizophrenia, CHF, CKD, BPH, HLD, anemia, epilepsy, deaf,?presents from [facility] with abnormal LFTs and abnormal ultrasound at [facility] CT abdomen pelvis demonstrates cholelithiasis and diffusely thickened gall bag wall with adjacent fat stranding suggestive of acute cholecystitis 1. Transaminitis possibly related to bile restriction/choledocholithiasis MRCP done-status post ERCP yesterday, LFTs seems imprving than yesterday, brushing for biopsy pending d/w Gi - continue to moniter lft's and antibiotics , if any haemodymic instability or cholangitis- may need to transfer patient. if stable until wednesday -then need repeat ercp and stent switch to diet d/w Id -continue iv antibiotics . 2. CKD 3: unclear if ckd stable follow renals/divalents 3.Schizophrenia -continue risperidone as outpatient dosing -p.r.n. Haldol for agitation. 4.hx of epilesy:no new seizure episode overnight lft's similar to yesterday continue keppra d/w neuro-continue keppra. 5. elevated bp: not on any htn meds possible bp flacutions sec to intermittent agitation moniter closely, may need to add antihtn if persistent bp elevation.stop fluids ,start home lasix ,low sodium diet Lovenox Full Code Inpatient need:? monitoring LFTs s/p ercp for bilary stricture, may need repeat ercp/stenting Quality Stroke Does the patient have a stroke diagnosis?: No VTE Prior VTE?: No VTE Risk Level:: Medical - moderate - high VTE Device Contraindication: Treatment Not Indicated VTE Drug Contraindication: N/A - Med Ordered
[2022-05-10] MEDS: 0.9 % Sodium Chloride Flush 3 ML SYRINGE IVFLUSH ×2 (14:41→21:28)
[2022-05-10 19:49] VITALS: BP 130/66; PULSE 75; RESP 17; TEMP 36.4; O2SAT 96
[2022-05-10] MEDS: bisacodyL 5 MG TABLET.DR PO (21:24)
[2022-05-10] MEDS: Atorvastatin Calcium 10 MG TABLET PO (21:24)
[2022-05-10] MEDS: levETIRAcetam in NaCl (iso-os) 1,500 MG/100 ML PIGGYBACK 400 MG IV (21:28)
[2022-05-11 06:25] LABS: Alanine Aminotransferase 467 U/L (0-40); Albumin Level 3.3 g/dL (3.5-5.0); Alkaline Phosphatase 524 U/L (39-117); Anion Gap 16 (12-20); Aspartate Amino Transferase 190 U/L (5-37); Bilirubin Direct 2.9 mg/dL (0.0-0.5); Bilirubin Total 4.1 mg/dL (0.0-1.0); Blood Urea Nitrogen 15 mg/dL (9-16); Calcium 8.7 mg/dL (8.4-10.2); Carbon Dioxide 25 mmol/L (22-29); Chloride 107 mmol/L (96-108); Creatinine Clr Calc Pharmacy 93.1; Estimated Glomerular Filt Rate > 60; Glucose Random 103 mg/dL (60-115); Potassium 3.9 mmol/L (3.3-5.1); Sodium 144 mmol/L (135-145); Total Protein 5.6 g/dL (6.5-8.0)
[2022-05-11] MEDS: Piperacillin Sodium/Tazobactam 3.375 GM in 0.9 % Sodium Chloride 50 ML IV ×3 (06:35→23:07)
[2022-05-11 07:17] VITALS: BP 134/80; PULSE 70; RESP 18; TEMP 36; O2SAT 93
[2022-05-11] MEDS: levETIRAcetam in NaCl (iso-os) 1,000 MG/100 ML PIGGYBACK 400 MG IV (07:54)
[2022-05-11] MEDS: Lactulose 20 GM/30 ML SOLUTION 40 GM PO (07:56)
[2022-05-11] MEDS: diazePAM 2 MG TABLET PO ×2 (07:56→21:20)
[2022-05-11] MEDS: Levothyroxine Sodium 175 MCG TABLET PO (07:56)
[2022-05-11] MEDS: risperiDONE 0.5 MG TABLET PO ×2 (07:56→21:21)
[2022-05-11] MEDS: Tamsulosin HCL 0.4 MG CAPSULE PO (07:56)
[2022-05-11] MEDS: Omeprazole 40 MG CAPSULE.DR PO ×2 (07:56→21:22)
[2022-05-11] MEDS: Finasteride 5 MG TABLET PO (07:56)
[2022-05-11] MEDS: Ferrous Sulfate 324 MG TABLET.DR PO ×2 (07:57→21:22)
[2022-05-11] MEDS: Clotrimazole 1 % Cream 15 GM TUBE 1 APPL TOPICAL ×2 (07:57→22:17)
[2022-05-11] MEDS: 0.9 % Sodium Chloride Flush 3 ML SYRINGE IVFLUSH ×3 (07:57→23:07)
[2022-05-11] MEDS: Docusate Sodium 100 MG CAPSULE PO (07:57)
[2022-05-11] MEDS: risperiDONE 2 MG TABLET PO ×2 (07:57→21:20)
--- NOTE | 2022-05-11 11:08 | HO.PM.IMPN ---
Subjective Subjective Date of Service: 05/11/22 Interval History: lft's improving no new events overnight or fever Review of Systems nonverbal jauandiced elevated bp Physical Exam Vital Signs: Vital Signs: Last Vital Signs Temp 96.8 F 05/11/22 07:17 Pulse 70 05/11/22 07:17 Resp 18 05/11/22 07:17 BP 134/80 05/11/22 07:17 Pulse Ox 93 05/11/22 07:17 O2 Del Method 05/11/22 07:17 O2 Flow Rate 2 05/07/22 00:44 BMI result Body Mass Index 26.4 Appearance: Awake ,? not in distress.?jauandiced. cvs: rrr, [id number]. res: clear to auscultation ,no rhonchii or wheezing abd: no rebound or guarding ,not much abd discomfort, bs present. ext pulses present , no cyanosis Objective Data Active Medications Atorvastatin Calcium (Atorvastatin Calcium 10 Mg Tablet) 10 mg PO DAILY@2100 [facility] Last Admin: 05/10/22 21:24 Dose: 10 mg Documented By: SOCORRO Bisacodyl (Bisacodyl 5 Mg Tablet.) 5 mg PO BEDTIME [facility] Last Admin: 05/10/22 21:24 Dose: 5 mg Documented By: SOCORRO Clotrimazole (Clotrimazole 1 % Cream 15 Gm Tube) 1 appl TOPICAL BID [facility] Last Admin: 05/11/22 07:57 Dose: 1 appl Documented By: OTIS Diazepam (Diazepam 2 Mg Tablet) 2 mg PO BID [facility] Last Admin: 05/11/22 07:56 Dose: 2 mg Documented By: OTIS Docusate Sodium (Docusate Sodium 100 Mg Capsule) 100 mg PO DAILY [facility] Last Admin: 05/11/22 07:57 Dose: 100 mg Documented By: OTIS Enoxaparin Sodium (Enoxaparin Sodium 40 Mg/0.4 Ml Syringe) 40 mg SUBCUT Q24H [facility] Last Admin: 05/10/22 12:01 Dose: Not Given Documented By: JAZIEL Non-Admin Reason: Patient Refused Fentanyl (Fentanyl 100 Mcg Patch.Td72) 100 mcg TRANSDERMA Q72H [facility] Last Admin: 05/09/22 12:34 Dose: 100 mcg Documented By: GILMA Ferrous Sulfate (Ferrous Sulfate 324 Mg Tablet.) 324 mg PO BID [facility] Last Admin: 05/11/22 07:57 Dose: 324 mg Documented By: OTIS Finasteride (Finasteride 5 Mg Tablet) 5 mg PO DAILY [facility] Last Admin: 05/11/22 07:56 Dose: 5 mg Documented By: OTIS Furosemide (Furosemide 20 Mg Tablet) 20 mg PO Q48H [facility]; Protocol Last Admin: 05/10/22 11:59 Dose: 20 mg Documented By: JAZIEL Piperacillin Sod/Tazobactam (Sod 3.375 gm/ Sodium Chloride) 50 mls @ 100 mls/hr IV Q8H [facility] Last Infusion: 05/11/22 07:13 Dose: 0 mls/hr Documented By: OTIS Levetiracetam (Keppra) 1,500 mg in 100 mls @ 400 mls/hr IV BEDTIME [facility] Last Infusion: 05/10/22 21:59 Dose: 0 mls/hr Documented By: SOCORRO Levetiracetam (Marquesppra) 1,000 mg in 100 mls @ 400 mls/hr IV DAILY [facility] Last Infusion: 05/11/22 08:32 Dose: 0 mls/hr Documented By: OTIS Levetiracetam 750 mg/ Sodium (Chloride) 107.5 mls @ 430 mls/hr IV DAILY@1200 [facility] Last Infusion: 05/10/22 12:23 Dose: 0 mls/hr Documented By: JAZIEL Lactulose (Lactulose 20 Gm/30 Ml Solution) 40 gm PO DAILY [facility] Last Admin: 05/11/22 07:56 Dose: 40 gm Documented By: OTIS Levothyroxine Sodium (Levothyroxine Sodium 175 Mcg Tablet) 175 mcg PO DAILY [facility] Last Admin: 05/11/22 07:56 Dose: 175 mcg Documented By: OTIS Multivitamins/Vitamin C (Multivitamin Tablet) 1 tab PO DAILY [facility] Last Admin: 05/08/22 08:19 Dose: Not Given Documented By: QUINTEN Non-Admin Reason: Patient Refused Omeprazole (Omeprazole 40 Mg Capsule.) 40 mg PO BID [facility] Last Admin: 05/11/22 07:56 Dose: 40 mg Documented By: OTIS Oxycodone HCl (Oxycodone Hcl Immed Release 5 Mg Tablet) 10 mg PO TID [facility] Last Admin: 05/08/22 13:29 Dose: Not Given Documented By: QUINTEN Non-Admin Reason: Patient Refused Pharmacy Consult (Consult Rx Perform Med Rec) 1 each MISCELLANE ONCE PRN PRN Reason: Consult order Polyethylene Glycol (Polyethylene Glycol 3350 17 Gm Powd.Pack) 17 gm PO DAILY [facility] Last Admin: 05/08/22 08:20 Dose: Not Given Documented By: QUINTEN Non-Admin Reason: Patient Refused Risperidone (Risperidone 0.5 Mg Tablet) 0.5 mg PO BID [facility] Last Admin: 05/11/22 07:56 Dose: 0.5 mg Documented By: OTIS Risperidone (Risperidone 2 Mg Tablet) 2 mg PO BID [facility] Last Admin: 05/11/22 07:57 Dose: 2 mg Documented By: OTIS Senna (Sennosides 8.6 Mg Tablet) 8.6 mg PO DAILY PRN PRN Reason: Constipation Sodium Chloride (0.9 % Sodium Chloride Flush 3 Ml Syringe) 3 ml IVFLUSH QSHIFT [facility] Last Admin: 05/11/22 07:57 Dose: 3 ml Documented By: OTIS Tamsulosin HCl (Tamsulosin Hcl 0.4 Mg Capsule) 0.4 mg PO DAILY [facility] Last Admin: 05/11/22 07:56 Dose: 0.4 mg Documented By: OTIS Labs CBC & Chem 7: 05/08/22 06:06 05/11/22 05:17 Labs: Laboratory Results - last 24 hr 05/11/22 05:17 Anion Gap 16 Estim Creat Clear Calc 93.1 Estimated GFR > 60 Random Glucose 103 D Calcium 8.7 D Total Bilirubin 4.1 H Direct Bilirubin 2.9 H AST 190 H ALT 467 H Alkaline Phosphatase 524 H Total Protein 5.6 L D Albumin 3.3 L D Assessment and Plan (1) Transaminitis: Status: Acute (2) Biliary stricture: Status: Acute Plan 71-year-old male with meds history of paranoid schizophrenia, CHF, CKD, BPH, HLD, anemia, epilepsy, deaf,?[facility] with abnormal LFTs and abnormal ultrasound at [facility].? CT abdomen pelvis demonstrates cholelithiasis and diffusely thickened gall bag wall with adjacent fat stranding suggestive of acute cholecystitis 1. Transaminitis possibly related to bile restriction/choledocholithiasis MRCP done-status post ERCP yesterday, LFTs seems imprving than yesterday, brushing for biopsy pending d/w Gi - continue to moniter lft's and antibiotics , if any haemodymic instability or cholangitis- may need to transfer patient. need repeat ercp and stent switch to diet,npo past midnight if possible ercp/stent in am d/w Id -continue iv antibiotics . 2. CKD 3: unclear if ckd stable follow renals/divalents 3.Schizophrenia -continue risperidone as outpatient dosing -p.r.n. Haldol for agitation. 4.hx of epilesy:no new seizure episode overnight lft's similar to yesterday continue keppra d/w neuro-continue keppra. 5. elevated bp: not on any htn meds possible bp flacutions sec to intermittent agitation moniter closely, may need to add antihtn if persistent bp elevation.stop fluids ,start home lasix ,low sodium diet Lovenox Full Code Inpatient need:? monitoring LFTs s/p ercp for bilary stricture, may need repeat ercp/stenting Quality Stroke Does the patient have a stroke diagnosis?: No VTE Prior VTE?: No VTE Risk Level:: Medical - moderate - high VTE Device Contraindication: Treatment Not Indicated VTE Drug Contraindication: N/A - Med Ordered
[2022-05-11] MEDS: Enoxaparin Sodium 40 MG/0.4 ML SYRINGE SUBCUT (12:12)
[2022-05-11] MEDS: levETIRAcetam 750 MG in 0.9 % Sodium Chloride 100 ML 430 MG IV (12:13)
--- NOTE | 2022-05-11 13:36 | MHC.CLN ---
F/U CURRENTLY NPO POST BREAKFAT TODAY. DIET=2 GRAM SODIUM, NDD2 FROM 05/09 THROUGH BREAKFAT TODAY. HAD EATEN 50-100% AT [facility] DURING THAT TIME. RIGHT MEDIAL ANKLE WITH IMPAIRED SKIN, SUPERFICIAL ULCER PER NURSING. ROXANNE=12. FOLLOW FOR DIET ADVANCEMENT, INTAKE, AND SKIN.
[2022-05-11 15:25] VITALS: BP 120/65; PULSE 65; RESP 16; TEMP 36.6; O2SAT 96
[2022-05-11 19:57] VITALS: BP 129/72; PULSE 60; RESP 18; TEMP 36.7; O2SAT 97
[2022-05-11] MEDS: Atorvastatin Calcium 10 MG TABLET PO (21:22)
[2022-05-11] MEDS: bisacodyL 5 MG TABLET.DR PO (21:22)
[2022-05-11] MEDS: levETIRAcetam in NaCl (iso-os) 1,500 MG/100 ML PIGGYBACK 400 MG IV (21:24)
[2022-05-12] MEDS: Piperacillin Sodium/Tazobactam 3.375 GM in 0.9 % Sodium Chloride 50 ML IV ×3 (06:37→22:47)
[2022-05-12 06:39] LABS: Alanine Aminotransferase 469 U/L (0-40); Albumin Level 3.4 g/dL (3.5-5.0); Alkaline Phosphatase 589 U/L (39-117); Anion Gap 16 (12-20); Aspartate Amino Transferase 207 U/L (5-37); Bilirubin Direct 4.2 mg/dL (0.0-0.5); Bilirubin Total 5.7 mg/dL (0.0-1.0); Blood Urea Nitrogen 11 mg/dL (9-16); Calcium 8.9 mg/dL (8.4-10.2); Carbon Dioxide 26 mmol/L (22-29); Chloride 105 mmol/L (96-108); Creatinine Clr Calc Pharmacy 94.3; Estimated Glomerular Filt Rate > 60; Glucose Random 106 mg/dL (60-115); Potassium 4.3 mmol/L (3.3-5.1); Sodium 143 mmol/L (135-145); Total Protein 5.9 g/dL (6.5-8.0)
[2022-05-12 07:31] VITALS: BP 143/78; PULSE 67; RESP 18; TEMP 36.1; O2SAT 93
--- NOTE | 2022-05-12 08:51 | P.CNHO_ITS ---
Subjective - Subjective Chief complaint: Unable to obtain Patient: new to practice Consult date: 05/12/22 Requesting Physician: Dr. Kohli Primary Care Provider: Yair Galvan DO [facility] - Consult Narrative Reason for consult: Biliary adenocarcinoma Narrative: Jericho Tinoco is a 71 year old male with schizophrenia admitted for abnormal LFTs. He is unable to provide any history, there was no healthcare proxy at his bedside. As per records in the EMR from hospitalist since specialists, patient was admitted on 04/30/2022 because of outpatient abnormal labs. He had ultrasound showing biliary dilatation. He was admitted for CBD obstruction and possible acute cholecystitis/cholangitis. He had ERCP with brushings which showed atypical cells concerning for adenocarcinoma. Patient who was treated with IV antibiotics, Zosyn. Plan was to place 2nd ERCP with stent. Review of Systems - Constitutional Reports as per [facility] Oncology Screenings - ECOG Performance Status ECOG Performance Status: 3 [facility] Medical History: Medical History (Last Reviewed 05/11/22 @ 14:43 by DEEPA Haley) Anemia Biliary stricture CHF (congestive heart failure) Chronic GERD Chronic kidney disease (CKD) Elevated PSA Gallbladder mass Hyperlipidemia Hypothyroidism Orofacial dystonia Prostate asymmetry Schizophrenia Family history: reviewed and not pertinent Surgical History: Surgical History (Last Reviewed 05/11/22 @ 14:43 by DEEPA Haley) History of surgery Social History: Social History (Last Reviewed 05/11/22 @ 14:43 by DEEPA Haley) Living Situation History: Household Members: None Household Members: Other Household Members Other:: snf Housing: Detention Housing Other:: [facility] Do you presently have visiting nurse or other home services: No Alcohol History: Unable to assess alcohol history related to: Unable to respond Tobacco History: Patient Tobacco Use Status: Tobacco use Unknown Occupation Assessmet: service: No Current occupational status: retired Home Medications and Allergies Current Medications: Current Medications Atorvastatin Calcium (Atorvastatin Calcium 10 Mg Tablet) 10 mg PO DAILY@2100 [facility] Last Admin: 05/11/22 21:22 Dose: 10 mg Bisacodyl (Bisacodyl 5 Mg Tablet.) 5 mg PO BEDTIME [facility] Last Admin: 05/11/22 21:22 Dose: 5 mg Clotrimazole (Clotrimazole 1 % Cream 15 Gm Tube) 1 appl TOPICAL BID [facility] Last Admin: 05/11/22 22:17 Dose: 1 appl Diazepam (Diazepam 2 Mg Tablet) 2 mg PO BID [facility] Last Admin: 05/11/22 21:20 Dose: 2 mg Docusate Sodium (Docusate Sodium 100 Mg Capsule) 100 mg PO DAILY [facility] Last Admin: 05/11/22 07:57 Dose: 100 mg Enoxaparin Sodium (Enoxaparin Sodium 40 Mg/0.4 Ml Syringe) 40 mg SUBCUT Q24H [facility] Last Admin: 05/11/22 12:12 Dose: 40 mg Fentanyl (Fentanyl 100 Mcg Patch.Td72) 100 mcg TRANSDERMA Q72H [facility] Last Admin: 05/09/22 12:34 Dose: 100 mcg Ferrous Sulfate (Ferrous Sulfate 324 Mg Tablet.Dr) 324 mg PO BID [facility] Last Admin: 05/11/22 21:22 Dose: 324 mg Finasteride (Finasteride 5 Mg Tablet) 5 mg PO DAILY [facility] Last Admin: 05/11/22 07:56 Dose: 5 mg Furosemide (Furosemide 20 Mg Tablet) 20 mg PO Q48H [facility]; Protocol Last Admin: 05/10/22 11:59 Dose: 20 mg Piperacillin Sod/Tazobactam (Sod 3.375 gm/ Sodium Chloride) 50 mls @ 100 mls/hr IV Q8H [facility] Last Infusion: 05/12/22 07:12 Dose: Infused Levetiracetam (Keppra) 1,500 mg in 100 mls @ 400 mls/hr IV BEDTIME [facility] Last Infusion: 05/11/22 22:39 Dose: Infused Levetiracetam (Keppra) 1,000 mg in 100 mls @ 400 mls/hr IV DAILY [facility] Last Infusion: 05/11/22 08:32 Dose: Infused Levetiracetam 750 mg/ Sodium (Chloride) 107.5 mls @ 430 mls/hr IV DAILY@1200 [facility] Last Infusion: 05/11/22 12:39 Dose: Infused Lactulose (Lactulose 20 Gm/30 Ml Solution) 40 gm PO DAILY [facility] Last Admin: 05/11/22 07:56 Dose: 40 gm Levothyroxine Sodium (Levothyroxine Sodium 175 Mcg Tablet) 175 mcg PO DAILY [facility] Last Admin: 05/11/22 07:56 Dose: 175 mcg Multivitamins/Vitamin C (Multivitamin Tablet) 1 tab PO DAILY [facility] Last Admin: 09/23/22 08:19 Dose: Not Given Omeprazole (Omeprazole 40 Mg Capsule.Dr) 40 mg PO BID [facility] Last Admin: 05/11/22 21:22 Dose: 40 mg Oxycodone HCl (Oxycodone Hcl Immed Release 5 Mg Tablet) 10 mg PO TID [facility] Last Admin: 05/08/22 13:29 Dose: Not Given Pharmacy Consult (Consult Rx Perform Med Rec) 1 each MISCELLANE ONCE PRN PRN Reason: Consult order Polyethylene Glycol (Polyethylene Glycol 3350 17 Gm Powd.Pack) 17 gm PO DAILY [facility] Last Admin: 05/08/22 08:20 Dose: Not Given Risperidone (Risperidone 0.5 Mg Tablet) 0.5 mg PO BID [facility] Last Admin: 05/11/22 21:21 Dose: 0.5 mg Risperidone (Risperidone 2 Mg Tablet) 2 mg PO BID [facility] Last Admin: 05/11/22 21:20 Dose: 2 mg Senna (Sennosides 8.6 Mg Tablet) 8.6 mg PO DAILY PRN PRN Reason: Constipation Sodium Chloride (0.9 % Sodium Chloride Flush 3 Ml Syringe) 3 ml IVFLUSH QSHIFT [facility] Last Admin: 05/11/22 23:07 Dose: 3 ml Tamsulosin HCl (Tamsulosin Hcl 0.4 Mg Capsule) 0.4 mg PO DAILY [facility] Last Admin: 05/11/22 07:56 Dose: 0.4 mg Home Medications Medication Instructions Recorded Confirmed Type docusate sodium 100 mg capsule 100 mg PO DAILY 06/02/20 04/30/22 History fentanyl 100 mcg/hr transdermal 1 patch transdermal Q72H 06/02/20 04/30/22 History patch ferrous sulfate 325 mg (65 mg 325 mg PO BID 06/02/20 04/30/22 History iron) tablet furosemide 20 mg tablet 20 mg PO Q OTHER DAY 06/02/20 04/30/22 History lactulose 10 gram/15 mL oral 60 ml PO DAILY 06/02/20 04/30/22 History solution levetiracetam 1,000 mg tablet 1,000 mg PO QAM 06/02/20 04/30/22 History levetiracetam 750 mg tablet 1,500 mg PO BEDTIME 06/02/20 04/30/22 History levetiracetam 750 mg tablet 750 mg PO QNOON 06/02/20 04/30/22 History multivitamin 1 tab PO DAILY 06/02/20 04/30/22 History omeprazole 40 mg capsule,delayed 40 mg PO BID 06/02/20 04/30/22 History release oxycodone-acetaminophen 10 mg-325 1 tab PO TID 06/02/20 04/30/22 History mg tablet polyethylene glycol 3350 17 gram 17 g PO DAILY 06/02/20 04/30/22 History oral powder packet (Miralax) risperidone 2 mg tablet 2 mg PO BID 06/02/20 04/30/22 History simvastatin 10 mg tablet 10 mg PO QPM 06/02/20 04/30/22 History diazepam 2 mg tablet 2 mg PO BID 11/12/21 04/30/22 History risperidone 0.5 mg tablet 0.5 mg PO BID 11/12/21 04/30/22 History bisacodyl 5 mg tablet 5 mg PO BEDTIME 04/30/22 04/30/22 History clotrimazole 1 % topical cream 1 appl topical BID 04/30/22 04/30/22 History levothyroxine 175 mcg tablet 1 tab PO DAILY 04/30/22 04/30/22 History lorazepam 2 mg/mL injection 1 mg IM DAILY PRN Seizure Activity 04/30/22 04/30/22 History solution sennosides 8.6 mg tablet (senna) 8.6 mg PO DAILY PRN Constipation 04/30/22 04/30/22 History tamsulosin 0.4 mg capsule 1 cap PO DAILY 04/30/22 04/30/22 History tolnaftate 1 % topical cream 1 appl topical BID 04/30/22 04/30/22 History Allergies Allergy/AdvReac Type Severity Reaction Status Date / Time No Known Allergies Allergy Verified 05/11/22 14:42 [No Known Allergies*] Physical Exam Vital signs: Vital Signs Temp 96.9 F 05/12/22 07:31 Pulse 67 05/12/22 07:31 Resp 18 05/12/22 07:31 BP 143/78 H 05/12/22 07:31 Pulse Ox 93 05/12/22 07:31 O2 Del Method 05/12/22 07:31 O2 Flow Rate 2 05/07/22 00:44 Intake & Output 05/11/22 05/12/22 05/12/22 18:59 06:59 18:59 Intake Total 547.5 / 917.5 370 / 917.5 50 / 50 Balance 547.5 / 917.5 370 / 917.5 50 / 50 Intake: Intake, Oral Amount 240 / 460 220 / 460 Intake, IV Amount 307.5 / 457.5 150 / 457.5 50 / 50 Piperacillin Sodium/Tazobactam 100 / 150 50 / 150 50 / 50 3.375 gm In 0.9 % Sodium Chloride 50 ml @ 100 mls/hr IV Q8H [facility] Rx#:[id number] levETIRAcetam 750 mg In 0.9 % 107.5 / 107.5 Sodium Chloride 100 ml @ 430 mls/hr IV DAILY@1200 [facility] Rx#: [id number] levETIRAcetam in NaCl (iso-os) 100 / 100 1,000 mg In 100 ml @ 400 mls/hr IV DAILY [facility] Rx#:[id number] levETIRAcetam in NaCl (iso-os) 100 / 100 1,500 mg In 100 ml @ 400 mls/hr IV BEDTIME [facility] Rx#:[id number] Other: NPO Yes Breakfast % Eaten 100% Dinner % Eaten 0% Number of Incontinent Voids 4 1 Number of Bowel Movements 1 Urine incontinen Urine Color Yellow Stool Incontinent Stool Amount Scant Weight 88.6 kg - Constitutional Present: chronically ill appearing, agitated - Routine HEENT Exam Eye: Present: scleral icterus - Routine Neck Exam Absent: lymphadenopathy - Routine Respiratory Exam Absent: accessory muscle use - Routine Cardiovascular Exam Cardiovascular: Present: S1, S2 Hem/Onc Consult Result - Labs CBC & Chem 7: 05/14/22 05:28 05/14/22 05:28 Labs: BMP 05/12/22 06:03 Sodium 143 Potassium 4.3 Chloride 105 Carbon Dioxide 26 BUN 11 Creatinine 0.80 Calcium 8.9 Liver Function 05/12/22 Range/Units 06:03 Total Bilirubin 5.7 H (0.0-1.0) mg/dL Direct Bilirubin 4.2 H (0.0-0.5) mg/dL AST 207 H (5-37) U/L ALT 469 H (0-40) U/L Alkaline Phosphatase 589 H (39-117) U/L Albumin 3.4 L (3.5-5.0) g/dL Assessment and Plan Patient Active problem list reviewed?: Yes (1) Gallbladder mass Status: Acute Assessment and plan: 1. This is a 71-year-old male with paranoid schizophrenia, CHF, chronic kidney disease and BPH who was admitted from [facility] with hyperbilirubinemia, CBD obstruction. MRI abdomen performed 05/01/2022 showed significant intra hepatic and extrahepatic ductal dilatation. Numerous stones in the gallbladder with irregularity and wall thickening. Adjacent to gallbladder fundus area of fluid with surrounding inflammation. This was concerning for abscess. Patient had ERCP and biliary brushings on 05/05/2022 which revealed atypical epithelium suspicious for adenocarcinoma. At the time of the dictation, I was unable to reach his healthcare proxy. Patient cannot make decisions. Based on imaging studies and pathology, he appears to have advanced gallbladder cancer. He has a poor candidate for chemotherapy, however, once his LFTs improves with stent placement and if he has improvement in mental status, further discussion needs to be had with his healthcare proxy. I will follow up with him upon discharge. Thank you for the consultation. - Time Spent With Patient Time Spent with Patient (in minutes): 15
[2022-05-12] MEDS: Omeprazole 40 MG CAPSULE.DR PO ×2 (09:49→22:34)
[2022-05-12] MEDS: levETIRAcetam in NaCl (iso-os) 1,000 MG/100 ML PIGGYBACK 400 MG IV (09:49)
[2022-05-12] MEDS: Ferrous Sulfate 324 MG TABLET.DR PO ×2 (09:49→22:34)
[2022-05-12] MEDS: Levothyroxine Sodium 175 MCG TABLET PO (09:49)
[2022-05-12] MEDS: diazePAM 2 MG TABLET PO ×2 (09:49→22:34)
[2022-05-12] MEDS: 0.9 % Sodium Chloride Flush 3 ML SYRINGE IVFLUSH ×3 (09:50→22:35)
[2022-05-12] MEDS: Docusate Sodium 100 MG CAPSULE PO (09:50)
[2022-05-12] MEDS: Clotrimazole 1 % Cream 15 GM TUBE 1 APPL TOPICAL ×2 (09:50→22:35)
[2022-05-12] MEDS: risperiDONE 2 MG TABLET PO ×2 (09:50→22:34)
[2022-05-12] MEDS: Lactulose 20 GM/30 ML SOLUTION 40 GM PO (09:50)
[2022-05-12] MEDS: Finasteride 5 MG TABLET PO (09:50)
[2022-05-12] MEDS: risperiDONE 0.5 MG TABLET PO ×2 (09:51→22:34)
[2022-05-12] MEDS: Tamsulosin HCL 0.4 MG CAPSULE PO (09:51)
[2022-05-12 10:22] LABS: Carbohydrate Antigen 19-9 15 U/mL (<34)
--- NOTE | 2022-05-12 11:27 | P.PNIM_ITS ---
Subjective Subjective Date of Service: 05/12/22 Interval History: Seen and evaluated this morning Unable to provide any meaningful history Transaminitis stable ERCP postponed until tomorrow Review of Systems Review of Systems: Yes Unobtainable due to mental condition Physical Exam Vital Signs: Vital Signs: Last Vital Signs Temp 96.9 F 05/12/22 07:31 Pulse 67 05/12/22 07:31 Resp 18 05/12/22 07:31 BP 143/78 H 05/12/22 07:31 Pulse Ox 93 05/12/22 07:31 O2 Del Method 05/12/22 07:31 O2 Flow Rate 2 05/07/22 00:44 BMI result Body Mass Index 26.4 Const: Other: Constitutional : Alert, disoriented, aggressive behavior Neck : Normal inspection, Supple Cardiovascular : no JVP, no lower extremity edema Respiratory : fair bilateral air entry, no crackles Gastrointestinal: soft, lax, Normal bowel sounds, Non tender Skin : Warm, Dry Neurological : Alert & disoriented x3, moving all extremities Objective Data Active Medications Atorvastatin Calcium (Atorvastatin Calcium 10 Mg Tablet) 10 mg PO DAILY@2100 [facility] Last Admin: 05/11/22 21:22 Dose: 10 mg Documented By: SOCORRO Bisacodyl (Bisacodyl 5 Mg Tablet.) 5 mg PO BEDTIME [facility] Last Admin: 05/11/22 21:22 Dose: 5 mg Documented By: SOCORRO Clotrimazole (Clotrimazole 1 % Cream 15 Gm Tube) 1 appl TOPICAL BID [facility] Last Admin: 05/12/22 09:50 Dose: 1 appl Documented By: OTIS Diazepam (Diazepam 2 Mg Tablet) 2 mg PO BID [facility] Last Admin: 05/12/22 09:49 Dose: 2 mg Documented By: OTIS Docusate Sodium (Docusate Sodium 100 Mg Capsule) 100 mg PO DAILY [facility] Last Admin: 05/12/22 09:50 Dose: 100 mg Documented By: OTIS Enoxaparin Sodium (Enoxaparin Sodium 40 Mg/0.4 Ml Syringe) 40 mg SUBCUT Q24H [facility] Last Admin: 05/11/22 12:12 Dose: 40 mg Documented By: OTIS Fentanyl (Fentanyl 100 Mcg Patch.Td72) 100 mcg TRANSDERMA Q72H [facility] Last Admin: 05/09/22 12:34 Dose: 100 mcg Documented By: GILMA Ferrous Sulfate (Ferrous Sulfate 324 Mg Tablet.) 324 mg PO BID [facility] Last Admin: 05/12/22 09:49 Dose: 324 mg Documented By: OTIS Finasteride (Finasteride 5 Mg Tablet) 5 mg PO DAILY [facility] Last Admin: 05/12/22 09:50 Dose: 5 mg Documented By: OTIS Furosemide (Furosemide 20 Mg Tablet) 20 mg PO Q48H [facility]; Protocol Last Admin: 05/10/22 11:59 Dose: 20 mg Documented By: JAZIEL Piperacillin Sod/Tazobactam (Sod 3.375 gm/ Sodium Chloride) 50 mls @ 100 mls/hr IV Q8H [facility] Last Infusion: 05/12/22 07:12 Dose: 0 mls/hr Documented By: OTIS Levetiracetam (Keppra) 1,500 mg in 100 mls @ 400 mls/hr IV BEDTIME [facility] Last Infusion: 05/11/22 22:39 Dose: 0 mls/hr Documented By: SOCORRO Levetiracetam (Keppra) 1,000 mg in 100 mls @ 400 mls/hr IV DAILY [facility] Last Infusion: 05/12/22 10:30 Dose: 0 mls/hr Documented By: QUINTEN Levetiracetam 750 mg/ Sodium (Chloride) 107.5 mls @ 430 mls/hr IV DAILY@1200 [facility] Last Infusion: 05/11/22 12:39 Dose: 0 mls/hr Documented By: OTIS Lactulose (Lactulose 20 Gm/30 Ml Solution) 40 gm PO DAILY [facility] Last Admin: 05/12/22 09:50 Dose: 40 gm Documented By: OTIS Levothyroxine Sodium (Levothyroxine Sodium 175 Mcg Tablet) 175 mcg PO DAILY [facility] Last Admin: 05/12/22 09:49 Dose: 175 mcg Documented By: OTIS Multivitamins/Vitamin C (Multivitamin Tablet) 1 tab PO DAILY [facility] Last Admin: 05/08/22 08:19 Dose: Not Given Documented By: QUINTEN Non-Admin Reason: Patient Refused Omeprazole (Omeprazole 40 Mg Capsule.) 40 mg PO BID [facility] Last Admin: 05/12/22 09:49 Dose: 40 mg Documented By: OTIS Oxycodone HCl (Oxycodone Hcl Immed Release 5 Mg Tablet) 10 mg PO TID [facility] Last Admin: 05/08/22 13:29 Dose: Not Given Documented By: QUINTEN Non-Admin Reason: Patient Refused Pharmacy Consult (Consult Rx Perform Med Rec) 1 each MISCELLANE ONCE PRN PRN Reason: Consult order Polyethylene Glycol (Polyethylene Glycol 3350 17 Gm Powd.Pack) 17 gm PO DAILY [facility] Last Admin: 05/08/22 08:20 Dose: Not Given Documented By: QUINTEN Non-Admin Reason: Patient Refused Risperidone (Risperidone 0.5 Mg Tablet) 0.5 mg PO BID [facility] Last Admin: 05/12/22 09:51 Dose: 0.5 mg Documented By: OTIS Risperidone (Risperidone 2 Mg Tablet) 2 mg PO BID [facility] Last Admin: 05/12/22 09:50 Dose: 2 mg Documented By: OTIS Senna (Sennosides 8.6 Mg Tablet) 8.6 mg PO DAILY PRN PRN Reason: Constipation Sodium Chloride (0.9 % Sodium Chloride Flush 3 Ml Syringe) 3 ml IVFLUSH QSHIFT [facility] Last Admin: 05/12/22 09:50 Dose: 3 ml Documented By: OTIS Tamsulosin HCl (Tamsulosin Hcl 0.4 Mg Capsule) 0.4 mg PO DAILY [facility] Last Admin: 05/12/22 09:51 Dose: 0.4 mg Documented By: OTIS Labs CBC & Chem 7: 05/08/22 06:06 05/12/22 06:03 Labs: Laboratory Results - last 24 hr 05/10/22 05/12/22 06:10 06:03 Anion Gap 16 Estim Creat Clear Calc 94.3 Estimated GFR > 60 Random Glucose 106 Calcium 8.9 Total Bilirubin 5.7 H Direct Bilirubin 4.2 H AST 207 H ALT 469 H Alkaline Phosphatase 589 H Total Protein 5.9 L Albumin 3.4 L CA 19-9 Antigen 15 Assessment and Plan (1) Seizure disorder: Status: Acute (2) Choledocholithiasis with obstruction: Status: Acute (3) Biliary stricture: Status: Acute Plan 71-year-old male with meds history of paranoid schizophrenia, CHF, CKD, BPH, HLD , anemia, epilepsy, deaf,?presents from [facility] with abnormal LFTs and abnormal ultrasound at [facility] CT abdomen pelvis demonstrates cholelithiasis and diffusely thickened gall bag wall with adjacent fat stranding suggestive of acute cholecystitis # Transaminitis possibly related to bile restriction/choledocholithiasis MRCP done-status post ERCP, LFTs stable brushing for biopsy concerning underlying malignancy d/w Gi - continue antibiotics , follow LFT, if any haemodymic instability or cholangitis- may need to transfer patient. Oncology input appreciated, likely metastatic disease, unlikely to tolerate chemotherapy, consider palliative care after discussing with the guardian Plan for repeat ercp and stent placement tomorrow NPO after midnight d/w Id -continue Zosyn and DC on Augmentin for total 14 days # CKD 2 Chronic, stable follow renals/divalents # Schizophrenia continue risperidone as outpatient dosing p.r.n. Haldol for agitation. # hx of epilesy No recurrence of seizures continue keppra Neurology input appreciated, continue keppra # elevated bp Fluctuating, could be related to agitation No reported history of hypertension, not on any medications, to monitor Low-sodium diet DVT PPX Lovenox Tried to reach out to his guardian to discuss long-term plan as in [facility] does not see him as a candidate for treatment with consideration of palliative care and placing of a stent as a palliative measure. Inpatient need:? monitoring LFTs s/p ercp for bilary stricture, plan to repeat ercp/stenting tomorrow to prevent possible decompensation in to cholangitis and severe sepsis. Quality Stroke Does the patient have a stroke diagnosis?: No VTE Prior VTE?: No VTE Risk Level:: Medical - moderate - high VTE Device Contraindication: Treatment Not Indicated VTE Drug Contraindication: N/A - Med Ordered
[2022-05-12 11:45] VITALS: BP 119/57; PULSE 62; RESP 18; TEMP 36.8; O2SAT 97
--- NOTE | 2022-05-12 11:54 | PC.NURSE ---
Was asked to see wound on ankle, Dr. Sweet saw patient last week and put in note to put protective cream on skin around wound and foam dressing, to be changed once a day. Patient also has protective boots on, wound has not gotten worse.
[2022-05-12] MEDS: levETIRAcetam 750 MG in 0.9 % Sodium Chloride 100 ML 430 MG IV (12:30)
[2022-05-12] MEDS: Furosemide 20 MG TABLET PO (14:07)
[2022-05-12] MEDS: Enoxaparin Sodium 40 MG/0.4 ML SYRINGE SUBCUT (14:07)
[2022-05-12] MEDS: fentaNYL 100 MCG PATCH.TD72 TRANSDERMA (14:08)
[2022-05-12 15:04] VITALS: BP 149/73; PULSE 71; RESP 18; TEMP 36.6; O2SAT 97
[2022-05-12 20:00] VITALS: BP 121/71; PULSE 59; RESP 17; TEMP 36.4; O2SAT 97
[2022-05-12] MEDS: levETIRAcetam in NaCl (iso-os) 1,500 MG/100 ML PIGGYBACK 400 MG IV (22:33)
[2022-05-12] MEDS: Atorvastatin Calcium 10 MG TABLET PO (22:34)
[2022-05-12] MEDS: bisacodyL 5 MG TABLET.DR PO (22:34)
[2022-05-13] VITALS (9 sets, daily range): BP systolic 111–151; BP diastolic 66–85; PULSE 61–80; RESP 16–18; TEMP 36–36.3; O2SAT 95–100
[2022-05-13 06:14] LABS: Anion Gap 15 (12-20); Blood Urea Nitrogen 12 mg/dL (9-16); Calcium 9.1 mg/dL (8.4-10.2); Carbon Dioxide 25 mmol/L (22-29); Chloride 104 mmol/L (96-108); Creatinine Clr Calc Pharmacy 96.7; Estimated Glomerular Filt Rate > 60; Glucose Random 105 mg/dL (60-115); Sodium 140 mmol/L (135-145)
[2022-05-13 06:22] LABS: Alanine Aminotransferase 451 U/L (0-40); Albumin Level 3.5 g/dL (3.5-5.0); Alkaline Phosphatase 643 U/L (39-117); Aspartate Amino Transferase 184 U/L (5-37); Bilirubin Direct 3.7 mg/dL (0.0-0.5); Total Protein 6.2 g/dL (6.5-8.0)
[2022-05-13] MEDS: Piperacillin Sodium/Tazobactam 3.375 GM in 0.9 % Sodium Chloride 50 ML IV ×3 (06:22→22:30)
--- NOTE | 2022-05-13 09:03 | MHC.CLN ---
F/U CURRENTLY NPO FOR ERCP. PRIOR DIET=2 GRAM SODIUM, NDD2. FIRST 4 DAYS OF ADMISSION WITH DIET=NPO OR CL. SUBSEQUENT DAYS WITH DIET ADVANCEMENT AND NOW NPO. FOLLOW FOR DIET ADVANCEMENT. CONSIDER PPN IF UNABLE TO ADVANCE DIET. CHRONIC RIGHT MEDIAL ANKLE WOUND, DEEMED NON PRESSURE. FOLLOW FOR DIET ADVANCEMENT AND INTAKE.
[2022-05-13] MEDS: 0.9 % Sodium Chloride Flush 3 ML SYRINGE IVFLUSH ×2 (09:35→16:31)
[2022-05-13] MEDS: levETIRAcetam in NaCl (iso-os) 1,000 MG/100 ML PIGGYBACK 400 MG IV (09:35)
[2022-05-13] MEDS: Clotrimazole 1 % Cream 15 GM TUBE 1 APPL TOPICAL (09:35)
--- NOTE | 2022-05-13 11:23 | HO.PM.IMPN ---
Subjective Subjective Date of Service: 05/13/22 Interval History: cc: abnormal LFTs interval history: not participatory in conversation Review of Systems Review of Systems: Yes Unobtainable due to mental status Physical Exam Vital Signs: Vital Signs: Last Vital Signs Temp 96.8 F 05/13/22 08:00 Pulse 80 05/13/22 08:00 Resp 18 05/13/22 08:00 BP 139/70 05/13/22 08:00 Pulse Ox 95 05/13/22 08:00 O2 Del Method 05/13/22 08:00 O2 Flow Rate 2 05/07/22 00:44 BMI result Body Mass Index 26.4 Const: Other: Constitutional : Alert, disoriented, aggressive behavior Neck : Normal inspection, Supple Cardiovascular : no JVP, no lower extremity edema Respiratory : fair bilateral air entry, no crackles Gastrointestinal: soft, lax, Normal bowel sounds, Non tender Skin : Warm, Dry Neurological : Alert & disoriented x3, moving all extremities Objective Data Active Medications Atorvastatin Calcium (Atorvastatin Calcium 10 Mg Tablet) 10 mg PO DAILY@2100 PENDING SALE TO [facility] Last Admin: 05/12/22 22:34 Dose: 10 mg Documented By: CAIO Bisacodyl (Bisacodyl 5 Mg Tablet.) 5 mg PO BEDTIME PENDING SALE TO [facility] Last Admin: 05/12/22 22:34 Dose: 5 mg Documented By: CAIO Clotrimazole (Clotrimazole 1 % Cream 15 Gm Tube) 1 appl TOPICAL BID PENDING SALE TO [facility] Last Admin: 05/13/22 09:35 Dose: 1 appl Documented By: TAMIR Diazepam (Diazepam 2 Mg Tablet) 2 mg PO BID PENDING SALE TO [facility] Last Admin: 05/13/22 09:41 Dose: Not Given Documented By: TAMIR Non-Admin Reason: NPO Docusate Sodium (Docusate Sodium 100 Mg Capsule) 100 mg PO DAILY PENDING SALE TO [facility] Last Admin: 05/13/22 09:42 Dose: Not Given Documented By: TAMIR Non-Admin Reason: NPO Enoxaparin Sodium (Enoxaparin Sodium 40 Mg/0.4 Ml Syringe) 40 mg SUBCUT Q24H PENDING SALE TO [facility] Last Admin: 05/12/22 14:07 Dose: 40 mg Documented By: OTIS Fentanyl (Fentanyl 100 Mcg Patch.Td72) 100 mcg TRANSDERMA Q72H PENDING SALE TO [facility] Last Admin: 05/12/22 14:08 Dose: 100 mcg Documented By: OTIS Ferrous Sulfate (Ferrous Sulfate 324 Mg Tablet.Dr) 324 mg PO BID [facility] Last Admin: 05/13/22 09:42 Dose: Not Given Documented By: TAMIR Non-Admin Reason: NPO Finasteride (Finasteride 5 Mg Tablet) 5 mg PO DAILY [facility] Last Admin: 05/13/22 09:42 Dose: Not Given Documented By: TAMIR Non-Admin Reason: NPO Furosemide (Furosemide 20 Mg Tablet) 20 mg PO Q48H MANUELA; Protocol Last Admin: 05/12/22 14:07 Dose: 20 mg Documented By: OTIS Piperacillin Sod/Tazobactam (Sod 3.375 gm/ Sodium Chloride) 50 mls @ 100 mls/hr IV Q8H [facility] Last Infusion: 05/13/22 07:31 Dose: 0 mls/hr Documented By: TAMIR Levetiracetam (Keppra) 1,500 mg in 100 mls @ 400 mls/hr IV BEDTIME [facility] Last Infusion: 05/12/22 22:48 Dose: 0 mls/hr Documented By: CAIO Levetiracetam (Keppra) 1,000 mg in 100 mls @ 400 mls/hr IV DAILY [facility] Last Infusion: 05/13/22 09:52 Dose: 0 mls/hr Documented By: TAMIR Levetiracetam 750 mg/ Sodium (Chloride) 107.5 mls @ 430 mls/hr IV DAILY@1200 [facility] Last Infusion: 05/12/22 12:50 Dose: 0 mls/hr Documented By: OTIS Lactulose (Lactulose 20 Gm/30 Ml Solution) 40 gm PO DAILY [facility] Last Admin: 05/13/22 09:42 Dose: Not Given Documented By: TAMIR Non-Admin Reason: NPO Levothyroxine Sodium (Levothyroxine Sodium 175 Mcg Tablet) 175 mcg PO DAILY [facility] Last Admin: 05/13/22 09:42 Dose: Not Given Documented By: TAMIR Non-Admin Reason: NPO Multivitamins/Vitamin C (Multivitamin Tablet) 1 tab PO DAILY [facility] Last Admin: 05/08/22 08:19 Dose: Not Given Documented By: QUINTEN Non-Admin Reason: Patient Refused Omeprazole (Omeprazole 40 Mg Capsule.) 40 mg PO BID PENDING SALE TO [facility] Last Admin: 05/13/22 09:42 Dose: Not Given Documented By: TAMIR Non-Admin Reason: NPO Oxycodone HCl (Oxycodone Hcl Immed Release 5 Mg Tablet) 10 mg PO TID PENDING SALE TO [facility] Last Admin: 05/08/22 13:29 Dose: Not Given Documented By: QUINTEN Non-Admin Reason: Patient Refused Pharmacy Consult (Consult Rx Perform Med Rec) 1 each MISCELLANE ONCE PRN PRN Reason: Consult order Polyethylene Glycol (Polyethylene Glycol 3350 17 Gm Powd.Pack) 17 gm PO DAILY PENDING SALE TO [facility] Last Admin: 05/08/22 08:20 Dose: Not Given Documented By: QUINTEN Non-Admin Reason: Patient Refused Risperidone (Risperidone 0.5 Mg Tablet) 0.5 mg PO BID PENDING SALE TO [facility] Last Admin: 05/13/22 09:42 Dose: Not Given Documented By: TAMIR Non-Admin Reason: NPO Risperidone (Risperidone 2 Mg Tablet) 2 mg PO BID PENDING SALE TO [facility] Last Admin: 05/13/22 09:42 Dose: Not Given Documented By: TAMIR Non-Admin Reason: NPO Senna (Sennosides 8.6 Mg Tablet) 8.6 mg PO DAILY PRN PRN Reason: Constipation Sodium Chloride (0.9 % Sodium Chloride Flush 3 Ml Syringe) 3 ml IVFLUSH QSHIFT PENDING SALE TO [facility] Last Admin: 05/13/22 09:35 Dose: 3 ml Documented By: TAMIR Tamsulosin HCl (Tamsulosin Hcl 0.4 Mg Capsule) 0.4 mg PO DAILY PENDING SALE TO [facility] Last Admin: 05/13/22 10:24 Dose: Not Given Documented By: TAMIR Non-Admin Reason: NPO Labs CBC & Chem 7: 05/08/22 06:06 05/13/22 05:40 Labs: Laboratory Results - last 24 hr 05/13/22 05/13/22 05:40 05:40 Anion Gap 15 Estim Creat Clear Calc 96.7 Estimated GFR > 60 Random Glucose 105 Calcium 9.1 Total Bilirubin 5.0 H Direct Bilirubin 3.7 H AST 184 H ALT 451 H Alkaline Phosphatase 643 H Total Protein 6.2 L Albumin 3.5 Assessment and Plan (1) Seizure disorder: Status: Acute (2) Choledocholithiasis with obstruction: Status: Acute (3) Biliary stricture: Status: Acute Plan 71-year-old male with meds history of paranoid schizophrenia, CHF, CKD, BPH, HLD, anemia, epilepsy, deaf,?presents from [facility] with abnormal LFTs and abnormal ultrasound at [facility] CT abdomen pelvis demonstrates cholelithiasis and diffusely thickened gall bag wall with adjacent fat stranding suggestive of acute cholecystitis Transaminitis possibly related to bile restriction/choledocholithiasis MRCP done-status post ERCP, LFTs stable brushing for biopsy concerning underlying malignancy continue zosyn , follow LFT Oncology input appreciated, likely metastatic disease, unlikely to tolerate chemotherapy, consider palliative care after discussing with the guardian Plan for repeat ercp and stent placement today Id appreciated -continue Zosyn and DC on Augmentin for total 14 days ?CKD II GFR appears normal Schizophrenia continue risperidone as outpatient dosing p.r.n. Haldol for agitation. hx of epilesy No recurrence of seizures continue keppra Neurology input appreciated, continue keppra elevated bp improved DVT PPX Lovenox reason for continued hospitalization:need for ercp and stent placement to prevent obstruction Quality Stroke Does the patient have a stroke diagnosis?: No VTE Prior VTE?: No VTE Risk Level:: Medical - moderate - high VTE Device Contraindication: Treatment Not Indicated VTE Drug Contraindication: N/A - Med Ordered
--- NOTE | 2022-05-13 12:14 | MHC.CM.PN ---
EMR REVIEWED, PER HOSPITALIST PT W/MALIGNANCY, PLAN FOR ERCP TODAY W/STENT PLACEMENT, NOT A CANDIDATE FOR FURTHER SURGICAL INTERVENTION, ANTIC RETURN TO LTC AT [facility] 1-2 DAYS, CM WILL CONT TO FOLLOW D/C NEEDS.
[2022-05-13] MEDS: Midazolam HCl/PF 2 MG/2 ML VIAL 1 MG IVPUSH (12:26)
[2022-05-13] MEDS: levETIRAcetam 750 MG in 0.9 % Sodium Chloride 100 ML 430 MG IV (12:27)
[2022-05-13] MEDS: Haloperidol Lactate 5 MG/ML VIAL 1 MG IVPUSH (13:11)
--- NOTE | 2022-05-13 13:25 | HO.ANESPROP2 ---
[facility], [facility] Active Problems Active Problems: All Active Problems (Updated 05/12/22 @ 08:51 by Cely Solo MD) Elevated blood pressure reading (Acute) Seizure disorder (Acute) Non-pressure chronic ulcer of right ankle with fat layer exposed (Acute) Transaminitis (Acute) Gallbladder mass (Acute) Biliary stricture (Acute) Choledocholithiasis with obstruction (Acute) Bladder outlet obstruction (Acute) Elevated PSA (Acute) Chronic kidney disease (CKD) (Acute) Schizophrenia (Chronic) CHF (congestive heart failure) (Chronic) Past Medical History Medical History Anemia Biliary stricture CHF (congestive heart failure) Chronic GERD Chronic kidney disease (CKD) Elevated PSA Gallbladder mass Hyperlipidemia Hypothyroidism Orofacial dystonia Prostate asymmetry Schizophrenia Family History Family history of problems with anesthesia: No Surgical History Surgical History History of surgery History of Problems with Anesthesia: No Social History Social History Household Members: None and Other Household Members Other:: snf Housing: Residential Housing Other:: [facility] Do you presently have visiting nurse or other home services: No Unable to assess alcohol history related to: Unable to respond Alcohol intake: never Patient Tobacco Use Status: Tobacco use Unknown service: No Current occupational status: retired [employer] Allergies Allergy/AdvReac Type Severity Reaction Status Date / Time No Known Allergies Allergy Verified 05/11/22 14:42 [No Known Allergies*] Active Medications: Current Medications Atorvastatin Calcium (Atorvastatin Calcium 10 Mg Tablet) 10 mg PO DAILY@2100 [facility] Last Admin: 05/12/22 22:34 Dose: 10 mg Bisacodyl (Bisacodyl 5 Mg Tablet.Dr) 5 mg PO BEDTIME [facility] Last Admin: 05/12/22 22:34 Dose: 5 mg Clotrimazole (Clotrimazole 1 % Cream 15 Gm Tube) 1 appl TOPICAL BID [facility] Last Admin: 05/13/22 09:35 Dose: 1 appl Diazepam (Diazepam 2 Mg Tablet) 2 mg PO BID [facility] Last Admin: 05/13/22 09:41 Dose: Not Given Docusate Sodium (Docusate Sodium 100 Mg Capsule) 100 mg PO DAILY [facility] Last Admin: 05/13/22 09:42 Dose: Not Given Enoxaparin Sodium (Enoxaparin Sodium 40 Mg/0.4 Ml Syringe) 40 mg SUBCUT Q24H [facility] Last Admin: 05/13/22 13:14 Dose: Not Given Fentanyl (Fentanyl 100 Mcg Patch.Td72) 100 mcg TRANSDERMA Q72H [facility] Last Admin: 05/12/22 14:08 Dose: 100 mcg Ferrous Sulfate (Ferrous Sulfate 324 Mg Tablet.) 324 mg PO BID [facility] Last Admin: 05/13/22 09:42 Dose: Not Given Finasteride (Finasteride 5 Mg Tablet) 5 mg PO DAILY [facility] Last Admin: 05/13/22 09:42 Dose: Not Given Furosemide (Furosemide 20 Mg Tablet) 20 mg PO Q48H [facility]; Protocol Last Admin: 05/12/22 14:07 Dose: 20 mg Piperacillin Sod/Tazobactam (Sod 3.375 gm/ Sodium Chloride) 50 mls @ 100 mls/hr IV Q8H [facility] Last Infusion: 05/13/22 07:31 Dose: Infused Levetiracetam (Keppra) 1,500 mg in 100 mls @ 400 mls/hr IV BEDTIME [facility] Last Infusion: 05/12/22 22:48 Dose: Infused Levetiracetam (Keppra) 1,000 mg in 100 mls @ 400 mls/hr IV DAILY [facility] Last Infusion: 05/13/22 09:52 Dose: Infused Levetiracetam 750 mg/ Sodium (Chloride) 107.5 mls @ 430 mls/hr IV DAILY@1200 [facility] Last Infusion: 05/13/22 12:46 Dose: Infused Lactulose (Lactulose 20 Gm/30 Ml Solution) 40 gm PO DAILY [facility] Last Admin: 05/13/22 09:42 Dose: Not Given Levothyroxine Sodium (Levothyroxine Sodium 175 Mcg Tablet) 175 mcg PO DAILY [facility] Last Admin: 05/13/22 09:42 Dose: Not Given Midazolam HCl (Midazolam Hcl/Pf 2 Mg/2 Ml Vial) 2 mg IVPUSH Q15M PRN PRN Reason: Delirium Multivitamins/Vitamin C (Multivitamin Tablet) 1 tab PO DAILY [facility] Last Admin: 05/08/22 08:19 Dose: Not Given Omeprazole (Omeprazole 40 Mg Capsule.) 40 mg PO BID [facility] Last Admin: 05/13/22 09:42 Dose: Not Given Oxycodone HCl (Oxycodone Hcl Immed Release 5 Mg Tablet) 10 mg PO TID [facility] Last Admin: 05/08/22 13:29 Dose: Not Given Pharmacy Consult (Consult Rx Perform Med Rec) 1 each MISCELLANE ONCE PRN PRN Reason: Consult order Polyethylene Glycol (Polyethylene Glycol 3350 17 Gm Powd.Pack) 17 gm PO DAILY [facility] Last Admin: 05/08/22 08:20 Dose: Not Given Risperidone (Risperidone 0.5 Mg Tablet) 0.5 mg PO BID [facility] Last Admin: 05/13/22 09:42 Dose: Not Given Risperidone (Risperidone 2 Mg Tablet) 2 mg PO BID [facility] Last Admin: 05/13/22 09:42 Dose: Not Given Senna (Sennosides 8.6 Mg Tablet) 8.6 mg PO DAILY PRN PRN Reason: Constipation Sodium Chloride (0.9 % Sodium Chloride Flush 3 Ml Syringe) 3 ml IVFLUSH QSHIFT [facility] Last Admin: 05/13/22 09:35 Dose: 3 ml Tamsulosin HCl (Tamsulosin Hcl 0.4 Mg Capsule) 0.4 mg PO DAILY [facility] Last Admin: 05/13/22 10:24 Dose: Not Given Home Medications Medication Instructions Recorded Confirmed Last Taken Type docusate sodium 100 mg capsule 100 mg PO DAILY 06/02/20 04/30/22 Unknown History fentanyl 100 mcg/hr transdermal 1 patch transdermal Q72H 06/02/20 04/30/22 06/01/20 16:00 History patch ferrous sulfate 325 mg (65 mg 325 mg PO BID 06/02/20 04/30/22 Unknown History iron) tablet furosemide 20 mg tablet 20 mg PO Q OTHER DAY 06/02/20 04/30/22 Unknown History lactulose 10 gram/15 mL oral 60 ml PO DAILY 06/02/20 04/30/22 Unknown History solution levetiracetam 1,000 mg tablet 1,000 mg PO QAM 06/02/20 04/30/22 Unknown History levetiracetam 750 mg tablet 1,500 mg PO BEDTIME 06/02/20 04/30/22 Unknown History levetiracetam 750 mg tablet 750 mg PO QNOON 06/02/20 04/30/22 Unknown History multivitamin 1 tab PO DAILY 06/02/20 04/30/22 Unknown History omeprazole 40 mg capsule,delayed 40 mg PO BID 06/02/20 04/30/22 Unknown History release oxycodone-acetaminophen 10 mg-325 1 tab PO TID 06/02/20 04/30/22 Unknown History mg tablet polyethylene glycol 3350 17 gram 17 g PO DAILY 06/02/20 04/30/22 Unknown History oral powder packet (Miralax) risperidone 2 mg tablet 2 mg PO BID 06/02/20 04/30/22 Unknown History simvastatin 10 mg tablet 10 mg PO QPM 06/02/20 04/30/22 Unknown History diazepam 2 mg tablet 2 mg PO BID 11/12/21 04/30/22 Unknown History risperidone 0.5 mg tablet 0.5 mg PO BID 11/12/21 04/30/22 Unknown History bisacodyl 5 mg tablet 5 mg PO BEDTIME 04/30/22 04/30/22 Unknown History clotrimazole 1 % topical cream 1 appl topical BID 04/30/22 04/30/22 Unknown History levothyroxine 175 mcg tablet 1 tab PO DAILY 04/30/22 04/30/22 Unknown History lorazepam 2 mg/mL injection 1 mg IM DAILY PRN Seizure Activity 04/30/22 04/30/22 Unknown History solution sennosides 8.6 mg tablet (senna) 8.6 mg PO DAILY PRN Constipation 04/30/22 04/30/22 Unknown History tamsulosin 0.4 mg capsule 1 cap PO DAILY 04/30/22 04/30/22 Unknown History tolnaftate 1 % topical cream 1 appl topical BID 04/30/22 04/30/22 Unknown History Exam Exam Date and Time: May 13, 2022 1325 Height,Weight and Vital Signs: Height 6 ft Weight 88.6 kg Last Vital Signs Temp 96.8 F 05/13/22 08:00 Pulse 80 05/13/22 08:00 Resp 18 05/13/22 08:00 BP 139/70 05/13/22 08:00 Pulse Ox 95 05/13/22 08:00 O2 Del Method 05/13/22 08:00 O2 Flow Rate 2 05/07/22 00:44 Pertinent Lab Results Pertinent Lab Results: Laboratory Tests 04/30/22 04/30/22 04/30/22 09:07 09:15 09:15 WBC 7.7 RBC 5.34 Hgb 15.6 Hct 49.0 MCV 91.8 MCH 29.2 MCHC 31.8 RDW 12.5 Plt Count 237 MPV 10.9 Immature Gran % (Auto) 0.3 Neut % (Auto) 69.5 Lymph % (Auto) 19.3 L [place] % (Auto) 9.6 Eos % (Auto) 0.9 Baso % (Auto) 0.4 Lymph # (Auto) 1.5 [place] # (Auto) 0.7 Eos # (Auto) 0.1 Baso # (Auto) 0.0 Abs Immat Gran (auto) 0.02 Absolute Neuts (auto) 5.4 Absolute Nucleated RBC 0.000 Nucleated RBC % (auto) 0.0 PT INR Sodium 142 Potassium 4.5 Chloride 102 Carbon Dioxide 30 H Anion Gap 15 BUN 15 Creatinine 0.89 Estim Creat Clear Calc 84.7 Estimated GFR > 60 POC Glucose Random Glucose 92 Fasting Glucose Lactic Acid Lactic Acid F/U @ 2Hr Calcium 9.5 D Magnesium 1.7 Total Bilirubin 0.8 Direct Bilirubin 0.4 AST 59 H ALT 143 H Alkaline Phosphatase 281 H D Total Protein 6.8 D Albumin 3.9 D Lipase 22 CA 19-9 Antigen Urine Color Urine Appearance Urine pH Ur Specific [place] Urine Protein Urine Glucose (UA) Urine Ketones Urine Blood Urine Nitrite Ur Leukocyte Esterase COVID-19 ([facility]) Negative COVID-19 Clin Com See Note 04/30/22 04/30/22 04/30/22 09:15 09:15 20:22 WBC RBC Hgb Hct MCV MCH MCHC RDW Plt Count MPV Immature Gran % (Auto) Neut % (Auto) Lymph % (Auto) [place] % (Auto) Eos % (Auto) Baso % (Auto) Lymph # (Auto) [place] # (Auto) Eos # (Auto) Baso # (Auto) Abs Immat Gran (auto) Absolute Neuts (auto) Absolute Nucleated RBC Nucleated RBC % (auto) PT 12.4 INR 1.1 Sodium Potassium Chloride Carbon Dioxide Anion Gap BUN Creatinine Estim Creat Clear Calc Estimated GFR POC Glucose Random Glucose Fasting Glucose Lactic Acid 0.8 Lactic Acid F/U @ 2Hr Calcium Magnesium Total Bilirubin Direct Bilirubin AST ALT Alkaline Phosphatase Total Protein Albumin Lipase CA 19-9 Antigen Urine Color Yellow Urine Appearance Clear Urine pH 5.5 Ur Specific [place] 1.020 Urine Protein Negative Urine Glucose (UA) Negative Urine Ketones Negative Urine Blood Negative Urine Nitrite Negative Ur Leukocyte Esterase Negative COVID-19 ([facility]) COVID-19 Clin Com 05/01/22 05/01/22 05/02/22 05:30 05:30 11:12 WBC 7.9 7.4 RBC 5.25 5.18 Hgb 15.4 15.3 Hct 48.5 47.3 MCV 92.4 91.3 MCH 29.3 29.5 MCHC 31.8 32.3 RDW 12.4 12.3 Plt Count 221 229 MPV 11.8 11.3 Immature Gran % (Auto) 0.3 0.1 Neut % (Auto) 66.5 73.6 H Lymph % (Auto) 19.7 L 17.6 L [place] % (Auto) 12.0 H 7.3 Eos % (Auto) 1.1 1.1 Baso % (Auto) 0.4 0.3 Lymph # (Auto) 1.6 1.3 [place] # (Auto) 0.9 0.5 Eos # (Auto) 0.1 0.1 Baso # (Auto) 0.0 0.0 Abs Immat Gran (auto) 0.02 0.01 Absolute Neuts (auto) 5.2 5.5 Absolute Nucleated RBC 0.000 0.000 Nucleated RBC % (auto) 0.0 0.0 PT INR Sodium 141 Potassium 4.3 Chloride 102 Carbon Dioxide 25 Anion Gap 18 BUN 17 H Creatinine 1.17 Estim Creat Clear Calc 64.4 Estimated GFR > 60 POC Glucose Random Glucose Fasting Glucose 89 Lactic Acid Lactic Acid F/U @ 2Hr Calcium 9.1 Magnesium Total Bilirubin 0.9 Direct Bilirubin AST 473 H ALT 621 H Alkaline Phosphatase 461 H D Total Protein 6.4 L Albumin 3.7 Lipase CA 19-9 Antigen Urine Color Urine Appearance Urine pH Ur Specific [place] Urine Protein Urine Glucose (UA) Urine Ketones Urine Blood Urine Nitrite Ur Leukocyte Esterase COVID-19 ([facility]) COVID-19 Clin Com 05/02/22 05/03/22 05/03/22 11:12 05:48 05:48 WBC 7.3 RBC 4.92 Hgb 14.4 Hct 44.8 MCV 91.1 MCH 29.3 MCHC 32.1 RDW 12.4 Plt Count 220 MPV 11.0 Immature Gran % (Auto) 0.3 Neut % (Auto) 61.8 Lymph % (Auto) 23.0 [place] % (Auto) 12.7 H Eos % (Auto) 1.9 Baso % (Auto) 0.3 Lymph # (Auto) 1.7 [place] # (Auto) 0.9 Eos # (Auto) 0.1 Baso # (Auto) 0.0 Abs Immat Gran (auto) 0.02 Absolute Neuts (auto) 4.5 Absolute Nucleated RBC 0.000 Nucleated RBC % (auto) 0.0 PT INR Sodium 139 141 Potassium 3.9 3.7 Chloride 102 103 Carbon Dioxide 27 26 Anion Gap 14 16 BUN 16 12 Creatinine 1.01 0.85 Estim Creat Clear Calc 74.6 88.7 Estimated GFR > 60 > 60 POC Glucose Random Glucose Fasting Glucose 199 H D 92 D Lactic Acid Lactic Acid F/U @ 2Hr Calcium 9.0 8.7 Magnesium Total Bilirubin 1.0 1.1 H Direct Bilirubin AST 228 H 352 H ALT 449 H 608 H Alkaline Phosphatase 425 H 462 H Total Protein 6.2 L 6.0 L Albumin 3.6 3.4 L Lipase CA 19-9 Antigen Urine Color Urine Appearance Urine pH Ur Specific [place] Urine Protein Urine Glucose (UA) Urine Ketones Urine Blood Urine Nitrite Ur Leukocyte Esterase COVID-19 ([facility]) COVID-19 Clin Com 05/05/22 05/05/22 05/06/22 05:37 05:37 05:42 WBC 8.1 7.5 RBC 5.07 4.96 Hgb 14.8 14.5 Hct 46.3 44.8 MCV 91.3 90.3 MCH 29.2 29.2 MCHC 32.0 32.4 RDW 12.6 12.7 Plt Count 168 201 MPV 11.9 11.9 Immature Gran % (Auto) 0.2 0.4 Neut % (Auto) 68.2 73.7 H Lymph % (Auto) 18.0 L 12.7 L [place] % (Auto) 12.2 H 11.8 H Eos % (Auto) 1.2 1.1 Baso % (Auto) 0.2 0.3 Lymph # (Auto) 1.5 1.0 L [place] # (Auto) 1.0 0.9 Eos # (Auto) 0.1 0.1 Baso # (Auto) 0.0 0.0 Abs Immat Gran (auto) 0.02 0.03 Absolute Neuts (auto) 5.5 5.6 Absolute Nucleated RBC 0.000 0.000 Nucleated RBC % (auto) 0.0 0.0 PT INR Sodium 139 Potassium 4.0 Chloride 104 Carbon Dioxide 23 Anion Gap 16 BUN 10 Creatinine 0.73 Estim Creat Clear Calc 103.3 Estimated GFR > 60 POC Glucose Random Glucose Fasting Glucose 104 H Lactic Acid Lactic Acid F/U @ 2Hr Calcium 8.9 Magnesium Total Bilirubin 1.0 Direct Bilirubin AST 259 H ALT 546 H Alkaline Phosphatase 508 H Total Protein 6.1 L Albumin 3.4 L Lipase CA 19-9 Antigen Urine Color Urine Appearance Urine pH Ur Specific [place] Urine Protein Urine Glucose (UA) Urine Ketones Urine Blood Urine Nitrite Ur Leukocyte Esterase COVID-19 ([facility]) COVShelfFlip 05/06/22 05/06/22 05/06/22 05:42 05:42 23:26 WBC RBC Hgb Hct MCV MCH MCHC RDW Plt Count MPV Immature Gran % (Auto) Neut % (Auto) Lymph % (Auto) [place] % (Auto) Eos % (Auto) Baso % (Auto) Lymph # (Auto) [place] # (Auto) Eos # (Auto) Baso # (Auto) Abs Immat Gran (auto) Absolute Neuts (auto) Absolute Nucleated RBC Nucleated RBC % (auto) PT INR Sodium 141 Cancelled Potassium 4.3 Cancelled Chloride 107 Cancelled Carbon Dioxide 22 Cancelled Anion Gap 16 Cancelled BUN 9 Cancelled Creatinine 0.70 Cancelled Estim Creat Clear Calc 107.7 Cancelled Estimated GFR > 60 Cancelled POC Glucose 139 H Random Glucose Cancelled Fasting Glucose 118 H Lactic Acid Lactic Acid F/U @ 2Hr Calcium 8.7 Cancelled Magnesium Total Bilirubin 3.4 H Cancelled Direct Bilirubin 2.5 H Cancelled AST 312 H Cancelled ALT 558 H Cancelled Alkaline Phosphatase 528 H Cancelled Total Protein 5.5 L Cancelled Albumin 3.0 L Cancelled Lipase 306 H CA 19-9 Antigen Urine Color Urine Appearance Urine pH Ur Specific [place] Urine Protein Urine Glucose (UA) Urine Ketones Urine Blood Urine Nitrite Ur Leukocyte Esterase COVID-19 ([facility]) COVIDSimulmedia 05/06/22 05/07/22 05/07/22 23:48 02:32 08:18 WBC RBC Hgb Hct MCV MCH MCHC RDW Plt Count MPV Immature Gran % (Auto) Neut % (Auto) Lymph % (Auto) [place] % (Auto) Eos % (Auto) Baso % (Auto) Lymph # (Auto) [place] # (Auto) Eos # (Auto) Baso # (Auto) Abs Immat Gran (auto) Absolute Neuts (auto) Absolute Nucleated RBC Nucleated RBC % (auto) PT INR Sodium 140 Potassium 4.3 Chloride 107 Carbon Dioxide 19 L Anion Gap 18 BUN 12 Creatinine 0.75 Estim Creat Clear Calc 100.5 Estimated GFR > 60 POC Glucose Random Glucose 85 Fasting Glucose Lactic Acid 11.7 H* Lactic Acid F/U @ 2Hr 0.9 Calcium 8.9 Magnesium Total Bilirubin 5.2 H Direct Bilirubin AST 320 H ALT 594 H Alkaline Phosphatase 594 H Total Protein 5.7 L Albumin 3.0 L Lipase 174 H CA 19-9 Antigen Urine Color Urine Appearance Urine pH Ur Specific [place] Urine Protein Urine Glucose (UA) Urine Ketones Urine Blood Urine Nitrite Ur Leukocyte Esterase COVID-19 ([facility]) COVID-19 Clin Com 05/08/22 05/08/22 05/09/22 06:06 06:06 05:53 WBC 8.4 RBC 5.15 Hgb 15.1 Hct 47.2 MCV 91.7 MCH 29.3 MCHC 32.0 RDW 13.2 Plt Count 252 D MPV 12.1 Immature Gran % (Auto) Neut % (Auto) Lymph % (Auto) [place] % (Auto) Eos % (Auto) Baso % (Auto) Lymph # (Auto) [place] # (Auto) Eos # (Auto) Baso # (Auto) Abs Immat Gran (auto) Absolute Neuts (auto) Absolute Nucleated RBC 0.000 Nucleated RBC % (auto) 0.0 PT INR Sodium 141 141 Potassium 4.0 3.7 Chloride 104 104 Carbon Dioxide 22 22 Anion Gap 19 19 BUN 14 11 Creatinine 0.81 0.63 Estim Creat Clear Calc 93.1 119.7 Estimated GFR > 60 > 60 POC Glucose Random Glucose 80 75 Fasting Glucose Lactic Acid Lactic Acid F/U @ 2Hr Calcium 9.2 8.2 L D Magnesium Total Bilirubin 7.9 H 6.4 H Direct Bilirubin 5.8 H 4.3 H AST 307 H 227 H ALT 593 H 423 H Alkaline Phosphatase 661 H 469 H D Total Protein 5.9 L 4.3 L D Albumin 3.4 L 2.5 L D Lipase 68 CA 19-9 Antigen Urine Color Urine Appearance Urine pH Ur Specific [place] Urine Protein Urine Glucose (UA) Urine Ketones Urine Blood Urine Nitrite Ur Leukocyte Esterase COVID-19 ([facility]) COVID-19 Clin Com 05/10/22 05/11/22 05/12/22 06:10 05:17 06:03 WBC RBC Hgb Hct MCV MCH MCHC RDW Plt Count MPV Immature Gran % (Auto) Neut % (Auto) Lymph % (Auto) [place] % (Auto) Eos % (Auto) Baso % (Auto) Lymph # (Auto) [place] # (Auto) Eos # (Auto) Baso # (Auto) Abs Immat Gran (auto) Absolute Neuts (auto) Absolute Nucleated RBC Nucleated RBC % (auto) PT INR Sodium 144 143 Potassium 3.9 4.3 Chloride 107 105 Carbon Dioxide 25 26 Anion Gap 16 16 BUN 15 11 Creatinine 0.81 0.80 Estim Creat Clear Calc 93.1 94.3 Estimated GFR > 60 > 60 POC Glucose Random Glucose 103 D 106 Fasting Glucose Lactic Acid Lactic Acid F/U @ 2Hr Calcium 8.7 D 8.9 Magnesium Total Bilirubin 4.1 H 5.7 H Direct Bilirubin 2.9 H 4.2 H AST 190 H 207 H ALT 467 H 469 H Alkaline Phosphatase 524 H 589 H Total Protein 5.6 L D 5.9 L Albumin 3.3 L D 3.4 L Lipase CA 19-9 Antigen 15 Urine Color Urine Appearance Urine pH Ur Specific [place] Urine Protein Urine Glucose (UA) Urine Ketones Urine Blood Urine Nitrite Ur Leukocyte Esterase COVID-19 ([facility]) COVID-19 Clin Com 05/13/22 05/13/22 05:40 05:40 WBC RBC Hgb Hct MCV MCH MCHC RDW Plt Count MPV Immature Gran % (Auto) Neut % (Auto) Lymph % (Auto) [place] % (Auto) Eos % (Auto) Baso % (Auto) Lymph # (Auto) [place] # (Auto) Eos # (Auto) Baso # (Auto) Abs Immat Gran (auto) Absolute Neuts (auto) Absolute Nucleated RBC Nucleated RBC % (auto) PT INR Sodium 140 Potassium 4.0 Chloride 104 Carbon Dioxide 25 Anion Gap 15 BUN 12 Creatinine 0.78 Estim Creat Clear Calc 96.7 Estimated GFR > 60 POC Glucose Random Glucose 105 Fasting Glucose Lactic Acid Lactic Acid F/U @ 2Hr Calcium 9.1 Magnesium Total Bilirubin 5.0 H Direct Bilirubin 3.7 H AST 184 H ALT 451 H Alkaline Phosphatase 643 H Total Protein 6.2 L Albumin 3.5 Lipase CA 19-9 Antigen Urine Color Urine Appearance Urine pH Ur Specific [place] Urine Protein Urine Glucose (UA) Urine Ketones Urine Blood Urine Nitrite Ur Leukocyte Esterase COVID-19 ([facility]) COVID-19 Clin Com Airway Mallampati Class: III TM Dist: >3cm Neck ROM: Full Loose/Missing/Broken Teeth: Yes, Upper and Lower Assessment and Plan Assessment Anesthesia Assessment: Anesthesia Plan Discussed and Chart Reviewed Final Anesthetic Review Family History of Problems with Anesthesia: No History of Problems with Anesthesia: No NPO: Yes ASA Class: III Final Preanesthetic Review: Meds/Allgs Chart Reviewed, Consent Obtained/Reviewed and Anes Risks/Benef Reviewed Patient Risk: Intermediate Procedure Risk: Intermediate Anesthetic Plan Anesthetic Plan: GA Disposition: Standard PACU
[2022-05-13] MEDS: Midazolam HCl/PF 2 MG/2 ML VIAL IVPUSH (13:28)
--- NOTE | 2022-05-13 13:48 | MHC.SHP ---
Pre-Procedural Eval Section A Date of Service: 05/13/22 The patient is an INPATIENT: Yes The History & Physical has been completed within 30 days and I have reviewed it.: Yes Section B Chief Complaint: Abnormal LFTs Allergies: Allergies Allergy/AdvReac Type Severity Reaction Status Date / Time No Known Allergies Allergy Verified 05/11/22 14:42 [No Known Allergies*] Plan Diagnosis/Plan: Unchanged I have reviewed the history and physical and performed a pertinent physical examination on my patient. No changes have occurred unless specified. ERCP with metal stent placement for drainage and palliation.
--- NOTE | 2022-05-13 14:26 | PC.NURSE ---
Patient unable to tolerate SPO2 monitor & BP cuff, even in presence of bilat soft wrist tie restraints, placed appropriately.
--- NOTE | 2022-05-13 15:21 | W.PM.OPN ---
Operative Note Operative Note Date of Service: 05/13/22 Narrative: Description: Endoscopic retrograde cholangiopancreatography (ERCP) with biliary stent placement and stricturoplasty PROCEDURE: Endoscopic retrograde cholangiopancreatography INDICATION FOR THE PROCEDURE: Patient with malignant biliary stricture MEDICATIONS: General anesthesia, The risks of the procedure were made aware to the patient and consisted of medication reaction, bleeding, perforation, aspiration, and post ERCP pancreatitis. DESCRIPTION OF PROCEDURE: After informed consent and appropriate sedation, the duodenoscope was inserted into the oropharynx, down the esophagus, and into the stomach. The scope was then advanced through the pylorus to the ampulla. The tome was angled and entered CBD immediately, wire passed by the stricture site which was confirmed by fluoroscopy. A biliary balloon was then used to dilate the stricture in the proximal CBD/common hepatic duct to 11 mm. This was then exchanged for a wallflex uncovered stent 10 mm x 100 mm which was deployed under direct fluoroscopic and endoscopic guidance with good drainage noted. There was some minor oozing which had ceased by the end of the procedure. The stomach was then decompressed and the endoscope was withdrawn. FINDINGS: 1. Malignant biliary stricture s/p uncovered metal stent placement RECOMMENDATIONS: 1. normal diet as tolerated. 2. consider pall care consult and involvement.
--- NOTE | 2022-05-13 16:24 | PC.NURSE ---
wrist restraints removed on return from PACU,patient able to move his arms and hands ,skin intact
[2022-05-13] MEDS: levETIRAcetam in NaCl (iso-os) 1,500 MG/100 ML PIGGYBACK 400 MG IV (21:00)
--- NOTE | 2022-05-13 21:23 | PC.NURSE ---
patient refuses to eat or drink,,refused meds tonight,uncooperative,gets agitated when nurse attempted to encourage drinking fluid,Dr. Martinez made aware ,IV fluids ordered
[2022-05-13] MEDS: Dextrose 5 % and 0.45 % NaCl 1,000 ML 50 ML IVCONT (21:39)
--- NOTE | 2022-05-13 22:19 | PC.NURSE ---
patient refused to have VS taken
[2022-05-14] MEDS: Piperacillin Sodium/Tazobactam 3.375 GM in 0.9 % Sodium Chloride 50 ML IV (06:04)
[2022-05-14 06:20] LABS: Hematocrit 49.6 % (42.0-52.0); Hemoglobin 15.4 g/dl (14.0-18.0); Mean Corpuscular Hemoglobin 29.3 pg (27.0-33.0); Mean Corpuscular Volume 94.5 fL (80.0-98.0); Platelet Count 267 X10*3/uL (160-400); Red Blood Count 5.25 X10*6/uL (4.60-5.80); Red Cell Distribution Width 13.8 % (11.0-16.0); White Blood Count 9.5 X10*3/uL (4.8-10.8)
[2022-05-14 06:51] LABS: Alanine Aminotransferase 398 U/L (0-40); Albumin Level 3.7 g/dL (3.5-5.0); Alkaline Phosphatase 639 U/L (39-117); Anion Gap 20 (12-20); Aspartate Amino Transferase 145 U/L (5-37); Bilirubin Direct 2.6 mg/dL (0.0-0.5); Bilirubin Total 3.7 mg/dL (0.0-1.0); Blood Urea Nitrogen 14 mg/dL (9-16); Calcium 9.2 mg/dL (8.4-10.2); Carbon Dioxide 23 mmol/L (22-29); Chloride 103 mmol/L (96-108); Estimated Glomerular Filt Rate > 60; Glucose Fasting 98 mg/dL (60-99); Potassium 4.8 mmol/L (3.3-5.1); Sodium 141 mmol/L (135-145); Total Protein 6.6 g/dL (6.5-8.0)
[2022-05-14 08:00] VITALS: BP 162/81; PULSE 77; RESP 18; TEMP 36.1; O2SAT 95
--- NOTE | 2022-05-14 09:46 | PM.DS ---
DS: Providers Provider Date of Service: 05/14/22 Date of admission: 04/30/22 12:55 Primary care physician: Yair Galvan DO Consults: 04/30/22 12:53 Consult to General Surgery Stat Consulting Provider: Gelacio Hua Reason for consultation: CBD stone Has provider been notified: Yes 05/01/22 08:18 Consult to Gastroenterology Stat Consulting Provider: Sheila Chauhan Reason for consultation: cholelithiasis with question common hepatic duct stricture Has provider been notified: No 05/05/22 19:00 Consult to Wound Care Stat Consulting Provider: Hugo Goss Reason for consultation: right inner aspect malleolus open wound 05/07/22 10:46 Consult to Neurology Routine Consulting Provider: [facility] Reason for consultation: seizure /on multiple meds -elevated lft's 05/08/22 16:00 Consult to Infectious Diseases Routine Consulting Provider: Adelaida Dueñas Reason for consultation: choledochilithasis -elevated lft's/on zosyn Has provider been notified: No 05/11/22 15:45 Consult to Hematology / Oncology Routine Consulting Provider: [facility] Oncology/Hematology Reason for consultation: possible biliary adenocarcinoma Has provider been notified: No DS: Diagnosis Discharge Diagnosis (1) Seizure disorder: Status: Acute (2) Choledocholithiasis with obstruction: Status: Acute (3) Biliary stricture: Status: Acute DS: Summary Hospital Course Hospital Course: from initial hpi: 71-year-old male with meds history of paranoid schizophrenia, CHF, CKD, BPH, HLD, anemia, epilepsy, deaf, presenting to ED via EMS from [facility] for elevated LFTs noted on outpatient labs and abdominal ultrasound showing CBD and left hepatic duct calculi with biliary dilation.? Patient reports pain times a couple weeks. Reports abdominal pain and nausea.? Denies fever, vomiting, diarrhea, dysuria/hematuria. hospital course: Patient was admitted for transaminitis and jaundice due to CBD obstruction, possible acute cholecystitis/cholangitis. ERCP with brushings was done which showed atypical cells concerning for adenocarcinoma. Patient was empirically treated for 14 days with IV Zosyn. Patient had a 2nd ERCP with stent placed, LFTs improved. He was seen by Oncology who felt this was likely metastatic disease and unlikely to tolerate chemotherapy, recommending palliative care. Patient schizophrenia was continued on risperidone, for his epilepsy was continued on Keppra. Patient will be discharged back to [facility] facility. Time Spent with Patient Time attestation: Total time spent providing and/or coordinating discharge services: Discharge coordination time: Greater than 30 minutes Quality: Safe Use of Opioids Does Pt have an Active Cancer Diagnosis on the Problem List?: Yes Opioid Measure Date for [facility] Report: 04/14/22 Opioid Measure Time for [facility] Report: 09:47 Quality: Stroke Does the patient have a stroke diagnosis?: No Physical Exam Vital Signs: Vital Signs: Last Vital Signs Temp 97.0 F 05/14/22 08:00 Pulse 77 05/14/22 08:00 Resp 18 05/14/22 08:00 BP 162/81 H 05/14/22 08:00 Pulse Ox 95 05/14/22 08:00 O2 Del Method 05/14/22 08:00 O2 Flow Rate 8 05/13/22 15:41 BMI result Body Mass Index 26.4 Const: Other: Constitutional : Alert, disoriented, aggressive behavior Neck : Normal inspection, Supple Cardiovascular : no JVP, no lower extremity edema Respiratory : fair bilateral air entry, no crackles Gastrointestinal: soft, lax, Normal bowel sounds, Non tender Skin : Warm, Dry Neurological : Alert & disoriented x3, moving all extremities DS: Data Data Completed and Pending Completed studies during hospitalization [Text1]: Pending at discharge 05/05/22 17:29 Cytology [PTH] Routine Procedures Insertion of Infusion Device into Superior Vena Cava, Percutaneous Approach (06/03/20) Ultrasonography of Superior Vena Cava, Guidance (06/03/20) Labs on day of discharge: Laboratory Results - last 24 hr 05/14/22 05/14/22 05:28 05:28 WBC 9.5 RBC 5.25 Hgb 15.4 Hct 49.6 MCV 94.5 MCH 29.3 MCHC 31.0 RDW 13.8 Plt Count 267 MPV 12.0 Absolute Nucleated RBC 0.000 Nucleated RBC % (auto) 0.0 Sodium 141 Potassium 4.8 Chloride 103 Carbon Dioxide 23 Anion Gap 20 BUN 14 Creatinine 0.82 Estim Creat Clear Calc 92.0 Estimated GFR > 60 Fasting Glucose 98 Calcium 9.2 Total Bilirubin 3.7 H Direct Bilirubin 2.6 H AST 145 H ALT 398 H Alkaline Phosphatase 639 H Total Protein 6.6 Albumin 3.7 Discharge Plan Discharge Anticipated Discharge Date/Time: 05/14/22 09:39 Patient Disposition: Xfer SNF Discharge Diagnosis: cbd obstruction Referrals: Yair Galvan DO [Primary Care Provider] - 1 Week Discharge Medications: Continued multivitamin Tablet 1 tab PO DAILY polyethylene glycol 3350 [Miralax] 17 gram Powder In Packet 17 g PO DAILY simvastatin 10 mg Tablet 10 mg PO QPM omeprazole 40 mg Capsule,Delayed Release(Dr/Ec) 40 mg PO BID risperidone 2 mg Tablet 2 mg PO BID fentanyl 100 mcg/hr Patch 72 Hour 1 patch TRANSDERMAL Q72H oxycodone-acetaminophen 10-325 mg Tablet 1 tab PO TID ferrous sulfate 325 mg (65 mg iron) Tablet 325 mg PO BID docusate sodium 100 mg Capsule 100 mg PO DAILY levetiracetam 750 mg Tablet 750 mg PO QNOON levetiracetam 750 mg Tablet 1,500 mg PO BEDTIME furosemide 20 mg Tablet 20 mg PO Q OTHER DAY lactulose 10 gram/15 mL Solution 60 ml PO DAILY levetiracetam 1,000 mg Tablet 1,000 mg PO QAM levothyroxine 175 mcg tablet 1 tab PO DAILY sennosides [senna] 8.6 mg Tablet 8.6 mg PO DAILY PRN (Reason: Constipation) tolnaftate 1 % Cream 1 appl TOPICAL BID tamsulosin 0.4 mg capsule 1 cap PO DAILY clotrimazole 1 % Cream 1 appl TOPICAL BID bisacodyl 5 mg Tablet 5 mg PO BEDTIME lorazepam 2 mg/mL Solution 1 mg IM DAILY PRN (Reason: Seizure Activity) diazepam 2 mg tablet 2 mg PO BID risperidone 0.5 mg tablet 0.5 mg PO BID finasteride 5 mg tablet 5 mg PO DAILY 90 Days Qty: 90 1RF Discharge Orders: Discharge Order (Routine); Ordered 05/14/22 Ordered By: Dragan Reyes Diet: NDD2 solids Activity on Discharge: As tolerated Stand Alone Forms: Patient Portal Discharge page Care Plan Goals: quality of life Health Concerns: biliary adenocarcinoma, biliary obstruction Plan of Treatment: s/p stent, consider palliative care Assessment: see above
[2022-05-14] MEDS: risperiDONE 0.5 MG TABLET PO (09:58)
[2022-05-14] MEDS: Tamsulosin HCL 0.4 MG CAPSULE PO (09:58)
[2022-05-14] MEDS: Levothyroxine Sodium 175 MCG TABLET PO (09:58)
[2022-05-14] MEDS: Ferrous Sulfate 324 MG TABLET.DR PO (09:58)
[2022-05-14] MEDS: Finasteride 5 MG TABLET PO (09:58)
[2022-05-14] MEDS: levETIRAcetam in NaCl (iso-os) 1,000 MG/100 ML PIGGYBACK 400 MG IV (09:59)
[2022-05-14] MEDS: Docusate Sodium 100 MG CAPSULE PO (09:59)
[2022-05-14] MEDS: 0.9 % Sodium Chloride Flush 3 ML SYRINGE IVFLUSH (09:59)
[2022-05-14] MEDS: Omeprazole 40 MG CAPSULE.DR PO (09:59)
[2022-05-14] MEDS: diazePAM 2 MG TABLET PO (09:59)
[2022-05-14] MEDS: risperiDONE 2 MG TABLET PO (09:59)
--- NOTE | 2022-05-14 11:38 | MHC.CM.PN ---
pt medically cleared for d/c back to [facility] at [facility] CM to contact new guardian Flores Bates to deliver IMM, [facility] to transport at 3pm
[2022-05-14 12:30] LABS: COVID-19 Test Negative (Negative)
[2022-05-14] MEDS: Furosemide 20 MG TABLET PO (12:34)
[2022-05-14] MEDS: levETIRAcetam 750 MG in 0.9 % Sodium Chloride 100 ML 430 MG IV (12:34)
== END 2022-05-14 15:15 | disposition skilled nursing facility (03) | DRG 375 ==
LOC: HO.ED 11:07 → HO.EDOVER 13:01 → HO.S3 20:15
PROVIDERS: Internal Medicine; Internal Medicine Gastroenterology; Physician Assistant; Student in an Organized Health Care Education/Training Program; Admitting Provider Hospitalist; Emergency Provider Emergency Medicine; PCP Hospitalist; Visit Provider Internal Medicine
PROC: 0F778DZ Dilation of Common Hepatic Duct with Intraluminal Device, Via Natural or Artificial Opening Endoscopic (ICD-10-PCS; CPT 43260; principal; 2022-05-05 15:10)
DX: C78.89 Secondary malignant neoplasm of other digestive organs (principal); F20.0 Paranoid schizophrenia; K80.51 Calculus of bile duct without cholangitis or cholecystitis with obstruction; L97.312 Non-pressure chronic ulcer of right ankle with fat layer exposed; G93.49 Other encephalopathy; H91.90 Unspecified hearing loss, unspecified ear; R03.0 Elevated blood-pressure reading, without diagnosis of hypertension; I50.9 Heart failure, unspecified; R74.01 Elevation of levels of liver transaminase levels; K21.9 Gastro-esophageal reflux disease without esophagitis; E78.5 Hyperlipidemia, unspecified; N18.30 Chronic kidney disease, stage 3 unspecified; N40.0 Benign prostatic hyperplasia without lower urinary tract symptoms; G40.909 Epilepsy, unspecified, not intractable, without status epilepticus; Z20.822 Contact with and (suspected) exposure to COVID-19; Z79.899 Other long term (current) drug therapy
CPT/HCPCS: 36415; 70250; 71045; 72170; 74018; 74177; 74183; 76705; 80048; 80053; 80076; 81003; 82248; 82947; 83605; 83690; 83735; 85025; 85027; 85610; 86301; 87040; 87147; 87205; 87635; 88112; 88305; 88366; 99285; A9585; C1726; C1769; C1876; C1887; C2625; J1610; J1650; J1953; J2250; J2370; J2405; J2543; J3010; Q9967

== ENCOUNTER → 2022-05-15 08:19 | Outpatient (BNVA) | payer MEDICARE, MEDICAID, SELFPAY | PROVIDERS: PCP Hospitalist; Visit Provider Urology | DX: R97.20 Elevated prostate specific antigen [PSA] (principal); N32.0 Bladder-neck obstruction | CPT/HCPCS: 99212 ==

== ENCOUNTER 2022-05-19 11:34 | Inpatient (IN) | payer MEDICARE, MEDICAID, SELFPAY ==
--- NOTE | 2022-05-19 11:45 | ED_ITS ---
HPI - General Adult General Chief complaint: Altered Mental Status Stated complaint: unresponsive Time Seen by Provider: 05/19/22 11:44 Source: EMS Mode of arrival: EMS Limitations: altered mental status and other (Acquired deafness) History of Present Illness HPI narrative: Patient comes to the emergency room via EMS from [facility] patient is Staph, cannot give any history. According to EMS, the staff at [facility] reports that the patient has been altered, struggling to breathe since this morning. Patient has a prolonged history of hepatobiliary cancer, CHF, seizures. Patient came in as full code. EMS reports that when they arrived there, patient's pupils were pinpoint, given 6 mg of Narcan. 15 L of oxygen via non-rebreather mask were started. Related Data Home Medications Medication Instructions Recorded Confirmed docusate sodium 100 mg capsule 100 mg PO DAILY 06/02/20 05/15/22 fentanyl 100 mcg/hr transdermal 1 patch transdermal Q72H 06/02/20 05/15/22 patch ferrous sulfate 325 mg (65 mg 325 mg PO BID 06/02/20 05/15/22 iron) tablet furosemide 20 mg tablet 20 mg PO Q OTHER DAY 06/02/20 05/15/22 lactulose 10 gram/15 mL oral 60 ml PO DAILY 06/02/20 05/15/22 solution levetiracetam 1,000 mg tablet 1,000 mg PO QAM 06/02/20 05/15/22 levetiracetam 750 mg tablet 1,500 mg PO BEDTIME 06/02/20 05/15/22 levetiracetam 750 mg tablet 750 mg PO QNOON 06/02/20 05/15/22 multivitamin 1 tab PO DAILY 06/02/20 05/15/22 omeprazole 40 mg capsule,delayed 40 mg PO BID 06/02/20 05/15/22 release oxycodone-acetaminophen 10 mg-325 1 tab PO TID 06/02/20 05/15/22 mg tablet polyethylene glycol 3350 17 gram 17 g PO DAILY 06/02/20 05/15/22 oral powder packet (Miralax) risperidone 2 mg tablet 2 mg PO BID 06/02/20 05/15/22 simvastatin 10 mg tablet 10 mg PO QPM 06/02/20 05/15/22 diazepam 2 mg tablet 2 mg PO BID 11/12/21 05/15/22 risperidone 0.5 mg tablet 0.5 mg PO BID 11/12/21 05/15/22 bisacodyl 5 mg tablet 5 mg PO BEDTIME 04/30/22 05/15/22 clotrimazole 1 % topical cream 1 appl topical BID 04/30/22 05/15/22 levothyroxine 175 mcg tablet 1 tab PO DAILY 04/30/22 05/15/22 lorazepam 2 mg/mL injection 1 mg IM DAILY PRN Seizure Activity 04/30/22 05/15/22 solution sennosides 8.6 mg tablet (senna) 8.6 mg PO DAILY PRN Constipation 04/30/22 05/15/22 tolnaftate 1 % topical cream 1 appl topical BID 04/30/22 05/15/22 Previous Rx's Medication Instructions Recorded finasteride 5 mg tablet 5 mg PO DAILY 90 days #90 tabs 05/15/22 tamsulosin 0.4 mg capsule 0.4 mg PO DAILY 90 days #90 caps 05/15/22 Allergies Allergy/AdvReac Type Severity Reaction Status Date / Time No Known Allergies Allergy Verified 05/19/22 11:46 [No Known Allergies*] Review of Systems Review of Systems: Yes Unobtainable due to mental condition [facility] Past Medical History Medical History Anemia Biliary stricture CHF (congestive heart failure) Chronic GERD Chronic kidney disease (CKD) Elevated PSA Gallbladder mass Hyperlipidemia Hypothyroidism Orofacial dystonia Prostate asymmetry Schizophrenia Surgical History History of surgery Social History Social History Household Members: None and Other Household Members Other:: snf Housing: [facility] Other:: [facility] Do you presently have visiting nurse or other home services: No Unable to assess alcohol history related to: Unable to respond Alcohol intake: never Patient Tobacco Use Status: Tobacco use Unknown Advance Directives: No Advance Directives Information Provided: No service: No Current occupational status: retired Physical Exam ED Vital Signs: Vital Signs - 24 hr 05/19/22 11:46 Pulse Rate 94 Respiratory Rate 40 H Blood Pressure 139/81 Pulse Oximetry 83 L Oxygen Delivery Method Non-Rebreather Mask BMI result Body Mass Index 23.1 Const Other: Appearance: Minimally responsive, ill-appearing Eyes: Pupils equal, round and reactive to light. ENT: Pharynx normal. Dry oral mucosa, palate has multiple fluid-filled vesicles Neck: Normal inspection. Neck supple. No lymph nodes noted. No crepitus CVS: Tachycardic Respiratory: Difficulty breathing, oxygen saturation 88% on 15 L Abdomen: Soft and nontender. No rigidity. No distention. Skin: Skin warm and dry. Jaundice Extremities: No lower extremity edema. No Lacerations. No Rash Neuro: Minimally responsive Psych: Minimally responsive Course Course Course Narrative: On arrival, I evaluated the patient, patient is terminally ill. Patient is full code. I discussed the patient with Dr. Galvan who knows him very well from [facility]. Any treatment or resuscitation attempt is futile. 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 Patient does not have any family other than the caretakers at [facility]. Dr. Galvan admitted the patient to the hospitalist service. Patient's caretakers from [facility] have been contacted by Dr. Galvan, who will be coming to the ER to say goodbye to [place]. Patient received 1 dose of 0.5 mg of morphine, and a morphine drip has been started as well. Discharge Plan Discharge Clinical Impression: Terminal illness Patient Disposition: Admitted As Inpatient
[2022-05-19 11:46] VITALS: BP 139/81; PULSE 94; RESP 40; O2SAT 83; BMI 23.1
[2022-05-19] MEDS: Morphine Sulfate 2 MG/ML CARTRIDGE 1 MG IVPUSH (12:05)
--- NOTE | 2022-05-19 12:07 | PC.NURSE ---
per verbal order of dr. west who was at bedside, it was decided to give the patient 0.5mg of morphine instead of the ordered 1mg at this time, provider witnessed additional 0.5 mg waste at bedside.
[2022-05-19 12:16] VITALS: PULSE 99; RESP 37; O2SAT 86
--- NOTE | 2022-05-19 12:16 | PHA.MEDREC ---
Pharmacy Consult ? Medication Reconciliation Pharmacy has completed the medication reconciliation. Per Dr. 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
[2022-05-19] MEDS: Scopolamine 1.5 MG PATCH.TD.3 EAR-BEHIND (12:20)
--- NOTE | 2022-05-19 12:22 | PC.NURSE ---
per verbal order of dr. thorne, scopolamine patch was ordered and applied behind left year.
--- NOTE | 2022-05-19 12:23 | PC.NURSE ---
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
--- NOTE | 2022-05-19 12:36 | PC.NURSE ---
covid swab obtained
[2022-05-19 12:55] LABS: COVID-19 Test Negative (Negative)
[2022-05-19 13:04] VITALS: BP 139/81; PULSE 98; RESP 33; O2SAT 87
[2022-05-19] MEDS: Morphine Sulfate/NS 100 MG/100 ML PLAST..BAG IVCONT (13:04)
--- NOTE | 2022-05-19 14:26 | PC.NURSE ---
per dr galvan verbal request, pt could be taken off all NRB/O2 once staff arrived from [facility] and he had been put on morphine drip. This nurse DC'd the O2 per verbal request of Dr. Galvan. Pt O2 sat prior to removal of the NRB was 83%.
[2022-05-19 16:03] VITALS: RESP 17
--- NOTE | 2022-05-19 18:23 | P.HPHOSP_ITS ---
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 Palliative stent placed by GI. Patient return to [facility]; this a.m. became less responsive and hypotensive. Gi jan he has a guardian of state and is a full code he was transferred to [facility]. Upon arrival he was found to be extremely hypotensive with a respiratory rate of 33 Review of Systems Review of Systems: Unable to obtain [facility] Medical History Anemia Biliary stricture CHF (congestive heart failure) Chronic GERD Chronic kidney disease (CKD) Elevated PSA Gallbladder mass Hyperlipidemia Hypothyroidism Orofacial dystonia Prostate asymmetry Schizophrenia Surgical History History of surgery Social History Household Members: None and Other Household Members Other:: snf Housing: Group Home Housing Other:: [facility] Do you presently have visiting nurse or other home services: No Unable to assess alcohol history related to: Unable to respond Alcohol intake: never Patient Tobacco Use Status: Tobacco use Unknown Advance Directives: No Advance Directives Information Provided: No service: No Current occupational status: retired Meds Allergies Allergy/AdvReac Type Severity Reaction Status Date / Time No Known Allergies Allergy Verified 05/19/22 11:46 [No Known Allergies*] Active Medications: Current Medications Morphine Sulfate (Morphine Sulfate/Ns) 100 mg in 100 mls @ 0 mls/hr IVCONT .Q0M [facility]; Protocol Last Admin: 05/19/22 13:04 Dose: 2 mg/hr, 2 mls/hr Midazolam HCl (Midazolam Hcl/Pf 2 Mg/2 Ml Vial) 4 mg IVPUSH Q4H PRN PRN Reason: Restlessness Sodium Chloride (0.9 % Sodium Chloride Flush 3 Ml Syringe) 3 ml IVFLUSH QSHIFT [facility] Last Admin: 05/19/22 18:20 Dose: Not Given Home Medications Medication Instructions Recorded Confirmed Last Taken Type docusate sodium 100 mg capsule 100 mg PO DAILY 06/02/20 05/15/22 Unknown History fentanyl 100 mcg/hr transdermal 1 patch transdermal Q72H 06/02/20 05/15/22 06/01/20 16:00 History patch ferrous sulfate 325 mg (65 mg 325 mg PO BID 06/02/20 05/15/22 Unknown History iron) tablet furosemide 20 mg tablet 20 mg PO Q OTHER DAY 06/02/20 05/15/22 Unknown History lactulose 10 gram/15 mL oral 60 ml PO DAILY 06/02/20 05/15/22 Unknown History solution levetiracetam 1,000 mg tablet 1,000 mg PO QAM 06/02/20 05/15/22 Unknown History levetiracetam 750 mg tablet 1,500 mg PO BEDTIME 06/02/20 05/15/22 Unknown History levetiracetam 750 mg tablet 750 mg PO QNOON 06/02/20 05/15/22 Unknown History multivitamin 1 tab PO DAILY 06/02/20 05/15/22 Unknown History omeprazole 40 mg capsule,delayed 40 mg PO BID 06/02/20 05/15/22 Unknown History release oxycodone-acetaminophen 10 mg-325 1 tab PO TID 06/02/20 05/15/22 Unknown History mg tablet polyethylene glycol 3350 17 gram 17 g PO DAILY 06/02/20 05/15/22 Unknown History oral powder packet (Miralax) risperidone 2 mg tablet 2 mg PO BID 06/02/20 05/15/22 Unknown History simvastatin 10 mg tablet 10 mg PO QPM 06/02/20 05/15/22 Unknown History diazepam 2 mg tablet 2 mg PO BID 11/12/21 05/15/22 Unknown History risperidone 0.5 mg tablet 0.5 mg PO BID 11/12/21 05/15/22 Unknown History bisacodyl 5 mg tablet 5 mg PO BEDTIME 04/30/22 05/15/22 Unknown History clotrimazole 1 % topical cream 1 appl topical BID 04/30/22 05/15/22 Unknown History levothyroxine 175 mcg tablet 1 tab PO DAILY 04/30/22 05/15/22 Unknown History lorazepam 2 mg/mL injection 1 mg IM DAILY PRN Seizure Activity 04/30/22 05/15/22 Unknown History solution sennosides 8.6 mg tablet (senna) 8.6 mg PO DAILY PRN Constipation 04/30/22 05/15/22 Unknown History tolnaftate 1 % topical cream 1 appl topical BID 04/30/22 05/15/22 Unknown History Physical Exam Vital Signs and Narrative: Vital Signs: Last Vital Signs Pulse 98 05/19/22 13:04 Resp 17 05/19/22 16:03 BP 139/81 05/19/22 13:04 Pulse Ox 87 L 05/19/22 13:04 O2 Del Method 05/19/22 12:16 O2 Flow Rate 15 05/19/22 12:16 BMI result Body Mass Index 23.1 Const: Other: Obtain ended Resp: Other: Clear but diminished bilaterally no rales rhonchi or wheezes Cardio: Other: No S4; positive S1-S2; no S3 murmurs rubs or gallops GI: Other: Soft quiet bowel sounds Extrem: Other: Extremities the Results Labs Labs: Laboratory Results - last 24 hr 05/19/22 12:34 COVID-19 ([facility]) Negative COVID-19 Clin Com See Note Assessment and Plan (1) 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 ERCP was done to facilitate a biliary stent; CBD brushings demonstrated a dental carcinoma. He was transfer back to [facility] but remained a full code. On the morning of admission he became hypotensive and unresponsive and was transferred to [facility]. Given the poor prognosis of his diagnosis and overall status in [facility] the discussion was had with Dr. Faustino CROSS MD. We both agreed that treatment would be futile and not affect the outcome. 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 Dr. Oviedo (GI) was contacted; he supported are decision Quality Stroke Does the patient have a stroke diagnosis?: No VTE Prior VTE?: No VTE Risk Level:: Medical - moderate - high VTE Device Contraindication: Treatment Not Indicated VTE Drug Contraindication: Treatment Not Indicated
[2022-05-19 20:13] VITALS: RESP 22
[2022-05-19] MEDS: 0.9 % Sodium Chloride Flush 3 ML SYRINGE IVFLUSH (20:36)
--- NOTE | 2022-05-19 20:38 | PC.NURSE ---
Addendum entered by Mendez Contreras RN 05/19/22 21:40: Report given to [facility] - patient ready for transport. Addendum entered by Mendez Contreras RN 05/19/22 20:40: Patient got bed on med surg - plan to transfer. Addendum entered by Mendez Contreras RN 05/19/22 20:39: [facility] staff member at bedside. Most likely will have staff member here overnigth as well. Original Note: Assumed care at 1900. Patient resting. Intermit dozinig. No distress. Morphine drip running as ordered - 2mg/hr.
[2022-05-19 23:48] VITALS: RESP 16
[2022-05-20 07:57] VITALS: BP 133/62; PULSE 91; RESP 12; TEMP 37.6; O2SAT 84
[2022-05-20 14:47] VITALS: RESP 16
[2022-05-20] MEDS: Morphine Sulfate/NS 100 MG/100 ML PLAST..BAG IVCONT (14:47)
--- NOTE | 2022-05-20 15:17 | P.PNIM_ITS ---
Subjective Subjective Date of Service: 05/20/22 Interval History: Continues to be resting comfortably Review of Systems Unable to obtain Physical Exam Vital Signs: Vital Signs: Last Vital Signs Temp 99.7 F 05/20/22 07:57 Pulse 91 05/20/22 07:57 Resp 16 05/20/22 14:47 BP 133/62 05/20/22 07:57 Pulse Ox 84 L 05/20/22 07:57 O2 Del Method 05/20/22 07:57 O2 Flow Rate 15 05/19/22 12:16 BMI result Body Mass Index 23.1 Const: Other: Obtain ended Resp: Other: Clear but diminished bilaterally no rales rhonchi or wheezes Cardio: Other: No S4; positive S1-S2; no S3 murmurs rubs or gallops GI: Other: Soft quiet bowel sounds Extrem: Other: Extremities the Objective Data Active Medications Morphine Sulfate (Morphine Sulfate/Ns) 100 mg in 100 mls @ 0 mls/hr IVCONT .Q0M [facility]; Protocol Last Admin: 05/20/22 14:47 Dose: 2 mg/hr, 2 mls/hr Documented By: TAMIR Midazolam HCl (Midazolam Hcl/Pf 2 Mg/2 Ml Vial) 4 mg IVPUSH Q4H PRN PRN Reason: Restlessness Sodium Chloride (0.9 % Sodium Chloride Flush 3 Ml Syringe) 3 ml IVFLUSH QSKYFT [facility] Last Admin: 05/20/22 08:56 Dose: Not Given Documented By: TAMIR Non-Admin Reason: IV Running Assessment and Plan (1) 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 ERCP was done to facilitate a biliary stent; CBD brushings demonstrated a dental carcinoma. He was transfer back to [facility] but remained a full code. On the morning of admission he became hypotensive and unresponsive and was transferred to [facility]. Given the poor prognosis of his diagnosis and overall status in [facility] the discussion was had with Dr. Faustino CROSS MD. We both agreed that treatment would be futile and not affect the outcome. 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 Dr. Oviedo (GI) was contacted; he supported are decision. Continue comfort measures; will pursue DNR DNI at [facility] 05/21/2022 Quality Stroke Does the patient have a stroke diagnosis?: No VTE Prior VTE?: No VTE Risk Level:: Medical - moderate - high VTE Device Contraindication: Treatment Not Indicated VTE Drug Contraindication: Treatment Not Indicated
--- NOTE | 2022-05-20 15:17 | MHC.CLN ---
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 STAGE II WOUND TO RIGHT INNER ANKLE. NO DIET ORDER. RD AVAILABLE NEEDED.
[2022-05-20 15:26] VITALS: BP 126/64; PULSE 80; RESP 16; TEMP 37.3; O2SAT 88
--- NOTE | 2022-05-20 15:41 | MHC.CM.PN ---
PATIENT IS IN FROM [facility] PLAN IS RETURN THIS Wednesday05/22/22 FACILITY MADE AWARE IN [facility]
--- NOTE | 2022-05-20 16:34 | MHC.CM.PN ---
IMM SENT VIA MAIL TO [facility] AT [address] [place] [address]
[2022-05-20 19:01] VITALS: BP 114/62; PULSE 81; RESP 16; TEMP 37.5; O2SAT 92
[2022-05-20] MEDS: 0.9 % Sodium Chloride Flush 3 ML SYRINGE IVFLUSH (20:40)
[2022-05-20] MEDS: Midazolam HCl/PF 2 MG/2 ML VIAL 4 MG IVPUSH (23:38)
[2022-05-21] VITALS: RESP 18
[2022-05-21] MEDS: Midazolam HCl/PF 2 MG/2 ML VIAL 4 MG IVPUSH (06:04)
--- NOTE | 2022-05-21 10:55 | P.PNIM_ITS ---
Subjective Subjective Date of Service: 05/21/22 Interval History: Continues to be resting comfortably, not talking Review of Systems Unable to obtain Physical Exam Vital Signs: Vital Signs: Last Vital Signs Temp 99.5 F 05/20/22 19:01 Pulse 81 05/20/22 19:01 Resp 18 05/21/22 00:00 BP 114/62 05/20/22 19:01 Pulse Ox 92 05/20/22 19:01 O2 Del Method 05/20/22 19:01 O2 Flow Rate 2.0 05/20/22 19:01 BMI result Body Mass Index 23.1 Const: Other: General: alert, comfortabl, non talking Resp: CTA bilateral CVS: S1,S2,RRR GI: +BS, NT, no distention Skin: No rash Neuro: motor grossly intact Psych: appropriate affect Objective Data Active Medications Morphine Sulfate (Morphine Sulfate/Ns) 100 mg in 100 mls @ 0 mls/hr IVCONT .Q0M [facility]; Protocol Last Admin: 05/20/22 14:47 Dose: 2 mg/hr, 2 mls/hr Documented By: TAMIR Midazolam HCl (Midazolam Hcl/Pf 2 Mg/2 Ml Vial) 4 mg IVPUSH Q4H PRN PRN Reason: Restlessness Last Admin: 05/21/22 06:04 Dose: 4 mg Documented By: RAE Sodium Chloride (0.9 % Sodium Chloride Flush 3 Ml Syringe) [facility] Last Admin: 05/21/22 09:12 Dose: Not Given Documented By: QUINTEN Non-Admin Reason: IV Running Assessment and Plan (1) 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 ERCP was done to facilitate a biliary stent; CBD brushings demonstrated a dental carcinoma. He was transfer back to [facility] but remained a full code. On the morning of admission he became hypotensive and unresponsive and was transferred to [facility]. Given the poor prognosis of his diagnosis and overall status in [facility] the discussion was had with Dr. Faustino CROSS MD. We (Mandy and Faustino) both agreed that treatment would be futile and not affect the outcome. 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 Dr. Oviedo (GI) was contacted; he supported are decision. Continue comfort measures; will pursue DNR DNI at [facility] Stroke Does the patient have a stroke diagnosis?: No VTE Prior VTE?: No VTE Risk Level:: Medical - moderate - high VTE Device Contraindication: Treatment Not Indicated VTE Drug Contraindication: Treatment Not Indicated
[2022-05-21] MEDS: Morphine Sulfate/NS 100 MG/100 ML PLAST..BAG IVCONT (14:36)
[2022-05-21 20:15] VITALS: RESP 16
[2022-05-21 22:56] VITALS: RESP 16
[2022-05-21 23:14] VITALS: RESP 16
[2022-05-22] VITALS (8 sets, daily range): BP systolic 108–122; BP diastolic 64–88; PULSE 60–75; RESP 15–17; TEMP 36.4–36.6; O2SAT 93–95
[2022-05-22] MEDS: Haloperidol Lactate 5 MG/ML VIAL IM (11:40)
[2022-05-22] MEDS: Midazolam HCl/PF 2 MG/2 ML VIAL 4 MG IM (11:41)
--- NOTE | 2022-05-22 12:20 | P.DS_ITS ---
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 Palliative stent placed by GI.? Patient return to [facility]; this a.m. became less responsive and hypotensive.? Given he has a guardian of state and is a full code he was transferred to [facility].? Upon arrival he was found to be extremely hypotensive with a respiratory rate of 33 Hospital course: Pt placed on TEACHER ASSOCIATE on admission due to terminal illness r/t adenocarcinoma bile duct. Discussion between Dr. Galvan and Dr. Harmon had that any intervention/treatment would be futile and not affect outcome. Therefore patient made TEACHER ASSOCIATE and kept comfortable with IV morphine and benzos and one dose haldol. Hospital stay uneventful. Hospital discharge discussed with Dr. Galvan who will assume his care at [facility] with meeting in place with guardian to make pt DNR/DNI. Time Spent with Patient Time attestation: Total time spent providing and/or coordinating discharge services: Discharge coordination time: Greater than 30 minutes Quality: Safe Use of Opioids Does Pt have an Active Cancer Diagnosis on the Problem List?: Yes Opioid Measure Date for [facility] Report: 04/22/22 Opioid Measure Time for [facility] Report: 12:24 Quality: Stroke Does the patient have a stroke diagnosis?: No Physical Exam Vital Signs: Vital Signs: Last Vital Signs Temp 97.8 F 05/22/22 00:00 Pulse 72 05/22/22 00:00 Resp 16 05/22/22 11:53 BP 112/88 05/22/22 00:00 Pulse Ox 95 05/22/22 00:00 O2 Del Method 05/22/22 00:00 O2 Flow Rate 2.0 05/20/22 19:01 BMI result Body Mass Index 23.1 DS: Data Data Completed and Pending Completed studies during hospitalization [Text1]: Procedures Dilation of Common Hepatic Duct with Intraluminal Device, Via Natural or Artificial Opening Endoscopic (04/30/22) Extirpation of Matter from Common Hepatic Duct, Via Natural or Artificial Opening Endoscopic (04/30/22) Extraction of Common Bile Duct, Via Natural or Artificial Opening Endoscopic, Diagnostic (04/30/22) Insertion of Infusion Device into Superior Vena Cava, Percutaneous Approach (06/03/20) Ultrasonography of Superior Vena Cava, Guidance (06/03/20) Discharge Plan Discharge Anticipated Discharge Date/Time: 05/22/22 12:11 Patient Disposition: er [facility] Discharge Diagnosis: adenocarcinoma bile duct Referrals: [facility] [Outside] - 1 Week Yair Galvan DO [Primary Care Provider] - 1 Week Discharge Medications: Discontinued simvastatin 10 mg Tablet 10 mg PO QPM risperidone 2 mg Tablet 2 mg PO BID fentanyl 100 mcg/hr Patch 72 Hour 1 patch TRANSDERMAL Q72H oxycodone-acetaminophen 10-325 mg Tablet 1 tab PO TID ferrous sulfate 325 mg (65 mg iron) Tablet 325 mg PO BID levetiracetam 750 mg Tablet 750 mg PO QNOON levetiracetam 750 mg Tablet 1,500 mg PO BEDTIME furosemide 20 mg Tablet 20 mg PO Q OTHER DAY lactulose 10 gram/15 mL Solution 60 ml PO DAILY levetiracetam 1,000 mg Tablet 1,000 mg PO QAM lorazepam 2 mg/mL Solution 1 mg IM DAILY PRN (Reason: Seizure Activity) tamsulosin 0.4 mg capsule 0.4 mg PO DAILY 90 Days Qty: 90 3RF diazepam 2 mg tablet 2 mg PO BID risperidone 0.5 mg tablet 0.5 mg PO BID No Action multivitamin Tablet 1 tab PO DAILY polyethylene glycol 3350 [Miralax] 17 gram Powder In Packet 17 g PO DAILY omeprazole 40 mg Capsule,Delayed Release(Dr/Ec) 40 mg PO BID docusate sodium 100 mg Capsule 100 mg PO DAILY levothyroxine 175 mcg tablet 1 tab PO DAILY sennosides [senna] 8.6 mg Tablet 8.6 mg PO DAILY PRN (Reason: Constipation) tolnaftate 1 % Cream 1 appl TOPICAL BID clotrimazole 1 % Cream 1 appl TOPICAL BID bisacodyl 5 mg Tablet 5 mg PO BEDTIME finasteride 5 mg tablet 5 mg PO DAILY 90 Days Qty: 90 3RF Discharge Orders: Discharge Order (Routine); Ordered 05/22/22 Ordered By: Valentina Becker Diet: TEACHER ASSOCIATE Activity on Discharge: As tolerated Stand Alone Forms: Patient Portal Discharge page Care Plan Goals: Comfort measures only for management of newly diagnosed adenocarcinoma bile duct Health Concerns: Adenocarcinoma bile duct Plan of Treatment: Comfort measures only Assessment: On first admission presented with biliary stricture and choledocolithiasis with initial ERCP with dilitation and brushings taking with pathology report showing adenocarcinoma of bile duct. Pt was unresponsive and hypotensive on admission and returned back to the hospital. given poor pronosis and overall status at [facility], discussion was had with Dr. Galvan and Dr. Harmon that treatment would be futile and not affect outcome. As a result, pt was made TEACHER ASSOCIATE with morphine drip and benzos. GI in support of decision. He will remain TEACHER ASSOCIATE and be transferred back to [facility] on sublingual ativan and morphine. Discussed with Dr. Galvan.
--- NOTE | 2022-05-22 12:23 | MHC.CM.PN ---
PATIENT TO RETURN TO [facility] TODAY TRANSPORT AND TIME TO BE ARRANGED WITH RN AND FACILITY PLAN IS FOR PATIENT TO BE GROUNDHAND AT FACILITY.
--- NOTE | 2022-05-22 13:26 | MHC.CM.PN ---
[facility] WILL NOT TAKE PATIENT BACK. HE IS A FULL CODE AND GUARDIAN DOES NOT HAVE AUTHORITY TO CHANGE PATIENT'S STATUS WITHOUT A COURT APPROVAL. HEARING IS SET FOR MAY 26, 2022 CASE MANAGEMENT FOLLOWING
--- NOTE | 2022-05-22 15:51 | P.PNIM_ITS ---
Subjective Subjective Date of Service: 05/22/22 Interval History: Continues to be resting comfortably, utters few words water hi . Pulled IV out and IM haldol and versed given but IV access reestablished. Review of Systems Unable to obtain Physical Exam Vital Signs: Vital Signs: Last Vital Signs Temp 97.8 F 05/22/22 00:00 Pulse 72 05/22/22 00:00 Resp 16 05/22/22 11:53 BP 112/88 05/22/22 00:00 Pulse Ox 95 05/22/22 00:00 O2 Del Method 05/22/22 00:00 O2 Flow Rate 2.0 05/20/22 19:01 BMI result Body Mass Index 23.1 General: alert, comfortable, uttering a few words Resp:? CTA bilateral CVS: S1,S2,RRR GI: +BS, NT, no distention Skin: No rash Neuro:? motor grossly intact Psych: appropriate affect Objective Data Active Medications Morphine Sulfate (Morphine Sulfate/Ns) 100 mg in 100 mls @ 0 mls/hr IVCONT .Q0M [facility]; Protocol Last Titration: 05/22/22 11:53 Dose: 0 mg/hr, 0 mls/hr Documented By: DARYL Midazolam HCl (Midazolam Hcl/Pf 2 Mg/2 Ml Vial) 4 mg IM Q4H PRN PRN Reason: Restlessness Last Admin: 05/22/22 11:41 Dose: 4 mg Documented By: TYLER Sodium Chloride (0.9 % Sodium Chloride Flush 3 Ml Syringe) 3 ml IVFLUSH QSHIFT [facility] Last Admin: 05/22/22 08:32 Dose: Not Given Documented By: DARYL Non-Admin Reason: IV Running Assessment and Plan (1) 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 ERCP was done to facilitate a biliary stent; CBD brushings demonstrated a dental carcinoma. He was transfer back to [facility] but remained a full code. On the morning of admission he became hypotensive and unresponsive and was transferred to [facility]. Given the poor prognosis of his diagnosis and overall status in [facility] the discussion was had with Dr. Faustino CROSS MD. We (Mandy and Faustino) both agreed that treatment would be futile and not affect the outcome. 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 Dr. Oviedo (GI) was contacted; he supported are decision. Continue comfort measures; will pursue DNR DNI at [facility]- anticipated discharge after guardianship meeting 05/26. Quality Stroke Does the patient have a stroke diagnosis?: No VTE Prior VTE?: No VTE Risk Level:: Medical - moderate - high VTE Device Contraindication: Treatment Not Indicated VTE Drug Contraindication: Treatment Not Indicated
--- NOTE | 2022-05-22 19:19 | PC.NURSE ---
The patient had morphine sulfate medication discontinued after the patient pulled out his IV, and in anticipation that he was getting discharged today. The patient did not leave as anticipated, and I had a new IV put in as per the PA orders and informed the PA of the new IV. The patient still doesn't have any pain medications ordered.
[2022-05-22] MEDS: Morphine Sulfate 4 MG/ML CARTRIDGE IVPUSH (19:57)
[2022-05-22] MEDS: 0.9 % Sodium Chloride Flush 3 ML SYRINGE IVFLUSH (20:02)
[2022-05-23 08:00] VITALS: BP 128/68; PULSE 65; RESP 17; TEMP 36.6; O2SAT 91
--- NOTE | 2022-05-23 09:17 | P.DS_ITS ---
DS: Providers Provider Date of Service: 05/23/22 Date of admission: 05/19/22 12:03 Date of discharge: 05/23/22 Primary care physician: Yair Galvan DO Admitting clinician: Yair Galvan Attending physician on admission: Yair Galvan Attending physician on discharge: Yair Galvan Discharging clinician: Valentina Becker DS: Transfer Hospital Acceptance Reason for Transfer: Resident at [facility]. Return to facility for THERAPEUTIC RADIOLOGIST Name of Facility: [facility] Accepting Provider: Dr. 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 Palliative stent placed by GI.? Patient return to [facility]; this a.m. became less responsive and hypotensive.? Given he has a guardian of state and is a full code he was transferred to [facility].? Upon arrival he was found to be extremely hypotensive with a respiratory rate of 33 Hospital course: Pt placed on THERAPEUTIC RADIOLOGIST on admission due to terminal illness r/t adenocarcinoma bile duct. Discussion between Dr. Galvan and Dr. Harmon had that any intervention/treatment would be futile and not affect outcome. Therefore patient made THERAPEUTIC RADIOLOGIST and kept comfortable with IV morphine and benzos and one dose haldol. Hospital stay uneventful. Hospital discharge discussed with Dr. Galvan who will assume his care at [facility]. Patient is under guardianship as well. Time Spent with Patient Time attestation: Total time spent providing and/or coordinating discharge services: Discharge coordination time: Greater than 30 minutes Quality: Safe Use of Opioids Does Pt have an Active Cancer Diagnosis on the Problem List?: No Quality: Stroke Does the patient have a stroke diagnosis?: No Physical Exam Vital Signs: Vital Signs: Last Vital Signs Temp 97.8 F 05/23/22 08:00 Pulse 65 05/23/22 08:00 Resp 17 05/23/22 08:00 BP 128/68 05/23/22 08:00 Pulse Ox 91 L 05/23/22 08:00 O2 Del Method 05/23/22 08:00 O2 Flow Rate 2.0 05/20/22 19:01 BMI result Body Mass Index 23.1 Constitutional - Awake and Alert, No apparent distress. Limited speech, asks for water Eyes - PERRLA, EOMI Mouth: Dry lips/tongue Cardiovascular - S1S2, RRR, No edema Respiratory - Normal lung expansion, Normal respiratory effort, No respiratory distress, CTA bilaterally Gastrointestinal - TTP RUQ. ND; +BS; No rebound or guarding Extremities - no calf tenderness bilaterally, no swelling Skin - Warm/Dry Neurological - Alert & unable to assess orientation Psychological - Appropriate affect DS: Data Data Completed and Pending Completed studies during hospitalization [Text1]: Procedures Dilation of Common Hepatic Duct with Intraluminal Device, Via Natural or Artificial Opening Endoscopic (04/30/22) Extirpation of Matter from Common Hepatic Duct, Via Natural or Artificial Opening Endoscopic (04/30/22) Extraction of Common Bile Duct, Via Natural or Artificial Opening Endoscopic, Diagnostic (04/30/22) Insertion of Infusion Device into Superior Vena Cava, Percutaneous Approach (06/03/20) Ultrasonography of Superior Vena Cava, Guidance (06/03/20) Discharge Plan Discharge Anticipated Discharge Date/Time: 05/22/22 12:11 Patient Disposition: Xfer LTC Discharge Diagnosis: adenocarcinoma bile duct Referrals: [facility] [Outside] - 1 Week Yair Galvan DO [Primary Care Provider] - 1 Week Discharge Medications: Discontinued multivitamin Tablet 1 tab PO DAILY polyethylene glycol 3350 [Miralax] 17 gram Powder In Packet 17 g PO DAILY simvastatin 10 mg Tablet 10 mg PO QPM omeprazole 40 mg Capsule,Delayed Release(Dr/Ec) 40 mg PO BID risperidone 2 mg Tablet 2 mg PO BID fentanyl 100 mcg/hr Patch 72 Hour 1 patch TRANSDERMAL Q72H oxycodone-acetaminophen 10-325 mg Tablet 1 tab PO TID ferrous sulfate 325 mg (65 mg iron) Tablet 325 mg PO BID docusate sodium 100 mg Capsule 100 mg PO DAILY levetiracetam 750 mg Tablet 750 mg PO QNOON levetiracetam 750 mg Tablet 1,500 mg PO BEDTIME furosemide 20 mg Tablet 20 mg PO Q OTHER DAY lactulose 10 gram/15 mL Solution 60 ml PO DAILY levetiracetam 1,000 mg Tablet 1,000 mg PO QAM levothyroxine 175 mcg tablet 1 tab PO DAILY sennosides [senna] 8.6 mg Tablet 8.6 mg PO DAILY PRN (Reason: Constipation) tolnaftate 1 % Cream 1 appl TOPICAL BID clotrimazole 1 % Cream 1 appl TOPICAL BID bisacodyl 5 mg Tablet 5 mg PO BEDTIME lorazepam 2 mg/mL Solution 1 mg IM DAILY PRN (Reason: Seizure Activity) tamsulosin 0.4 mg capsule 0.4 mg PO DAILY 90 Days Qty: 90 3RF diazepam 2 mg tablet 2 mg PO BID risperidone 0.5 mg tablet 0.5 mg PO BID finasteride 5 mg tablet 5 mg PO DAILY 90 Days Qty: 90 3RF Discharge Orders: Discharge Order (Routine); Ordered 05/23/22 Ordered By: Valentina Becker Diet: THERAPEUTIC RADIOLOGIST Activity on Discharge: As tolerated Stand Alone Forms: Patient Portal Discharge page Care Plan Goals: Comfort measures only for management of newly diagnosed adenocarcinoma bile duct Health Concerns: Adenocarcinoma bile duct Plan of Treatment: Comfort measures only Assessment: On first admission presented with biliary stricture and choledocolithiasis with initial ERCP with dilitation and brushings taking with pathology report showing adenocarcinoma of bile duct. Pt was unresponsive and hypotensive on admission and returned back to the hospital. given poor pronosis and overall status at [facility], discussion was had with Dr. Galvan and Dr. Harmon that treatment would be futile and not affect outcome. As a result, pt was made THERAPEUTIC RADIOLOGIST with morphine drip and benzos. GI in support of decision. He will remain THERAPEUTIC RADIOLOGIST and be transferred back to [facility] on sublingual ativan and morphine. Discussed with Dr. Galvan.
--- NOTE | 2022-05-23 09:50 | MHC.CM.PN ---
IMM 05/23/22 Patient is discharged today. Spoke with [employer] Sales[employer]. Patient will transport to [facility] via ambulance this afternoon. Transport is booked with [facility] 1pm. DC Summary and Packet have been sent to the facility. The nurse 2 nurse report will be provided from Jyothi RN to [facility] GAYLE. Contact info provided to Jyothi. A covid test has been ordered and sent to lab. The result is pending.
[2022-05-23] MEDS: Morphine Sulfate 4 MG/ML CARTRIDGE IVPUSH (10:02)
[2022-05-23] MEDS: 0.9 % Sodium Chloride Flush 3 ML SYRINGE IVFLUSH (10:03)
[2022-05-23 12:06] LABS: COVID-19 Test Invalid (Negative); IDNOW Serial# 16C4AD1C
[2022-05-23 12:25] LABS: COVID-19 Test Negative (Negative); IDNOW Serial# 16C4AD1C
== END 2022-05-23 15:30 | DRG 437 ==
LOC: HO.ED 12:02 → HO.EDOVER 12:12 → HO.S3 19:57
PROVIDERS: Admitting Provider Hospitalist; Emergency Provider Emergency Medicine; PCP Hospitalist; Visit Provider Physician Assistant
DX: C24.0 Malignant neoplasm of extrahepatic bile duct (principal); Z51.5 Encounter for palliative care; K21.9 Gastro-esophageal reflux disease without esophagitis; E78.5 Hyperlipidemia, unspecified; E03.9 Hypothyroidism, unspecified; Z20.822 Contact with and (suspected) exposure to COVID-19
CPT/HCPCS: 87635; 99284; 99285; J2250; J2270